=== PATIENT | female | born 1975 | race Caucasian/White ===

== ENCOUNTER 2023-07-25 13:24 | Emergency (ER) | payer OTHER, SELFPAY ==
[2023-07-25 13:29] VITALS: BP 141/94; PULSE 78; RESP 18; TEMP 36.4; O2SAT 100; BMI 33.5
[2023-07-25] MEDS: DIPHENHYDRAMINE HCL 50 MG/ML (1ML) VIAL IV (14:32)
[2023-07-25] MEDS: PROCHLORPERAZINE 10 MG/2 ML VIAL IV (14:32)
[2023-07-25] MEDS: 0.9 % SODIUM CHLORIDE 1,000 ML 999 ML IV (14:32)
[2023-07-25] MEDS: KETOROLAC TROMETHAMINE 30 MG/ML VIAL 15 MG IVP (14:32)
--- NOTE | 2023-07-25 15:23 | ED_ITS ---
HPI - General Adult General Chief complaint: Headache Stated complaint: MIGRAINE Time Seen by Provider: 07/25/23 14:03 Source: patient Mode of arrival: walk-in History of Present Illness HPI narrative: 48-year-old female presents to the emergency department with complaint of headache. Onset around noon. States history of chronic migraines. Describes pain as though her head Q weren't of ice. Took her headache medicines at home, but headache worsened and she came in for further evaluation. Patient states symptoms are the same as prior migraine headaches. Having associated light and Quality:? Severity:? Timing:? Context: Normal setting and activity? Modifying factors:? Associated symptoms: Related Data Allergies Allergy/AdvReac Type Severity Reaction Status Date / Time acetaminophen [From Vicodin] Allergy Severe Verified 07/25/23 13:34 ciprofloxacin [From Cipro] Allergy Severe Verified 07/25/23 13:34 gabapentin Allergy Severe Verified 07/25/23 13:34 hydrocodone [From Vicodin] Allergy Severe Verified 07/25/23 13:34 meloxicam [From Mobic] Allergy Severe Verified 07/25/23 13:34 phenazopyridine Allergy Severe Verified 07/25/23 13:34 [From Pyridium] Review of Systems ROS Narrative CONST: Denies fever, chills HENT: Denies congestion, sore throat EYES: + photophobia, otophobia. Denies eye redness, visual disturbance GI: + nausea. Denies abd pain, vomiting MS: Denies back pain, myalgias NEURO: + headache. Denies dizziness, facial asymmetry, light-headedness, numbness, seizures, syncope, tremors, weakness PSYCHIATRIC: Denies confusion, agitation Exam Narrative Exam Narrative: Vital signs reviewed Nurses notes noted CONST: Nontoxic, well appearing, well nourished, in no distress.? No diaphoresis.?? HENT: normocephalic, atraumatic, moist mucous membrane, no abnormalities of the nose noted, hearing normal, no facial droop. Ears clear EYES: + photophobic. PERRL, EOMI.? normal appearing conjunctiva, no apparent discharge bilat NECK: normal appearance CV: normal rate, regular rhythm, no murmur RESP: normal effort, speaking in complete sentences. Lung sounds clear and equal bilat.? No wheezes, rales, rhonchi NEURO: A&Ox 3, GCS = 15, no sensory, motor deficits.? CN normal as tested. 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 Gait intact. PSYCH: normal mood, affect.? Normal speech.? Memory intact Constitutional Vital Signs, click to edit/add: Last Vital Signs Temp 97.5 F L 07/25/23 13:29 Pulse 85 07/25/23 15:39 Resp 16 07/25/23 15:39 BP 136/85 07/25/23 15:39 Pulse Ox 98 07/25/23 15:39 O2 Del Method Room Air 07/25/23 15:39 Course Reevaluation(s) Reevaluation #1: Patient notes overall improvement of her symptoms, feeling well enough to go home. Time: 15:25 Vital Signs Vital signs: Vital Signs Temperature 97.5 F L 07/25/23 13:29 Pulse Rate 78 07/25/23 13:29 Respiratory Rate 18 07/25/23 13:29 Blood Pressure 141/94 H 07/25/23 13:29 Pulse Oximetry 100 07/25/23 13:29 Oxygen Delivery Method Room Air 07/25/23 13:29 Temperature 97.5 F L 07/25/23 13:29 Pulse Rate 85 07/25/23 15:39 Respiratory Rate 16 07/25/23 15:39 Blood Pressure 136/85 07/25/23 15:39 Pulse Oximetry 98 07/25/23 15:39 Oxygen Delivery Method Room Air 07/25/23 15:39 Medical Decision Making MDM Narrative Medical decision making narrative: This is a pleasant 48-year-old female who presents to the emergency department with complaint of headache. States history of migraine headaches and that these are the same symptoms that she has had in the past. Patient having associated photophobia, photophobia, nausea. Denies any focal weakness or any other new or otherwise concerning signs or symptoms. On arrival, afebrile, vital signs are stable. On exam, nontoxic, somewhat uncomfortable appearing patient in no apparent distress. She is wearing sunglasses. Patient does display photophobia. No focal deficits. No cranial nerve deficits. Patient is ambulatory. Steady gait, normal station. HEENT unremarkable. Patient was treated with IV Compazine, Benadryl, and Toradol with overall improvement of her symptoms to where she felt well enough to go home as noted in course above. Likely nonspecific headache, history of migraine headaches based on history and physical exam and response to treatment. Less likely ICH based on history and physical exam Less likely CVA based on history and physical exam. Disposition ? The patient was discharged. Plan: Patient will be discharged to home. Condition at time of disposition: stable & improved ? Advised to follow up with referral provider, phone number to call for appointment placed on discharge instructions. Advised to return for any worsening and/or development of new, concerning signs or symptoms Discharge Plan Discharge Chief Complaint: Headache Clinical Impression: Photophobia, Cephalgia Patient Disposition: Home, Self-Care Time of Disposition Decision: 15:28 Condition: Good Instructions: Acute Headache (ED) Stand Alone Forms: Portal Instructions Referrals: Ellen Dodson NP [Primary Care Provider] - 1 week Discharge Date/Time: 07/25/23 15:39
[2023-07-25 15:39] VITALS: BP 136/85; PULSE 85; RESP 16; O2SAT 98
== END 2023-07-25 15:39 | disposition home or self-care (01) ==
PROVIDERS: Emergency Provider Emergency Medicine; PCP Nurse Practitioner
DX: R51.9 Headache, unspecified (principal); H53.149 Visual discomfort, unspecified
CPT/HCPCS: 96374; 96375; 99284; J0780; J1200; J1885

== ENCOUNTER 2023-08-15 14:44 | Outpatient (OUT) | payer OTHER, SELFPAY | END 2023-08-15 14:45 | disposition home or self-care (01) | LOC: PST 14:44 | PROVIDERS: PCP Nurse Practitioner; Visit Provider Surgery | DX: Z12.11 Encounter for screening for malignant neoplasm of colon (principal) ==

== ENCOUNTER 2023-08-21 06:43 | Day surgery (SDC) | payer OTHER, SELFPAY ==
--- NOTE | 2023-08-21 | OP_ITS ---
OPERATION DATE: 08/21/2023 PREOPERATIVE DIAGNOSIS: Colorectal screening. POSTOPERATIVE DIAGNOSIS: Normal colonoscopy to cecum. PROCEDURE: Colonoscopy to cecum. SURGEON: Dinesh Camp M.D. ANESTHESIA: Monitored anesthesia care. ESTIMATED BLOOD LOSS: Zero. INDICATIONS AND CONSENT: Patient is a 48-year-old female presents for colorectal screening. Indications, risks, benefits, alternatives of proceeding with colonoscopy were explained extensively to the patient, including the risks of bleeding, colon perforation or anesthetic complications. All of her questions were answered. Informed consent was obtained. PROCEDURE: Patient brought to the operating room, placed in the left lateral decubitus position. Monitored anesthesia care was provided. Rectal exam was performed which showed no masses or blood. The scope was inserted into the anal canal. Under direct visualization was advanced. It was advanced to the cecum where cecal markings were clearly identified. Upon withdrawal of the scope, mucosal surfaces were carefully examined. There were no mass lesions or polyps. No inflammatory changes or ulcerations. No significant diverticulosis. The scope was retroflexed in the anal canal. There was no significant hemorrhoidal disease. Scope was then withdrawn. Patient tolerated procedure well, was sent to recovery room in good condition. Follow up colonoscopy should be in 10 years for screening. CC: Ellen Dodson, JOSE SHAH
--- OUTSIDE RECORDS SUMMARY | 2023-08-21 06:46 | XMS_ITS | CCD ---
Author Name Unknown Address [address] [place] [address] Organization [facility] Care Team Providers Care Practice Architect Name Role Phone PHYSICIAN, DEFAULT Unavailable Unavailable PHYSICIAN, DEFAULT Unavailable Unavailable Myles Ramirez Unavailable Ellen Dodson Primary Care Provider MD Myles Ramirez Attending Provider AICHHOLZ, BOOT LINER MAKER ELLEN Consulting Unavailable AICHHOLZ, BOOT LINER MAKER ELLEN Primary Care Unavailable AICHHOLZ, BOOT LINER MAKER ELLEN Admitting Unavailable AICHHOLZ, BOOT LINER MAKER ELLEN Attending Unavailable MOISES, DR JESUS Booker Consulting Unavailable AICHHOLZ, BOOT LINER MAKER ELLEN Primary Care Unavailable AICHHOLZ, BOOT LINER MAKER ELLEN Admitting Unavailable AICHHOLZ, BOOT LINER MAKER ELLEN Attending Unavailable AICHHOLZ, BOOT LINER MAKER ELLEN Consulting Unavailable AICHHOLZ, BOOT LINER MAKER ELLEN Consulting Unavailable AICHHOLZ, BOOT LINER MAKER ELLEN Primary Care Unavailable AICHHOLZ, BOOT LINER MAKER ELLEN Admitting Unavailable AICHHOLZ, BOOT LINER MAKER ELLEN Attending Unavailable AICHHOLZ, BOOT LINER MAKER ELLEN Consulting Unavailable AICHHOLZ, BOOT LINER MAKER ELLEN Primary Care Unavailable AICHHOLZ, BOOT LINER MAKER ELLEN Admitting Unavailable AICHHOLZ, BOOT LINER MAKER ELLEN Attending Unavailable AICHHOLZ, BOOT LINER MAKER ELLEN Primary Care Unavailable AICHHOLZ, BOOT LINER MAKER ELLEN Admitting Unavailable AICHHOLZ, BOOT LINER MAKER ELLEN Attending Unavailable PAY ., DR US Admitting Unavailable PAY ., DR US Attending Unavailable PAY ., DR US Consulting Unavailable AICHHOLZ, BOOT LINER MAKER ELLEN Primary Care Unavailable PHUC, HILLARY Admitting Unavailable PHUC, HILLARY Attending Unavailable PHUC, HILLARY Consulting Unavailable AICHHOLZ, BOOT LINER MAKER ELLEN Primary Care Unavailable LALO BARRETT Consulting Unavailable MORALES ., DR HUGHES Admitting Unavailabl e KARODELL ., DR HUGHES Attending Unavailabl marilin NIELSEN ., DR HUGHES Consulting Unavailabl e AICHHOLZ, BOOT LINER MAKER ELLEN Primary Care Unavailable MICHELLE ., DR KOWALSKI Consulting Unavailable FARAZ, DEIDRE Consulting Unavailable SHELLEY ., IVIS Consulting Unavailable DESTINEE HAIR Consulting Unavailable TRE, LINDSEY Consulting Unavailable MYLES APODACA Consulting Unavailable REYNALDO CASTILLO Consulting Unavailable KEYUR MCCAULEY P Referring Unavailable [facility], TY MUIR Primary Care Unavailable GARRICKKEYUR P Referring Unavailable PAVLOCK, HEYWORTH ISADORA Primary Care Unavailable GARRICKKEYUR BARNETT Attending Unavailable ELLEN DODSON Referring Unavailable PAVLOCK, HEYWORTH ISADORA Primary Care Unavailable ELLEN DODSON Attending Unavailable ELLEN DODSON Primary Care Physician [phone] HUNG DELACRUZ Attending Unavailable Meño ALONZO Referring Unavailable AICHHOLAlycia, ELLEN J Referring Unavailable NILDinesh Zuniga Attending Unavailable NILDinesh Zuniga Attending Unavailable BRISEIDAHELLEN WEATHERS Referring Unavailable Parth Galvez MD Primary Care Provider Allergies Allergy Classification Reported Allergen(s) Allergy Type Date of Onset Reaction(s) Facility (7 sources) Acetaminophen / HYDROcodone; Translations: [Vicodin] Drug Allergy 2012 Gastrointestinal irritation (disorder) [facility] Repository (6 sources) Lisinopril; Translations: [lisinopril] Drug Allergy 2020 Chest pain (finding) [facility] (6 sources) meloxicam; Translations: [meloxicam] Drug Allergy 2020 Fatigue (finding) [facility] (4 sources) Phenazopyridine Drug Allergy 2016 GI intolerance [facility] (2 sources) Steriods Propensity to adverse reactions elevated BP Seeqpod Other (1 source) Acetaminophen Drug Allergy 2020 Vomiting [facility] (1 source) hydroCHLOROthiazide Drug Allergy 2020 shortness of breath [facility] (1 source) HYDROcodone Drug Allergy 2020 Vomiting [facility] (1 source) Amino Acids Drug Allergy [facility] Repository (3 sources) Ciprofloxacin; Translations: [Cipro] Drug Allergy [facility] Repository (1 source) meloxicam Drug Allergy [facility] Repository (2 sources) Phenazopyridine Drug Allergy 2012 [facility] Repository (3 sources) Ciprofloxacin; Translations: [ciprofloxacin] Drug Allergy 2016 Weal (disorder), Hives, GI intolerance [facility] (4 sources) gabapentin; Translations: [gabapentin] Drug Allergy 2022 Fatigue (finding), Shortness of breath, Other [facility] [place] (3 sources) predniSONE; Translations: [prednisone] Drug Allergy Hypertensive disorder, systemic arterial (disorder) [facility] [place] (1 source) Acetaminophen / HYDROcodone Drug Allergy 2016 Unknown, GI intolerance [facility] (1 source) Lisinopril Allergy to substance 2020 Unknown [facility] (1 source) meloxicam Drug Allergy 2016 Unknown [facility] (1 source) Prednisone Propensity to adverse reactions 2022 Other [facility] Medications Current Medications Medication Drug Class(es) Dates Sig (Normalized) Sig (Original) [id number] 200 actuat albuterol 0.09 mg/actuat metered dose inhaler (4 sources) beta2-Adrenergic Agonist Start: 04-17-2023 take 2 puff(s) by inhalation every six hours Ventolin HFA 108 (90 Base) MCG/ACT inhaler Inhale 2 puffs every 6 (six) hours if needed for shortness of breath 0 04/17/2023 Active Start: 05-07-2019 take 1 puff(s) by in halation every six hours Albuterol Sulfate Active 2 PUFF INHALATION Q6H May 07, 2019 1:00am take 2 puff(s) by mo uth every six hours as needed Albuterol Sulfate HFA 108 (90 Base) MCG/ACT INHALE 2 PUFFS BY MOUTH EVERY 6 HOURS NEEDED Inhalation for 25 Active ascorbic acid 500 mg chewable tablet (2 sources) Vitamin C Start: 05-07-2019 take 1 tablet by mouth once daily Ascorbic Acid (Vitamin C) (Vitamin C) 500 mg Tablet,Chewable Active 500 MG PO Daily May 07, 2019 1:00am baclofen 20 mg oral tablet (4 sources) gamma-Aminobuty pamela Acid-ergic Agonist Start: 06-21-2023 take 1 tablet by mouth once daily as needed for muscle spasms baclofen 20 mg Tab 20 mg = 1 tab(s), Oral, Daily, PRN Spasm, Refills(s) 0 Start Date: 06/21/23 Status: Ordered Start: 01-17-2018 End: 05-20-2019 take 20 mg by mouth three times daily Baclofen Discontinued 20 MG PO Three times daily January 17, 2018 12:00am May 20, 2019 9:50am carvedilol 6.25 mg oral tablet (6 sources) alpha-Adrenergic Isabell, beta-Adrenergic Isabell Start: 06-21-2023 take 1 tablet by mouth twice daily Coreg 6.25 mg Tab 6.25 mg = 1 tab(s), Oral, BID, Refills(s) 0 Start Date: 06/21/23 Status: Ordered Start: 05-07-2019 take 6.25 mg by mout h twice daily Carvedilol Active 6.25 MG PO Twice daily May 07, 2019 1:00am carvedilol (Core g) 6.25 MG tablet every 12 (twelve) hours. 0 Active cetirizine hydrochloride 10 mg oral tablet (3 sources) Histamine-1 Receptor Antagonist Start: 09-14-2020 take 10 mg by mouth once daily Cetirizine Active 10 MG PO Daily September 14, 2020 12:00am Deep Sleep Vitamin (1 source) Start: 09-14-2020 take 1 capsule by mouth once daily at bedtime Deep Sleep Vitamin Active 1 CAP PO Daily at bedtime September 14, 2020 12:00am diazePAM 5 mg oral tablet (1 source) Benzodiazepine Start: 05-20-2019 take 5 mg by mouth four times daily Diazepam Active 5 MG PO Four times daily 40 10 May 20, 2019 1:00am 1 ml erenumab-aooe 70 mg/ml auto-injector (2 sources) Start: 06-21-2023 inject 70 mg by subcutaneous injection every month Aimovig SureClick 70 mg/mL subcutaneous solution 70 mg, SubCutaneous, qMonth, Refills(s) 0 Start Date: 06/21/23 Status: Ordered hydroCHLOROthiazide 12.5 mg oral tablet (6 sources) Thiazide Diuretic Start: 06-21-2023 take 1 tablet by mouth once daily hydrochlorothiazide 12.5 mg Tab 12.5 mg = 1 tab(s), Oral, Daily, Refills(s) 0 Start Date: 06/21/23 Status: Ordered Start: 05-07-2019 take 12.5 mg by mout h once daily Hydrochlorothiazide Active 12.5 MG PO Daily May 07, 2019 1:00am take 1 tablet by aidan th in the morning hydroCHLOROthiazide (HYDRODiuril) 25 MG tablet Indications: Edema , Hypertension Take 25 mg by mouth in the morning. 0 Active Multi Vitamins oral tablet (2 sources) Start: 06-21-2023 take 1 tablet by mouth once daily Multi Vitamins oral tablet 1 tab(s), Oral, Daily, Refill(s) 0 Start Date: 06/21/23 Status: Ordered Multiple Vitamin (Multi-Vitamin) tablet (1 source) Multiple Vitamin (Multi-Vitamin) tablet 1 (one) time each day at the same time. 0 Active Multivitamin preparation (1 source) Start: 05-07-2019 take 2 tablets by mouth once daily at bedtime Multivitamin Active 2 TAB PO Daily at bedtime May 07, 2019 1:00am 24 hr oxybutynin chloride 5 mg extended release oral tablet (3 sources) Cholinergic Muscarinic Antagonist Start: 06-21-2023 take 1 tablet by mouth once daily oxybutynin 5 mg ER Tab 5 mg = 1 tab(s), Oral, Daily, Refills(s) 0 Start Date: 06/21/23 Status: Ordered Start: 03-28-2023 take 1 tablet by aidan th every twenty-four hours in the morning oxybutynin XL (Ditropan-XL) 5 MG 24 hr tablet Take 5 mg by mouth in the morning. 0 03/28/2023 Active phentermine hydrochloride 37.5 mg oral tablet (3 sources) Sympathomimetic Amine Anorectic Start: 09-14-2020 take 37.5 mg by mouth once daily Phentermine Active 37.5 MG PO Daily September 14, 2020 12:00am take 1 capsule by mo uth every twenty-four hours Adipex-P 37.5 MG 1 capsule Orally Once a day Active rizatriptan 10 mg oral tablet (1 source) Serotonin-1b and Serotonin-1d Receptor Agonist Start: 07-11-2023 rizatriptan (Maxalt) 10 MG tablet Indications: Migraine without aura and without status migrainosus, not intractable (CMS/HCC) 1 tablet at the onset of migraine headache, may repeat again in 2 hours. No more than 2 pills in 24 hours, no more than twice a week. 9 tablet 0 07/11/2023 Active simvastatin 20 mg oral tablet (3 sources) HMG-CoA Reductase Inhibitor Start: 05-23-2023 take 1 tablet by mouth once daily in the evening simvastatin 20 mg Tab 20 mg = 1 tab(s), Oral, qPM, Refills(s) 0 Start Date: 06/21/23 Status: Ordered traZODone hydrochloride 50 mg oral tablet (1 source) Serotonin Reuptake Inhibitor Start: 06-21-2023 take 1 tablet by mouth once daily at bedtime traZODONE 50 mg Tab 50 mg = 1 tab(s), Oral, Once a day (at bedtime), Refills(s) 0 Start Date: 06/21/23 Status: Ordered 24 hr venlafaxine 150 mg extended release oral capsule (5 sources) Serotonin and Norepinephrine Reuptake Inhibitor Start: 06-21-2023 take 1 capsule by mouth once daily venlafaxine 150 mg Cap-ER 150 mg = 1 cap(s), Oral, Daily, Refills(s) 0 Start Date: 06/21/23 Status: Ordered Start: 09-14-2020 take 75 mg by mouth once daily Venlafaxine Active 75 MG PO Daily September 14, 2020 12:00am Start: 05-07-2019 take 150 mg by mouth once daily in the morning Venlafaxine Active 150 MG PO Every morning May 07, 2019 1:00am take [address] [facility] once daily Venlafaxine HCl ER 225 MG TAKE 1 CAPSULE BY MOUTH ONCE DAILY FOR A TOTAL DAILY DOSE OF 225MG Oral for 30 Active Ventolin HFA 90 mcg/inh Aerosol-Adpt (2 sources) Start: 06-21-2023 take 2 puff(s) by inhalation every six hours Ventolin HFA 90 mcg/inh Aerosol-Adpt 2 puff(s), Inhalation, q6hr Shortness of breath or wheezing, Refill(s) 0 Start Date: 06/21/23 Status: Ordered zolpidem tartrate 10 mg oral tablet (5 sources) gamma-Aminobut yric Acid-ergic Agonist Start: 08-05-2023 End: 09-04-2023 take 1 tablet by mouth at bedtime zolpidem (Ambien) 10 MG tablet Indications: Primary insomnia Take 1 tablet (10 mg) by mouth at bedtime 30 tablet 1 08/05/2023 09/04/2023 Active Start: 07-31-2023 take 1 tablet by aidan th once daily at bedtime as needed for sleep Ambien 10 mg Tab 10 mg = 1 tab(s), Oral, Once a day (at bedtime), PRN for sleep, Refills(s) 0 Start Date: 07/31/23 Status: Ordered Start: 09-14-2020 take 1 tablet by aidan th once daily at bedtime Zolpidem (Ambien) 5 mg Tablet Active 5 MG PO Daily at bedtime September 14, 2020 12:00am Completed/Discontinued Medications Medication Drug Class(es) Dates Sig (Normalized) Sig (Original) amitriptyline hydrochloride 75 mg oral tablet (1 source) Tricyclic Antidepressant Start: 01-17-2018 End: 05-07-2019 take 1 tablet by mouth once daily at bedtime Amitriptyline Discontinued 1 TAB PO Daily at bedtime January 17, 2018 12:00am May 07, 2019 2:28pm DULoxetine 20 mg delayed release oral capsule (2 sources) Serotonin and Norepinephrine Reuptake Inhibitor Start: 02-25-2018 End: 05-07-2019 take 1 capsule by mouth twice daily Duloxetine (Cymbalta) 20 mg Capsule,Delayed Release(Dr/Ec) Discontinued 20 MG PO Twice daily February 25, 2018 12:00am May 07, 2019 2:29pm Start: 01-17-2018 End: 05-07-2019 take 1 tablet by mouth once daily at bedtime Duloxetine Discontinued 1 TAB PO Daily at bedtime January 17, 2018 12:00am May 07, 2019 2:29pm oxyCODONE hydrochloride 5 mg oral tablet (1 source) Opioid Agonist Start: 05-20-2019 End: 09-14-2020 take 5 mg by mouth every four to six hours Oxycodone Discontinued 5 MG PO EVERY 4-6 HOURS 70 May 20, 2019 September 14, 2020 2:20pm QUEtiapine 50 mg oral tablet (1 source) Atypical Antipsychotic Start: 05-07-2019 End: 09-14-2020 take 50 mg by mouth once daily at bedtime Quetiapine Discontinued 50 MG PO Daily at bedtime May 07, 2019 1:00am September 14, 2020 2:20pm Triamcinolone (4 sources) Corticosteroid Start: 01-07-2020 Kenalog -40 mg Dec, 40 mg Start: 10-22-2017 Kenalog -40 mg October, 10 mg Triamcinolone Ac etonide 0.1 % APPLY CREAM EXTERNALLY TO AFFECTED AREA TWICE DAILY FOR 14 DAYS External for 14 Active Problems Active Problems Problem Classification Problem Date Documented Da te Episodic/Chronic Abdominal pain (8 sources) Pelvic and perineal pain; Translations: [Unspecified abdominal pain] Onset: 10-15-2022 Episodic Anxiety disorders (5 sources) Generalized anxiety disorder; Translations: [Anxiety disorder, unspecified] Onset: 12-08-2021 06-21-2023 Chronic Calculus of urinary tract (1 source) Personal history of urinary calculi; Translations: [PERSONAL HISTORY OF URINARY CALCULI] Onset: 10-17-2022 Episodic Disorders of lipid metabolism (5 sources) Hyperlipidemia, unspecified; Translations: [Dyslipidemia] Onset: 08-30-2022 Chronic Essential hypertension (4 sources) Essential (primary) hypertension; Translations: [Hypertensive disorder] Onset: 11-21-2022 06-21-2023 Chronic Genitourinary symptoms and ill-defined conditions (4 sources) Unspecified urinary incontinence; Translations: [Incontinence] Onset: 03-12-2023 Chronic Headache; including migraine (3 sources) Migraine; Translations: [Migraine without aura, not refractory ] Onset: 06-04-2023 06-21-2023 Chronic Headache; including migraine (4 sources) Headache; including migraine; Translations: [HEADACHE UNSPECIFIED] Onset: 08-17-2022 Miscellaneous mental health disorders (1 source) Primary insomnia; Translations: [Primary insomnia] 08-05-2023 Chronic Mood disorders (3 sources) Depressive disorder; Translations: [Depression] Onset: 08-05-2023 06-21-2023 Chronic Other aftercare (1 source) 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; Translations: [OTH MASTER PLANNER CURRENT DRUG THERAPY] Onset: 10-17-2022 Episodic Other connective tissue disease (1 source) Myalgia, unspecified site; Translations: [Myalgia] Onset: 03-20-2023 Episodic Other connective tissue disease (1 source) Fibromyalgia; Translations: [Fibromyalgia] Onset: 08-05-2023 08-05-2023 Episodic Other gastrointestinal disorders (1 source) Peritoneal adhesions (postprocedural) (postinfection); Translations: [PERITONEAL ADHES POSTPROC POSTINF] Onset: 11-21-2022 Episodic Other hematologic conditions (1 source) ESR raised; Translations: [Elevated erythrocyte sedimentation rate] Onset: 08-05-2023 08-05-2023 Episodic Other hematologic conditions (1 source) Increased serum protein level; Translations: [Abnormality of plasma protein, unspecified] Onset: 08-05-2023 08-05-2023 Episodic Other nervous system disorders (1 source) Other chronic pain; Translations: [OTHER CHRONIC PAIN] Onset: 08-21-2022 Chronic Other nutritional; endocrine; and metabolic disorders (1 source) Obesity, unspecified; Translations: [OBESITY UNSPECIFIED] Onset: 09-04-2022 Chronic Other nutritional; endocrine; and metabolic disorders (2 sources) Obesity 06-21-2023 Chronic Other nutritional; endocrine; and metabolic disorders (2 sources) Body mass index 30+ - obesity; Translations: [Obesity, unspecified] Onset: 06-04-2023 07-31-2023 Chronic Other screening for suspected conditions (not mental disorders or infectious disease) (5 sources) Encounter for screening mammogram for malignant neoplasm of breast; Translations: [Screening for malignant neoplasm of colon done] Onset: 09-04-2022 Episodic Other upper respiratory disease (1 source) Allergic rhinitis; Translations: [Allergic rhinitis, unspecified] Onset: 08-05-2023 08-05-2023 Chronic Ovarian cyst (1 source) Unspecified ovarian cyst, right side; Translations: [UNSPECIFIED OVARIAN CYST RIGHT SIDE] Onset: 11-21-2022 Episodic Residual codes; unclassified (1 source) Obstructive sleep apnea syndrome; Translations: [Obstructive sleep apnea (adult) (pediatric)] Onset: 08-05-2023 08-05-2023 Chronic Residual codes; unclassified (1 source) Acquired absence of both cervix and uterus; Translations: [ACQUIRED ABSENCE BOTH CERVIX AND UTERUS] Onset: 11-21-2022 Episodic Residual codes; unclassified (1 source) Acquired absence of ovaries, unilateral; Translations: [ACQUIRED ABSENCE OVARIES UNILATERAL] Onset: 11-21-2022 Episodic Residual codes; unclassified (1 source) Insomnia; Translations: [Insomnia, unspecified] Onset: 08-05-2023 08-05-2023 Episodic Residual codes; unclassified (1 source) Edema; Translations: [Edema, unspecified] Onset: 08-05-2023 08-05-2023 Episodic Spondylosis; intervertebral disc disorders; other back problems (1 source) Degeneration of cervical intervertebral disc; Translations: [Other cervical disc degeneration, unspecified cervical region] Onset: 08-05-2023 08-05-2023 Chronic Spondylosis; intervertebral disc disorders; other back problems (8 sources) Cervical disc prolapse with radiculopathy; Translations: [Cervical disc disorder with radiculopathy, unspecified cervical region] Onset: 03-29-2021 Resolved: 02-14-2022 Episodic Substance-related disorders (4 sources) Nicotine dependence, cigarettes, uncomplicated; Translations: [Tobacco dependence syndrome] Onset: 11-21-2022 06-21-2023 Chronic Unclassified (4 sources) Patient encounter status 06-21-2023 Past or Other Problems Problem Classification Problem Date Documented Da te Episodic/Chronic Nausea and vomiting (1 source) Nausea with vomiting, unspecified; Translations: [NAUSEA WITH VOMITING UNSPECIFIED] Onset: 08-21-2022 Episodic Other nervous system disorders (1 source) Paresthesia of skin; Translations: [PARESTHESIA OF SKIN] Onset: 12-08-2021 Episodic Residual codes; unclassified (1 source) Family history of ischemic heart disease and other diseases of the circulatory system; Translations: [FAM HX ISCHEMIC HRT DZ OTH DZ CIRC] Onset: 03-04-2022 Episodic Results Test Name Value Interpretation Reference Range Facility Consent for Procedure/Surger yon 08-01-2023 Consent for Procedure/Surgery [id number] Facesheeton 08-01-2023 Facesheet [id number]#[id number] [facility] Ambulatory Visit Summaryon 0 07-31-2023 Ambulatory Visit Summary PRASHANT KENNEY :1975 Visit Date:07/31/2023 Ambulatory Visit Instructions Your Diagnosis Screening for malignant neoplasm of colon Your Care Team Attending Physician - Dinesh RIOS MD Primary Care Physician - ELLEN DODSON CNP Referring Physician - ELLEN DODSON CNP This Is Your Medications List Contact prescribing physician if questions or concerns albuterol (Ventolin HFA 90 mcg/inh Aerosol-Adpt) baclofen (baclofen 20 mg Tab) carvedilol (Coreg 6.25 mg Tab) erenumab (Aimovig SureClick 70 mg/mL subcutaneous solution) hydrochlorothiazide (hydrochlorothiazide 12.5 mg Tab) multivitamin (Multi Vitamins oral tablet) oxybutynin (oxybutynin 5 mg ER Tab) simvastatin (simvastatin 20 mg Tab) zolpidem (Ambien 10 mg Tab) Procedures Performed Laparoscopic right oophorectomy (11/16/2022), Abdominal hysterectomy, Arthroscopy of shoulder, Laparoscopy, Lysis of adhesions, Tonsillectomy. Discharge Vitals Heart Rate (Peripheral) 72 Respiratory Rate 16 Blood Pressure 116/78 Height 158.7 cm Height 62 in Weight 85.2 kg Weight 187.44 lb BMI 33.83 Medications What How Much When Instructions Unchanged albuterol (Ventolin HFA 90 mcg/ inh Aerosol-Adpt) 2 Puffs Inhalation Every 6 hours as needed for Shortness of breath or wheezing Contact prescribing physician if questions or concerns Unchanged baclofen (baclofen 20 mg Tab) 1 Tablets By Mouth Every day as needed for Spasm Contact prescribing physician if questions or concerns Unchanged carvedilol (Coreg 6.25 mg Tab) 1 Tablets By Mouth 2 times a day Contact prescribing physician if questions or concerns Unchanged erenumab (Aimovig SureClick 70 mg/ mL subcutaneous solution) 70 Milligram Subcutaneous Once a month Contact prescribing physician if questions or concerns Unchanged hydrochlorothiazide (hydrochlorothiazide 12.5 mg Tab) 1 Tablets By Mouth Every day Contact prescribing physician if questions or concerns Unchanged multivitamin (Multi Vitamins oral tablet) 1 Tablets By Mouth Every day Contact prescribing physician if questions or concerns Unchanged oxybutynin (oxybutynin 5 mg ER Tab) 1 Tablets By Mouth Every day Contact prescribing physician if questions or concerns Unchanged simvastatin (simvastatin 20 mg Tab) 1 Tablets By Mouth Once a day (in the evening) Contact prescribing physician if questions or concerns Unchanged zolpidem (Ambien 10 mg Tab) 1 Tablets By Mouth Once a day (at bedtime) as needed for for sleep Contact prescribing physician if questions or concerns Medications and Immunizations Administered Not Given influenza virus vaccine, inactivated, Patient Refuses Allergies Cipro (Hives) Vicodin (Gastrointestinal upset) gabapentin (Fatigue) lisinopril (Chest pain) meloxicam (Fatigue) predniSONE (Hypertension) Problems Ongoing - Any problem that you are currently receiving treatment for. Anxiety BMI 33.0-33.9,adult Depression HTN (hypertension) Incontinence Migraine Obesity Screening for colorectal cancer Screening for malignant neoplasm of colon Tobacco dependence Patient Survey You may receive a survey via text or e-mail asking about your office visit. Please share your experience with us by completing your survey. We appreciate your feedback and thank you for choosing us for your care. Normal [facility] Physician Referralon 023 Physician Referral [id number] F Normal [facility] HANNA BY IFA WITH REFLEXon Nuclear Ab Ql (S) Negative Normal Negative [facility] talia Comment on above: [facility] Ordering Facility: [facility] Address: [address] [address] Result Comment: Anti -nuclear antibody test is used as an aid in diagnosis of systemic autoimmune diseases. Where positive and clinically warranted, follow-up using disease-specific testing is recommended. Low positive titers are not uncommon with advanced age, certain chronic infections, and malignancies among others. Test methodology: Indirect fluorescence immunoassay (IFA) using HEp-2 cells. Performed By: #### A NAIFR #### [facility] CLIA [id number] [facility] [id number] [place] [address] [place] CBC panel Auto (Bld)on 03-20 Erythrocyte distribution width (RBC) [Ratio] 13.1 % Normal 11.5-15.0 [facility] Comment on above: Order Comment: [facility] Type: BLOOD SPECIMEN Ordering Facility: [facility] Address: [address] [address] Performed By: #### 5 8410-2 #### [facility] [place] [id number] [address] [place] [address] [place] Hematocrit (Bld) [Volume fraction] 42.9 % Normal 36.0-46.0 [facility] Comment on above: Order Comment: Speci men Type: BLOOD SPECIMEN Ordering Facility: [facility] Address: [address] [place] [address] Performed By: #### 5 8410-2 #### [facility] IA [id number] [place] [address] [place] Hemoglobin (Bld) [Mass/Vol] 13.9 g/dL Normal 11.5-15.5 [facility] Comment on above: Order Comment: Speci men Type: BLOOD SPECIMEN Ordering Facility: [facility] Address: [address] [place] [address] Performed By: #### 5 8410-2 #### [facility] IA [id number] [address] [place] [address] [place] MCH (RBC) [Entitic mass] 28.6 pg Normal 26.0-34.0 [facility] Comment on above: Order Comment: Speci men Type: BLOOD SPECIMEN Ordering Facility: [facility] Address: [address] [place] [address] Performed By: #### 5 8410-2 #### [facility] IA [id number] [place] [address] [place] MCHC (RBC) [Mass/Vol] 32.4 g/dL Normal 30.5-36.0 [facility] Comment on above: Order Comment: Speci men Type: BLOOD SPECIMEN Ordering Facility: [facility] Address: [address] [place] [address] Performed By: #### 5 8410-2 #### [facility] IA [id number] [place] [address] [place] MCV (RBC) [Entitic vol] 88.3 fL Normal 80.0-100.0 [facility] Comment on above: Order Comment: Speci men Type: BLOOD SPECIMEN Ordering Facility: [facility] Address: [address] [address] Performed By: #### 5 8410-2 #### [facility] IA [id number] [address] [place] [address] [place] Nucleated RBC (Bld) [#/Vol] 10*3/uL Normal <0.01 [facility] Comment on above: Order Comment: Speci men Type: BLOOD SPECIMEN Ordering Facility: [facility] Address: [address] [address] Performed By: #### 5 8410-2 #### [facility] IA [id number] [address] [place] [address] [place] Platelet mean volume (Bld) [Entitic vol] 10.2 fL Normal 9.0-12.7 [facility] Comment on above: Order Comment: Speci men Type: BLOOD SPECIMEN Ordering Facility: [facility] Address: [address] [address] Performed By: #### 5 8410-2 #### [facility] IA [id number] [address] [place] [address] [place] Platelets (Bld) [#/Vol] 328 10*3/uL Normal 150-400 [facility] Comment on above: Order Comment: Speci men Type: BLOOD SPECIMEN Ordering Facility: [facility] Address: [address] Performed By: #### 5 8410-2 #### [facility] IA [id number] [address] [place] [address] [place] RBC (Bld) [#/Vol] 4.86 10*6/uL Normal 3.90-5.20 [facility] Comment on above: Order Comment: Speci men Type: BLOOD SPECIMEN Ordering Facility: [facility] Address: [address] [address] Performed By: #### 5 8410-2 #### [facility] IA [id number] [place] WBC (Bld) [#/Vol] 6.40 10*3/uL Normal 3.70-11.00 [facility] Comment on above: Order Comment: Speci men Type: BLOOD SPECIMEN Ordering Facility: [facility] Address: [place] [address] Performed By: #### 5 8410-2 #### [facility] CLIA [id number] [facility] [place] [address] [facility] CNOVon 03-20-2023 CNOV Office Visit (RHEUAV ) -------- PRASHANT KENNEY ([id number]) 1975 F Date Time Provider Department 03/20/23 1:00 PM KEYUR MCCAULEY During your visit today, we recorded the following information about you: Pulse Blood pressure Weight Height 80/minute 118/84 85.7 kg 1.575 m Keyur Mccauley MD 03/20/2023 2:07 PM Signed Prashant Zuniga Pablito is a 47 year old female who presents for arthralgias and myalgias HPI:47 yr female here for arhtrlagias and myaglias Got hurt at work in 2016, went on to have neck and shoulder surgery H/o wide spread soon after ''all downhill since then'' PCP thinks patient has fibromyalgia but wants to rule out disease Today has pain all across back of neck, both shoulders Feels like '' Im being punched '' of rt arm Also pain of low back pain Em stiffness- for half hour or more No red hot swollen joints per say +chronic back pain +dry mouth No rash, ulcers, fevers, swollen lymph nodes, DVT/PE, raynauds, sicca symptoms, trouble swallowing, red eyes, Chron's/UC or Psoriasis. MEDS/THERAPIES TRIED: Gabapentin- started recently TYPICAL DAY: REVIEW OF SYSTEMS GENERAL: No weight loss, malaise or fevers., SEE HPI HEENT: +for frequent or significant headaches, No changes in hearing or vision, no nose bleeds or other nasal problems RESPIRATORY: Negative for cough, wheezing or shortness of breath. CARDIOVASCULAR: Negative for chest pain, leg swelling or palpitations. GI: Negative for abdominal discomfort, blood in stools or black stools or change in bowel habits MUSCULOSKELETAL :see HPI SKIN: Negative for lesions, rash, and itching. PSYCH: + for sleep disturbance, +mood disorder and no recent psychosocial stressors. NEURO: No history of syncope, paralysis, seizures or tremors All other reviewed and negative other than HPI. PMH Depression HTN Chronic pain PSH Rt arthroscopic surgery of rt shoulder Surgery for bowel adhesions MEDS gabapentin (NEURONTIN) 300 mg capsule TAKE 1 CAPSULE BY MOUTH AT BEDTIME FOR 10 DAYS THEN INCREASE TO 1 CAPSULE IN THE MORNING AND 1 IN THE EVENING. Coreg HCTZ Cetrizine Simvastatin Ambien po qhs No family history on file. BP 118/84 Pulse 80 Ht 157.5 cm (5' 2 ) Wt 85.7 kg (189 lb) BMI 34.57 kg/m? PHYSICAL EXAMINATION Physical Exam Vitals and nursing note reviewed. Constitutional: Appearance: Normal appearance. Skin: Negative for lesions, rash, and itching Eyes: Extraocular Movements: Extraocular movements intact. Pupils: Pupils are equal, round, and reactive to light. Abdominal: General: Abdomen is flat. Bowel sounds are normal. Palpations: Abdomen is soft. Neurological: Mental Status:Alert and oriented to person, place, and time. Musculoskeletal :ambulates well, pleasant mood Stiffness on ROM of all joints noted No synovitis of any joints noted All tender points present Tender joints-all Swollen joints-none LABS AND XRAYS;Pending IMP/PLAN: 47 yr female here for arhtrlagias and myaglias Got hurt at work in 2016, went on to have neck and shoulder surgery H/o wide spread soon after ''all downhill since then'' PCP thinks patient has fibromyalgia but wants to rule out disease Today has pain all across back of neck, both shoulders Feels like '' Im being punched '' of rt arm Also pain of low back pain Em stiffness- for half hour or more No red hot swollen joints per say +chronic back pain +dry mouth No rash, ulcers, fevers, swollen lymph nodes, DVT/PE, raynauds, sicca symptoms, trouble swallowing, red eyes, Chron's/UC or Psoriasis. Discussed with patient as follows -Regarding diffuse arthralgias and myalgias- DD include FM vs early inflammatory arthritis vs early osteoarthritis -will check labs and xrays today -continue gabapentin, recently started on for pain relief from PCP -advised stretching and regular exercise FM Widespread Pain Index (WPI): 5 Symptom Severity (SS) score: 9 WPI>7 and SS Scale>5 OR WPI 3-6 and SS Scale >9 consistent with fibromyalgia Based on evaluation today, she fulfills the 2010 ACR preliminary diagnostic criteria for fibromyalgia. This simple clinical case definition of fibromyalgia correctly classifies 88.1% of cases classified by the ACR classification criteria, and does not require a physical or tender point examination. -discussed with patient diagnosis, prognosis and treatment of this condition. -the cornerstones of fibromyalgia therapy are optimal sleep, graded regular aerobic exercise (examples include stationary bike, pool therapy) and optimal treatment of depression. Optimal quality sleep (especially deep sleep - phase 3/4 NREM) is important to achieve. If sleep remains disturbed, a sleep study should be considered to identify a primary sleep disorder. All three aspects of the treatment (sleep, exercise, depression) should be addressed simul (more content not included)... Normal [facility] CRP SerPl-mCncon 03-20-2023 CRP [Mass/Vol] mg/L Normal <0.9 [facility] Comment on above: Order Comment: [place] marie Type: BLOOD SPECIMEN Ordering Facility: [facility] Address: [address] [place] [address] Performed By: #### 2 4323-8, 1987-10 #### [facility] CLIA [id number] [address] [facility] [address] [place] Comprehensive metabolic 2000 panelon 03-20-2023 Albumin [Mass/Vol] 4.5 g/dL Normal 3.9-4.9 [facility] Comment on above: Order Comment: [place] marie Type: BLOOD SPECIMEN Ordering Facility: [facility] Address: [address] [address] Performed By: #### 2 4323-01, 1987-10 #### [facility] CLIA [id number] [address] [place] [address] [place] ALP [Catalytic activity/Vol] 76 U/L Normal 34-123 [facility] Comment on above: Order Comment: Speci men Type: BLOOD SPECIMEN Ordering Facility: [facility] Address: [address] [address] Performed By: #### 2 4323-01, 1987-10 #### [facility] CLIA [id number] [address] [place] [address] [place] ALT [Catalytic activity/Vol] 37 U/L Normal 7-38 [facility] Comment on above: Order Comment: Speci men Type: BLOOD SPECIMEN Ordering Facility: [facility] Address: [address] [place] [address] Performed By: #### 2 4323-01, 1987-10 #### [facility] CLIA [id number] [address] [place] [address] [place] Anion gap [Moles/Vol] 14 mmol/L Normal 9-18 [facility] Comment on above: Order Comment: Speci men Type: BLOOD SPECIMEN Ordering Facility: [facility] Address: [address] [place] [address] Performed By: #### 2 4323-01, 1987-10 #### [facility] CLIA [id number] [address] [place] [address] [place] AST [Catalytic activity/Vol] 32 U/L Normal 13-35 [facility] Comment on above: Order Comment: Speci men Type: BLOOD SPECIMEN Ordering Facility: [facility] Address: [address] [place] [address] Performed By: #### 2 4323-01, 1987-10 #### [facility] CLIA [id number] [address] [place] [address] [place] Bilirubin [Mass/Vol] 0.4 mg/dL Normal 0.2-1.3 [facility] Comment on above: Order Comment: Speci men Type: BLOOD SPECIMEN Ordering Facility: [facility] Address: [address] [place] [address] Performed By: #### 2 4323-01, 1987-10 #### [facility] IA [id number] [address] [place] [address] [place] Calcium [Mass/Vol] 9.9 mg/dL Normal 8.5-10.2 [facility] Comment on above: Order Comment: Speci men Type: BLOOD SPECIMEN Ordering Facility: [facility] Address: [address] Performed By: #### 2 4323-01, 1987-10 #### [facility] CLIA [id number] [address] [place] [address] [place] Chloride [Moles/Vol] 101 mmol/L Normal 97-105 [facility] Comment on above: Order Comment: Speci men Type: BLOOD SPECIMEN Ordering Facility: [facility] Address: [address] Performed By: #### 2 4323-01, 1987-10 #### [facility] IA [id number] [address] [place] [address] [place] CO2 [Moles/Vol] 25 mmol/L Normal 22-30 [facility] Comment on above: Order Comment: Speci men Type: BLOOD SPECIMEN Ordering Facility: [facility] Address: [address] [place] [address] Performed By: #### 2 4323-01, 1987-10 #### [facility] CLIA [id number] [address] [place] [address] [place] Creatinine [Mass/Vol] 0.85 mg/dL Normal 0.58-0.96 [facility] Comment on above: Order Comment: Speci men Type: BLOOD SPECIMEN Ordering Facility: [facility] Address: [address] [place] [address] Performed By: #### 2 4323-01, 1987-10 #### [facility] CLIA [id number] [address] [place] [address] [place] Creatinine and Glomerular filtration rate.predicted panel (S/P/Bld) 86 mL/min/1.73m??? Normal >=60 [facility] Comment on above: Order Comment: [place] marie Type: BLOOD SPECIMEN Ordering Facility: [facility] Address: [address] [place] [address] Result Comment: Telma mated Glomerular Filtration Rate (eGFR) is calculated using the 2020 CKD-EPI creatinine equation. This equation utilizes serum creatinine, sex, and age as parameters. The creatinine assay has traceable calibration to isotope dilution-mass spectrometry. Refer to KDIGO guidelines for clinical interpretation. In patients with unstable renal function, e.g. those with acute kidney injury, the eGFR may not accurately reflect actual GFR. Performed By: #### 2 4323, 1987-10 #### [facility] CLIA [id number] [address] [facility] [address] [place] Glucose [Mass/Vol] 89 mg/dL Normal 74-99 [facility] Comment on above: Order Comment: [place] marie Type: BLOOD SPECIMEN Ordering Facility: [facility] Address: [address] [place] [address] Result Comment: The [place] Diabetes [employer] (ADA) provides guidance for cutoff values for fasting glucose and random glucose. The ADA defines fasting as no caloric intake for at least 8 hours. Fasting plasma glucose results between 100 to 125 mg/dL indicate increased risk for diabetes (prediabetes). Fasting plasma glucose results greater than or equal to 126 mg/dL meet the criteria for diagnosis of diabetes. In the absence of unequivocal hyperglycemia, results should be confirmed by repeat testing. In a patient with classic symptoms of hyperglycemia or hyperglycemic crisis, random plasma glucose results greater than or equal to 200 mg/dL meet the criteria for diagnosis of diabetes. Reference: Standards of Medical Care in Diabetes 2016, [place] [employer]. Diabetes Care. 2016.39(Suppl 1). Performed By: #### 2 4323, 1987-10 #### [facility] CLIA [id number] [address] [facility] [address] [place] Potassium [Moles/Vol] 4.0 mmol/L Normal 3.7-5.1 [facility] Comment on above: Order Comment: Speci men Type: BLOOD SPECIMEN Ordering Facility: [facility] Address: [address] Performed By: #### 2 4323-01, 1987-10 #### [facility] CLIA [id number] [address] [place] [address] [place] Protein [Mass/Vol] 7.4 g/dL Normal 6.3-8.0 [facility] Comment on above: Order Comment: Speci men Type: BLOOD SPECIMEN Ordering Facility: [facility] Address: [address] Performed By: #### 2 4323-01, 1987-10 #### [facility] CLIA [id number] [address] [place] [address] [place] Sodium [Moles/Vol] 140 mmol/L Normal 136-144 [facility] Comment on above: Order Comment: Speci men Type: BLOOD SPECIMEN Ordering Facility: [facility] Address: [address] Performed By: #### 2 4323-01, 1987-10 #### [facility] CLIA [id number] [address] [place] [address] [place] Urea nitrogen [Mass/Vol] 16 mg/dL Normal 7-21 [facility] Comment on above: Order Comment: Speci men Type: BLOOD SPECIMEN Ordering Facility: [facility] Address: [address] Performed By: #### 2 4328, 1987-10 #### [facility] CLIA [id number] [address] [place] [address] [place] Cyclic citrullinated peptide IgG Qnon 03-20-2023 CCP ANTIBODY IGG QUALITATIVE Negative Normal Negative [facility] Comment on above: Order Comment: Speci men Type: BLOOD SPECIMEN Ordering Facility: [facility] Address: [address] [address] Performed By: #### 3 3935-8 #### [facility] CLIA [id number] [address] [place] [address] [place] ESR Westergren method (Bld) [Velocity]on 03-20-2023 ESR (Bld) [Velocity] 25 mm/h High 0-20 [facility] Comment on above: Order Comment: Speci men Type: BLOOD SPECIMEN Ordering Facility: [facility] Address: [address] [place] [address] Performed By: #### 4 537-7 #### [facility] IA [id number] [address] [place] [address] [place] Nuclear Ab IA Ql (S)on 03-20 [facility] SCR QUAL Negative Normal Negative [facility] Comment on above: Order Comment: Speci men Type: BLOOD SPECIMEN Ordering Facility: [facility] Address: [address] [place] [address] Result Comment: The qualitative antinuclear antibody screen test performed using the following antigens: dsDNA, Chromatin, Ribosomal P, SS-A 60, SS-A 52, SS-B, Sm, SmRNP, TOPSTITCHER ZIGZAG A, TOPSTITCHER ZIGZAG 68, Scl-70, Emy-1, and Centromere B. Methodology: Multiplex flow immunoassay. Performed By: #### 4 7383-5 #### [facility] IA [id number] [address] [place] [address] [place] Rheumatoid fact SerPl-aCncon 03-20-2023 Rheumatoid factor Qn [IU]/mL Normal <16 [facility] Comment on above: Order Comment: Speci men Type: BLOOD SPECIMEN Ordering Facility: [facility] Address: [address] [place] [address] Performed By: #### 1 1572-5 #### [facility] IA [id number] [address] [place] [address] [place] XR SHLDR >/=3V AP/EUSEBIA AP/OTH R RTon 03-20-2023 XR SHLDR >/=3V AP/EUSEBIA AP/OTHR RT * * *Final Report* * * DATE OF EXAM: Mar 20 2023 2:23PM VHX [id number] - XR SHLDR >/=3V AP/EUSEBIA AP/OTHR RT / PROCEDURE REASON: Myalgia * * * * Physician Interpretation * * * * HISTORY: 47-YEAR-OLD FEMALE WITH Myalgia . RT SHOULDER PAIN INJURED AT WORK, MYALGIA TECHNIQUE: XR SHLDR >/=3V AP/EUSEBIA AP/OTHR RT Laterality: RIGHT Number of different views (projections): 3 COMPARISON: None RESULT: Right shoulder: Glenohumeral joint space maintained. Acromiohumeral is maintained. Mild degenerative changes of acromioclavicular joint. Enthesophyte at the acromion laterally. No fracture or dislocation. Small amount reactive bony changes and sclerosis of the greater tuberosity is present consistent with changes of tendinosis. IMPRESSION: MILD DEGENERATIVE CHANGES OF ACROMIOCLAVICULAR JOINT. NO ACUTE BONY ABNORMALITY. Spanish Translator: [facility] Transcribe Date/Time: Mar 23 2023 7:55P Dictated by : CRYS CORTES MD This examination was interpreted and the report reviewed and electronically signed by: CRYS CORTES MD on Mar 23 2023 7:56PM EST [id number] Normal [facility] cCP IgG SerPl-aCncon 023 Cyclic citrullinated peptide IgG Qn <15 Normal <20 [facility] Comment on above: Order Comment: Speci men Type: BLOOD SPECIMEN Ordering Facility: [facility] Address: [address] [place] [address] Performed By: #### 3 3935-8 #### [facility] CLIA [id number] [address] [facility] [place] [id number] [place] AMYLASEon 11-16-2022 Amylase [Catalytic activity/Vol] 36 U/L Normal 25-115 [facility] Comment on above: Performed By: #### V ITB12, FT4 #### [facility] [address] [address] [address] Nighat Ballard CBC AUTO DIFFon 11-16-2022 BASO # 0.1 103/ul Normal 0.0-0.1 [facility] Comment on above: Performed By: #### C MP, LIPID, TSH #### [facility] [address] [place] [address] Dr. Nighat Ballard Basophils/100 WBC (Bld) 0.5 % Normal 0.2-2.0 [facility] Comment on above: Performed By: #### C MP, LIPID, TSH #### [facility] [address] [place] [address] Dr. Nighat Ballard EO # 0.1 103/ul Normal 0.0-0.7 [facility] Comment on above: Performed By: #### C MP, LIPID, TSH #### [facility] [address] [place] [address] Dr. Nighat Ballard Eosinophils/100 WBC (Bld) 0.8 % Critically low 0.9-7.0 [facility] Comment on above: Performed By: #### C MP, LIPID, TSH #### [facility] [address] [place] [address] Dr. Nighat Ballard Erythrocyte distribution width (RBC) [Ratio] 13.6 % Normal 11.0-15.0 [facility] Comment on above: Performed By: #### C MP, LIPID, TSH #### [facility] [address] [place] [address] Dr. Nighat Ballard Hematocrit (Bld) [Volume fraction] 42.5 % Normal 36.0-48.0 [facility] Comment on above: Performed By: #### C MP, LIPID, TSH #### [facility] [address] [place] [address] Dr. Nighat Ballard Hemoglobin (Bld) [Mass/Vol] 14.0 g/dL Normal 12.0-16.0 [facility] Comment on above: Performed By: #### C MP, LIPID, TSH #### [facility] [address] [place] [address] Dr. Nighat Ballard IG # 0.04 10e3/ul Critically high 0.00-0.03 [facility] Comment on above: Performed By: #### C MP, LIPID, TSH #### [facility] [address] [place], [place] [id number] Dr. Nighat Ballard IG % 0.4 % Normal 0.0-0.5 [facility] Comment on above: Performed By: #### C MP, LIPID, TSH #### [facility] [address] [place] [address] Dr. Nighat Ballard LYMPH # 3.2 103/ul Normal 1.2-3.8 [facility] Comment on above: Performed By: #### C MP, LIPID, TSH #### [facility] [address] [place] [address] Dr. Nighat Ballard Lymphocytes/100 WBC (Bld) 32.7 % Normal 20.5-60.0 [facility] Comment on above: Performed By: #### C MP, LIPID, TSH #### [facility] [address] [place] [address] Dr. Nighat Ballard MANUAL DIFF REQ NO Normal [facility] Comment on above: Performed By: #### C MP, LIPID, TSH #### [facility] [address] [place] [address] Dr. Nighat Ballard MCH (RBC) [Entitic mass] 29.0 pg Normal 26.7-34.0 [facility] Comment on above: Performed By: #### C MP, LIPID, TSH #### [facility] [address] [place] [address] Dr. Nighat Ballard MCHC (RBC) [Mass/Vol] 32.9 g/dL Normal 29.9-35.2 [facility] Comment on above: Performed By: #### C MP, LIPID, TSH #### [facility] [address] [place] [address] Dr. Nighat Ballard MCV (RBC) [Entitic vol] 88.0 fL Normal 81.0-99.0 [facility] Comment on above: Performed By: #### C MP, LIPID, TSH #### [facility] [address] [place] [address] Dr. Nighat Ballard MONO # 0.6 103/ul Normal 0.3-0.8 [facility] Comment on above: Performed By: #### C MP, LIPID, TSH #### [facility] [address] [id number] Dr. Nighat Ballard Monocytes/100 WBC (Bld) 5.9 % Normal 1.7-12.0 [facility] Comment on above: Performed By: #### C MP, LIPID, TSH #### [facility] [address] [address] [address] Nighat Ballard NEUT # 5.8 103/ul Normal 1.4-6.5 [facility] Comment on above: Performed By: #### C MP, LIPID, TSH #### [facility] [address] [place] [address] Dr. Nighat Ballard Neutrophils/100 WBC (Bld) 59.7 % Normal 43.0-75.0 [facility] Comment on above: Performed By: #### C MP, LIPID, TSH #### [facility] [address] [place] [address] Dr. Nighat Ballard Platelet mean volume (Bld) [Entitic vol] 10.1 fL Normal 9.5-13.5 [facility] Comment on above: Performed By: #### C MP, LIPID, TSH #### [facility] [address] [place] [address] Dr. Nighat Ballard PLT 326 103/ul Normal 150-450 [facility] Comment on above: Performed By: #### C MP, LIPID, TSH #### [facility] [address] [place] [address] Dr. Nighat Ballard RBC 4.83 106/ul Normal 4.20-5.40 [facility] Comment on above: Performed By: #### C MP, LIPID, TSH #### [facility] [address] [place] [address] Dr. Nighat Ballard WBC 9.7 103/ul Normal 4.0-11.0 [facility] Comment on above: Performed By: #### C MP, LIPID, TSH #### [facility] [address] [place] [address] ABD/PELV W CONon 11-17-[address] ABD/PELV W CON EXAMINATION: CT ABD/ PELV W CON HISTORY: DIARRHEA, UNSPECIFIED COMPARISON: Multiple priors, most recent CT abdomen pelvis 10/16/2022 TECHNIQUE: Multiple axial views CT abdomen pelvis after administration of 100 mL Omnipaque 300 IV contrast. Coronal and sagittal reformats. Dose reduction techniques were achieved by using automated exposure control and/or adjustment of mA and/or kV according to patient size and/or use of iterative reconstruction technique. FINDINGS: Visualized lung bases and cardiac apex are unremarkable. Small hiatal hernia and mild lower esophageal wall thickening, similar to prior exams. Stomach is underdistended. No perigastric inflammatory stranding. Mild hepatic steatosis and hepatomegaly. Gallbladder, pancreas, spleen, adrenal glands, right kidney, and underdistended urinary bladder are unremarkable. Uterus is surgically absent. The appendix is unremarkable. Focal cortical thinning/scarring of the left inferior renal pole, unchanged. Moderate to large amount of stool within the large bowel. No evidence for small bowel obstruction, large ascites, or free air. Mild nodular thickening of the distal right rectum/anus (image [id number] series 3). A newly developing right adnexal/ovarian 4.6 x 3.7 cm cystic mass with internal density (image 110 series 3). No acute bony abnormality. Disc bulges/herniation at L4-L5 and L5-S1 with moderate bony spinal canal stenosis at L4-L5. IMPRESSION: A newly developing right adnexal/ovarian 4.6 x 3.7 cm cystic mass with internal density. Differential includes hemorrhagic ovarian cyst, cyst with internal debris, endometrioma, or other cystic neoplasm. Close clinical attention recommended. Consider pelvic sonogram was attention to the gonadal vessels. Moderate to large amount of stool within the large bowel. No pericolonic inflammatory stranding. Mild nodular wall thickening of the distal right rectum/anal wall. Correlate with direct clinical examination for proctitis versus nodular wall lesion. Consider endoscopic evaluation if there are abnormal GI bleeding symptoms. Electronically authenticated by: DESTINEE HAIR Date: 2022-11-16 00:35 Normal [facility] ER URINE PROFILEon 3 Bilirubin Ql (U) Negative Normal NEGATIVE [facility] Comment on above: Performed By: #### V ITB12, FT4 #### [facility] [address] [place] [address] Dr. Nighat Ballard Clarity (U) CLEAR Normal CLEAR [facility] Comment on above: Performed By: #### V ITB12, FT4 #### [facility] [address] [address] [address] Nighat Ballard Color (U) LT. YELLOW Normal YELLOW [facility] Comment on above: Performed By: #### V ITB12, FT4 #### [facility] [address] [place] [address] Dr. Nighat Ballard ERUAHD A micrscopic examina tion will be performed if indicated. Normal [facility] Comment on above: Performed By: #### V ITB12, FT4 #### [facility] [address] [place] [address] Dr. Nighat Ballard Glucose Ql (U) Negative Normal NEGATIVE [facility] Comment on above: Performed By: #### V ITB12, FT4 #### [facility] [address] [place] [address] Dr. Nighat Ballard Hemoglobin Ql (U) Negative Normal NEGATIVE [facility] Comment on above: Performed By: #### V ITB12, FT4 #### [facility] [address] [place] [address] Dr. Nighat Ballard Ketones Ql (U) Negative Normal NEGATIVE [facility] Comment on above: Performed By: #### V ITB12, FT4 #### [facility] [address] [place] [address] Dr. Nighat Ballard LEUKOCYTES Negative Normal NEGATIVE [facility] Comment on above: Performed By: #### V ITB12, FT4 #### [facility] [address] [place] [address] Dr. Nighat Ballard Nitrite Ql (U) Negative Normal NEGATIVE [facility] Comment on above: Performed By: #### V ITB12, FT4 #### [facility] [address] [place] [address] Dr. Nighat Ballard pH (U) 7.0 [pH] Normal 5-9 [facility] Comment on above: Performed By: #### V ITB12, FT4 #### [facility] [address] [place] [address] Dr. Nighat Ballard SPEC GRAVITY <=1.005 Abnormal 1.005-<=1.025 [facility] Comment on above: Performed By: #### V ITB12, FT4 #### [facility] [address] [place] [address] Dr. Nighat Ballard UA PROTEIN Negative Normal NEGATIVE/ TRACE [facility] Comment on above: Performed By: #### V ITB12, FT4 #### [facility] [address] [place] [address] Dr. Nighat Ballard UR MICRO IND NOT INDICATED Normal [facility] Comment on above: Performed By: #### V ITB12, FT4 #### [facility] [address] [place] [address] Dr. Nighat Ballard Urobilinogen Qn (U) 0.2 {Ada'U}/dL Normal 0.2 - 1.0 [facility] Comment on above: Performed By: #### V ITB12, FT4 #### [facility] [address] [place] [address] Dr. Nighat Ballard LIPASEon 11-16-2022 Lipase [Catalytic activity/Vol] 74.0 U/L Normal 73.0-393.0 [facility] Comment on above: Performed By: #### V ITB12, FT4 #### [facility] [address] [place] [address] Dr. Nighat Ballard URon 11-16-2022 , QUAL Negative Normal NEGATIVE [facility] Comment on above: Performed By: #### V ITB12, FT4 #### [facility] [address] [place] [address] Dr. Nighat Ballard PROF 14(COMP METB)on 023 Albumin [Mass/Vol] 3.5 g/dL Normal 3.4-5.0 [facility] Comment on above: Performed By: #### V ITB12, FT4 #### [facility] [address] [place] [address] Dr. Nighat Ballard Albumin/Globulin [Mass ratio] 1.0 {ratio} Normal [facility] Comment on above: Performed By: #### V ITB12, FT4 #### [facility] [address] [place] [address] Dr. Nighat Ballard ALP [Catalytic activity/Vol] 63 U/L Normal 46-116 [facility] Comment on above: Performed By: #### V ITB12, FT4 #### [facility] [address] [place] [address] Dr. Nighat Ballard ALT [Catalytic activity/Vol] 33 U/L Normal 14-59 [facility] Comment on above: Performed By: #### V ITB12, FT4 #### [facility] [address] [place] [address] Dr. Nighat Ballard Anion gap [Moles/Vol] 13.3 mmol/L Normal [facility] Comment on above: Performed By: #### V ITB12, FT4 #### [facility] [address] [place] [address] Dr. Nighat Ballard AST [Catalytic activity/Vol] 20 U/L Normal 15-37 [facility] Comment on above: Performed By: #### V ITB12, FT4 #### [facility] [address] [place] [address] Dr. Nighat Ballard Bilirubin [Mass/Vol] 0.3 mg/dL Normal 0.2-1.0 [facility] Comment on above: Performed By: #### V ITB12, FT4 #### [facility] [address] [place] [address] Dr. Nighat Ballard Calcium [Mass/Vol] 9.0 mg/dL Normal 8.5-10.1 [facility] Comment on above: Performed By: #### V ITB12, FT4 #### [facility] [address] [place] [address] Dr. Nighat Ballard Chloride [Moles/Vol] 105 mmol/L Normal 98-107 [facility] Comment on above: Performed By: #### V ITB12, FT4 #### [facility] [address] [place] [address] Dr. Nighat Ballard CO2 [Moles/Vol] 26.2 mmol/L Normal 21.0-32.0 [facility] Comment on above: Performed By: #### V ITB12, FT4 #### [facility] [address] [address] [address] Nighat Ballard Creatinine [Mass/Vol] 0.95 mg/dL Normal 0.55-1.02 [facility] Comment on above: Performed By: #### V ITB12, FT4 #### [facility] [address] [place] [address] Dr. Nighat Ballard EGFR-AF SOUTH [place]FR[place] >60 Normal >=60 [facility] Comment on above: Performed By: #### V ITB12, FT4 #### [facility] [address] [place] [address] Dr. Nighat Ballard EGFR-NON AF [place] >60 Normal >=60 [facility] Comment on above: Performed By: #### V ITB12, FT4 #### [facility] [address] [place] [address] Dr. Nighat Ballard Globulin (S) [Mass/Vol] 3.6 g/dL Normal [facility] Comment on above: Performed By: #### V ITB12, FT4 #### [facility] [address] [place] [address] Dr. Nighat Ballard Glucose [Mass/Vol] 88 mg/dL Normal 74-106 [facility] Comment on above: Performed By: #### V ITB12, FT4 #### [facility] [address] [place] [address] Dr. Nighat Ballard Potassium [Moles/Vol] 3.5 mmol/L Normal 3.5-5.1 [facility] Comment on above: Performed By: #### V ITB12, FT4 #### [facility] [address] [place] [address] Dr. Nighta Ballard Protein [Mass/Vol] 7.1 g/dL Normal 6.4-8.2 [facility] Comment on above: Performed By: #### V ITB12, FT4 #### [facility] [address] [place], [place] [address] Dr. Nighat Ballard Sodium [Moles/Vol] 141 mmol/L Normal 136-145 [facility] Comment on above: Performed By: #### V ITB12, FT4 #### [facility] [address] [place], [place] [address] Dr. Nighat Ballard Urea nitrogen [Mass/Vol] 12.0 mg/dL Normal 7.0-18.0 [facility] Comment on above: Performed By: #### V ITB12, FT4 #### [facility] [address] [place], [place] [address] Dr. Nighat Ballard Urea nitrogen/Creatinin e [Mass ratio] 12.6 mg/mg Normal [facility] Comment on above: Performed By: #### V ITB12, FT4 #### [facility] [address] [place], [place] [address] Dr. Nighat Ballard US PELVIS AND TRANSVAGon US PELVIS AND TRANSVAG EXAM: US VASC ORGAN SNGL LMT, US PELVIS AND TRANSVAG HISTORY: GENERALIZED ABDOMINAL PAIN COMPARISON: None. TECHNIQUE: Real time pelvic ultrasound examination was performed using Duplex Doppler by transabdominal approach. A transvaginal examination was performed for better evaluation of the ovaries. FINDINGS: The uterus and left ovary are not seen and reported to be surgically absent. The right ovary measures up to 4.3 x 3.1 x 2.5 cm. There are a couple simple-appearing right ovarian cysts which measure up to 3.4 x 3.1 x 2.1 cm. Arterial blood flow is seen within the right ovary. No definite venous blood flow is seen in the right ovary. There is a small amount complex free fluid in the pelvis. IMPRESSION: 1. Suboptimal examination due to the patient's body habitus and overlying bowel gas. 2. There are a couple simple-appearing right ovarian cysts measuring up to 2.4 cm. 3. No definite venous blood flow is seen within the right ovary on the provided images. This could be secondary to technical factors though torsion is not excluded. 4. Status post hysterectomy and left oophorectomy. The findings were discussed with Dr. Kearney by Dr. Farias at 2:33 AM EST on 11/16/2022. Electronically authenticated by: Damaris FARIAS Date: 2022-11-16 02:34 Normal [facility] CBC AUTO DIFFon 10-16-2022 BASO # 0.1 103/ul Normal 0.0-0.1 [facility] Comment on above: Performed By: #### V ITB12, FT4 #### [facility] [address] [place] [address] Dr. Nighat Ballard Basophils/100 WBC (Bld) 0.5 % Normal 0.2-2.0 [facility] Comment on above: Performed By: #### V ITB12, FT4 #### [facility] [address] [place] [address] Dr. Nighat Ballard EO # 0.1 103/ul Normal 0.0-0.7 [facility] Comment on above: Performed By: #### V ITB12, FT4 #### [facility] [address] [place] [address] Dr. Nighat Ballard Eosinophils/100 WBC (Bld) 1.0 % Normal 0.9-7.0 [facility] Comment on above: Performed By: #### V ITB12, FT4 #### [facility] [address] [place] [address] Dr. Nighat Ballard Erythrocyte distribution width (RBC) [Ratio] 13.2 % Normal 11.0-15.0 [facility] Comment on above: Performed By: #### V ITB12, FT4 #### [facility] [address] [place] [address] Dr. Nighat Ballard Hematocrit (Bld) [Volume fraction] 42.2 % Normal 36.0-48.0 [facility] Comment on above: Performed By: #### V ITB12, FT4 #### [facility] [address] [place] [address] Dr. Nihgat Ballard Hemoglobin (Bld) [Mass/Vol] 13.8 g/dL Normal 12.0-16.0 [facility] Comment on above: Performed By: #### V ITB12, FT4 #### [facility] [address] [place] [address] Dr. Nighat Ballard IG # 0.03 10e3/ul Normal 0.00-0.03 [facility] Comment on above: Performed By: #### V ITB12, FT4 #### [facility] [address] [place] [address] Dr. Nighat Ballard IG % 0.3 % Normal 0.0-0.5 [facility] Comment on above: Performed By: #### V ITB12, FT4 #### [facility] [address] [place] [address] Dr. Nighat Ballard LYMPH # 3.0 103/ul Normal 1.2-3.8 [facility] Comment on above: Performed By: #### V ITB1, FT4 #### [facility] [address] [place] [address] Dr. Nighat Ballard Lymphocytes/100 WBC (Bld) 30.5 % Normal 20.5-60.0 [facility] Comment on above: Performed By: #### V ITB1, FT4 #### [facility] [address] [place] [address] Dr. Nighat Ballard MANUAL DIFF REQ NO Normal [facility] Comment on above: Performed By: #### V ITB1, FT4 #### [facility] [address] [place] [address] Dr. Nighat Ballard MCH (RBC) [Entitic mass] 28.3 pg Normal 26.7-34.0 [facility] Comment on above: Performed By: #### V ITB12, FT4 #### [facility] [address] [place] [address] Dr. Nighat Ballard MCHC (RBC) [Mass/Vol] 32.7 g/dL Normal 29.9-35.2 [facility] Comment on above: Performed By: #### V ITB12, FT4 #### [facility] [address] [place] [address] Dr. Nighat Ballard MCV (RBC) [Entitic vol] 86.7 fL Normal 81.0-99.0 [facility] Comment on above: Performed By: #### V ITB12, FT4 #### [facility] [address] [place] [address] Dr. Nighat Ballard MONO # 0.6 103/ul Normal 0.3-0.8 [facility] Comment on above: Performed By: #### V ITB12, FT4 #### [facility] [address] [place] [address] Dr. Nighat Ballard Monocytes/100 WBC (Bld) 5.9 % Normal 1.7-12.0 [facility] Comment on above: Performed By: #### V ITB12, FT4 #### [facility] [address] [place] [address] Dr. Nighat Ballard NEUT # 6.1 103/ul Normal 1.4-6.5 [facility] Comment on above: Performed By: #### V ITB12, FT4 #### [facility] [address] [place] [address] Dr. Nighat Ballard Neutrophils/100 WBC (Bld) 61.8 % Normal 43.0-75.0 [facility] Comment on above: Performed By: #### V ITB12, FT4 #### [facility] [address] [place] [address] Dr. Nighat Ballard Platelet mean volume (Bld) [Entitic vol] 10.0 fL Normal 9.5-13.5 [facility] Comment on above: Performed By: #### V ITB12, FT4 #### [facility] [address] [place] [address] Dr. Nighat Ballard PLT 303 103/ul Normal 150-450 [facility] Comment on above: Performed By: #### V ITB12, FT4 #### [facility] [address] [place] [address] Dr. Nighat Ballard RBC 4.87 106/ul Normal 4.20-5.40 [facility] Comment on above: Performed By: #### V ITB12, FT4 #### [facility] [address] [place] [address] Dr. Nighat Ballard WBC 9.9 103/ul Normal 4.0-11.0 [facility] Comment on above: Performed By: #### V ITB12, FT4 #### [facility] [id number] Nighat Ballard [address] ABD/PELVIS WO CONon 10-16 CT ABD/PELVIS WO CON EXAMINATION: CT ABD/PELVIS WO CON, 10/15/2022 11:29 PM EDT HISTORY: CALCULUS OF KIDNEY. COMPARISON STUDY: CT of the abdomen and pelvis without contrast 09/20/2020. TECHNIQUE: CT scan of the abdomen and pelvis was performed without IV contrast. CT dose reduction technique was used, including Automated Exposure Control. CT ABDOMEN: Mild supine atelectatic changes noted. Heart size is normal. Heterogeneous hepatic steatosis is identified. Right hepatic lobe measures 20 cm superior to inferior. Gallbladder, pancreas, spleen, adrenals and kidneys demonstrate no acute abnormality. Aorta demonstrates normal caliber. There is similar cortical thinning and scarring seen posteriorly involving the inferior pole of the left kidney. Linear and subcentimeter foci of calcification subjacent to the cortical scarring may be from nonobstructive calculi, image #52. No new calculi have developed within the right kidney or either ureter. CT PELVIS: Urinary bladder demonstrates no acute abnormality and is partially distended. Uterus and ovaries are not identified. Subcentimeter left-sided pelvic phlebolith is again identified. Bowel pattern is nonobstructive. Negative for appendicitis or diverticulitis. Aorta is nonaneurysmal. No significantly enlarged adenopathy or ascites. Lumbar degenerative changes again noted at L5-S1 level. Lower lumbar facet arthritic changes are noted from L3 through L5 levels. No acute osseous abnormality. IMPRESSION: 1. Hepatomegaly with heterogeneous fatty infiltration of the hepatic parenchyma noted. 2. Focal cortical thinning and scarring at the inferior pole of the left kidney. Underlying nonobstructive subcentimeter renal calculi again suspected. 3. Bowel pattern is nonobstructive. Negative for appendicitis or diverticulitis. 4. Hysterectomy. Electronically authenticated by: LALO BARRETT Date: 2022-10-16 01:18 Normal [facility] ER URINE PROFILEon 3 Bilirubin Ql (U) Negative Normal NEGATIVE [facility] Comment on above: Performed By: #### E RUR #### [facility] [address] [place] [address] Dr. Nighat Ballard Clarity (U) CLEAR Normal CLEAR [facility] Comment on above: Performed By: #### E RUR #### [facility] [address] [place] [address] Dr. Nighat Ballard Color (U) YELLOW Normal YELLOW [facility] Comment on above: Performed By: #### E RUR #### [facility] [address] [place] [address] Dr. Nighat Ballard ERUAHD A micrscopic examina tion will be performed if indicated. Normal [facility] Comment on above: Performed By: #### E RUR #### [facility] [address] [place] [address] Dr. Nighat Ballard Glucose Ql (U) Negative Normal NEGATIVE [facility] Comment on above: Performed By: #### E RUR #### [facility] [address] [place] [address] Dr. Nighat Ballard Hemoglobin Ql (U) Negative Normal NEGATIVE [facility] Comment on above: Performed By: #### E RUR #### [facility] [address] [place] [address] Dr. Nighat Ballard Ketones Ql (U) Negative Normal NEGATIVE [facility] Comment on above: Performed By: #### E RUR #### [facility] [address] [place] [address] Dr. Nighat Ballard LEUKOCYTES Negative Normal NEGATIVE [facility] Comment on above: Performed By: #### E RUR #### [facility] [address] [place] [address] Dr. Nighat Ballard Nitrite Ql (U) Negative Normal NEGATIVE [facility] Comment on above: Performed By: #### E RUR #### [facility] [address] [place] [address] Dr. Nighat Ballard pH (U) 5.0 [pH] Normal 5-9 [facility] Comment on above: Performed By: #### E RUR #### [facility] [address] [place] [address] Dr. Nighat Ballard SPEC GRAVITY >=1.030 Abnormal 1.005-<=1.025 [facility] Comment on above: Performed By: #### E RUR #### [facility] [address] [place] [address] Dr. Nighat Ballard UA PROTEIN Negative Normal NEGATIVE/ TRACE [facility] Comment on above: Performed By: #### E RUR #### [facility] [address] [place] [address] Dr. Nighat Ballard UR MICRO IND NOT INDICATED Normal [facility] Comment on above: Performed By: #### E RUR #### [facility] [address] [place] [address] Dr. Nighat Ballard Urobilinogen Qn (U) 0.2 {Ada'U}/dL Normal 0.2 - 1.0 [facility] Comment on above: Performed By: #### E RUR #### [facility] [address] [place] [address] Dr. Nighat Ballard PROF CHEM 8 (BAS METB)on Anion gap [Moles/Vol] 13.4 mmol/L Normal [facility] Comment on above: Performed By: #### B MP #### [facility] [address] [place] [address] Dr. Nighat Ballard Calcium [Mass/Vol] 9.1 mg/dL Normal 8.5-10.1 [facility] Comment on above: Performed By: #### B MP #### [facility] [address] [place] [address] Dr. Nighat Ballard Chloride [Moles/Vol] 102 mmol/L Normal 98-107 [facility] Comment on above: Performed By: #### B MP #### [facility] [address] [place] [address] Dr. Nighat Ballard CO2 [Moles/Vol] 25.3 mmol/L Normal 21.0-32.0 [facility] Comment on above: Performed By: #### B MP #### [facility] [address] [place] [address] Dr. Nighat Ballard Creatinine [Mass/Vol] 0.98 mg/dL Normal 0.55-1.02 [facility] Comment on above: Performed By: #### B MP #### [facility] [address] [address] [address] Nighat Ballard EGFR-AF SOUTH AFRICAN >60 Normal >=60 [facility] Comment on above: Performed By: #### B MP #### [facility] [address] [address] [address] Nighat Ballard EGFR-NON AF S[place]FR[place] >60 Normal >=60 [facility] Comment on above: Performed By: #### B MP #### [facility] [address] [address] [address] Nighat Ballard Glucose [Mass/Vol] 101 mg/dL Normal 74-106 [facility] Comment on above: Performed By: #### B MP #### [facility] [address] [place] [address] Dr. Nighat Ballard Potassium [Moles/Vol] 3.7 mmol/L Normal 3.5-5.1 [facility] Comment on above: Performed By: #### B MP #### [facility] [address] [address] [address] Nighat Ballard Sodium [Moles/Vol] 137 mmol/L Normal 136-145 [facility] Comment on above: Performed By: #### B MP #### [facility] [address] [address] [address] Nighat Ballard Urea nitrogen [Mass/Vol] 14.0 mg/dL Normal 7.0-18.0 [facility] Comment on above: Performed By: #### B MP #### [facility] [address] [address] [address] Nighat Ballard Urea nitrogen/Creatinin e [Mass ratio] 14.3 mg/mg Normal [facility] Comment on above: Performed By: #### B MP #### [facility] [address] [address] [address] Nighat Ballard CULTURE URINEon 10-15-2022 CULTURE URINE Culture Observations : LIGHT GROWTH OF MIXED GENITAL SHA. NO POTENTIAL PATHOGENS SEEN. Normal [facility] Comment on above: Performed By: #### C MP, LIPID, TSH #### [facility] [address] [place] [address] Dr. Nighat Ballard UA RANDOM W/MICROSCOPICon BACTERIA NONE SEEN Normal NONE SEEN [facility] Comment on above: Performed By: #### V ITB12, FT4 #### [facility] [address] [place] [address] Dr. Nighat Ballard Bilirubin Ql (U) Negative Normal NEGATIVE [facility] Comment on above: Performed By: #### V ITB12, FT4 #### [facility] [address] [place] [address] Dr. Nighat Ballard CAST NONE SEEN Normal NONE SEEN [facility] Comment on above: Performed By: #### V ITB12, FT4 #### [facility] [address] [place] [address] Dr. Nighat Ballard Clarity (U) SL CLOUDY Abnormal CLEAR [facility] Comment on above: Performed By: #### V ITB12, FT4 #### [facility] [address] [place] [address] Dr. Nighat Ballard Color (U) LT. YELLOW Normal YELLOW [facility] Comment on above: Performed By: #### V ITB12, FT4 #### [facility] [address] [place] [address] Dr. Nighat Ballard Crystals LM Nom (Urine sed) NONE SEEN Normal NONE SEEN [facility] Comment on above: Performed By: #### V ITB12, FT4 #### [facility] [address] [place] [address] Dr. Nighat Ballard Epithelial cells LM Ql (Urine sed) MODERATE Abnormal NONE SEEN /RARE [facility] Comment on above: Performed By: #### V ITB12, FT4 #### [facility] [address] [place] [address] Dr. Nighat Ballard Glucose Ql (U) Negative Normal NEGATIVE [facility] Comment on above: Performed By: #### V ITB12, FT4 #### [facility] [address] [place] [address] Dr. Nighat Ballard Hemoglobin Ql (U) Negative Normal NEGATIVE [facility] Comment on above: Performed By: #### V ITB12, FT4 #### [facility] [address] [place] [address] Dr. Nighat Ballard Ketones Ql (U) Negative Normal NEGATIVE [facility] Comment on above: Performed By: #### V ITB12, FT4 #### [facility] [address] [place] [address] Dr. Nighat Ballard LEUKOCYTES Negative Normal NEGATIVE [facility] Comment on above: Performed By: #### V ITB12, FT4 #### [facility] [address] [place] [address] Dr. Nighat Ballard MUCOUS NONE SEEN Normal NONE SEEN [facility] Comment on above: Performed By: #### V ITB12, FT4 #### [facility] [address] [place] [address] Dr. Nihgat Ballard Nitrite Ql (U) Negative Normal NEGATIVE [facility] Comment on above: Performed By: #### V ITB12, FT4 #### [facility] [address] [place] [address] Dr. Nighat Ballard pH (U) 5.0 [pH] Normal 5-9 [facility] Comment on above: Performed By: #### V ITB12, FT4 #### [facility] [address] [place] [address] Dr. Nighat Ballard RBC NONE SEEN Abnormal 0-2 [facility] Comment on above: Performed By: #### V ITB12, FT4 #### [facility] [address] [place] [address] Dr. Nighat Ballard SPEC GRAVITY 1.030 Abnormal 1.005-<=1.025 [facility] Comment on above: Performed By: #### V ITB12, FT4 #### [facility] [address] [place] [address] Dr. Nighat Ballard UA PROTEIN Negative Normal NEGATIVE/ TRACE [facility] Comment on above: Performed By: #### V ITB12, FT4 #### [facility] [address] [place] [address] Dr. Nighat Ballard Urobilinogen Qn (U) 0.2 {Ada'U}/dL Normal 0.2 - 1.0 [facility] Comment on above: Performed By: #### V ITB12, FT4 #### [facility] [address] [place] [address] Dr. Nighat Ballard WBC NONE SEEN Normal NONE SEEN [facility] Comment on above: Performed By: #### V ITB12, FT4 #### [facility] [address] [place] [address] Dr. Nighat Ballard CBC AUTO DIFFon 08-30-2022 BASO # 0.1 103/ul Normal 0.0-0.1 [facility] Comment on above: Performed By: #### C MP, LIPID, TSH #### [facility] [address] [place] [address] Dr. Nighat Ballard Basophils/100 WBC (Bld) 0.7 % Normal 0.2-2.0 [facility] Comment on above: Performed By: #### C MP, LIPID, TSH #### [facility] [address] [place] [address] Dr. Nighat Ballard EO # 0.1 103/ul Normal 0.0-0.7 [facility] Comment on above: Performed By: #### C MP, LIPID, TSH #### [facility] [address] [place] [address] Dr. Nighat Ballard Eosinophils/100 WBC (Bld) 1.0 % Normal 0.9-7.0 [facility] Comment on above: Performed By: #### C MP, LIPID, TSH #### [facility] [address] [place] [address] Dr. Nighat Ballard Erythrocyte distribution width (RBC) [Ratio] 12.9 % Normal 11.0-15.0 [facility] Comment on above: Performed By: #### C MP, LIPID, TSH #### [facility] [address] [place] [address] Dr. Nighat Ballard Hematocrit (Bld) [Volume fraction] 45.0 % Normal 36.0-48.0 [facility] Comment on above: Performed By: #### C MP, LIPID, TSH #### [facility] [address] [place] [address] Dr. Nighat Ballard Hemoglobin (Bld) [Mass/Vol] 14.8 g/dL Normal 12.0-16.0 [facility] Comment on above: Performed By: #### C MP, LIPID, TSH #### [facility] [address] [place] [address] Dr. Nighat Ballard IG # 0.01 10e3/ul Normal 0.00-0.03 [facility] Comment on above: Performed By: #### C MP, LIPID, TSH #### [facility] [address] [place] [address] Dr. Nighat Ballard IG % 0.1 % Normal 0.0-0.5 [facility] Comment on above: Performed By: #### C MP, LIPID, TSH #### [facility] [address] [place] [address] Dr. Nighat Ballard LYMPH # 2.1 103/ul Normal 1.2-3.8 [facility] Comment on above: Performed By: #### C MP, LIPID, TSH #### [facility] [address] [place] [address] Dr. Nighat Ballard Lymphocytes/100 WBC (Bld) 25.6 % Normal 20.5-60.0 [facility] Comment on above: Performed By: #### C MP, LIPID, TSH #### [facility] [address] [place] [address] Dr. Nighat Ballard MANUAL DIFF REQ NO Normal [facility] Comment on above: Performed By: #### C MP, LIPID, TSH #### [facility] [address] [place] [address] Dr. Nighat Ballard MCH (RBC) [Entitic mass] 28.7 pg Normal 26.7-34.0 [facility] Comment on above: Performed By: #### C MP, LIPID, TSH #### [facility] [address] [place], [place] [id number] Dr. Nighat Ballard MCHC (RBC) [Mass/Vol] 32.9 g/dL Normal 29.9-35.2 [facility] Comment on above: Performed By: #### C MP, LIPID, TSH #### [facility] [address] [place] [address] Dr. Nighat Ballard MCV (RBC) [Entitic vol] 87.2 fL Normal 81.0-99.0 [facility] Comment on above: Performed By: #### C MP, LIPID, TSH #### [facility] [address] [place] [address] Dr. Nighat Ballard MONO # 0.4 103/ul Normal 0.3-0.8 [facility] Comment on above: Performed By: #### C MP, LIPID, TSH #### [facility] [address] [place] [address] Dr. Nighat Ballard Monocytes/100 WBC (Bld) 4.7 % Normal 1.7-12.0 [facility] Comment on above: Performed By: #### C MP, LIPID, TSH #### [facility] [address] [place] [address] Dr. Nighat Ballard NEUT # 5.5 103/ul Normal 1.4-6.5 [facility] Comment on above: Performed By: #### C MP, LIPID, TSH #### [facility] [address] [place] [address] Dr. Nighat Ballard Neutrophils/100 WBC (Bld) 67.9 % Normal 43.0-75.0 [facility] Comment on above: Performed By: #### C MP, LIPID, TSH #### [facility] [address] [place] [address] Dr. Nighat Ballard Platelet mean volume (Bld) [Entitic vol] 10.0 fL Normal 9.5-13.5 [facility] Comment on above: Performed By: #### C MP, LIPID, TSH #### [facility] [address] [place] [address] Dr. Nighat Ballard PLT 344 103/ul Normal 150-450 [facility] Comment on above: Performed By: #### C MP, LIPID, TSH #### [facility] [address] [address] [address] Nighat Ballard RBC 5.16 106/ul Normal 4.20-5.40 [facility] Comment on above: Performed By: #### C MP, LIPID, TSH #### [facility] [address] [address] [address] Nighat Ballard WBC 8.1 103/ul Normal 4.0-11.0 [facility] Comment on above: Performed By: #### C MP, LIPID, TSH #### [facility] [address] [address] [address] Nighat Ballard LIPID PROFILEon 08-30-2022 CHOL-HDL RATIO NORM SEE BELOW Normal [facility] Comment on above: Result Comment: 3.3 - 4.4 LOW RISK 4.4 - 7.1 AVERAGE RISK 7.1 - 11.0 MODERATE RISK >11.0 HIGH RISK Performed By: #### L IPID, CMP, TSH #### [facility] [address] [address] [address] Nighat aBllard Cholesterol [Mass/Vol] 163 mg/dL Normal <=200 [facility] Comment on above: Performed By: #### L IPID, CMP, TSH #### [facility] [address] [place] [address] Dr. Nighat Ballard Cholesterol in HDL [Mass/Vol] 40 mg/dL Normal 40-60 [facility] Comment on above: Performed By: #### L IPID, CMP, TSH #### [facility] [address] [address] [address] Nighat Ballard Cholesterol in LDL [Mass/Vol] 72.0 mg/dL Normal [facility] Comment on above: Performed By: #### L IPID, CMP, TSH #### [facility] [address] [address] [address] Nighat Ballard Cholesterol.total/ Cholesterol in HDL [Mass ratio] 4.1 {ratio} Normal [facility] Comment on above: Performed By: #### L IPID, CMP, TSH #### [facility] [address] [address] [address] Nighat Ballard HDL NORMAL > or = 60 mg/dl - LO W CARDIOVASCULAR RISK <40 mg/dl - HIGH CARDIOVASCULAR RISK Normal [facility] Comment on above: Performed By: #### L IPID, CMP, TSH #### [facility] [address] [address] [address] Nighat Ballard LDL CALC NORMAL SEE BELOW Normal [facility] Comment on above: Result Comment: <100 mg/dl OPTIMAL 100 - 129 mg/dl NEAR OR ABOVE OPTIMAL 130 - 159 mg/dl BORDERLINE HIGH 160 - 189 mg/dl HIGH >190 mg/dl VERY HIGH Performed By: #### L IPID, CMP, TSH #### [facility] [address] [address] [address] Nighat Ballard Triglyceride [Mass/Vol] 255 mg/dL Critically high <=150 [facility] Comment on above: Performed By: #### L IPID, CMP, TSH #### [facility] [address] [address] [address] Nighat Ballard VLDL CALC 51.0 mg/dL Normal [facility] Comment on above: Performed By: #### L IPID, CMP, TSH #### [facility] [address] [address] [address] Nighat Ballard MG MAMM SCREEN 3D KENNETH CADon 08-30-2022 MG MAMM SCREEN 3D KENNETH CAD Patient: PRASHANT KENNEY Exam Date: 08/30/2022 : 1975 Gender:F Ordering : JOSE DODSON [facility] Admission #: [id number] Family : Order #: [id number] CLICK HERE TO VIEW EXAM RADIOLOGY REPORT PROCEDURE: MAMMOGRAM SCREENING 3D BILATERAL CAD COMPARISON: MG MAMM SCREEN KENNETH W CAD, 12/01/2019. INDICATIONS: Screening mammography Calculator Name NCI Breast Cancer Risk Assessment Tool 5 Year Breast Cancer Risk Not Reported. Lifetime Breast Cancer Risk Not Reported. Personal Breast Cancer No Personal Ovarian Cancer No Treatments None Family Cancers None LOCATION: [facility] BREAST COMPOSITION: Heterogeneously dense,which may obscure small masses. FINDINGS: DIAGNOSTIC CATEGORY 2--BENIGN FINDING. NO CHANGE FROM COMPARISON. Scattered benign-appearing nodules are present. Scattered benign-appearing calcifications are present. Scattered benign-appearing lymph nodes are present. RIGHT BREAST: No significant suspicious finding. Focal asymmetry mild architectural distortion upper outer quadrant, mid breast, stable LEFT BREAST: No significant suspicious finding. RECOMMENDATIONS: ROUTINE MAMMOGRAM AND CLINICAL EVALUATION IN 12 MONTHS. PLEASE NOTE: A NORMAL MAMMOGRAM DOES NOT EXCLUDE THE POSSIBILITY OF BREAST CANCER. A CLINICALLY SUSPICIOUS PALPABLE LUMP SHOULD BE BIOPSIED. Dictated by: Jesus De Leon MD on 08/30/2022 at 10:22 Approved by: Jesus De Leon MD on 08/30/2022 at 10:25 Normal [facility] PROF 14(COMP METB)on 023 Albumin [Mass/Vol] 3.9 g/dL Normal 3.4-5.0 [facility] Comment on above: Performed By: #### L IPID, CMP, TSH #### [facility] [address] [place] [address] Dr. Nighat Ballard Albumin/Globulin [Mass ratio] 1.0 {ratio} Normal [facility] Comment on above: Performed By: #### L IPID, CMP, TSH #### [facility] [address] [place] [address] Dr. Nighat Ballard ALP [Catalytic activity/Vol] 66 U/L Normal 46-116 [facility] Comment on above: Performed By: #### L IPID, CMP, TSH #### [facility] [address] [place] [address] Dr. Nighat Ballard ALT [Catalytic activity/Vol] 46 U/L Normal 14-59 [facility] Comment on above: Performed By: #### L IPID, CMP, TSH #### [facility] [address] [address] [address] Nighat Ballard Anion gap [Moles/Vol] 15.4 mmol/L Normal [facility] Comment on above: Performed By: #### L IPID, CMP, TSH #### [facility] [address] [place] [address] Dr. Nighat Ballard AST [Catalytic activity/Vol] 31 U/L Normal 15-37 [facility] Comment on above: Performed By: #### L IPID, CMP, TSH #### [facility] [address] [address] [address] Nighat Ballard Bilirubin [Mass/Vol] 0.3 mg/dL Normal 0.2-1.0 [facility] Comment on above: Performed By: #### L IPID, CMP, TSH #### [facility] [address] [address] [address] Nighat Ballard Calcium [Mass/Vol] 9.7 mg/dL Normal 8.5-10.1 [facility] Comment on above: Performed By: #### L IPID, CMP, TSH #### [facility] [address] [address] [address] Nighat Ballard Chloride [Moles/Vol] 104 mmol/L Normal 98-107 [facility] Comment on above: Performed By: #### L IPID, CMP, TSH #### [facility] [address] [place] [address] Dr. Nighat Ballard CO2 [Moles/Vol] 28.8 mmol/L Normal 21.0-32.0 [facility] Comment on above: Performed By: #### L IPID, CMP, TSH #### [facility] [address] [address] [address] Nighat Ballard Creatinine [Mass/Vol] 0.93 mg/dL Normal 0.55-1.02 [facility] Comment on above: Performed By: #### L IPID, CMP, TSH #### [facility] [address] [place] [address] Dr. Nighat Ballard EGFR-AF SOUTH AFR[place] >60 Normal >=60 [facility] Comment on above: Performed By: #### L IPID, CMP, TSH #### [facility] [address] [address] [address] Nighat Ballard EGFR-NON AF [place]FR[place] >60 Normal >=60 [facility] Comment on above: Performed By: #### L IPID, CMP, TSH #### [facility] [address] [place] [address] Dr. Nighat Ballard Globulin (S) [Mass/Vol] 3.8 g/dL Normal [facility] Comment on above: Performed By: #### L IPID, CMP, TSH #### [facility] [address] [address] [address] Nighat Ballard Glucose [Mass/Vol] 90 mg/dL Normal 74-106 [facility] Comment on above: Performed By: #### L IPID, CMP, TSH #### [facility] [address] [place] [address] Dr. Nighat Ballard Potassium [Moles/Vol] 4.2 mmol/L Normal 3.5-5.1 [facility] Comment on above: Performed By: #### L IPID, CMP, TSH #### [facility] [address] [place] [address] Dr. Nighat Ballard Protein [Mass/Vol] 7.7 g/dL Normal 6.4-8.2 [facility] Comment on above: Performed By: #### L IPID, CMP, TSH #### [facility] [address] [place] [address] Dr. Nighat Ballard Sodium [Moles/Vol] 144 mmol/L Normal 136-145 [facility] Comment on above: Performed By: #### L IPID, CMP, TSH #### [facility] [address] [place] [address] Dr. Nighat Ballard Urea nitrogen [Mass/Vol] 10.0 mg/dL Normal 7.0-18.0 [facility] Comment on above: Performed By: #### L IPID, CMP, TSH #### [facility] [address] [place] [address] Dr. Nighat Ballard Urea nitrogen/Creatinin e [Mass ratio] 10.8 mg/mg Normal [facility] Comment on above: Performed By: #### L IPID, CMP, TSH #### [facility] [address] [place] [address] Dr. Nighat Ballard TSHon 08-30-2022 TSH 1.369 uIU/mL Normal 0.358-3.740 [facility] Comment on above: Performed By: #### L IPID, CMP, TSH #### [facility] [address] [address] [address] Nighat Ballard UA RANDOM W/MICROSCOPICon BACTERIA TRACE Abnormal NONE SEEN [facility] Comment on above: Performed By: #### C MP, LIPID, TSH #### [facility] [address] [place] [address] Dr. Nighat Ballard Bilirubin Ql (U) Negative Normal NEGATIVE [facility] Comment on above: Performed By: #### C MP, LIPID, TSH #### [facility] [facility] [address] [address] [address] Nighat Ballard CAST NONE SEEN Normal NONE SEEN [facility] Comment on above: Performed By: #### C MP, LIPID, TSH #### [facility] [address] [place] [address] Dr. Nighat Ballard Clarity (U) CLEAR Normal CLEAR [facility] Comment on above: Performed By: #### C MP, LIPID, TSH #### [facility] [address] [place] [address] Dr. Nighat Ballard Color (U) YELLOW Normal YELLOW [facility] Comment on above: Performed By: #### C MP, LIPID, TSH #### [facility] [address] [place] [address] Dr. Nighat Ballard Crystals LM Nom (Urine sed) NONE SEEN Normal NONE SEEN [facility] Comment on above: Performed By: #### C MP, LIPID, TSH #### [facility] [address] [place] [address] Dr. Nighat Ballard Epithelial cells LM Ql (Urine sed) MODERATE Abnormal NONE SEEN /RARE [facility] Comment on above: Performed By: #### C MP, LIPID, TSH #### [facility] [address] [place] [address] Dr. Nighat Ballard Glucose Ql (U) Negative Normal NEGATIVE [facility] Comment on above: Performed By: #### C MP, LIPID, TSH #### [facility] [address] [place] [address] Dr. Nighat Ballard Hemoglobin Ql (U) Negative Normal NEGATIVE [facility] Comment on above: Performed By: #### C MP, LIPID, TSH #### [facility] [address] [address] [address] Nighat Ballard Ketones Ql (U) Negative Normal NEGATIVE [facility] Comment on above: Performed By: #### C MP, LIPID, TSH #### [facility] [address] [address] [address] Nighat Ballard LEUKOCYTES Negative Normal NEGATIVE [facility] Comment on above: Performed By: #### C MP, LIPID, TSH #### [facility] [address] [address] [address] Nighat Ballard MUCOUS NONE SEEN Normal NONE SEEN [facility] Comment on above: Performed By: #### C MP, LIPID, TSH #### [facility] [address] [address] [address] Nighat Ballard Nitrite Ql (U) Negative Normal NEGATIVE [facility] Comment on above: Performed By: #### C MP, LIPID, TSH #### [facility] [address] [address] [address] Nighat Ballard pH (U) 6.0 [pH] Normal 5-9 [facility] Comment on above: Performed By: #### C MP, LIPID, TSH #### [facility] [address] [address] [address] Nighat Ballard RBC NONE SEEN Abnormal 0-2 [facility] Comment on above: Performed By: #### C MP, LIPID, TSH #### [facility] [address] [address] [address] Nighat Ballard SPEC GRAVITY >=1.030 Abnormal 1.005-<=1.025 [facility] Comment on above: Performed By: #### C MP, LIPID, TSH #### [facility] [address] [address] [address] Nighat Ballard UA PROTEIN Negative Normal NEGATIVE/ TRACE [facility] Comment on above: Performed By: #### C MP, LIPID, TSH #### [facility] [address] [place] [address] Dr. Nighat Ballard Urobilinogen Qn (U) 0.2 {Ada'U}/dL Normal 0.2 - 1.0 [facility] Comment on above: Performed By: #### C MP, LIPID, TSH #### [facility] [address] [address] [address] Nighat Ballard WBC NONE SEEN Normal NONE SEEN [facility] Comment on above: Performed By: #### C MP, LIPID, TSH #### [facility] [address] [address] [address] Nighat Ballard XR cerv spine AP/LAT/FLX/EXT on 02-14-2022 XR cerv spine AP/LAT/FLX/EXT [facility] [place] [address] [place] [address] XRay Report Signed Patient: Prashant Kenney MR#: [id number] 52 : 1975 Acct:[id number] Age/Sex: 46 / F ADM Date: 02/14/22 Loc: XD Room: Type: [facility] Attending Dr: Myles Ramirez MD Copies to: Myles Ramirez MD Ordering Provider: Myles Ramirez MD Date of Service: 02/14/22 XR/XR cerv spine AP/LAT/FLX/EXT: M50.10 CERVICAL SPINE 4 views: CLINICAL HISTORY: Follow disc replacement surgery 2019. COMPARISON: Cervical spine 02/25/2020 FINDINGS: Straightening of the normal cervical lordosis which may relate to muscle spasm. Disc hardware seen at C5-6 and C6-7 without radiographic complication. No pathological motion. Flexion-extension views. Vertebral body heights appear maintained. XR/XR cerv spine AP/LAT/FLX/EXT IMPRESSION: NO EVIDENCE OF HARDWARE COMPLICATION. Impression dictated by: Reagan Ziegler Jr., Lisa02/14/2022 4:14 PM Dictation Location: [place] [address] Transcribed By: [facility] 02/14/221613 Dictated By: Reagan Ziegler Jr, DO 02/14/221613 Signed By: 02/14/224 Normal [facility] CBC AUTO DIFFon 12-06-2021 BASO # 0.1 103/ul Normal 0.0-0.1 [facility] Comment on above: Performed By: #### C MP, LIPID, TSH #### [facility] [address] [place] [address] Dr. Nighat Ballard Basophils/100 WBC (Bld) 0.7 % Normal 0.2-2.0 [facility] Comment on above: Performed By: #### C MP, LIPID, TSH #### [facility] [address] [place] [address] Dr. Nighat Ballard EO # 0.0 103/ul Normal 0.0-0.7 [facility] Comment on above: Performed By: #### C MP, LIPID, TSH #### [facility] [address] [place] [address] Dr. Nighat Ballard Eosinophils/100 WBC (Bld) 0.5 % Critically low 0.9-7.0 [facility] Comment on above: Performed By: #### C MP, LIPID, TSH #### [facility] [address] [place] [address] Dr. Nighat Ballard Erythrocyte distribution width (RBC) [Ratio] 12.8 % Normal 11.0-15.0 [facility] Comment on above: Performed By: #### C MP, LIPID, TSH #### [facility] [address] [place] [address] Dr. Nighat Ballard Hematocrit (Bld) [Volume fraction] 43.3 % Normal 36.0-48.0 [facility] Comment on above: Performed By: #### C MP, LIPID, TSH #### [facility] [address] [place] [address] Dr. Nighat Ballard Hemoglobin (Bld) [Mass/Vol] 13.9 g/dL Normal 12.0-16.0 [facility] Comment on above: Performed By: #### C MP, LIPID, TSH #### [facility] [address] [place] [address] Dr. Nighat Ballard IG # 0.02 10e3/ul Normal 0.00-0.03 [facility] Comment on above: Performed By: #### C MP, LIPID, TSH #### [facility] [address] [place] [address] Dr. Nighat Ballard IG % 0.3 % Normal 0.0-0.5 [facility] Comment on above: Performed By: #### C MP, LIPID, TSH #### [facility] [address] [place] [address] Dr. Nighat Ballard LYMPH # 2.3 103/ul Normal 1.2-3.8 [facility] Comment on above: Performed By: #### C MP, LIPID, TSH #### [facility] [address] [place] [address] Dr. Nighat Ballard Lymphocytes/100 WBC (Bld) 30.3 % Normal 20.5-60.0 [facility] Comment on above: Performed By: #### C MP, LIPID, TSH #### [facility] [address] [place] [address] Dr. Nighat Ballard MANUAL DIFF REQ NO Normal [facility] Comment on above: Performed By: #### C MP, LIPID, TSH #### [facility] [address] [place] [address] Dr. Nighat Ballard MCH (RBC) [Entitic mass] 28.7 pg Normal 26.7-34.0 [facility] Comment on above: Performed By: #### C MP, LIPID, TSH #### [facility] [address] [place] [address] Dr. Nighat Ballard MCHC (RBC) [Mass/Vol] 32.1 g/dL Normal 29.9-35.2 [facility] Comment on above: Performed By: #### C MP, LIPID, TSH #### [facility] [address] [place] [address] Dr. Nighat Ballard MCV (RBC) [Entitic vol] 89.5 fL Normal 81.0-99.0 [facility] Comment on above: Performed By: #### C MP, LIPID, TSH #### [facility] [address] [place] [address] Dr. Nighat Ballard MONO # 0.3 103/ul Normal 0.3-0.8 [facility] Comment on above: Performed By: #### C MP, LIPID, TSH #### [facility] [address] [place] [address] Dr. Nighat Ballard Monocytes/100 WBC (Bld) 4.2 % Normal 1.7-12.0 [facility] Comment on above: Performed By: #### C MP, LIPID, TSH #### [facility] [address] [place] [address] Dr. Nighat Ballard NEUT # 4.9 103/ul Normal 1.4-6.5 [facility] Comment on above: Performed By: #### C MP, LIPID, TSH #### [facility] [address] [place] [address] Dr. Nighat Ballard Neutrophils/100 WBC (Bld) 64.0 % Normal 43.0-75.0 [facility] Comment on above: Performed By: #### C MP, LIPID, TSH #### [facility] [address] [place] [address] Dr. Nighat Ballard Platelet mean volume (Bld) [Entitic vol] 10.3 fL Normal 9.5-13.5 [facility] Comment on above: Performed By: #### C MP, LIPID, TSH #### [facility] [address] [place] [address] Dr. Nighat Ballard PLT 383 103/ul Normal 150-450 [facility] Comment on above: Performed By: #### C MP, LIPID, TSH #### [facility] [address] [place] [address] Dr. Nighat Ballard RBC 4.84 106/ul Normal 4.20-5.40 [facility] Comment on above: Performed By: #### C MP, LIPID, TSH #### [facility] [address] [place] [address] Dr. Nighat Ballard WBC 7.6 103/ul Normal 4.0-11.0 [facility] Comment on above: Performed By: #### C MP, LIPID, TSH #### [facility] [address] [place] [address] Dr. Nighat Ballard FREE T4on 12-06-2021 Free T4 [Mass/Vol] 0.83 ng/dL Normal 0.76-1.46 [facility] Comment on above: Performed By: #### V ITB12, FT4 #### [facility] [address] [address] [address] Nighat Ballard LIPID PROFILEon 12-06-2021 CHOL-HDL RATIO NORM SEE BELOW Normal [facility] Comment on above: Result Comment: 3.3 - 4.4 LOW RISK 4.4 - 7.1 AVERAGE RISK 7.1 - 11.0 MODERATE RISK >11.0 HIGH RISK Performed By: #### C MP, LIPID, TSH #### [facility] [address] [address] [address] Nighat Ballard Cholesterol [Mass/Vol] 268 mg/dL Critically high <=200 [facility] Comment on above: Performed By: #### C MP, LIPID, TSH #### [facility] [address] [address] [address] Nighat Ballard Cholesterol in HDL [Mass/Vol] 46 mg/dL Normal 40-60 [facility] Comment on above: Performed By: #### C MP, LIPID, TSH #### [facility] [address] [address] [address] Nighat Ballard Cholesterol in LDL [Mass/Vol] 158.6 mg/dL Normal [facility] Comment on above: Performed By: #### C MP, LIPID, TSH #### [facility] [address] [address] [address] Nighat Ballard Cholesterol.total/ Cholesterol in HDL [Mass ratio] 5.8 {ratio} Normal [facility] Comment on above: Performed By: #### C MP, LIPID, TSH #### [facility] [address] [address] [address] Nighat Ballard HDL NORMAL > or = 60 mg/dl - LO W CARDIOVASCULAR RISK <40 mg/dl - HIGH CARDIOVASCULAR RISK Normal [facility] Comment on above: Performed By: #### C MP, LIPID, TSH #### [facility] [address] [address] [address] Nighat Ballard LDL CALC NORMAL SEE BELOW Normal [facility] Comment on above: Result Comment: <100 mg/dl OPTIMAL 100 - 129 mg/dl NEAR OR ABOVE OPTIMAL 130 - 159 mg/dl BORDERLINE HIGH 160 - 189 mg/dl HIGH >190 mg/dl VERY HIGH Performed By: #### C MP, LIPID, TSH #### [facility] [address] [place] [address] Dr. Nighat Ballard Triglyceride [Mass/Vol] 317 mg/dL Critically high <=150 [facility] Comment on above: Performed By: #### C MP, LIPID, TSH #### [facility] [address] [address] [address] Nighat Ballard VLDL CALC 63.4 mg/dL Normal [facility] Comment on above: Performed By: #### C MP, LIPID, TSH #### [facility] [address] [place] [address] Dr. Nighat Ballard PROF 14(COMP METB)on 022 Albumin [Mass/Vol] 3.9 g/dL Normal 3.4-5.0 [facility] Comment on above: Performed By: #### C MP, LIPID, TSH #### [facility] [address] [place] [address] Dr. Nighat Ballard Albumin/Globulin [Mass ratio] 1.0 {ratio} Normal [facility] Comment on above: Performed By: #### C MP, LIPID, TSH #### [facility] [address] [place] [address] Dr. Nighat Ballard ALP [Catalytic activity/Vol] 74 U/L Normal 46-116 [facility] Comment on above: Performed By: #### C MP, LIPID, TSH #### [facility] [address] [place] [address] Dr. Nighat Ballard ALT [Catalytic activity/Vol] 41 U/L Normal 14-59 [facility] Comment on above: Performed By: #### C MP, LIPID, TSH #### [facility] [address] [place] [address] Dr. Nighat Ballard Anion gap [Moles/Vol] 10.8 mmol/L Normal [facility] Comment on above: Performed By: #### C MP, LIPID, TSH #### [facility] [address] [address] [address] Nighat Ballard AST [Catalytic activity/Vol] 29 U/L Normal 15-37 [facility] Comment on above: Performed By: #### C MP, LIPID, TSH #### [facility] [address] [address] [address] Nighat Ballard Bilirubin [Mass/Vol] 0.5 mg/dL Normal 0.2-1.0 [facility] Comment on above: Performed By: #### C MP, LIPID, TSH #### [facility] [address] [place] [address] Dr. Nighat Ballard Calcium [Mass/Vol] 9.0 mg/dL Normal 8.5-10.1 [facility] Comment on above: Performed By: #### C MP, LIPID, TSH #### [facility] [address] [place] [address] Dr. Nighat Ballard Chloride [Moles/Vol] 102 mmol/L Normal 98-107 [facility] Comment on above: Performed By: #### C MP, LIPID, TSH #### [facility] [address] [place] [address] Dr. Nighat Ballard CO2 [Moles/Vol] 29.3 mmol/L Normal 21.0-32.0 [facility] Comment on above: Performed By: #### C MP, LIPID, TSH #### [facility] [address] [place] [address] Dr. Nighat Ballard Creatinine [Mass/Vol] 1.03 mg/dL Critically high 0.55-1.02 [facility] Comment on above: Performed By: #### C MP, LIPID, TSH #### [facility] [address] [place] [address] Dr. Nighat Ballard EGFR-AF SOUTH AFRICAN >60 Normal >=60 [facility] Comment on above: Performed By: #### C MP, LIPID, TSH #### [facility] [address] [place] [address] Dr. Nighat Ballard EGFR-NON AF S[place] AFRICAN =58 Critically low >=60 [facility] Comment on above: Performed By: #### C MP, LIPID, TSH #### [facility] [address] [address] [address] Nighat Ballard Globulin (S) [Mass/Vol] 4.0 g/dL Normal [facility] Comment on above: Performed By: #### C MP, LIPID, TSH #### [facility] [address] [address] [address] Nighat Ballard Glucose [Mass/Vol] 84 mg/dL Normal 74-106 [facility] Comment on above: Performed By: #### C MP, LIPID, TSH #### [facility] [address] [address] [address] Nighat Ballard Potassium [Moles/Vol] 4.1 mmol/L Normal 3.5-5.1 [facility] Comment on above: Performed By: #### C MP, LIPID, TSH #### [facility] [address] [place] [address] Dr. Nighat Ballard Protein [Mass/Vol] 7.9 g/dL Normal 6.4-8.2 [facility] Comment on above: Performed By: #### C MP, LIPID, TSH #### [facility] [address] [place] [address] Dr. Nighat Ballard Sodium [Moles/Vol] 138 mmol/L Normal 136-145 [facility] Comment on above: Performed By: #### C MP, LIPID, TSH #### [facility] [address] [place] [address] Dr. Ngihat Ballard Urea nitrogen [Mass/Vol] 12.0 mg/dL Normal 7.0-18.0 [facility] Comment on above: Performed By: #### C MP, LIPID, TSH #### [facility] [address] [place] [address] Dr. Nighat Ballard Urea nitrogen/Creatinin e [Mass ratio] 11.7 mg/mg Normal [facility] Comment on above: Performed By: #### C MP, LIPID, TSH #### [facility] [address] [place] [address] Dr. Nigaht Ballard TSHon 12-06-2021 TSH 2.371 uIU/mL Normal 0.358-3.740 [facility] Comment on above: Performed By: #### C MP, LIPID, TSH #### [facility] [address] [place] [address] Dr. Nighat Ballard UA RANDOM W/MICROSCOPICon BACTERIA SMALL Abnormal NONE SEEN [facility] Comment on above: Performed By: #### V ITB12, FT4 #### [facility] [address] [place] [address] Dr. Nighat Ballard Bilirubin Ql (U) Negative Normal NEGATIVE [facility] Comment on above: Performed By: #### V ITB12, FT4 #### [facility] [address] [place] [address] Dr. Nighat Ballard CA OX CRYSTALS RARE Normal [facility] Comment on above: Performed By: #### V ITB12, FT4 #### [facility] [address] [place] [address] Dr. Nighat Ballard CAST NONE SEEN Normal NONE SEEN [facility] Comment on above: Performed By: #### V ITB12, FT4 #### [facility] [address] [place] [address] Dr. Nighat Ballard Clarity (U) CLEAR Normal CLEAR [facility] Comment on above: Performed By: #### V ITB12, FT4 #### [facility] [address] [place] [address] Dr. Nighat Ballard Color (U) LT. YELLOW Normal YELLOW [facility] Comment on above: Performed By: #### V ITB12, FT4 #### [facility] [address] [place] [address] Dr. Nighat Ballard Crystals LM Nom (Urine sed) SEEN Abnormal NONE SEEN [facility] Comment on above: Performed By: #### V ITB12, FT4 #### [facility] [address] [place] [address] Dr. Nighat Ballard Epithelial cells LM Ql (Urine sed) FEW Abnormal NONE SEEN /RARE [facility] Comment on above: Performed By: #### V ITB12, FT4 #### [facility] [address] [address] [address] Nighat Ballard Glucose Ql (U) Negative Normal NEGATIVE [facility] Comment on above: Performed By: #### V ITB12, FT4 #### [facility] [address] [place] [address] Dr. Nighat Ballard Hemoglobin Ql (U) Negative Normal NEGATIVE [facility] Comment on above: Performed By: #### V ITB12, FT4 #### [facility] [address] [address] [address] Nighat Ballard Ketones Ql (U) Negative Normal NEGATIVE [facility] Comment on above: Performed By: #### V ITB12, FT4 #### [facility] [address] [place] [address] Dr. Nighat Ballard LEUKOCYTES Negative Normal NEGATIVE [facility] Comment on above: Performed By: #### V ITB12, FT4 #### [facility] [address] [place] [address] Dr. Nighat Ballard MUCOUS NONE SEEN Normal NONE SEEN [facility] Comment on above: Performed By: #### V ITB12, FT4 #### [facility] [address] [place] [address] Dr. Nighat Ballard Nitrite Ql (U) Negative Normal NEGATIVE [facility] Comment on above: Performed By: #### V ITB12, FT4 #### [facility] [address] [place] [address] Dr. Nighat Ballard pH (U) 6.5 [pH] Normal 5-9 [facility] Comment on above: Performed By: #### V ITB12, FT4 #### [facility] [address] [place] [address] Dr. Nighat Ballard RBC 0-2 Normal 0-2 [facility] Comment on above: Performed By: #### V ITB12, FT4 #### [facility] [address] [place] [address] Dr. Nighat Ballard SPEC GRAVITY 1.015 Normal 1.005-<=1.025 [facility] Comment on above: Performed By: #### V ITB12, FT4 #### [facility] [address] [place] [address] Dr. Nighat Ballard UA PROTEIN Negative Normal NEGATIVE/ TRACE [facility] Comment on above: Performed By: #### V ITB12, FT4 #### [facility] [address] [place] [address] Dr. Nighat Ballard Urobilinogen Qn (U) 0.2 {Ada'U}/dL Normal 0.2 - 1.0 [facility] Comment on above: Performed By: #### V ITB12, FT4 #### [facility] [address] [place] [address] Dr. Nighat Ballard WBC 0-2 Abnormal NONE SEEN [facility] Comment on above: Performed By: #### V ITB12, FT4 #### [facility] [address] [place] [address] Dr. Nighat Ballard VITAMIN B12on 12-06-2021 Cobalamin (Vitamin B12) [Mass/Vol] 855.0 pg/mL Normal 193.0-986.0 [facility] Comment on above: Performed By: #### V ITB12, FT4 #### [facility] [address] [place] [address] Dr. Nighat Ballard Vital Signs Date Time Vital Sign Value Performing Clinician Facility 07-31-2023 13:13-0500 Blood Pressure Location Dinesh BLANCA [facility] [place] 07-31-2023 13:13-0500 Diastolic blood pressure 78 mm[Hg] Dinesh RIOS [facility] [place] 07-31-2023 13:13-0500 Heart rate 72 /min Dinesh RIOS [facility] [place] 07-31-2023 13:13-0500 Respiratory rate 16 /min Dinesh RIOS [facility] 07-31-2023 13:13-0500 Systolic blood pressure 116 mm[Hg] Dinesh RIOS [facility] [place] 02-14-2022 15:30-0400 Body height Myles Ramirez Other [facility] Other 03-29-2021 16:30-0400 Body height Myles Ramirez Other [facility] Other 03-29-2021 16:30-0400 Body mass index (BMI) [Ratio] 31.09 kg/m2 Myles Ramirez Other [facility] Other 03-29-2021 16:30-0400 Body weight 77.11 kg Myles Ramirez Other [facility] Other 03-29-2021 16:30-0400 Diastolic blood pressure 75 mm[Hg] Myles Ramirez Other [facility] Other 03-29-2021 16:30-0400 Systolic blood pressure 130 mm[Hg] Myles Ramirez Other [facility] Other Encounters Encounter Date Encounter Type Care Provider Facility Start: 08-02-2023 Refill Ellen Dodson MACHINE TURNER Work Phone: [facility] Comment on above: Primary insomnia (Pr imary Dx) Start: 07-31-2023 End: 08-01-2023 ambulatory ELLEN DODSON Facility:[facility] Start: 07-31-2023 End: 07-31-2023 Patient encounter procedure Dinesh RIOS [facility] Start: 07-03-2023 End: 07-04-2023 ambulatory Dinesh R ROSYL Facility: [place] Start: 07-03-2023 End: 07-03-2023 Patient encounter procedure Dinesh R NILL [facility] Start: 06-06-2023 ambulatory HUNG DELACRUZ Facility :[facility] Start: 06-04-2023 End: 06-04-2023 ambulatory ELELN IVORY Not Available Start: 03-20-2023 End: 03-21-2023 ambulatory KEYUR MCCAULEY Facility:[facility] Start: 03-12-2023 End: 03-13-2023 ambulatory HUNG Marilin BRANDONRY Facility:[facility] Start: 03-12-2023 End: 03-12-2023 Patient encounter procedure HUNG Marilin JAYME [facility] Start: 11-16-2022 End: 11-16-[address] SAUL NIELSEN . Facility:[facility] Start: 10-16-2022 End: 10-16-2022 ambulatory HILLARY FRIEND Facility:[facility] Start: 10-15-2022 End: 10-15-2022 ambulatory BOOT LINER MAKER ELLEN DODSON Facility:[facility] Start: 08-30-2022 End: 08-31-[address] JESUS DE LEON Facility:[facility] Start: 08-17-2022 End: 08-17-[address] ABEBA DOTSON . Facility:[facility] Start: 03-13-2022 ambulatory BOOT LINER MAKER ELLEN IVORY Facil ity:[facility] Start: 02-27-2022 End: 02-28-2022 ambulatory BOOT LINER MAKER ELLEN IVORY Facility:[facility] Start: 02-14-2022 End: 02-14-2022 Patient encounter procedure Ellen Ivory Work Phone: [facility] Start: 02-14-2022 End: 02-14-2022 ambulatory Myles Ramirez Other [facility] [employer] Other Start: 02-14-2022 Office outpatient visit 15 minutes Myles Ramirez [facility] Start: 12-06-2021 End: 12-07-2021 ambulatory BOOT LINER MAKER ELLEN AICHJARADZ Facility:[facility] Start: 03-29-2021 Office outpatient visit 15 minutes Myles Ramirez [facility] Start: 01-15-2017 End: 01-16-2017 Ambulatory DEFAULT PHYSICIAN Facility:[facility] Procedures Date Procedure Procedure Detail Performing Clinician Start: 11-16-2022 Laparoscopic right oophorectomy HUNG DELACRUZ Start: 08-30-2022 Mammography Ellen salas MACHINE TURNER Work Phone: Start: 02-14-2022 X-ray of cervical spine Ellen Dodson Work Phone: Abdominal hysterectomy Eriberto el NILL Arthroscopy of shoulder Ajit ael NILL Hysterectomy Dinesh NILL Laparoscopy Dinesh NILL Comment on above: x3 or 4 Lysis of adhesions Dinesh N ILL Tonsillectomy Dinesh NILL Plan of Treatment Date Care Activity Detail Author Start: 08-31-2023 Screening for malign ant neoplasm of breast Mammogram [facility] Start: 02-22-2023 Influenza vaccination Influenza Vacc ine (#1) [facility] Start: 2006 Screening for malign ant neoplasm of cervix HPV/Cotest [facility] Start: 1997 Screening for malign ant neoplasm of cervix Pap Smear [facility] Start: 1976 Screening for malign ant neoplasm of colon [facility] Immunizations Immunization Date Immunization Notes Care Provider Lacy gerardo 01-07-2020 Kenalog -40 mg Myles Fontanez s Other [facility] [employer] Other 10-22-2017 Kenalog -40 mg Myles Fontanez s Other [email or web address] [facility] [employer] Other NEGATED: Highlighted row has not occurred!07-31-2023 influenza virus vaccine, unspecified formulation Dinesh NILL [facility] [place] Payers Date Payer Category Payer Unknown 1975 Unknown [id number] 2.16.84 [id number] 1975 Unknown [id number] 2.16.84 [id number] 1976 Unknown [id number] 2.16.84 [id number] 1976 Unknown [id number] 2.16.84 [id number] 1976 Unknown [id number] 2.16.84 [id number] 1976 Unknown [id number] 2.16.84 [id number] 1976 Unknown [id number] 2.16.84 [id number] 1976 Unknown [id number] 2.16.84 [id number] 1976 Unknown [id number] 2.16.840 .[id number] 1976 Unknown [id number] 2.16.8 [id number] 1976 Unknown [id number] 2.16.8 [id number] 1958 Medicaid [id number] 2. [id number] 1959 Unknown [id number] Self-pay Self Pay [id number] Unknown [id number] 2.1 [id number] Unknown [id number] 2.16.8 [id number] Worker's Compensation [id number] Social History Date Type Detail Facility Unknown if ever smoked [facility] Other Start: 06-03-2023 End: 06-04-2023 Sex Assigned At [facility] Start: 09-28-2020 End: 06-24-2018 Tobacco smoking status NHIS Smoker (finding) [facility] Start: 1975 Sex Assigned At Female [facility] Tobacco smoking status No Smokin g Status Entered [facility] [place] Start: 07-31-2023 Tobacco smoking status Heavy t obacco smoker (finding) [facility] [place] Tobacco smoking status Former sm okeless tobacco user, quit more than 30 days ago [facility] [place] Start: 12-10-2022 Tobacco smoking stat us [facility] Ex-smoker [facility] End: 06-24-2018 History of tobacco use Cigarette Smoker [facility] Start: 06-04-2023 Alcohol intake Current drinke r of alcohol (finding) [facility] Start: 06-03-2023 End: 06-04-2023 History of Social function [facility] Within the last year , have you been afraid of your partner or ex-partner? No [facility] Are you now , , , , never or living with a partner? Living with partner [facility] How often to you hav e a drink containing alcohol? Never [facility] How hard is it for y ou to pay for the very basics like food, housing, medical care, and heating Hard [facility] Do you feel stress - tense, restless, nervous, or anxious, or unable to sleep at night because your mind is troubled all the time - these days [OSQ] Very much [facility] (I/We) worried wheanay er (my/our) food would run out before (I/we) got money to buy more. Sometimes true [facility] In the past 12 month s, was there a time when you were not able to pay the mortgage or rent on time? Yes [facility] Start: 12-10-2022 Alcohol Comment Alcohol: 1-2 drinks/monthly or less [facility] Start: 1975 Sex Assigned At Not on file [facility] Medical Equipment Procedure Code Equipment Code Equipment Origin al Text Equipment Identifier Dates Cervical total d isc replacement prosthesis, sterile [id number] FDA Start: 05-19-2019 Cervical total d isc replacement prosthesis, sterile [id number] FDA Start: 05-19-2019 Functional Status Date Assessment Result Facility 07-31-2023 Functional Status N/A [facility] Clinical Notes 02-22-2018 to 07-31-2023 Note Date & Type Note Facility 07-31-2023 Note Chief Complaint consultation for colonoscopy HPI Staff 48 year old female presents on consultation from Ellen Dodson for screening colonoscopy. Denies abdominal or rectal pain. No rectal bleeding or change in bowel habits. Patient with chronic constipation for which she takes Miralax. Denies nausea or vomiting. No unexplained weight loss. Never had colonoscopy in the past. No known family history of colon cancer. History of Present Illness 48 yo female with h/o htn, hyperlipidemia, migraines, depression/anxiety, referred for colorectal screening; denies change in bms, does have chronic constipation, no blood in stools; no abdominal complaints; denies asa or NSAID use, no SBE prophylaxis; abdominal operations significant for LS right oophorectomy, multiple laparoscopies, and GABBY; no previous colonoscopy; no fmhx of GI malignancy or IBD; no tobacco use. Review of Systems PHQ Score Initial Depression Screen Score: 0 SCORE ROS - Provider Constitutional: no fever, no sweats, no weight loss. Eyes: no glasses, no blurred vision, no visual loss. ENMT: no dentures, no hoarseness, no swallowing difficulties, no hearing loss, no ear infection(s), no nose bleeds. Cardiovascular: normal blood pressure, no chest pain, regular heartbeat, no heart murmur. Respiratory: no shortness of breath, no cough, no asthma, no wheezing. Gastrointestinal: no nausea, no vomiting, no diarrhea, no constipation, no blood in stool, no change in bowel habits, no abdominal pain, no hepatitis. Genitourinary: no kidney stones, no urine infection, no dysuria. Musculoskeletal: no pain, no weakness. Skin: no changing moles, no rash, no skin lumps. Neurologic: no seizures, no epilepsy, no headache. Psychiatric: no emotional or psychiatric problem. Heme/Lymph: no bleeding problems, no anemia, no blood clots, no transfusions. Allergy/Immunologic: no swollen lymph nodes/glands, no IV drug abuse. Other: Additional ROS info: Except as noted in the above Review of Systems and in the History of Present Illness, all other systems have been reviewed and are negative or noncontributory. Physical Exam Vitals & Measurements HR: 72(Peripheral) RR: 16 BP: 116/78 HT: 62 in HT: 158.7 cm WT: 85.2 kg WT: 187.44 lb BMI: 33.83 HEENT: normal conjunctiva, sclera clear, no scleral icterus, EOM intact, PERRLA, oral mucosa moist without lesions. Neck: trachea midline, no mass, symmetric, no thyromegaly or nodules, no adenopathy Respiratory: lungs CTA, respirations non labored. Cardiovascular: regular rate and rhythm, no murmur, no pedal edema or varicosities. Gastrointestinal: obese, soft, non distended, no tenderness, no masses, no palpable hernias, diastasis recti no, no hepatosplenomegaly; normal bs Lymphatic: no cervical adenopathy, no supraclavicular adenopathy. Musculoskeletal: normal gait, digits and nails without infection, nodes, cyanosis, clubbing. Skin: no rashes, no lesions, no ulcers, no subcutaneous nodules, induration. Psychiatric/Neuro: oriented to time, place, person, judgement normal, affect appropriate for age, insight intact, no focal deficits. Tests: , review of old records completed , Discussed surgical options, risks, and possible complications with patient. Assessment/Plan 1. Screening for malignant neoplasm of colon (Z12.11: Encounter for screening for malignant neoplasm of colon) plan colonoscopy under anesthesia, informed consent obtained. Follow-up No qualifying data available Problem List/Past Medical History Ongoing Anxiety BMI 33.0-33.9,adult Depression HTN (hypertension) Incontinence Migraine Obesity Screening for colorectal cancer Screening for malignant neoplasm of colon Tobacco dependence Historical No qualifying data Procedure/Surgical History Laparoscopic right oophorectomy (11/16/2022), Abdominal hysterectomy, Arthroscopy of shoulder, Laparoscopy, Lysis of adhesions, Tonsillectomy. Medications Aimovig SureClick 70 mg/mL subcutaneous solution, 70 mg, SubCutaneous, qMonth Ambien 10 mg Tab, 10 mg= 1 tab(s), Oral, Once a day (at bedtime), PRN baclofen 20 mg Tab, 20 mg= 1 tab(s), Oral, Daily, PRN Coreg 6.25 mg Tab, 6.25 mg= 1 tab(s), Oral, BID hydrochlorothiazide 12.5 mg Tab, 12.5 mg= 1 tab(s), Oral, Daily Multi Vitamins oral tablet, 1 tab(s), Oral, Daily oxybutynin 5 mg ER Tab, 5 mg= 1 tab(s), Oral, Daily simvastatin 20 mg Tab, 20 mg= 1 tab(s), Oral, qPM Ventolin HFA 90 mcg/inh Aerosol-Adpt, 2 puff(s), Inhalation, q6hr, PRN Allergies Cipro (Hives) Vicodin (Gastrointestinal upset) gabapentin (Fatigue) lisinopril (Chest pain) meloxicam (Fatigue) predniSONE (Hypertension) Social History Alcohol - Denies Alcohol Use, 07/31/2023 Substance Abuse Current, Marijuana, 1-2 times per month, 07/31/2023 Tobacco 10 or more cigarettes (1/2 pack or more)/day in last 30 days Tobacco Use:. Former smokeless tobacco user, quit more than 30 days ago Smokeless Tobacco Use:. Cigarettes, Vaping, 1 (more content not included)... [facility] Comment on above: Result Comment: Elec tronically Signed By: BLANCA CAMARGO, Dinesh [email or web address].[email or web address]\Date and Time Signed: 07/31/23 13:45 EST 03-20-2023 Note HNO ID: [id number] Author: Zhanna Richard RT(R) Service: Radiology Author Type: Loading Inspector Type: Progress Notes Filed: 03/20/2023 2:20 PM Note Text: Radiology Service Progress Note PATIENT NAME: Prashant Kenney DATE OF SERVICE: March 20, 2023 TIME: 2:19 PM PATIENT IDENTITY VERIFICATION COMPLETED USING TWO (2) IDENTIFIERS: Name and Date of confirmed by patient verbally and Name and Date of confirmed by identification band. FALL SCREENING: Has the patient had 2 falls in the last year or 1 fall with injury or currently using an Ambulatory Assistive Device (Walker, Cane, Wheelchair, Crutches, etc.)? No PATIENT GENDER DATA: Female. status: : No status: NO. PATIENT RELEVANT IMPLANT DATA REVIEWED: Not Applicable RADIOLOGY DEPARTMENT: General X-ray: Exam(s) Completed: Upper Extremity X-Ray(s): Shoulder, AP / TRUE AP / AXILLARY right PERIPHERAL IV DATA: Not applicable SIGNED BY: Zhanna Richard, RT(R) March 20, 2023 2:19 PM [facility] 03-20-2023 Note HNO ID: [id number] Author: Keyur Mccauley MD Service: ? Author Type: Physician Type: Progress Notes Filed: 03/20/2023 2:07 PM Note Text: Prashant Kenney is a 47 year old female who presents for arthralgias and myalgias HPI:47 yr female here for arhtrlagias and myaglias Got hurt at work in 2016, went on to have neck and shoulder surgery H/o wide spread soon after ''all downhill since then'' PCP thinks patient has fibromyalgia but wants to rule out disease Today has pain all across back of neck, both shoulders Feels like '' Im being punched '' of rt arm Also pain of low back pain Em stiffness- for half hour or more No red hot swollen joints per say +chronic back pain +dry mouth No rash, ulcers, fevers, swollen lymph nodes, DVT/PE, raynauds, sicca symptoms, trouble swallowing, red eyes, Chron's/UC or Psoriasis. MEDS/THERAPIES TRIED: Gabapentin- started recently TYPICAL DAY: REVIEW OF SYSTEMS GENERAL: No weight loss, malaise or fevers., SEE HPI HEENT: +for frequent or significant headaches, No changes in hearing or vision, no nose bleeds or other nasal problems RESPIRATORY: Negative for cough, wheezing or shortness of breath. CARDIOVASCULAR: Negative for chest pain, leg swelling or palpitations. GI: Negative for abdominal discomfort, blood in stools or black stools or change in bowel habits MUSCULOSKELETAL :see HPI SKIN: Negative for lesions, rash, and itching. PSYCH: + for sleep disturbance, +mood disorder and no recent psychosocial stressors. NEURO: No history of syncope, paralysis, seizures or tremors All other reviewed and negative other than HPI. PMH Depression HTN Chronic pain PSH Rt arthroscopic surgery of rt shoulder Surgery for bowel adhesions MEDS gabapentin (NEURONTIN) 300 mg capsule TAKE 1 CAPSULE BY MOUTH AT BEDTIME FOR 10 DAYS THEN INCREASE TO 1 CAPSULE IN THE MORNING AND 1 IN THE EVENING. Coreg HCTZ Cetrizine Simvastatin Ambien po qhs No family history on file. BP 118/84 Pulse 80 Ht 157.5 cm (5' 2 ) Wt 85.7 kg (189 lb) BMI 34.57 kg/m? PHYSICAL EXAMINATION Physical Exam Vitals and nursing note reviewed. Constitutional: Appearance: Normal appearance. Skin: Negative for lesions, rash, and itching Eyes: Extraocular Movements: Extraocular movements intact. Pupils: Pupils are equal, round, and reactive to light. Abdominal: General: Abdomen is flat. Bowel sounds are normal. Palpations: Abdomen is soft. Neurological: Mental Status:Alert and oriented to person, place, and time. Musculoskeletal :ambulates well, pleasant mood Stiffness on ROM of all joints noted No synovitis of any joints noted All tender points present Tender joints-all Swollen joints-none LABS AND XRAYS;Pending IMP/PLAN: 47 yr female here for arhtrlagias and myaglias Got hurt at work in 2016, went on to have neck and shoulder surgery H/o wide spread soon after ''all downhill since then'' PCP thinks patient has fibromyalgia but wants to rule out disease Today has pain all across back of neck, both shoulders Feels like '' Im being punched '' of rt arm Also pain of low back pain Em stiffness- for half hour or more No red hot swollen joints per say +chronic back pain +dry mouth No rash, ulcers, fevers, swollen lymph nodes, DVT/PE, raynauds, sicca symptoms, trouble swallowing, red eyes, Chron's/UC or Psoriasis. Discussed with patient as follows -Regarding diffuse arthralgias and myalgias- DD include FM vs early inflammatory arthritis vs early osteoarthritis -will check labs and xrays today -continue gabapentin, recently started on for pain relief from PCP -advised stretching and regular exercise FM Widespread Pain Index (WPI): 5 Symptom Severity (SS) score: 9 WPI>7 and SS Scale>5 OR WPI 3-6 and SS Scale >9 consistent with fibromyalgia Based on evaluation today, she fulfills the 2010 ACR preliminary diagnostic criteria for fibromyalgia. This simple clinical case definition of fibromyalgia correctly classifies 88.1% of cases classified by the ACR classification criteria, and does not require a physical or tender point examination. -discussed with patient diagnosis, prognosis and treatment of this condition. -the cornerstones of fibromyalgia therapy are optimal sleep, graded regular aerobic exercise (examples include stationary bike, pool therapy) and optimal treatment of depression. Optimal quality sleep (especially deep sleep - phase 3/4 NREM) is important to achieve. If sleep remains disturbed, a sleep study should be considered to identify a primary sleep disorder. All three aspects of the treatment (sleep, exercise, depression) should be addressed simultaneously for maximum benefit and effective treatment of this condition. Doing one or the other will result in less than an optimal response to treatment. -continue gabapentin -advised stretching and regular exercise -consider trial of c (more content not included)... [facility] 11-16-2022 Note OPERATIVE NOTE OPERATION DATE: 11/16/2022 PROCEDURE: Diagnostic laparoscopy with right oophorectomy with lysis of adhesions of the bowel to the pelvic side wall. PREOPERATIVE DIAGNOSIS: Pelvic pain, right ovarian cyst. POSTOPERATIVE DIAGNOSIS: Pelvic pain, 4 cm right ovarian cyst. ANESTHESIA: General. SURGEON: Meño Alonzo D.O. CONSTRUCTION EQUIPMENT OPERATOR: TONEY Green URINE OUTPUT: Yellow and clear. BLOOD LOSS: 5 mL. SPECIMEN: Right ovary. FINDINGS: Absent uterus, tubes and left ovary. PROCEDURE: The patient was taken back to the Operating Room where she was placed in dorsal lithotomy position after given general anesthesia. The patient was prepped and draped in normal sterile fashion. A sponge stick was placed into the patient's vagina. Attention was turned to the patient's abdomen, where a small umbilical incision was made. The fascia was tented using Wandy clamps and the fascia was entered sharply. Confirmation of intra-abdominal placement of the 10 mm port was confirmed under direct visualization using a laparoscope. The patient's abdomen was then insufflated using CO2 gas with approximately 4 liters. A second port was placed left laterally; this was done under direct visualization with a 5 mm port. Survey of the patient's abdomen demonstrated normal liver and gallbladder. Survey of the patient's pelvic anatomy demonstrated normal appearing ovaries and tubes as well as normal appearing uterus. No endometrial implants could be noted, no evidence of any pelvic disease was seen, normal appearing pelvic cavity. All instruments were removed from the patient's abdomen. The patient's abdomen was desufflated of CO2 gas. The patient tolerated the procedure well. Sponge stick was removed from the patient's vagina. The patient's infraumbilical fascia was closed using #0 Vicryl on a GI needle. The patient's skin was closed laterally and infraumbilically using 4-0 Vicryl. The patient tolerated the procedure well. Sponge, lap and needle counts were correct x 2. The patient was taken to Recovery Room in stable condition. [facility] 02-14-2022 Evaluation note Encounter Date Diagnosis Assessment Notes Jan, Herniation of cervical intervertebral disc with radiculopathy (ICD-10 - M50.10) . I would like her to get involved in a good core exercise program for her muscles. From a structural standpoint she should probably have flexion-exten cara plain films of her neck about once a year just to make sure she retains motion. These can be ordered by her primary care physician. Jan, Other The patient also has a component of occipital neuralgia.She also may be considered for evaluation by pain management for some occipital nerve injections if physical therapy is not effective. [facility] Other 10-06-2021 Evaluation note* Encounter Date Diagnosis Assessment Notes Treatment Notes Treatment Clinical Notes Mar, Herniation of cervical intervertebral disc with radiculopathy (ICD-10 - M50.10) Despite having gotten motion x-rays of her cervical spine at month 1 month 3 and a year the patient failed to get an x-ray for this vist. We will send her for x-ray; assuming that looks stable we will see her back in another year with another set of x-rays. Mar, Other Addendum-As of today, 04-04-2021, patient has not gone for xray as requested [facility] Other 09-01-2018 History general Narrative - Reported* Type Description Date Medical History hypertension Surgical History Hysterectomy 2007 Surgical History R Shoilder Arthroscopy 02/2018 Surgical History Hysterectomy 03/2008 Surgical History tonsilectomy 1980 Surgical History Laproscopic surgery Surgical History right shoulder scope with capsu lar plication Surgical History C-spine 04/2019 Surgical History right shoulder scope with capsu lar release 09/28/20 Hospitalization History See Surgical Hx above [facility] Other evaluation + Plan note No data available for this section [facility] evaluation noteNo assessment information available [facility] Work Phone: Evaluation note* Diagnosis Primary insomnia- Primary Persistent disorder of initiating or maintaining sleep [facility] No data available for this section [facility] progress note No data available for this section [facility] Summary Purpose Family History Relationship Condition Age at Onset Recorded Date/T aria Not Specified Heart murmur Unknown Atrial fibrillation Unknown Hypertension Unknown father Hypertension Unknown History of coronary artery stent placement Unknown Coronary artery disease Unknown Hyperoxaluria Unknown Advance Directives Advance Directive Response Recorded Date/ Time Advance Directives No September 12, 2 018 10:02am Reason for Referral Reason Evaluate and Treat I mprove Core Muscles and Treat Occipital Neuralgia Diagnosis 1 Herniation of cervic al intervertebral disc with radiculopathy (M50.10) Diagnosis 2 Occipital neuralgia, unspecified laterality (M54.81) Referral Organization [facility] urosurgery Referring Provider First Name Myles Referring Provider Last Name James Referring Provider Specialty Neurosurger y Referred Organization Unknown Facility Referred Provider Specialty Physical The rapist Referral Priority Routine Chief Complaint and Reason for Visit Chief Complaint m50.10 Additional Source Comments INFORMATION SOURCE (unrecogn ized section and content) DATE CREATED AUTHOR 12/18/2017 [facility] DATE CREATED AUTHOR AUTHOR'S ORGANIZ ATION 02/23/2022 [facility] DATE CREATED AUTHOR AUTHOR'S ORGANIZ ATION 11/30/2022 [facility] DATE CREATED AUTHOR AUTHOR'S ORGANIZ ATION 03/28/2023 [facility] DATE CREATED AUTHOR AUTHOR'S ORGANIZ ATION 03/28/2023 [facility] DATE CREATED AUTHOR AUTHOR'S ORGANIZ ATION 06/06/2023 [facility] EPIC DATE CREATED AUTHOR AUTHOR'S ORGANIZ ATION 08/02/2023 [facility] REASON FOR VISIT (unrecogniz ed section and content) Reason Comments Med Refill Care Teams (unrecognized sec tion and content) Team Status: Inactive Member Role Status Dates Ellen Dodson Primary Care Provider Active Myles Ramirez MD Attending Provider Active Team Status: Active Member Role Status Dates Ellen Dodson Primary Care Provider Active Practice Architect Relationship Specialty Start Date End Date Parth Galvez MD PCP - General Family Medicine 12/18/22 Goals (unrecognized section and content) Goals may be documented in a n alternate section FOR RECORDS PERTAINING TO PATIENTS WHO ARE OR HAVE BEEN ENROLLED IN A CHEMICAL DEPENDENCY/SUBSTANCEABUSE PROGRAM, SOME INFORMATION MAY BE OMITTED. This clinical summary was aggregated from multiple sources. Caution should be exercised in using it in the provision of clinical care. This summary normalizes information from multiple sources, and as a consequence, information in this document may materially change the coding, format and clinical context of patient data. In addition, data may be omitted in some cases. CLINICAL DECISIONS SHOULD BE BASED ON THE PRIMARY CLINICAL RECORDS. [facility] provides no warranty or guarantee of the accuracy or completeness of information in this document.
[2023-08-21 07:07] VITALS: BP 130/93; PULSE 103; RESP 16; TEMP 35.9; O2SAT 96; BMI 34.3
[2023-08-21] MEDS: LACTATED RINGER'S SOLUTION 1,000 ML 50 ML IV (07:20)
[2023-08-21 08:18] VITALS: BP 86/60; PULSE 90; RESP 16; O2SAT 96
[2023-08-21 08:48] VITALS: BP 130/80; PULSE 93; RESP 16; O2SAT 97
== END 2023-08-21 08:48 | disposition home or self-care (01) ==
PROVIDERS: PCP Nurse Practitioner; Visit Provider Surgery
PROC: (CPT 811; principal; 2023-08-21 07:55)
DX: Z12.11 Encounter for screening for malignant neoplasm of colon (principal); I10 Essential (primary) hypertension; F41.9 Anxiety disorder, unspecified; Z90.710 Acquired absence of both cervix and uterus; K59.09 Other constipation; F17.210 Nicotine dependence, cigarettes, uncomplicated
CPT/HCPCS: 45378; J2704

== ENCOUNTER 2024-02-03 10:52 | Emergency (ER) | payer OTHER, SELFPAY ==
[2024-02-03] VITALS (17 sets, daily range): BP systolic 135–162; BP diastolic 87–121; PULSE 71–80; TEMP 36.6; O2SAT 95–100; BMI 33.5
--- NOTE | 2024-02-03 11:08 | ECG_ITS ---
[facility] Test Date: 2024-02-03 Pat Name: PRASHANT MULLINS Department: Room: - Gender: Female Emergency Care Tech: : [id number] Requested By: ALESSIA SALAZAR Order Number: [id number] Reading MD: DYLLAN SUMMERS Measurements Intervals [place] Rate: 71 P: 26 SD: 188 QRS: 32 QRSD: 88 T: 5 QT: 384 QTc: 406 Interpretive Statements 1100 Sinus rhythm 9110 normal ECG Compared to ECG 02/27/2022 10:13:20 No significant changes Electronically Signed On 02-03-2024 23:04:53 EDT by DYLLAN SUMMERS
--- NOTE | 2024-02-03 11:10 | ED_ITS ---
HPI HPI - General Adult General Chief complaint: Headache Stated complaint: HEADACHE Time Seen by Provider: 02/03/24 11:05 Source: patient Mode of arrival: walk-in Limitations: no limitations History of Present Illness HPI narrative: 48-year-old female presented to the emergency department for a headache. She has had it for 3 days and she has a history of these migraine headaches. She w as supposed to get a preventative medication but it was not filled and she is overdue for that medicine. No trauma fever or stiff neck and it is continuous. Light makes her eyes hurt worse and she has no localized weakness. This is much like previous headaches that she gets frequently. Related Data Home Medications ?Medication ?Instructions ?Recorded ?Confirmed albuterol sulfate 90 mcg/actuation 2 puff inhalation Q6H PRN 08/12/23 02/03/24 aerosol inhaler shortness of breath or wheezing baclofen 10 mg tablet 20 mg PO DAILY PRN muscle spasm 08/12/23 02/03/24 carvedilol 6.25 mg tablet 6.25 mg PO Q12H 08/12/23 02/03/24 erenumab-aooe 70 mg/mL 70 mg subcut .monthly 08/12/23 02/03/24 subcutaneous auto-injector (Aimovig Autoinjector) hydrochlorothiazide 25 mg tablet 25 mg PO DAILY 08/12/23 02/03/24 oxybutynin chloride 5 mg 5 mg PO DAILY 08/12/23 02/03/24 tablet,extended release 24 hr simvastatin 10 mg tablet 20 mg PO DAILY 08/12/23 02/03/24 zolpidem 10 mg tablet 10 mg PO BEDTIME PRN insomnia 08/12/23 02/03/24 Allergies Allergy/AdvReac Type Severity Reaction Status Date / Time gabapentin Allergy Severe difficulty Verified 02/03/24 11:05 waking up meloxicam [From Mobic] Allergy Severe difficulty Verified 02/03/24 11:05 waking up acetaminophen [From Vicodin] AdvReac Severe vomiting Verified 02/03/24 11:05 ciprofloxacin [From Cipro] AdvReac Severe Vomiting Verified 02/03/24 11:05 hydrocodone [From Vicodin] AdvReac Severe vomiting Verified 08/21/23 07:37 phenazopyridine AdvReac Severe vomiting Verified 02/03/24 11:05 [From Pyridium] lisinopril AdvReac Unknown Chest Pain Verified 02/03/24 11:05 prednisone AdvReac Unknown Hypertensio Verified 02/03/24 11:05 n Opioid HPI Opioid Management Most Recent Opioid Data: Last Pain Scale 7 02/03/24 12:34 Last ED Pain Assessment 02/03/24 12:34 Last MAR Pain Assessment 02/03/24 12:07 Review of Systems ROS Narrative A ten point review of systems is negative except as noted above. PFSH PFSH Medical History (Updated 02/03/24 @ 12:53 by Spike Martin MD) IBS (irritable bowel syndrome) ?K58.9 - Irritable bowel syndrome without diarrhea (ICD-10) Constipation ?K59.00 - Constipation, unspecified (ICD-10) Fibromyalgia ?M79.7 - Fibromyalgia (ICD-10) High cholesterol ?E78.00 - Pure hypercholesterolemia, unspecified (ICD-10) Hypertension ?I10 - Essential (primary) hypertension (ICD-10) Tobacco dependence ?F17.200 - Nicotine dependence, unspecified, uncomplicated (ICD-10) Obesity ?E66.9 - Obesity, unspecified (ICD-10) Migraine ?G43.909 - Migraine, unspecified, not intractable, without status migrainosus (ICD-10) Incontinence ?R32 - Unspecified urinary incontinence (ICD-10) Depression ?F32.A - Depression, unspecified (ICD-10) Anxiety ?F41.9 - Anxiety disorder, unspecified (ICD-10) Surgical History (Updated 08/21/23 @ 07:22 by Ruth Saul) History of neck surgery ?Z98.890 - Other specified postprocedural states (ICD-10) Hx of tonsillectomy ?Z90.89 - Acquired absence of other organs (ICD-10) H/O laparoscopy ?Z98.890 - Other specified postprocedural states (ICD-10) H/O arthroscopy of shoulder ?Z98.890 - Other specified postprocedural states (ICD-10) H/O: hysterectomy ?Z90.710 - Acquired absence of both cervix and uterus (ICD-10) History of right oophorectomy ?Z90.721 - Acquired absence of ovaries, unilateral (ICD-10) Family History (Updated 08/12/23 @ 09:37 by Sherlyn Washburn RN) Other Family history of hypertension Heart disease Hyperlipidemia Psoriatic arthritis Social History (Updated 08/21/23 @ 07:00 by Ruth Saul) Within the past year, how often did you have a drink containing alcohol: never Score interpretation: A score less than 3 is consistent with normal alcohol consumption. Smoking status: Current every day smoker Non-prescribed substance use: cannabis (any form) Non-prescribed substance use details: 1-2 times per month Highest level of school completed/degree received: Associate degree: occupational, technical, vocational program Exam Narrative Exam Narrative: Nurses note and vital signs reviewed and patient is not hypoxic. General: The patient appears in no apparent distress. She is wearing sunglasses. Skin: Warm, dry, no pallor noted. There is no rash noted. Head: Normocephalic, atraumatic, neck supple, no nuchal rigidity Eye: Normal conjunctiva, no drainage Ears, Nose, Mouth, and Throat: oral mucosa is moist. Nares patent. Cardiovascular: Regular Rate and Rhythm Respiratory: Patient is in no distress, no accessory muscle use, lungs are clear to auscultation, no wheezing, rales or rhonchi Back: non-tender GI: Soft and nontender Musculoskeletal: The patient has no evidence of calf tenderness, no pitting edema, symmetrical pulses noted bilaterally Neurological: Awake and alert. Upper and lower extremity strength intact. Speech normal Psychiatric: Cooperative Constitutional Vital Signs, click to edit/add: Last Vital Signs Temp 97.8 F 02/03/24 11:01 Pulse 75 02/03/24 12:33 Resp 20 02/03/24 12:33 BP 135/87 02/03/24 12:33 Pulse Ox 95 02/03/24 12:33 O2 Del Method Room Air 02/03/24 12:33 Course Vital Signs Vital signs: Vital Signs Temperature 97.8 F 02/03/24 11:01 Pulse Rate 76 02/03/24 11:01 Respiratory Rate 18 02/03/24 11:01 Blood Pressure 162/120 H 02/03/24 11:01 Temperature 97.8 F 02/03/24 11:01 Pulse Rate 75 02/03/24 12:33 Respiratory Rate 20 02/03/24 12:33 Blood Pressure 135/87 02/03/24 12:33 Pulse Oximetry 95 02/03/24 12:33 Oxygen Delivery Method Room Air 02/03/24 12:33 Medical Decision Making MDM Narrative Medical decision making narrative: The patient is feeling improved after being given IV Toradol, Solu-Medrol, Benadryl, and Zofran and is requesting to be discharged home. Treatment diagnosis and follow-up were discussed with the patient. I have no clinical suspicion of acute intracranial process. Differential Diagnosis Differential Diagnosis: Migraine headache, intracranial hemorrhage, meningitis ECG Data Attestation: I personally reviewed and interpreted this ECG as follows: (EKG on my interpretation shows sinus rhythm with a rate of 71 and no acute change) Discharge Plan Discharge Stand Alone Forms: Portal Instructions Chief Complaint: Headache Clinical Impression: Migraine Patient Disposition: Home, Self-Care Time of Disposition Decision: 12:53 Condition: Good Mode of Transportation: Private Vehicle Prescriptions / Home Meds: No Action baclofen 10 mg tablet 20 mg PO DAILY PRN (Reason: muscle spasm) carvedilol 6.25 mg tablet 6.25 mg PO Q12H Aimovig Autoinjector 70 mg/mL auto-injector 70 mg SUBCUT .monthly hydrochlorothiazide 25 mg tablet 25 mg PO DAILY oxybutynin chloride 5 mg tablet extended release 24hr 5 mg PO DAILY simvastatin 10 mg tablet 20 mg PO DAILY zolpidem 10 mg tablet 10 mg PO BEDTIME PRN (Reason: insomnia) albuterol sulfate 90 mcg/actuation HFA aerosol inhaler 2 puff INHALATION Q6H PRN (Reason: shortness of breath or wheezing) Print Language: Nepalese Instructions: Migraine Headache (ED) Referrals: Ellen Dodson NP [Primary Care Provider] - 1 week
--- OUTSIDE RECORDS SUMMARY | 2024-02-03 11:44 | XMS_ITS | CCD ---
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 Name Role Phone PHYSICIAN, DEFAULT Unavailable Unavailable PHYSICIAN, DEFAULT Unavailable Unavailable Myles Ramirez Unavailable Ellen Dodson Primary Care Provider MD Myles Ramirez Attending Provider [phone] AICHHOLZ, CENTRAL SUPPLY TECHNICIAN SUPERVISOR ELLEN Consulting Unavailable AICHHOLZ, CENTRAL SUPPLY TECHNICIAN SUPERVISOR ELLEN Primary Care Unavailable AICHHOLZ, CENTRAL SUPPLY TECHNICIAN SUPERVISOR ELLEN Admitting Unavailable AICHHOLZ, CENTRAL SUPPLY TECHNICIAN SUPERVISOR ELLEN Attending Unavailable MOISES, DR JESUS Booker Consulting Unavailable AICHHOLZ, CENTRAL SUPPLY TECHNICIAN SUPERVISOR ELLEN Primary Care Unavailable AICHHOLZ, CENTRAL SUPPLY TECHNICIAN SUPERVISOR ELLEN Admitting Unavailable AICHHOLZ, CENTRAL SUPPLY TECHNICIAN SUPERVISOR ELLEN Attending Unavailable AICHHOLZ, CENTRAL SUPPLY TECHNICIAN SUPERVISOR ELLEN Consulting Unavailable AICHHOLZ, CENTRAL SUPPLY TECHNICIAN SUPERVISOR ELLEN Consulting Unavailable AICHHOLZ, CENTRAL SUPPLY TECHNICIAN SUPERVISOR ELLEN Primary Care Unavailable AICHHOLZ, CENTRAL SUPPLY TECHNICIAN SUPERVISOR ELLEN Admitting Unavailable AICHHOLZ, CENTRAL SUPPLY TECHNICIAN SUPERVISOR ELLEN Attending Unavailable AICHHOLZ, CENTRAL SUPPLY TECHNICIAN SUPERVISOR ELLEN Consulting Unavailable AICHHOLZ, CENTRAL SUPPLY TECHNICIAN SUPERVISOR ELLEN Primary Care Unavailable AICHHOLZ, CENTRAL SUPPLY TECHNICIAN SUPERVISOR ELLEN Admitting Unavailable AICHHOLZ, CENTRAL SUPPLY TECHNICIAN SUPERVISOR ELLEN Attending Unavailable AICHHOLZ, CENTRAL SUPPLY TECHNICIAN SUPERVISOR ELLEN Primary Care Unavailable AICHHOLZ, CENTRAL SUPPLY TECHNICIAN SUPERVISOR ELLEN Admitting Unavailable AICHHOLZ, CENTRAL SUPPLY TECHNICIAN SUPERVISOR ELLEN Attending Unavailable PAY ., DR US Admitting Unavailable PAY ., DR US Attending Unavailable PAY ., DR US Consulting Unavailable AICHHOLZ, CENTRAL SUPPLY TECHNICIAN SUPERVISOR ELLEN Primary Care Unavailable PHUC, HILLARY Admitting Unavailable HILLARY FRIEND Attending Unavailable PHUC, HILLARY Consulting Unavailable AICHHOLZ, CENTRAL SUPPLY TECHNICIAN SUPERVISOR ELLEN Primary Care Unavailable ARNOLD, LALO Consulting Unavailable KARODELL ., DR HUGHES Admitting Unavailabl e KARASIK ., DR HUGHES Attending Unavailabl e KARASIK ., DR HUGHES Consulting Unavailabl e AICHHOLZ, JOSE ELLEN Primary Care Unavailable MICHELLE ., DR KOWALSKI Consulting Unavailable DEIDRE FARIAS Consulting Unavailable SHELLEY ., IVIS Consulting Unavailable DESTINEE HAIR Consulting Unavailable TRE, LINDSEY Consulting Unavailable MYLES APODACA Consulting Unavailable REYNALDO CASTILLO Consulting Unavailable GARRICK, KEYUR P Referring Unavailable [facility], TY MUIR Primary Care Unavailable GARRICK, KEYUR P Referring Unavailable PAVLOCK, BOURBON ISADORA Primary Care Unavailable GARRICK, KEYUR P Attending Unavailable AICHHOLZ, ELLEN SOTO Referring Unavailable PAVLOCK, BOURBON ISADORA Primary Care Unavailable AICHHOLZ, ELLEN J Primary Care Physician Parth Galvez MD Primary Care Provider SHANNON DELACRUZ Attending Unavailab diego ALONZO, Meño Magallon Referring Unavailable NILL, Dinesh Magallon Attending Unavailable AICHHOLZ, ELLEN Bianchi Referring Unavailable AICHHOLZ, ELLEN Bianchi Referring Unavailable NILL, Dinesh Magallon Attending Unavailable NILL, Dinesh Magallon Attending Unavailable AICHHOLZ, ELLEN Attending Unavailable AICHHOLZ, ELLEN Attending Unavailable AICHHOLZ, ELLEN Attending Unavailable AICHHOLZ, ELLEN Attending Unavailable Allergies Allergy Classification Reported Allergen(s) Allergy Type Date of Onset Reaction(s) Facility (7 sources) Acetaminophen / HYDROcodone; Translations: [Vicodin] Drug Allergy 2012 Gastrointestinal irritation (disorder) [facility] Repository (6 sources) Lisinopril; Translations: [lisinopril] Drug Allergy 2020 Chest pain (finding) [facility] (6 sources) meloxicam; Translations: [meloxicam] Drug Allergy 2020 Fatigue (finding) [facility] (4 sources) Phenazopyridine Drug Allergy 2016 GI intolerance [facility] (2 sources) Steriods Propensity to adverse reactions elevated BP [employer] Other (1 source) Acetaminophen Drug Allergy 2020 Vomiting [facility] (1 source) hydroCHLOROthiazide Drug Allergy 2020 shortness of breath [facility] (1 source) HYDROcodone Drug Allergy 2020 Vomiting [facility] (1 source) Amino Acids Drug Allergy [facility] Repository (3 sources) Ciprofloxacin; Translations: [Cipro] Drug Allergy [facility] Repository (1 source) meloxicam Drug Allergy [facility] Repository (2 sources) Phenazopyridine Drug Allergy 2012 [facility] Repository (3 sources) Ciprofloxacin; Translations: [ciprofloxacin] Drug Allergy 2016 Weal (disorder), Hives, GI intolerance [facility] (4 sources) gabapentin; Translations: [gabapentin] Drug Allergy 2022 Fatigue (finding), Shortness of breath, Other [facility] (3 sources) predniSONE; Translations: [prednisone] Drug Allergy Hypertensive disorder, systemic arterial (disorder) [facility] (1 source) Acetaminophen / HYDROcodone Drug Allergy 2016 Unknown, GI intolerance [facility] (1 source) Lisinopril Allergy to substance 2020 Unknown [facility] (1 source) meloxicam Drug Allergy 2016 Unknown [facility] (1 source) Prednisone Propensity to adverse reactions 2022 Other [facility] Medications Current Medications Medication Drug Class(es) Dates Sig (Normalized) Sig (Original) [id number] 200 actuat albuterol 0.09 mg/actuat metered dose [...] 2020 12:00am take 1 capsule by mo [facility] every twenty-four hours Adipex-P 37.5 MG 1 [...] 07, 2019 1:00am take 1 capsule by mo [facility] once daily Venlafaxine HCl ER 225 MG [...] 5 MG PO EVERY 4-6 HOURS 70 14 November 27th, 2019 March 24th, 2021 2:20pm QUEtiapine 50 mg oral tablet (1 [...] 06-21-2023 Chronic Other aftercare (1 source) 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 [facility] Consent for Procedure/Surger yon 08-01-2023 Consent for Procedure/Surgery [id number]#1.00TIF F [facility] Facesheeton 08-01-2023 Facesheet [id number]#1.00TIF F [facility] Ambulatory Visit Summaryon 0 07-31-2023 Ambulatory Visit Summary PRASHANT KENNEY :1975 Visit Date:07/31/2023 Ambulatory Visit Instructions Your Diagnosis Screening for malignant neoplasm of colon Your Care Team Attending Physician - BLANCA CAMARGO, Dinesh Magallon Primary Care Physician - ELLEN DODSON CNP [...] for choosing us for your care. Normal [facility] Physician Referralon 023 Physician Referral [id number]#[id number] F [facility] HANNA BY IFA WITH REFLEXon Nuclear Ab Ql (S) Negative Normal Negative [facility] Comment on above: Order Comment: Speci men Type: BLOOD SPECIMEN Ordering Facility: [facility] Address: [address] [place] [phone] Result Comment: Anti -nuclear antibody test is used as an aid in diagnosis of systemic autoimmune diseases. Where positive and clinically warranted, follow-up using disease-specific testing is recommended. Low positive titers are not uncommon with advanced age, certain chronic infections, and malignancies among others. Test methodology: Indirect fluorescence immunoassay (IFA) using HEp-2 cells. Performed By: #### A NAIFR #### [facility] CLIA [id number] [address] [facility] DESK [id number] [place] CBC panel Auto (Bld)on 03-20 Erythrocyte distribution width (RBC) [Ratio] 13.1 % Normal 11.5-15.0 [facility] Comment on above: Order Comment: [place] marie Type: BLOOD SPECIMEN Ordering Facility: [facility] Address: [address] [address] Performed By: #### 5 8410-2 #### [facility] CLIA [id number] [place] Hematocrit (Bld) [Volume fraction] 42.9 % Normal 36.0-46.0 [facility] Comment on above: Order Comment: [place] marie Type: BLOOD SPECIMEN Ordering Facility: [facility] Address: [address] [address] Performed By: #### 5 8410-2 #### [facility] CLIA [id number] [address] [place] Hemoglobin (Bld) [Mass/Vol] 13.9 g/dL Normal 11.5-15.5 [facility] Comment on above: Order Comment: [place] marie Type: BLOOD SPECIMEN Ordering Facility: [facility] Address: [address] [address] Performed By: #### 5 8410-2 #### [facility] CLIA [id number] [place] MCH (RBC) [Entitic mass] 28.6 pg Normal 26.0-34.0 [facility] Comment on above: Order Comment: [place] marie Type: BLOOD SPECIMEN Ordering Facility: [facility] Address: [address] [place] [address] Performed By: #### 5 8410-2 #### [facility] [place] [id number] [address] [place] MCHC (RBC) [Mass/Vol] 32.4 g/dL Normal 30.5-36.0 [facility] Comment on above: Order Comment: Speci men Type: BLOOD SPECIMEN Ordering Facility: [facility] Address: [address] [address] Performed By: #### 5 8410-2 #### [facility] [place] [id number] [address] [place] MCV (RBC) [Entitic vol] 88.3 fL Normal 80.0-100.0 [facility] Comment on above: Order Comment: Speci men Type: BLOOD SPECIMEN Ordering Facility: [facility] Address: [address] [address] Performed By: #### 5 8410-2 #### [facility] [place] [id number] [address] [place] [address] [place] Nucleated RBC (Bld) [#/Vol] 10*3/uL Normal <0.01 [facility] Comment on above: Order Comment: Speci men Type: BLOOD SPECIMEN Ordering Facility: [facility] Address: [address] [address] Performed By: #### 5 8410-2 #### [facility] [place] [id number] [address] [place] [address] [place] Platelet mean volume (Bld) [Entitic vol] 10.2 fL Normal 9.0-12.7 [facility] Comment on above: Order Comment: Speci men Type: BLOOD SPECIMEN Ordering Facility: [facility] Address: [address] [address] Performed By: #### 5 8410-2 #### [facility] IA [id number] [address] [place] [address] [place] Platelets (Bld) [#/Vol] 328 10*3/uL Normal 150-400 [facility] Comment on above: Order Comment: Speci men Type: BLOOD SPECIMEN Ordering Facility: [facility] Address: [address] [address] Performed By: #### 5 8410-2 #### [facility] CLIA [id number] [address] [place] [address] [facility] [place] RBC (Bld) [#/Vol] 4.86 10*6/uL Normal 3.90-5.20 [facility] Comment on above: Order Comment: Speci men Type: BLOOD SPECIMEN Ordering Facility: [facility] Address: [address] [address] Performed By: #### 5 8410-2 #### [facility] CLIA [id number] [address] OF [facility] WBC (Bld) [#/Vol] 6.40 10*3/uL Normal 3.70-11.00 [facility] Comment on above: Order Comment: Speci men Type: BLOOD SPECIMEN Ordering Facility: [facility] Address: [address] [address] Performed By: #### 5 8410-2 #### [facility] IA [id number] [address] [place] CNOVon 03-20-2023 CNOV Office Visit (MANUELUAV ) -------- PRASHANT KENNEY ([id number]) 1975 F Date Time Provider Department 03/20/23 1:00 PM KEYUR MCCAULEY During your visit today, we recorded the following information about you: Pulse Blood pressure Weight Height 80/minute 118/84 85.7 kg 1.575 m Keyur Mccauley MD 03/20/2023 2:07 PM Signed Prashant Kenney is a 47 year old [...] addressed simul (more content not included)... Normal [facility] CRP SerPl-mCncon 03-20-2023 CRP [Mass/Vol] mg/L Normal <0.9 [facility] Comment on above: Order Comment: Speci men Type: BLOOD SPECIMEN Ordering Facility: [facility] Address: [address] [address] Performed By: #### 2 4323-01, 1987-10 #### [facility] CLIA [id number] [address] [place] [address] [place] Comprehensive metabolic 2000 panelon 03-20-2023 Albumin [Mass/Vol] 4.5 g/dL Normal 3.9-4.9 [facility] Comment on above: Order Comment: Speci men Type: BLOOD SPECIMEN Ordering Facility: [facility] Address: [address] [place] [address] Performed By: #### 2 4323-01, 1987-10 #### [facility] CLIA [id number] [address] [place] [address] [place] ALP [Catalytic activity/Vol] 76 U/L Normal 34-123 [facility] Comment on above: Order Comment: Speci men Type: BLOOD SPECIMEN Ordering Facility: [facility] Address: [address] [place] [address] Performed By: #### 2 4323-01, 1987-10 #### [facility] CLIA [id number] [address] [place] [address] [place] ALT [Catalytic activity/Vol] 37 U/L Normal 7-38 [facility] Comment on above: Order Comment: Speci men Type: BLOOD SPECIMEN Ordering Facility: [facility] Address: [address] [place] [address] Performed By: #### 2 4323-01, 1987-10 #### [facility] CLIA [id number] [address] [place] [address] [place] Anion gap [Moles/Vol] 14 mmol/L Normal 9-18 [facility] Comment on above: Order Comment: Speci men Type: BLOOD SPECIMEN Ordering Facility: [facility] Address: [address] [place], [place] [address] Performed By: #### 2 1987-10 #### [facility] CLIA [id number] [address] [place] [address] [place] AST [Catalytic activity/Vol] 32 U/L Normal 13-35 [facility] Comment on above: Order Comment: Speci men Type: BLOOD SPECIMEN Ordering Facility: [facility] Address: [address] Performed By: #### 2 1987-10 #### [facility] IA [id number] [address] [place] [address] [place] Bilirubin [Mass/Vol] 0.4 mg/dL Normal 0.2-1.3 [facility] Comment on above: Order Comment: Speci men Type: BLOOD SPECIMEN Ordering Facility: [facility] Address: [address] Performed By: #### 2 1987-10 #### [facility] IA [id number] [address] [place] [address] [place] Calcium [Mass/Vol] 9.9 mg/dL Normal 8.5-10.2 [facility] Comment on above: Order Comment: Speci men Type: BLOOD SPECIMEN Ordering Facility: [facility] Address: [address] [place], [place] [address] Performed By: #### 2 1987-10 #### [facility] IA [id number] [address] [place] [address] [place] Chloride [Moles/Vol] 101 mmol/L Normal 97-105 [facility] Comment on above: Order Comment: Speci men Type: BLOOD SPECIMEN Ordering Facility: [facility] Address: [address] [place] [address] Performed By: #### 2 1987-10 #### [facility] IA [id number] [address] [place] [address] [place] CO2 [Moles/Vol] 25 mmol/L Normal 22-30 [facility] Comment on above: Order Comment: Speci men Type: BLOOD SPECIMEN Ordering Facility: [facility] Address: [address] Performed By: #### 2 43208-29, 1987-10 #### [facility] CLIA [id number] [address] [facility] [place] [address] [place] Creatinine [Mass/Vol] 0.85 mg/dL Normal 0.58-0.96 [facility] Comment on above: Order Comment: Speci men Type: BLOOD SPECIMEN Ordering Facility: [facility] Address: [address] Performed By: #### 2 4323-01, 1987-10 #### [facility] CLIA [id number] [address] [facility] [place] [address] [place] Creatinine and Glomerular filtration rate.predicted panel (S/P/Bld) 86 mL/min/1.73m??? Normal >=60 [facility] Comment on above: Order Comment: [place] men Type: BLOOD SPECIMEN Ordering Facility: [facility] Address: [address] [address] Result Comment: Telma mated Glomerular Filtration Rate [...] reflect actual GFR. Performed By: #### 2 43208-29, 1987-10 #### [facility] CLIA [id number] [address] [facility] [place] [address] [place] Glucose [Mass/Vol] 89 mg/dL Normal 74-99 [facility] Comment on above: Order Comment: [facility] Type: BLOOD SPECIMEN Ordering Facility: [facility] Address: [address] Result Comment: The [employer] Diabetes Association (ADA) provides guidance for cutoff [...] Standards of Medical Care in Diabetes 2016, [employer]. Diabetes Care. 2016.39(Suppl 1). Performed By: #### 2 4323-01, 1987-10 #### [facility] CLIA [id number] [address] [place] [address] [place] Potassium [Moles/Vol] 4.0 mmol/L Normal 3.7-5.1 [facility] Comment on above: Order Comment: [place] marie Type: BLOOD SPECIMEN Ordering Facility: [facility] Address: [address] [place] [address] Performed By: #### 2 1987-10 #### [facility] IA [id number] [address] [place] [address] [place] Protein [Mass/Vol] 7.4 g/dL Normal 6.3-8.0 [facility] Comment on above: Order Comment: [place] marie Type: BLOOD SPECIMEN Ordering Facility: [facility] Address: [address] [place] [address] Performed By: #### 2 1987-10 #### [facility] CLIA [id number] [address] [place] [address] [place] Sodium [Moles/Vol] 140 mmol/L Normal 136-144 [facility] Comment on above: Order Comment: Brenti cynthia Type: BLOOD SPECIMEN Ordering Facility: [facility] Address: [address] [address] Performed By: #### 2 1987-10 #### [facility] CLIA [id number] [address] [place] [address] [place] Urea nitrogen [Mass/Vol] 16 mg/dL Normal 7-21 [facility] Comment on above: Order Comment: Speci men Type: BLOOD SPECIMEN Ordering Facility: [facility] Address: [address] [address] Performed By: #### 2 4323-8, 1987-10 #### [facility] CLIA [id number] [address] [place] [address] [place] Cyclic citrullinated peptide IgG Qnon 03-20-2023 CCP ANTIBODY IGG QUALITATIVE Negative Normal Negative [facility] Comment on above: Order Comment: Speci men Type: BLOOD SPECIMEN Ordering Facility: [facility] Address: [address] [place] [address] Performed By: #### 3 3935-8 #### [facility] CLIA [id number] [address] [place] [place] [address] [place] ESR Westergren method (Bld) [Velocity]on 03-20-2023 ESR (Bld) [Velocity] 25 mm/h High 0-20 [facility] Comment on above: Order Comment: Speci men Type: BLOOD SPECIMEN Ordering Facility: [facility] Address: [address] [place] [address] Performed By: #### 4 537-7 #### [facility] CLIA [id number] [address] [place] [place] [address] [place] Nuclear Ab IA Ql (S)on 03-20 HANNA SCR QUAL Negative Normal Negative [facility] Comment on above: Order Comment: Speci men Type: BLOOD SPECIMEN Ordering Facility: [facility] Address: [address] [place] [address] Result Comment: The qualitative antinuclear antibody screen test performed using the following antigens: dsDNA, Chromatin, Ribosomal P, SS-A 60, SS-A 52, SS-B, Sm, SmRNP, PHOTO TECHNOLOGIST A, PHOTO TECHNOLOGIST 68, Scl-70, Emy-1, and Centromere B. Methodology: Multiplex flow immunoassay. Performed By: #### 4 7383-5 #### [facility] CLIA [id number] [address] [id number] [place] Rheumatoid fact SerPl-aCncon 03-20-2023 Rheumatoid factor Qn [IU]/mL Normal <16 [facility] Comment on above: Order Comment: Speci men Type: BLOOD SPECIMEN Ordering Facility: [facility] Address: [address] [address] Performed By: #### 1 1572-5 #### [facility] CLIA [id number] [address] [id number] [place] XR SHLDR >/=3V AP/EUSEBIA [...] OF ACROMIOCLAVICULAR JOINT. NO ACUTE BONY ABNORMALITY. Client Executive: PSCB Transcribe Date/Time: Mar 23 2023 7:55P Dictated by : CRYS CORTES MD This examination was interpreted and the report reviewed and electronically signed by: CRYS CORTES MD on Mar 23 2023 7:56PM EST [id number] Normal [facility] cCP IgG SerPl-aCncon 023 Cyclic citrullinated peptide IgG Qn <15 Normal <20 [facility] Comment on above: Order Comment: Speci men Type: BLOOD SPECIMEN Ordering Facility: [facility] Address: [address] [id number] Performed By: #### 3 3935-8 #### [facility] CLIA [id number] 95[address] [facility] DESK [id number] STATES OF [facility] AMYLASEon 11-16-2022 Amylase [Catalytic activity/Vol] 36 U/L Normal 25-115 [facility] Comment on above: Performed By: #### V ITB12, FT4 #### [facility] [address] [place] [address] Dr. Nighat Ballard CBC AUTO DIFFon 11-16-2022 BASO # 0.1 103/ul Normal 0.0-0.1 [facility] Comment on above: Performed By: #### C MP, LIPID, TSH #### [facility] [address] [place] [address] Dr. Nighat Ballard Basophils/100 WBC (Bld) 0.5 % Normal 0.2-2.0 [facility] Comment on above: Performed By: #### C MP, LIPID, TSH #### [facility] [address] [place] [address] Dr. Nighat Ballard EO # 0.1 103/ul Normal 0.0-0.7 [facility] Comment on above: Performed By: #### C MP, LIPID, TSH #### [facility] [address] [place] [address] Dr. Nighat Ballard Eosinophils/100 WBC (Bld) 0.8 % Critically low 0.9-7.0 [facility] Comment on above: Performed By: #### C MP, LIPID, TSH #### [facility] [address] [place] [address] Dr. Nighat Ballard Erythrocyte distribution width (RBC) [Ratio] 13.6 % Normal 11.0-15.0 [facility] Comment on above: Performed By: #### C MP, LIPID, TSH #### [facility] [address] [place] [address] Dr. Nighat Ballard Hematocrit (Bld) [Volume fraction] 42.5 % Normal 36.0-48.0 [facility] Comment on above: Performed By: #### C MP, LIPID, TSH #### [facility] [address] [address] [address] Nighat Ballard Hemoglobin (Bld) [Mass/Vol] 14.0 g/dL Normal 12.0-16.0 [facility] Comment on above: Performed By: #### C MP, LIPID, TSH #### [facility] [address] [address] [address] Nighat Ballard IG # 0.04 10e3/ul Critically high 0.00-0.03 [facility] Comment on above: Performed By: #### C MP, LIPID, TSH #### [facility] [address] [address] [address] Nighat Ballard IG % 0.4 % Normal 0.0-0.5 [facility] Comment on above: Performed By: #### C MP, LIPID, TSH #### [facility] [address] [place] [address] Dr. Nighat Ballard LYMPH # 3.2 103/ul Normal 1.2-3.8 [facility] Comment on above: Performed By: #### C MP, LIPID, TSH #### [facility] [address] [address] [address] Nighat Ballard Lymphocytes/100 WBC (Bld) 32.7 % Normal 20.5-60.0 [facility] Comment on above: Performed By: #### C MP, LIPID, TSH #### [facility] [address] [place] [address] Dr. Nighat Ballard MANUAL DIFF REQ NO Normal [facility] Comment on above: Performed By: #### C MP, LIPID, TSH #### [facility] [address] [place] [address] Dr. Nighat Blalard MCH (RBC) [Entitic mass] 29.0 pg Normal 26.7-34.0 [facility] Comment on above: Performed By: #### C MP, LIPID, TSH #### [facility] [address] [address] [address] Nighat Ballard MCHC (RBC) [Mass/Vol] 32.9 g/dL Normal 29.9-35.2 [facility] Comment on above: Performed By: #### C MP, LIPID, TSH #### [facility] [address] [address] [address] Nighat Ballard MCV (RBC) [Entitic vol] 88.0 fL Normal 81.0-99.0 [facility] Comment on above: Performed By: #### C MP, LIPID, TSH #### [facility] [address] [place] [address] Dr. Nighat Ballard MONO # 0.6 103/ul Normal 0.3-0.8 [facility] Comment on above: Performed By: #### C MP, LIPID, TSH #### [facility] [address] [place] [address] Dr. Nighat Ballard Monocytes/100 WBC (Bld) 5.9 % Normal 1.7-12.0 [facility] Comment on above: Performed By: #### C MP, LIPID, TSH #### [facility] [address] [address] [address] Nighat Ballard NEUT # 5.8 103/ul Normal 1.4-6.5 [facility] Comment on above: Performed By: #### C MP, LIPID, TSH #### [facility] [address] [place] [address] Dr. Nighat Ballard Neutrophils/100 WBC (Bld) 59.7 % Normal 43.0-75.0 [facility] Comment on above: Performed By: #### C MP, LIPID, TSH #### [facility] [address] [address] [address] Nighat Ballard Platelet mean volume (Bld) [Entitic vol] 10.1 fL Normal 9.5-13.5 [facility] Comment on above: Performed By: #### C MP, LIPID, TSH #### [facility] [address] [place] [address] Dr. Nighat Ballard PLT 326 103/ul Normal 150-450 [facility] Comment on above: Performed By: #### C MP, LIPID, TSH #### [facility] [address], [place] [address] Dr. Nighat Ballard RBC 4.83 106/ul Normal 4.20-5.40 [facility] Comment on above: Performed By: #### C MP, LIPID, TSH #### [facility] [address], [place] [address] Dr. Nighat Ballard WBC 9.7 103/ul Normal 4.0-11.0 [facility] Comment on above: Performed By: #### C MP, LIPID, TSH #### [facility] [address], [place] [address] ABD/PELV W CONon 11-17-19 CT ABD/PELV W CON EXAMINATION: CT ABD/ [...] DESTINEE HAIR Date: 2022-11-16 00:35 Normal [facility] ER URINE PROFILEon 3 Bilirubin Ql (U) Negative Normal NEGATIVE [facility] Comment on above: Performed By: #### V ITB12, FT4 #### [facility] [address] [place] [address] Dr. Nighat Ballard Clarity (U) CLEAR Normal CLEAR [facility] Comment on above: Performed By: #### V ITB12, FT4 #### [facility] [address] [place] [address] Dr. Nighat Ballard Color (U) LT. YELLOW Normal YELLOW [facility] Comment on above: Performed By: #### V ITB12, FT4 #### [facility] [address] [place] [address] Dr. Nighat Ballard ERUAHD A micrscopic examina tion will be performed if indicated. Normal [facility] Comment on above: Performed By: #### V ITB12, FT4 #### [facility] [address] [place] [address] Dr. Nighat Ballard Glucose Ql (U) Negative Normal NEGATIVE [facility] Comment on above: Performed By: #### V ITB12, FT4 #### [facility] [address] [address] [address] Nighat Ballard Hemoglobin Ql (U) Negative Normal NEGATIVE [facility] Comment on above: Performed By: #### V ITB12, FT4 #### [facility] [address] [place] [address] Dr. Nighat Ballard Ketones Ql (U) Negative Normal NEGATIVE [facility] Comment on above: Performed By: #### V ITB1, FT4 #### [facility] [address] [place] [address] Dr. Nighat Ballard LEUKOCYTES Negative Normal NEGATIVE [facility] Comment on above: Performed By: #### V ITB1, FT4 #### [facility] [address] [place] [address] Dr. Nighat Ballard Nitrite Ql (U) Negative Normal NEGATIVE [facility] Comment on above: Performed By: #### V ITB1, FT4 #### [facility] [address] [place] [address] Dr. Nighat Ballard pH (U) 7.0 [pH] Normal 5-9 [facility] Comment on above: Performed By: #### V ITB1, FT4 #### [facility] [address] [place] [address] Dr. Nighat Ballard SPEC GRAVITY <=1.005 Abnormal 1.005-<=1.025 [facility] Comment on above: Performed By: #### V IT, FT4 #### [facility] [address] [place] [address] Dr. Nighat Ballard UA PROTEIN Negative Normal NEGATIVE/ TRACE [facility] Comment on above: Performed By: #### V IT, FT4 #### [facility] [address] [place] [address] Dr. Nighat Ballard UR MICRO IND NOT INDICATED Normal [facility] Comment on above: Performed By: #### V IT, FT4 #### [facility] [address] [place] [address] Dr. Nighat Ballard Urobilinogen Qn (U) 0.2 {Ada'U}/dL Normal 0.2 - 1.0 [facility] Comment on above: Performed By: #### V IT, FT4 #### [facility] [address] [place] [address] Dr. Nighat Ballard LIPASEon 11-16-2022 Lipase [Catalytic activity/Vol] 74.0 U/L Normal 73.0-393.0 [facility] Comment on above: Performed By: #### V ITB12, FT4 #### [facility] [address] [address] [address] Nighat Ballard URon 11-16-2022 , QUAL Negative Normal NEGATIVE [facility] Comment on above: Performed By: #### V ITB12, FT4 #### [facility] [address] [place] [address] Dr. Nighat Ballard PROF 14(COMP METB)on 023 Albumin [Mass/Vol] 3.5 g/dL Normal 3.4-5.0 [facility] Comment on above: Performed By: #### V ITB12, FT4 #### [facility] [address] [place] [address] Dr. Nighat Ballard Albumin/Globulin [Mass ratio] 1.0 {ratio} Normal [facility] Comment on above: Performed By: #### V ITB12, FT4 #### [facility] [address] [place] [address] Dr. Nighat Ballard ALP [Catalytic activity/Vol] 63 U/L Normal 46-116 [facility] Comment on above: Performed By: #### V ITB12, FT4 #### [facility] [address] [place] [address] Dr. Nighat Ballard ALT [Catalytic activity/Vol] 33 U/L Normal 14-59 [facility] Comment on above: Performed By: #### V ITB12, FT4 #### [facility] [address] [place] [address] Dr. Nighat Ballard Anion gap [Moles/Vol] 13.3 mmol/L Normal [facility] Comment on above: Performed By: #### V ITB12, FT4 #### [facility] [address] [place] [address] Dr. Nighat Ballard AST [Catalytic activity/Vol] 20 U/L Normal 15-37 [facility] Comment on above: Performed By: #### V ITB12, FT4 #### [facility] [address] [place] [address] Dr. Nighat Ballard Bilirubin [Mass/Vol] 0.3 mg/dL Normal 0.2-1.0 [facility] Comment on above: Performed By: #### V ITB12, FT4 #### [facility] [address] [place] [address] Dr. Nighat Ballard Calcium [Mass/Vol] 9.0 mg/dL Normal 8.5-10.1 [facility] Comment on above: Performed By: #### V ITB12, FT4 #### [facility] [address] [place] [address] Dr. Nighat Ballard Chloride [Moles/Vol] 105 mmol/L Normal 98-107 [facility] Comment on above: Performed By: #### V ITB12, FT4 #### [facility] [address] [place] [address] Dr. Nighat Ballard CO2 [Moles/Vol] 26.2 mmol/L Normal 21.0-32.0 [facility] Comment on above: Performed By: #### V ITB12, FT4 #### [facility] [address] [place] [address] Dr. Nighat Ballard Creatinine [Mass/Vol] 0.95 mg/dL Normal 0.55-1.02 [facility] Comment on above: Performed By: #### V ITB12, FT4 #### [facility] [address] [place] [address] Dr. Nighat Ballard EGFR-AF SWEDISH >60 Normal >=60 [facility] Comment on above: Performed By: #### V ITB12, FT4 #### [facility] [address] [place] [address] Dr. Nighat Ballard EGFR-NON AF SWEDISH >60 Normal >=60 [facility] Comment on above: Performed By: #### V ITB12, FT4 #### [facility] [address] [place] [address] Dr. Nighat Ballard Globulin (S) [Mass/Vol] 3.6 g/dL Normal [facility] Comment on above: Performed By: #### V ITB12, FT4 #### [facility] [address] [address] [address] Nighat Ballard Glucose [Mass/Vol] 88 mg/dL Normal 74-106 [facility] Comment on above: Performed By: #### V ITB12, FT4 #### [facility] [address] [place] [address] Dr. Nighat Ballard Potassium [Moles/Vol] 3.5 mmol/L Normal 3.5-5.1 [facility] Comment on above: Performed By: #### V ITB12, FT4 #### [facility] [address] [place] [address] Dr. Nighat Ballard Protein [Mass/Vol] 7.1 g/dL Normal 6.4-8.2 [facility] Comment on above: Performed By: #### V ITB12, FT4 #### [facility] [address] [place] [address] Dr. Nighat Ballard Sodium [Moles/Vol] 141 mmol/L Normal 136-145 [facility] Comment on above: Performed By: #### V ITB12, FT4 #### [facility] [address] [place] [address] Dr. Nighat Ballard Urea nitrogen [Mass/Vol] 12.0 mg/dL Normal 7.0-18.0 [facility] Comment on above: Performed By: #### V ITB12, FT4 #### [facility] [address] [place] [address] Dr. Nighat Ballard Urea nitrogen/Creatinin e [Mass ratio] 12.6 mg/mg Normal [facility] Comment on above: Performed By: #### V ITB12, FT4 #### [facility] [address] [place] [address] Dr. Nighat Ballard US PELVIS AND TRANSVAGon [...] Damaris FARIAS Date: 2022-11-16 02:34 Normal [facility] CBC AUTO DIFFon 10-16-2022 BASO # 0.1 103/ul Normal 0.0-0.1 [facility] Comment on above: Performed By: #### V ITB12, FT4 #### [facility] [address] [place] [address] Dr. Nighat Ballard Basophils/100 WBC (Bld) 0.5 % Normal 0.2-2.0 [facility] Comment on above: Performed By: #### V ITB12, FT4 #### [facility] [address] [place] [address] Dr. Nighat Ballard EO # 0.1 103/ul Normal 0.0-0.7 [facility] Comment on above: Performed By: #### V ITB12, FT4 #### [facility] [address] [place] [address] Dr. Nighat Ballard Eosinophils/100 WBC (Bld) 1.0 % Normal 0.9-7.0 [facility] Comment on above: Performed By: #### V ITB12, FT4 #### [facility] [address] [place] [address] Dr. Nighat Ballard Erythrocyte distribution width (RBC) [Ratio] 13.2 % Normal 11.0-15.0 [facility] Comment on above: Performed By: #### V ITB12, FT4 #### [facility] [address] [place] [address] Dr. Nighat Ballard Hematocrit (Bld) [Volume fraction] 42.2 % Normal 36.0-48.0 [facility] Comment on above: Performed By: #### V ITB12, FT4 #### [facility] [address] [place] [address] Dr. Nighat Ballard Hemoglobin (Bld) [Mass/Vol] 13.8 g/dL Normal 12.0-16.0 [facility] Comment on above: Performed By: #### V ITB12, FT4 #### [facility] [address] [place] [address] Dr. Nighat Ballard IG # 0.03 10e3/ul Normal 0.00-0.03 [facility] Comment on above: Performed By: #### V ITB1, FT4 #### [facility] [address] [place] [address] Dr. Nighat Ballard IG % 0.3 % Normal 0.0-0.5 [facility] Comment on above: Performed By: #### V ITB1, FT4 #### [facility] [address] [place] [address] Dr. Nighat Ballard LYMPH # 3.0 103/ul Normal 1.2-3.8 [facility] Comment on above: Performed By: #### V ITB12, FT4 #### [facility] [address] [place] [address] Dr. Nighat Ballard Lymphocytes/100 WBC (Bld) 30.5 % Normal 20.5-60.0 [facility] Comment on above: Performed By: #### V ITB12, FT4 #### [facility] [address] [place] [address] Dr. Nighat Ballard MANUAL DIFF REQ NO Normal [facility] Comment on above: Performed By: #### V ITB12, FT4 #### [facility] [address] [place] [address] Dr. Nighat Ballard MCH (RBC) [Entitic mass] 28.3 pg Normal 26.7-34.0 [facility] Comment on above: Performed By: #### V ITB12, FT4 #### [facility] [address] [place] [address] Dr. Nighat Ballard MCHC (RBC) [Mass/Vol] 32.7 g/dL Normal 29.9-35.2 [facility] Comment on above: Performed By: #### V ITB12, FT4 #### [facility] [address] [place] [address] Dr. Nighat Ballard MCV (RBC) [Entitic vol] 86.7 fL Normal 81.0-99.0 [facility] Comment on above: Performed By: #### V ITB12, FT4 #### [facility] [address] [place] [address] Dr. Nighat Ballard MONO # 0.6 103/ul Normal 0.3-0.8 [facility] Comment on above: Performed By: #### V ITB12, FT4 #### [facility] [address] [place] [address] Dr. Nighat Ballard Monocytes/100 WBC (Bld) 5.9 % Normal 1.7-12.0 [facility] Comment on above: Performed By: #### V ITB12, FT4 #### [facility] [address] [place] [address] Dr. Nighat Ballard NEUT # 6.1 103/ul Normal 1.4-6.5 [facility] Comment on above: Performed By: #### V ITB12, FT4 #### [facility] [address] [place] [address] Dr. Nighat Ballard Neutrophils/100 WBC (Bld) 61.8 % Normal 43.0-75.0 [facility] Comment on above: Performed By: #### V ITB12, FT4 #### [facility] [address] [place] [address] Dr. Nighat Ballard Platelet mean volume (Bld) [Entitic vol] 10.0 fL Normal 9.5-13.5 [facility] Comment on above: Performed By: #### V ITB12, FT4 #### [facility] [address], [place] [address] Dr. Nighat Ballard PLT 303 103/ul Normal 150-450 [facility] Comment on above: Performed By: #### V ITB12, FT4 #### [facility] [address], [place] [address] Dr. Nighat Ballard RBC 4.87 106/ul Normal 4.20-5.40 [facility] Comment on above: Performed By: #### V ITB12, FT4 #### [facility] [address], [place] [address] Dr. Nighat Ballard WBC 9.9 103/ul Normal 4.0-11.0 [facility] Comment on above: Performed By: #### V ITB12, FT4 #### [facility] [address], [place] [address] ABD/PELVIS WO CONon [...] LALO BARRETT Date: 2022-10-16 01:18 Normal [facility] ER URINE PROFILEon 3 Bilirubin Ql (U) Negative Normal NEGATIVE [facility] Comment on above: Performed By: #### E RUR #### [facility] [address] [place] [address] Dr. Nighat Ballard Clarity (U) CLEAR Normal CLEAR [facility] Comment on above: Performed By: #### E RUR #### [facility] [address] [place] [address] Dr. Nighat Ballard Color (U) YELLOW Normal YELLOW [facility] Comment on above: Performed By: #### E RUR #### [facility] [address] [place] [address] Dr. Nighat Ballard ERUAHD A micrscopic examina tion will be performed if indicated. Normal [facility] Comment on above: Performed By: #### E RUR #### [facility] [address] [place] [address] Dr. Nighat Ballard Glucose Ql (U) Negative Normal NEGATIVE [facility] Comment on above: Performed By: #### E RUR #### [facility] [address] [place] [address] Dr. Nighat Ballard Hemoglobin Ql (U) Negative Normal NEGATIVE [facility] Comment on above: Performed By: #### E RUR #### [facility] [address] [place] [address] Dr. Nighat Ballard Ketones Ql (U) Negative Normal NEGATIVE [facility] Comment on above: Performed By: #### E RUR #### [facility] [address] [place] [address] Dr. Nighat Ballard LEUKOCYTES Negative Normal NEGATIVE [facility] Comment on above: Performed By: #### E RUR #### [facility] [address] [place] [address] Dr. Nighat Ballard Nitrite Ql (U) Negative Normal NEGATIVE [facility] Comment on above: Performed By: #### E RUR #### [facility] [address] [place] [address] Dr. Nighat Ballard pH (U) 5.0 [pH] Normal 5-9 [facility] Comment on above: Performed By: #### E RUR #### [facility] [address] [place] [address] Dr. Nighat Ballard SPEC GRAVITY >=1.030 Abnormal 1.005-<=1.025 [facility] Comment on above: Performed By: #### E RUR #### [facility] [address] [place] [address] Dr. Nighat Ballard UA PROTEIN Negative Normal NEGATIVE/ TRACE [facility] Comment on above: Performed By: #### E RUR #### [facility] [address] [place] [address] Dr. Nighat Ballard UR MICRO IND NOT INDICATED Normal [facility] Comment on above: Performed By: #### E RUR #### [facility] [address] [place] [address] Dr. Nighat Ballard Urobilinogen Qn (U) 0.2 {Ada'U}/dL Normal 0.2 - 1.0 [facility] Comment on above: Performed By: #### E RUR #### [facility] [address] [place] [address] Dr. Nighat Ballard PROF CHEM 8 (BAS METB)on Anion gap [Moles/Vol] 13.4 mmol/L Normal [facility] Comment on above: Performed By: #### B MP #### [facility] [address] [place] [address] Dr. Nighat Ballard Calcium [Mass/Vol] 9.1 mg/dL Normal 8.5-10.1 [facility] Comment on above: Performed By: #### B MP #### [facility] [address] [address] [address] Nighat Ballard Chloride [Moles/Vol] 102 mmol/L Normal 98-107 [facility] Comment on above: Performed By: #### B MP #### [facility] [address] [address] [address] Nighat Ballard CO2 [Moles/Vol] 25.3 mmol/L Normal 21.0-32.0 [facility] Comment on above: Performed By: #### B MP #### [facility] [address] [place] [address] Dr. Nighat Ballard Creatinine [Mass/Vol] 0.98 mg/dL Normal 0.55-1.02 [facility] Comment on above: Performed By: #### B MP #### [facility] [address] [address] [address] Nighat Ballard EGFR-AF SWEDISH >60 Normal >=60 [facility] Comment on above: Performed By: #### B MP #### [facility] [address] [place] [address] Dr. Nighat Ballard EGFR-NON AF SWEDISH >60 Normal >=60 [facility] Comment on above: Performed By: #### B MP #### [facility] [address] [address] [address] Nighat Ballard Glucose [Mass/Vol] 101 mg/dL Normal 74-106 [facility] Comment on above: Performed By: #### B MP #### [facility] [address] [address] [address] Nighat Ballard Potassium [Moles/Vol] 3.7 mmol/L Normal 3.5-5.1 [facility] Comment on above: Performed By: #### B MP #### [facility] [address] [place] [address] Dr. Nighat Ballard Sodium [Moles/Vol] 137 mmol/L Normal 136-145 [facility] Comment on above: Performed By: #### B MP #### [facility] [address] [place] [address] Dr. Nighat Ballard Urea nitrogen [Mass/Vol] 14.0 mg/dL Normal 7.0-18.0 [facility] Comment on above: Performed By: #### B MP #### [facility] [address] [place] [address] Dr. Nighat Ballard Urea nitrogen/Creatinin e [Mass ratio] 14.3 mg/mg Normal [facility] Comment on above: Performed By: #### B MP #### [facility] [address] [place] [address] Dr. Nighat Ballard CULTURE URINEon 10-15-2022 CULTURE URINE Culture Observations : LIGHT GROWTH OF MIXED GENITAL SHA. NO POTENTIAL PATHOGENS SEEN. Normal [facility] Comment on above: Performed By: #### C MP, LIPID, TSH #### [facility] [address] [place] [address] Dr. Nighat Ballard UA RANDOM W/MICROSCOPICon BACTERIA NONE SEEN Normal NONE SEEN [facility] Comment on above: Performed By: #### V ITB12, FT4 #### [facility] [address] [place] [address] Dr. Nighat Ballard Bilirubin Ql (U) Negative Normal NEGATIVE [facility] Comment on above: Performed By: #### V ITB12, FT4 #### [facility] [address] [place] [address] Dr. Nighta Ballard CAST NONE SEEN Normal NONE SEEN [facility] Comment on above: Performed By: #### V ITB12, FT4 #### [facility] [address] [place] [address] Dr. Nighat Ballard Clarity (U) SL CLOUDY Abnormal CLEAR [facility] Comment on above: Performed By: #### V ITB12, FT4 #### [facility] [address] [place] [address] Dr. Nighat Ballard Color (U) LT. YELLOW Normal YELLOW [facility] Comment on above: Performed By: #### V ITB12, FT4 #### [facility] [address] [address] [address] Nighat Ballard Crystals LM Nom (Urine sed) NONE SEEN Normal NONE SEEN [facility] Comment on above: Performed By: #### V ITB12, FT4 #### [facility] [address] [address] [address] Nighat Ballard Epithelial cells LM Ql (Urine sed) MODERATE Abnormal NONE SEEN /RARE [facility] Comment on above: Performed By: #### V ITB12, FT4 #### [facility] [address] [place] [address] Dr. Nighat Ballard Glucose Ql (U) Negative Normal NEGATIVE [facility] Comment on above: Performed By: #### V ITB12, FT4 #### [facility] [address] [place] [address] Dr. Nighat Ballard Hemoglobin Ql (U) Negative Normal NEGATIVE [facility] Comment on above: Performed By: #### V ITB1, FT4 #### [facility] [address] [place] [address] Dr. Nighat Ballard Ketones Ql (U) Negative Normal NEGATIVE [facility] Comment on above: Performed By: #### V ITB1, FT4 #### [facility] [address] [place] [address] Dr. Nighat Ballard LEUKOCYTES Negative Normal NEGATIVE [facility] Comment on above: Performed By: #### V ITB12, FT4 #### [facility] [address] [place] [address] Dr. Nighat Ballard MUCOUS NONE SEEN Normal NONE SEEN [facility] Comment on above: Performed By: #### V ITB12, FT4 #### [facility] [address] [place] [address] Dr. Nighat Ballard Nitrite Ql (U) Negative Normal NEGATIVE [facility] Comment on above: Performed By: #### V ITB12, FT4 #### [facility] [address] [place] [address] Dr. Nighat Ballard pH (U) 5.0 [pH] Normal 5-9 [facility] Comment on above: Performed By: #### V ITB12, FT4 #### [facility] [address] [address] [address] Nighat Ballard RBC NONE SEEN Abnormal 0-2 [facility] Comment on above: Performed By: #### V ITB12, FT4 #### [facility] [address] [place] [address] Dr. Nighat Ballard SPEC GRAVITY 1.030 Abnormal 1.005-<=1.025 [facility] Comment on above: Performed By: #### V ITB12, FT4 #### [facility] [address] [place] [address] Dr. Nighat Ballard UA PROTEIN Negative Normal NEGATIVE/ TRACE [facility] Comment on above: Performed By: #### V ITB12, FT4 #### [facility] [address] [place] [address] Dr. Nighat Ballard Urobilinogen Qn (U) 0.2 {Ada'U}/dL Normal 0.2 - 1.0 [facility] Comment on above: Performed By: #### V ITB12, FT4 #### [facility] [address] [place] [address] Dr. Nighat Ballard WBC NONE SEEN Normal NONE SEEN [facility] Comment on above: Performed By: #### V ITB12, FT4 #### [facility] [address] [place] [address] Dr. Nighat Ballard CBC AUTO DIFFon 08-30-2022 BASO # 0.1 103/ul Normal 0.0-0.1 [facility] Comment on above: Performed By: #### C MP, LIPID, TSH #### [facility] [address] [place] [address] Dr. Nighat Ballard Basophils/100 WBC (Bld) 0.7 % Normal 0.2-2.0 [facility] Comment on above: Performed By: #### C MP, LIPID, TSH #### [facility] [address] [place] [address] Dr. Nighat Ballard EO # 0.1 103/ul Normal 0.0-0.7 [facility] Comment on above: Performed By: #### C MP, LIPID, TSH #### [facility] [address] [place] [address] Dr. Nighat Ballard Eosinophils/100 WBC (Bld) 1.0 % Normal 0.9-7.0 [facility] Comment on above: Performed By: #### C MP, LIPID, TSH #### [facility] [address] [place] [address] Dr. Nighat Ballard Erythrocyte distribution width (RBC) [Ratio] 12.9 % Normal 11.0-15.0 [facility] Comment on above: Performed By: #### C MP, LIPID, TSH #### [facility] [address] [place] [address] Dr. Nighat Ballard Hematocrit (Bld) [Volume fraction] 45.0 % Normal 36.0-48.0 [facility] Comment on above: Performed By: #### C MP, LIPID, TSH #### [facility] [address] [place] [address] Dr. Nighat Ballard Hemoglobin (Bld) [Mass/Vol] 14.8 g/dL Normal 12.0-16.0 [facility] Comment on above: Performed By: #### C MP, LIPID, TSH #### [facility] [address] [place] [address] Dr. Nighat Ballard IG # 0.01 10e3/ul Normal 0.00-0.03 [facility] Comment on above: Performed By: #### C MP, LIPID, TSH #### [facility] [address] [place] [address] Dr. Nighat Ballard IG % 0.1 % Normal 0.0-0.5 [facility] Comment on above: Performed By: #### C MP, LIPID, TSH #### [facility] [address] [place] [address] Dr. Nighat Ballard LYMPH # 2.1 103/ul Normal 1.2-3.8 [facility] Comment on above: Performed By: #### C MP, LIPID, TSH #### [facility] [address] [place] [address] Dr. Nighat Ballard Lymphocytes/100 WBC (Bld) 25.6 % Normal 20.5-60.0 [facility] Comment on above: Performed By: #### C MP, LIPID, TSH #### [facility] [address] [place] [address] Dr. Nighat Ballard MANUAL DIFF REQ NO Normal [facility] Comment on above: Performed By: #### C MP, LIPID, TSH #### [facility] [address] [place] [address] Dr. Nighat Ballard MCH (RBC) [Entitic mass] 28.7 pg Normal 26.7-34.0 [facility] Comment on above: Performed By: #### C MP, LIPID, TSH #### [facility] [address] [place] [address] Dr. Nighat Ballard MCHC (RBC) [Mass/Vol] 32.9 g/dL Normal 29.9-35.2 [facility] Comment on above: Performed By: #### C MP, LIPID, TSH #### [facility] [address] [place] [address] Dr. Nighat Ballard MCV (RBC) [Entitic vol] 87.2 fL Normal 81.0-99.0 [facility] Comment on above: Performed By: #### C MP, LIPID, TSH #### [facility] [address] [place] [address] Dr. Nighat Ballard MONO # 0.4 103/ul Normal 0.3-0.8 [facility] Comment on above: Performed By: #### C MP, LIPID, TSH #### [facility] [address] [place] [address] Dr. Nighat Ballard Monocytes/100 WBC (Bld) 4.7 % Normal 1.7-12.0 [facility] Comment on above: Performed By: #### C MP, LIPID, TSH #### [facility] [address] [place] [address] Dr. Nighat Ballard NEUT # 5.5 103/ul Normal 1.4-6.5 [facility] Comment on above: Performed By: #### C MP, LIPID, TSH #### [facility] [address] [address] [address] Nighat Ballard Neutrophils/100 WBC (Bld) 67.9 % Normal 43.0-75.0 [facility] Comment on above: Performed By: #### C MP, LIPID, TSH #### [facility] [address] [address] [address] Nighat Ballard Platelet mean volume (Bld) [Entitic vol] 10.0 fL Normal 9.5-13.5 [facility] Comment on above: Performed By: #### C MP, LIPID, TSH #### [facility] [address] [address] [address] Nighat Ballard PLT 344 103/ul Normal 150-450 [facility] Comment on above: Performed By: #### C MP, LIPID, TSH #### [facility] [address] [address] [address] Nighat Ballard RBC 5.16 106/ul Normal 4.20-5.40 [facility] Comment on above: Performed By: #### C MP, LIPID, TSH #### [facility] [address] [address] [address] Nighat Ballard WBC 8.1 103/ul Normal 4.0-11.0 [facility] Comment on above: Performed By: #### C MP, LIPID, TSH #### [facility] [address] [place] [address] Dr. Nighat Ballard LIPID PROFILEon 08-30-2022 CHOL-HDL RATIO NORM SEE BELOW Normal [facility] Comment on above: Result Comment: 3.3 - 4.4 LOW RISK 4.4 - 7.1 AVERAGE RISK 7.1 - 11.0 MODERATE RISK >11.0 HIGH RISK Performed By: #### L IPID, CMP, TSH #### [facility] [address] [address] [address] Nighat Ballard Cholesterol [Mass/Vol] 163 mg/dL Normal <=200 [facility] Comment on above: Performed By: #### L IPID, CMP, TSH #### [facility] [address] [address] [address] Nighat Ballard Cholesterol in HDL [Mass/Vol] 40 mg/dL Normal 40-60 [facility] Comment on above: Performed By: #### L IPID, CMP, TSH #### [facility] [address] [address] [address] Nighat Ballard Cholesterol in LDL [Mass/Vol] 72.0 mg/dL Normal [facility] Comment on above: Performed By: #### L IPID, CMP, TSH #### [facility] [address] [address] [address] Nighat Ballard Cholesterol.total/ Cholesterol in HDL [Mass ratio] 4.1 {ratio} Normal [facility] Comment on above: Performed By: #### L IPID, CMP, TSH #### [facility] [address] [address] [address] Nighat Ballard HDL NORMAL > or = 60 mg/dl - LO W CARDIOVASCULAR RISK <40 mg/dl - HIGH CARDIOVASCULAR RISK Normal [facility] Comment on above: Performed By: #### L IPID, CMP, TSH #### [facility] [address] [address] [address] Nighat Ballard LDL CALC NORMAL SEE BELOW Normal [facility] Comment on above: Result Comment: <100 mg/dl OPTIMAL 100 - 129 mg/dl NEAR OR ABOVE OPTIMAL 130 - 159 mg/dl BORDERLINE HIGH 160 - 189 mg/dl HIGH >190 mg/dl VERY HIGH Performed By: #### L IPID, CMP, TSH #### [facility] [address] [address] [address] Nighat Ballard Triglyceride [Mass/Vol] 255 mg/dL Critically high <=150 [facility] Comment on above: Performed By: #### L IPID, CMP, TSH #### [facility] [address] [address] [address] Nighat Ballard VLDL CALC 51.0 mg/dL Normal [facility] Comment on above: Performed By: #### L IPID, CMP, TSH #### [facility] [address] [address] [address] Nighat Ballard MG MAMM SCREEN 3D KENNETH CADon 08-30-2022 MG MAMM SCREEN 3D KENNETH CAD Patient: PRASHANT KENNEY Exam Date: 08/30/2022 : 1975 Gender:F Ordering : JOSE ELLEN DODSON [facility] Admission #: [id number] Family : Order #: [id number] CLICK HERE TO VIEW EXAM RADIOLOGY REPORT PROCEDURE: MAMMOGRAM SCREENING 3D BILATERAL CAD COMPARISON: MG MAMM SCREEN KENNETH W CAD, 12/01/2019. INDICATIONS: Screening mammography Calculator Name NCI Breast Cancer Risk Assessment Tool 5 Year Breast Cancer Risk Not Reported. Lifetime Breast Cancer Risk Not Reported. Personal Breast Cancer No Personal Ovarian Cancer No Treatments None Family Cancers None LOCATION: [facility] BREAST COMPOSITION: Heterogeneously dense,which may [...] Leon MD on 08/30/2022 at 10:25 Normal [facility] PROF 14(COMP METB)on 023 Albumin [Mass/Vol] 3.9 g/dL Normal 3.4-5.0 [facility] Comment on above: Performed By: #### L IPID, CMP, TSH #### [facility] [address], [place] [address] Dr. Nighat Ballard Albumin/Globulin [Mass ratio] 1.0 {ratio} Normal [facility] Comment on above: Performed By: #### L IPID, CMP, TSH #### [facility] [address], [place] [address] Dr. Nighat Ballard ALP [Catalytic activity/Vol] 66 U/L Normal 46-116 [facility] Comment on above: Performed By: #### L IPID, CMP, TSH #### [facility] [address] [address] [address] Nighat Ballard ALT [Catalytic activity/Vol] 46 U/L Normal 14-59 [facility] Comment on above: Performed By: #### L IPID, CMP, TSH #### [facility] [address] [address] [address] Nighat Ballard Anion gap [Moles/Vol] 15.4 mmol/L Normal [facility] Comment on above: Performed By: #### L IPID, CMP, TSH #### [facility] [address] [address] [address] Nighat Ballard AST [Catalytic activity/Vol] 31 U/L Normal 15-37 [facility] Comment on above: Performed By: #### L IPID, CMP, TSH #### [facility] [address] [place] [address] Dr. Nighat Ballard Bilirubin [Mass/Vol] 0.3 mg/dL Normal 0.2-1.0 [facility] Comment on above: Performed By: #### L IPID, CMP, TSH #### [facility] [address] [address] [address] Nighat Ballard Calcium [Mass/Vol] 9.7 mg/dL Normal 8.5-10.1 [facility] Comment on above: Performed By: #### L IPID, CMP, TSH #### [facility] [address] [address] [address] Nighat Ballard Chloride [Moles/Vol] 104 mmol/L Normal 98-107 [facility] Comment on above: Performed By: #### L IPID, CMP, TSH #### [facility] [address] [address] [address] Nighat Ballard CO2 [Moles/Vol] 28.8 mmol/L Normal 21.0-32.0 [facility] Comment on above: Performed By: #### L IPID, CMP, TSH #### [facility] [address] [address] [address] Nighat Ballard Creatinine [Mass/Vol] 0.93 mg/dL Normal 0.55-1.02 [facility] Comment on above: Performed By: #### L IPID, CMP, TSH #### [facility] [address] [address] [address] Nighat Ballard EGFR-AF SWEDISH >60 Normal >=60 [facility] Comment on above: Performed By: #### L IPID, CMP, TSH #### [facility] [address] [address] [address] Nighat Ballard EGFR-NON AF SWEDISH >60 Normal >=60 [facility] Comment on above: Performed By: #### L IPID, CMP, TSH #### [facility] [address] [address] [address] Nighat Ballard Globulin (S) [Mass/Vol] 3.8 g/dL Normal [facility] Comment on above: Performed By: #### L IPID, CMP, TSH #### [facility] [address] [place] [address] Dr. Nighat Ballard Glucose [Mass/Vol] 90 mg/dL Normal 74-106 [facility] Comment on above: Performed By: #### L IPID, CMP, TSH #### [facility] [address] [place] [address] Dr. Nighat Ballard Potassium [Moles/Vol] 4.2 mmol/L Normal 3.5-5.1 [facility] Comment on above: Performed By: #### L IPID, CMP, TSH #### [facility] [address] [address] [address] Nighat Ballard Protein [Mass/Vol] 7.7 g/dL Normal 6.4-8.2 [facility] Comment on above: Performed By: #### L IPID, CMP, TSH #### [facility] [address] [place] [address] Dr. Nighat Ballard Sodium [Moles/Vol] 144 mmol/L Normal 136-145 [facility] Comment on above: Performed By: #### L IPID, CMP, TSH #### [facility] [address] [place] [address] Dr. Nighat Ballard Urea nitrogen [Mass/Vol] 10.0 mg/dL Normal 7.0-18.0 [facility] Comment on above: Performed By: #### L IPID CMP, TSH #### [facility] [address] [place] [address] Dr. Nighat Ballard Urea nitrogen/Creatinin e [Mass ratio] 10.8 mg/mg Normal [facility] Comment on above: Performed By: #### L MAITE CMP, TSH #### [facility] [address] [place] [address] Dr. Nighat Ballard TSHon 08-30-2022 TSH 1.369 uIU/mL Normal 0.358-3.740 [facility] Comment on above: Performed By: #### L MAITE CMP, TSH #### [facility] [address] [place] [address] Dr. Nighat Ballard UA RANDOM W/MICROSCOPICon BACTERIA TRACE Abnormal NONE SEEN [facility] Comment on above: Performed By: #### C MP, LIPID, TSH #### [facility] [address] [place] [address] Dr. Nighat Ballard Bilirubin Ql (U) Negative Normal NEGATIVE [facility] Comment on above: Performed By: #### C MP, LIPID, TSH #### [facility] [address] [place] [address] Dr. Nighat Ballard CAST NONE SEEN Normal NONE SEEN [facility] Comment on above: Performed By: #### C MP, LIPID, TSH #### [facility] [address] [place] [address] Dr. Nighat Ballard Clarity (U) CLEAR Normal CLEAR [facility] Comment on above: Performed By: #### C MP, LIPID, TSH #### [facility] [address] [place] [address] Dr. Nighat Ballard Color (U) YELLOW Normal YELLOW [facility] Comment on above: Performed By: #### C MP, LIPID, TSH #### [facility] [address] [place] [address] Dr. Nighat Ballard Crystals LM Nom (Urine sed) NONE SEEN Normal NONE SEEN [facility] Comment on above: Performed By: #### C MP, LIPID, TSH #### [facility] [address] [address] [address] Nighat Ballard Epithelial cells LM Ql (Urine sed) MODERATE Abnormal NONE SEEN /RARE [facility] Comment on above: Performed By: #### C MP, LIPID, TSH #### [facility] [address] [address] [address] Nighat Ballard Glucose Ql (U) Negative Normal NEGATIVE [facility] Comment on above: Performed By: #### C MP, LIPID, TSH #### [facility] [address] [address] [address] Nighat Ballard Hemoglobin Ql (U) Negative Normal NEGATIVE [facility] Comment on above: Performed By: #### C MP, LIPID, TSH #### [facility] [address] [place] [address] Dr. Nighat Ballard Ketones Ql (U) Negative Normal NEGATIVE [facility] Comment on above: Performed By: #### C MP, LIPID, TSH #### [facility] [address] [place] [address] Dr. Nighat Blalard LEUKOCYTES Negative Normal NEGATIVE [facility] Comment on above: Performed By: #### C MP, LIPID, TSH #### [facility] [address] [address] [address] Nighat Ballard MUCOUS NONE SEEN Normal NONE SEEN [facility] Comment on above: Performed By: #### C MP, LIPID, TSH #### [facility] [address] [address] [address] Nighat Ballard Nitrite Ql (U) Negative Normal NEGATIVE [facility] Comment on above: Performed By: #### C MP, LIPID, TSH #### [facility] [address] [place] [address] Dr. Nighat Ballard pH (U) 6.0 [pH] Normal 5-9 [facility] Comment on above: Performed By: #### C MP, LIPID, TSH #### [facility] [address] [place] [address] Dr. Nighat Ballard RBC NONE SEEN Abnormal 0-2 [facility] Comment on above: Performed By: #### C MP, LIPID, TSH #### [facility] [address] [address] [address] Nighat Ballard SPEC GRAVITY >=1.030 Abnormal 1.005-<=1.025 [facility] Comment on above: Performed By: #### C MP, LIPID, TSH #### [facility] [address] [address] [address] Nighat Ballard UA PROTEIN Negative Normal NEGATIVE/ TRACE [facility] Comment on above: Performed By: #### C MP, LIPID, TSH #### [facility] [address] [address] [address] Nighat Ballard Urobilinogen Qn (U) 0.2 {Ada'U}/dL Normal 0.2 - 1.0 [facility] Comment on above: Performed By: #### C MP, LIPID, TSH #### [facility] [address] [address] [address] Nighat Ballard WBC NONE SEEN Normal NONE SEEN [facility] Comment on above: Performed By: #### C MP, LIPID, TSH #### [facility] [address] [place] [address] Dr. Nighat Ballard XR cerv spine AP/LAT/FLX/EXT on 02-14-2022 XR cerv spine AP/LAT/FLX/EXT [facility] [place] [address] XRay Report Signed Patient: Prashant Kenney MR#: [id number] 52 : 1975 Acct:[id number] Age/Sex: 46 / F ADM Date: 02/14/22 Loc: XD Room: Type: [facility] Attending Dr: Myles Ramirez MD Copies to: Myles Ramirez MD Ordering Provider: Myles Ramirez MD Date of Service: 02/14/22 XR/XR cerv spine AP/LAT/FLX/EXT: M50.10 CERVICAL SPINE 4 views: CLINICAL HISTORY: Follow disc replacement surgery 2018. COMPARISON: Cervical spine 02/25/2020 FINDINGS: Straightening of the normal cervical lordosis which may relate to muscle spasm. Disc hardware seen at C5-6 and C6-7 without radiographic complication. No pathological motion. Flexion-extension views. Vertebral body heights appear maintained. XR/XR cerv spine AP/LAT/FLX/EXT IMPRESSION: NO EVIDENCE OF HARDWARE COMPLICATION. Impression dictated by: Reagan Ziegler Jr., Lisa02/14/2022 4:14 PM Dictation Location: [place] [address] Transcribed By: [facility] 02/14/221613 Dictated By: Reagan Ziegler Jr DO 02/14/221613 Signed By: 02/14/221613 [facility] CBC AUTO DIFFon 12-06-2021 BASO # 0.1 103/ul Normal 0.0-0.1 [facility] Comment on above: Performed By: #### C MP, LIPID, TSH #### [facility] [address] [place] [address] Dr. Nighat Ballard Basophils/100 WBC (Bld) 0.7 % Normal 0.2-2.0 [facility] Comment on above: Performed By: #### C MP, LIPID, TSH #### [facility] [address] [place] [address] Dr. Nighat Ballard EO # 0.0 103/ul Normal 0.0-0.7 [facility] Comment on above: Performed By: #### C MP, LIPID, TSH #### [facility] [address] [place] [address] Dr. Nighat Ballard Eosinophils/100 WBC (Bld) 0.5 % Critically low 0.9-7.0 [facility] Comment on above: Performed By: #### C MP, LIPID, TSH #### [facility] [address] [place] [address] Dr. Nighat Ballard Erythrocyte distribution width (RBC) [Ratio] 12.8 % Normal 11.0-15.0 [facility] Comment on above: Performed By: #### C MP, LIPID, TSH #### [facility] [address] [place] [address] Dr. Nighat Ballard Hematocrit (Bld) [Volume fraction] 43.3 % Normal 36.0-48.0 [facility] Comment on above: Performed By: #### C MP, LIPID, TSH #### [facility] [address] [place] [address] Dr. Nighat Ballard Hemoglobin (Bld) [Mass/Vol] 13.9 g/dL Normal 12.0-16.0 [facility] Comment on above: Performed By: #### C MP, LIPID, TSH #### [facility] [address] [place] [address] Dr. Nighat Ballard IG # 0.02 10e3/ul Normal 0.00-0.03 [facility] Comment on above: Performed By: #### C MP, LIPID, TSH #### [facility] [address] [place] [address] Dr. Nighat Ballard IG % 0.3 % Normal 0.0-0.5 [facility] Comment on above: Performed By: #### C MP, LIPID, TSH #### [facility] [address] [place] [address] Dr. Nighat Ballard LYMPH # 2.3 103/ul Normal 1.2-3.8 [facility] Comment on above: Performed By: #### C MP, LIPID, TSH #### [facility] [address] [place] [address] Dr. Nighat Ballard Lymphocytes/100 WBC (Bld) 30.3 % Normal 20.5-60.0 [facility] Comment on above: Performed By: #### C MP, LIPID, TSH #### [facility] [address] [place] [address] Dr. Nighat Ballard MANUAL DIFF REQ NO Normal [facility] Comment on above: Performed By: #### C MP, LIPID, TSH #### [facility] [address] [place] [address] Dr. Nighat Ballard MCH (RBC) [Entitic mass] 28.7 pg Normal 26.7-34.0 [facility] Comment on above: Performed By: #### C MP, LIPID, TSH #### [facility] [address] [place] [address] Dr. Nighat Ballard MCHC (RBC) [Mass/Vol] 32.1 g/dL Normal 29.9-35.2 [facility] Comment on above: Performed By: #### C MP, LIPID, TSH #### [facility] [address] [place] [address] Dr. Nighat Ballard MCV (RBC) [Entitic vol] 89.5 fL Normal 81.0-99.0 [facility] Comment on above: Performed By: #### C MP, LIPID, TSH #### [facility] [address] [place] [address] Dr. Nighat Ballard MONO # 0.3 103/ul Normal 0.3-0.8 [facility] Comment on above: Performed By: #### C MP, LIPID, TSH #### [facility] [address] [place] [address] Dr. Nighat Ballard Monocytes/100 WBC (Bld) 4.2 % Normal 1.7-12.0 [facility] Comment on above: Performed By: #### C MP, LIPID, TSH #### [facility] [address] [place] [address] Dr. Nighat Ballard NEUT # 4.9 103/ul Normal 1.4-6.5 [facility] Comment on above: Performed By: #### C MP, LIPID, TSH #### [facility] [address] [place] [address] Dr. Nighat Ballard Neutrophils/100 WBC (Bld) 64.0 % Normal 43.0-75.0 [facility] Comment on above: Performed By: #### C MP, LIPID, TSH #### [facility] [address] [place] [address] Dr. Nighat Ballard Platelet mean volume (Bld) [Entitic vol] 10.3 fL Normal 9.5-13.5 [facility] Comment on above: Performed By: #### C MP, LIPID, TSH #### [facility] [address] [place] [address] Dr. Nighat Ballard PLT 383 103/ul Normal 150-450 [facility] Comment on above: Performed By: #### C MP, LIPID, TSH #### [facility] [address] [address] [address] Nighat Ballard RBC 4.84 106/ul Normal 4.20-5.40 [facility] Comment on above: Performed By: #### C MP, LIPID, TSH #### [facility] [address] [address] [address] Nighat Ballard WBC 7.6 103/ul Normal 4.0-11.0 [facility] Comment on above: Performed By: #### C MP, LIPID, TSH #### [facility] [address] [address] [address] Nighat Ballard FREE T4on 12-06-2021 Free T4 [Mass/Vol] 0.83 ng/dL Normal 0.76-1.46 [facility] Comment on above: Performed By: #### V ITB12, FT4 #### [facility] [address] [address] [address] Nighat Ballard LIPID PROFILEon 12-06-2021 CHOL-HDL RATIO NORM SEE BELOW Normal [facility] Comment on above: Result Comment: 3.3 - 4.4 LOW RISK 4.4 - 7.1 AVERAGE RISK 7.1 - 11.0 MODERATE RISK >11.0 HIGH RISK Performed By: #### C MP, LIPID, TSH #### [facility] [address] [place] [address] Dr. Nighat Ballard Cholesterol [Mass/Vol] 268 mg/dL Critically high <=200 [facility] Comment on above: Performed By: #### C MP, LIPID, TSH #### [facility] [address] [address] [address] Nighat Ballard Cholesterol in HDL [Mass/Vol] 46 mg/dL Normal 40-60 [facility] Comment on above: Performed By: #### C MP, LIPID, TSH #### [facility] [address] [address] [address] Nighat Ballard Cholesterol in LDL [Mass/Vol] 158.6 mg/dL Normal [facility] Comment on above: Performed By: #### C MP, LIPID, TSH #### [facility] [address] [address] [address] Nighat Ballard Cholesterol.total/ Cholesterol in HDL [Mass ratio] 5.8 {ratio} Normal [facility] Comment on above: Performed By: #### C MP, LIPID, TSH #### [facility] [address] [address] [address] Nighat Ballard HDL NORMAL > or = 60 mg/dl - LO W CARDIOVASCULAR RISK <40 mg/dl - HIGH CARDIOVASCULAR RISK Normal [facility] Comment on above: Performed By: #### C MP, LIPID, TSH #### [facility] [address] [address] [address] Nighat Ballard LDL CALC NORMAL SEE BELOW Normal [facility] Comment on above: Result Comment: <100 mg/dl OPTIMAL 100 - 129 mg/dl NEAR OR ABOVE OPTIMAL 130 - 159 mg/dl BORDERLINE HIGH 160 - 189 mg/dl HIGH >190 mg/dl VERY HIGH Performed By: #### C MP, LIPID, TSH #### [facility] [address] [address] [address] Nighat Ballard Triglyceride [Mass/Vol] 317 mg/dL Critically high <=150 [facility] Comment on above: Performed By: #### C MP, LIPID, TSH #### [facility] [address] [address] [address] Nighat Ballard VLDL CALC 63.4 mg/dL Normal [facility] Comment on above: Performed By: #### C MP, LIPID, TSH #### [facility] [address] [address] [address] Nighat Ballard PROF 14(COMP METB)on 022 Albumin [Mass/Vol] 3.9 g/dL Normal 3.4-5.0 [facility] Comment on above: Performed By: #### C MP, LIPID, TSH #### [facility] [address] [address] [address] Nighat Ballard Albumin/Globulin [Mass ratio] 1.0 {ratio} Normal [facility] Comment on above: Performed By: #### C MP, LIPID, TSH #### [facility] [address] [address] [address] Nighat Ballard ALP [Catalytic activity/Vol] 74 U/L Normal 46-116 [facility] Comment on above: Performed By: #### C MP, LIPID, TSH #### [facility] [address] [address] [address] Nighat Ballard ALT [Catalytic activity/Vol] 41 U/L Normal 14-59 [facility] Comment on above: Performed By: #### C MP, LIPID, TSH #### [facility] [address] [address] [address] Nighat Ballard Anion gap [Moles/Vol] 10.8 mmol/L Normal [facility] Comment on above: Performed By: #### C MP, LIPID, TSH #### [facility] [address] [address] [address] Nighat Ballard AST [Catalytic activity/Vol] 29 U/L Normal 15-37 [facility] Comment on above: Performed By: #### C MP, LIPID, TSH #### [facility] [address] [address] [address] Nighat Ballard Bilirubin [Mass/Vol] 0.5 mg/dL Normal 0.2-1.0 [facility] Comment on above: Performed By: #### C MP, LIPID, TSH #### [facility] [address] [address] [address] Nighat Ballard Calcium [Mass/Vol] 9.0 mg/dL Normal 8.5-10.1 [facility] Comment on above: Performed By: #### C MP, LIPID, TSH #### [facility] [address] [address] [address] Nighat Ballard Chloride [Moles/Vol] 102 mmol/L Normal 98-107 [facility] Comment on above: Performed By: #### C MP, LIPID, TSH #### [facility] [address] [address] [address] Nighat Ballard CO2 [Moles/Vol] 29.3 mmol/L Normal 21.0-32.0 [facility] Comment on above: Performed By: #### C MP, LIPID, TSH #### [facility] [address] [address] [address] Nighat Ballard Creatinine [Mass/Vol] 1.03 mg/dL Critically high 0.55-1.02 [facility] Comment on above: Performed By: #### C MP, LIPID, TSH #### [facility] [address] [address] [address] Nighat Ballard EGFR-AF SWEDISH >60 Normal >=60 [facility] Comment on above: Performed By: #### C MP, LIPID, TSH #### [facility] [address] [address] [address] Nighat Ballard EGFR-NON AF SWEDISH =58 Critically low >=60 [facility] Comment on above: Performed By: #### C MP, LIPID, TSH #### [facility] [address] [address] [address] Nighat Ballard Globulin (S) [Mass/Vol] 4.0 g/dL Normal [facility] Comment on above: Performed By: #### C MP, LIPID, TSH #### [facility] [address] [address] [address] Nighat Ballard Glucose [Mass/Vol] 84 mg/dL Normal 74-106 [facility] Comment on above: Performed By: #### C MP, LIPID, TSH #### [facility] [address] [address] [address] Nighat Ballard Potassium [Moles/Vol] 4.1 mmol/L Normal 3.5-5.1 [facility] Comment on above: Performed By: #### C MP, LIPID, TSH #### [facility] [address] [address] [address] Nighat Ballard Protein [Mass/Vol] 7.9 g/dL Normal 6.4-8.2 [facility] Comment on above: Performed By: #### C MP, LIPID, TSH #### [facility] [address] [address] [address] Nighat Ballard Sodium [Moles/Vol] 138 mmol/L Normal 136-145 [facility] Comment on above: Performed By: #### C MP, LIPID, TSH #### [facility] [address] [address] [address] Nighat Ballard Urea nitrogen [Mass/Vol] 12.0 mg/dL Normal 7.0-18.0 [facility] Comment on above: Performed By: #### C MP, LIPID, TSH #### [facility] [address] [place] [address] Dr. Nighat Ballard Urea nitrogen/Creatinin e [Mass ratio] 11.7 mg/mg Normal [facility] Comment on above: Performed By: #### C MP, LIPID, TSH #### [facility] [address] [place] [address] Dr. Nighat Ballard TSHon 12-06-2021 TSH 2.371 uIU/mL Normal 0.358-3.740 [facility] Comment on above: Performed By: #### C MP, LIPID, TSH #### [facility] [address] [place] [address] Dr. Nighat Ballard UA RANDOM W/MICROSCOPICon BACTERIA SMALL Abnormal NONE SEEN [facility] Comment on above: Performed By: #### V ITB12, FT4 #### [facility] [address] [place] [address] Dr. Nighat Ballard Bilirubin Ql (U) Negative Normal NEGATIVE [facility] Comment on above: Performed By: #### V ITB12, FT4 #### [facility] [address] [place] [address] Dr. Nighat Ballard CA OX CRYSTALS RARE Normal [facility] Comment on above: Performed By: #### V ITB12, FT4 #### [facility] [address] [place] [address] Dr. Nighat Ballard CAST NONE SEEN Normal NONE SEEN [facility] Comment on above: Performed By: #### V ITB12, FT4 #### [facility] [address] [place] [address] Dr. Nighat Ballard Clarity (U) CLEAR Normal CLEAR [facility] Comment on above: Performed By: #### V ITB12, FT4 #### [facility] [address] [place] [address] Dr. Nighat Ballard Color (U) LT. YELLOW Normal YELLOW [facility] Comment on above: Performed By: #### V ITB12, FT4 #### [facility] [address] [address] [address] Nighat Ballard Crystals LM Nom (Urine sed) SEEN Abnormal NONE SEEN [facility] Comment on above: Performed By: #### V ITB1, FT4 #### [facility] [address] [place] [address] Dr. Nighat Ballard Epithelial cells LM Ql (Urine sed) FEW Abnormal NONE SEEN /RARE [facility] Comment on above: Performed By: #### V ITB1, FT4 #### [facility] [address] [place] [address] Dr. Nighat Ballard Glucose Ql (U) Negative Normal NEGATIVE [facility] Comment on above: Performed By: #### V ITB1, FT4 #### [facility] [address] [place] [address] Dr. Nighat Ballard Hemoglobin Ql (U) Negative Normal NEGATIVE [facility] Comment on above: Performed By: #### V ITB1, FT4 #### [facility] [address] [place] [address] Dr. Nighat Ballard Ketones Ql (U) Negative Normal NEGATIVE [facility] Comment on above: Performed By: #### V ITB1, FT4 #### [facility] [address] [place] [address] Dr. Nighat Ballard LEUKOCYTES Negative Normal NEGATIVE [facility] Comment on above: Performed By: #### V ITB1, FT4 #### [facility] [address] [place] [address] Dr. Nighat Ballard MUCOUS NONE SEEN Normal NONE SEEN [facility] Comment on above: Performed By: #### V ITB1, FT4 #### [facility] [address] [place] [address] Dr. Nighat Ballard Nitrite Ql (U) Negative Normal NEGATIVE [facility] Comment on above: Performed By: #### V ITB12, FT4 #### [facility] [address] [place] [address] Dr. Nighat Ballard pH (U) 6.5 [pH] Normal 5-9 [facility] Comment on above: Performed By: #### V ITB12, FT4 #### [facility] [address] [place] [address] Dr. Nighat Ballard RBC 0-2 Normal 0-2 [facility] Comment on above: Performed By: #### V ITB12, FT4 #### [facility] [address] [place] [address] Dr. Nighat Ballard SPEC GRAVITY 1.015 Normal 1.005-<=1.025 [facility] Comment on above: Performed By: #### V ITB12, FT4 #### [facility] [address] [place] [address] Dr. Nighat Ballard UA PROTEIN Negative Normal NEGATIVE/ TRACE [facility] Comment on above: Performed By: #### V ITB12, FT4 #### [facility] [address] [place] [address] Dr. Nighat Ballard Urobilinogen Qn (U) 0.2 {Ada'U}/dL Normal 0.2 - 1.0 [facility] Comment on above: Performed By: #### V ITB12, FT4 #### [facility] [address] [place] [address] Dr. Nighat Ballard WBC 0-2 Abnormal NONE SEEN [facility] Comment on above: Performed By: #### V ITB12, FT4 #### [facility] [address] [place] [address] Dr. Nighat Ballard VITAMIN B12on 12-06-2021 Cobalamin (Vitamin B12) [Mass/Vol] 855.0 pg/mL Normal 193.0-986.0 [facility] Comment on above: Performed By: #### V ITB12, FT4 #### [facility] [address] [place] [address] Dr. Nighat Ballard Vital Signs Date Time Vital Sign Value Performing Clinician Facility 07-31-2023 13:13-0500 Blood Pressure Location Dinesh GALLEGOSL [facility] 07-31-2023 13:13-0500 Diastolic blood pressure 78 mm[Hg] Dinesh GALLEGOS[facility] 07-31-2023 13:13-0500 Heart rate 72 /min Dinesh GALLEGOS[facility] 07-31-2023 13:13-0500 Respiratory rate 16 /min Dinesh GALLEGOSL [facility] [place] 07-31-2023 13:13-0500 Systolic blood pressure 116 mm[Hg] Dinesh GALLEGOSL [facility] [place] 02-14-2022 15:30-0400 Body height Myles Ramirez Other [employer] Other 03-29-2021 16:30-0400 Body height Myles Ramirez Other [employer] Other 03-29-2021 16:30-0400 Body mass index (BMI) [Ratio] 31.09 kg/m2 Myles Ramirez Other [employer] Other 03-29-2021 16:30-0400 Body weight 77.11 kg Myles Ramirez Other [employer] Other 03-29-2021 16:30-0400 Diastolic blood pressure 75 mm[Hg] Myles Ramirez Other [employer] Other 03-29-2021 16:30-0400 Systolic blood pressure 130 mm[Hg] Myles Ramirez Other [employer] Other Encounters Encounter Date Encounter Type Care Provider Facility Start: 12-10-2023 End: 12-10-2023 ambulatory ELLEN AICHHOLZ Not Available Start: 11-07-2023 End: 11-07-2023 ambulatory ELLEN AICHHOLZ Not Available Start: 10-07-2023 End: 10-07-2023 ambulatory ELLEN AICHHOLZ Not Available Start: 08-21-2023 End: 08-22-2023 ambulatory Dinesh R ROSYL Facility: [facility] Start: 08-02-2023 Refill Ellen Aicmarkholz [employer]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 Phone: [facility] Comment on above: Primary insomnia (Pr imary Dx) Start: 07-31-2023 End: 08-01-2023 ambulatory ELLNE CARSONHOLZ Facility: [facility] Start: 07-31-2023 End: 07-31-2023 Patient encounter procedure Dinesh R ROSYL [facility] Start: 07-03-2023 End: 07-04-2023 ambulatory Dinesh R ROSYL Facility: [place] Start: 07-03-2023 End: 07-03-2023 Patient encounter procedure Dinesh R ROSYL General Surgery [facility] [place] Start: 06-06-2023 ambulatory PA-C HUNG DELACRUZ Fac ility: [facility] Start: 06-04-2023 End: 06-04-2023 ambulatory ELLEN AICHHOLZ Not Available Start: 03-20-2023 End: 03-21-2023 ambulatory KEYUR MCCAULEY Facility:[facility] Start: 03-12-2023 End: 03-13-2023 ambulatory PA-C HUNG DELACRUZ Facility:[facility] [place] Start: 03-12-2023 End: 03-12-2023 Patient encounter procedure HUNG DELACRUZ [facility] Start: 11-16-2022 End: 11-16-[address] SAUL NIELSEN . Facility:[facility] Start: 10-16-2022 End: 10-16-2022 ambulatory HILLARY FRIEND Facility:[facility] Start: 10-15-2022 End: 10-15-2022 ambulatory JOSE DODSON Facility:[facility] Start: 08-30-2022 End: 08-31-[address] JESUS DE LEON Facility:[facility] Start: 08-17-2022 End: 08-17-[address] ABEBA DOTSON . 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 ELLEN DODSON Facility:[facility] Start: 03-29-2021 Office outpatient visit 15 minutes Myles Ramirez [facility] Start: 01-15-2017 End: 01-16-2017 Ambulatory DEFAULT PHYSICIAN Facility:[facility] Procedures Date Procedure Procedure Detail Performing Clinician Start: 11-16-2022 Laparoscopic right oophorectomy HUNG DELACRUZ Start: 08-30-2022 Mammography Ellen Reyes josue 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 Phone: Start: 02-14-2022 X-ray of cervical spine Ellen Carsoncarlos [place] Work Phone: Abdominal hysterectomy Eriberto el NILL Arthroscopy of shoulder Ajit ael NILL Hysterectomy Dinesh NILL Laparoscopy Dinesh NILL Comment on above: x3 or 4 Lysis of adhesions Dinesh AVENDAÑO Tonsillectomy Dinesh RIOS Plan of Treatment Date Care Activity Detail Author Start: 08-31-2023 Screening for malign ant neoplasm of breast Mammogram [facility] Start: 02-22-2023 Influenza vaccination Influenza Vacc ine (#1) [facility] Start: 2006 Screening for malign ant neoplasm of cervix HPV/Cotest [facility] Start: 1997 Screening for malign ant neoplasm of cervix Pap Smear [facility] Start: 1976 Screening for malign ant neoplasm of colon [facility] Immunizations Immunization Date Immunization Notes Care Provider Fa [facility] 01-07-2020 Kenalog -40 mg Myles christie Other [employer] Other 10-22-2017 Kenalog -40 mg Myles christie Other [employer] Other NEGATED: Highlighted row has not occurred!07-31-2023 influenza virus vaccine, unspecified formulation Dinesh RIOS [facility] [place] Payers Date Payer Category Payer Unknown 1975 Unknown [id number] 2.16.84 [id number] 1975 Unknown [id number] 2.16.84 0.1.580892.3.579.2.593 1975 Unknown [id number] 2.16.84 0.1.015667.3.579.2.593 1975 Unknown [id number] 2.16.84 0.1.606425.3.579.2.593 1976 Unknown [id number] 2.16.84 0.1.278777.3.579.2.593 1975 Unknown [id number] 2.16.84 0.1.186729.3.579.2.593 1975 Unknown [id number] 2.16.84 0.1.095448.3.579.2.593 1976 Unknown [id number] 2.16.84 0.1.794599.3.579.2.593 1976 Unknown [id number] 2.16.8 40.1.321523.3.579.2.727 1975 Unknown [id number] 2.16.8 40.1.752065.3.579.2.727 1975 Unknown [id number] 2.16.8 40.1.014925.3.579.2.727 1975 Unknown [id number] 2.16.84 0.1.239669.3.579.2.1259 1976 Unknown [id number] 2.16.84 0.1.261941.3.579.2.1259 1976 Unknown [id number] 2.16.84 0.1.258306.3.579.2.1259 1976 Unknown [id number] 2.16.840 .1.183189.3.579.2.1259 1958 Medicaid [id number] 2. 16.840.1.991699.19 1959 Unknown [id number] Self-pay Self Pay [id number] Unknown [id number] 2.1 [id number] Unknown [id number] 2.16.8 40.1.703832.19 Worker's Compensation [id number] Social History Date Type Detail Facility Unknown if ever smoked [employer] Other Start: 06-03-2023 End: 06-04-2023 Sex Assigned At Black [facility] Start: 09-28-2020 End: 06-24-2018 Tobacco smoking status LAIS Smoker (finding) [facility] Start: 1975 Sex Assigned At Female F [facility] Tobacco smoking status No Smokin g Status Entered [facility] Start: 07-31-2023 Tobacco smoking status Heavy t obacco smoker (finding) [facility] Tobacco smoking status Former sm okeless tobacco user, quit more than 30 days ago [facility] Start: 12-10-2022 Tobacco smoking stat [facility] Ex-smoker [facility] End: 06-24-2018 History of [...] [OSQ] Very much [facility] (I/We) worried wheth er (my/our) food would run out before [...] Cervical total d isc replacement prosthesis, sterile ()[id number] FDA Start: 05-19-2019 Cervical total d isc replacement prosthesis, sterile ()[id number] FDA Start: 05-19-2019 Functional Status Date Assessment Result Facility 07-31-2023 Functional Status N/A [facility] Clinical Notes 02-22-2018 to 07-31-2023 Note Date [...] Cigarettes, Vaping, 1 (more content not included)... [facility] Comment on above: Result Comment: Elec tronically Signed By: BLANCA CAMARGO, Dinesh Nicolas\Date and Time Signed: 07/31/23 13:45 EST 03-20-2023 Note HNO ID: [id number] Author: Zhanna Richard RT(Naun) Service: Radiology Author Type: Sales Support Consultant Type: Progress Notes Filed: 03/20/2023 2:20 PM [...] PERIPHERAL IV DATA: Not applicable SIGNED BY: RT Omar(R) March 20, 2023 2:19 PM [facility] 03-20-2023 Note HNO ID: [id number] Author: Keyur Mccauley MD Service: ? Author [...] trial of c (more content not included)... [facility] 11-16-2022 Note OPERATIVE NOTE OPERATION DATE: 11/16/2022 PROCEDURE: Diagnostic laparoscopy with right oophorectomy with lysis of adhesions of the bowel to the pelvic side wall. PREOPERATIVE DIAGNOSIS: Pelvic pain, right ovarian cyst. POSTOPERATIVE DIAGNOSIS: Pelvic pain, 4 cm right ovarian cyst. ANESTHESIA: General. SURGEON: Meño Alonzo D.O. MOLECULAR BIOLOGY PROFESSOR: TONEY Green URINE OUTPUT: Yellow and clear. [...] to Recovery Room in stable condition. [facility] 02-14-2022 Evaluation note Encounter Date [...] injections if physical therapy is not effective. [employer] Other 10-06-2021 Evaluation note* Encounter Date Diagnosis [...] has not gone for xray as requested [employer] Other 09-01-2018 History general Narrative - Reported* [...] 09/28/20 Hospitalization History See Surgical Hx above [employer] Other evaluation + Plan note No data available for this section [facility] evaluation noteNo assessment information available [facility] Work Phone: Evaluation note* Diagnosis Primary insomnia- Primary Persistent disorder of initiating or maintaining sleep documented in this encounter [facility] No data available for this section [facility] progress note No data available for this section [facility] Summary Purpose Family History No Family History Records Found Relationship Condition Age at Onset Recorded Date/T aria Not Specified Heart murmur Unknown Atrial fibrillation Unknown Hypertension Unknown father Hypertension Unknown History of coronary artery stent placement Unknown Coronary artery disease Unknown Hyperoxaluria Unknown Advance Directives No Advanced Directives Records Found Advance Directive Response Recorded Date/ Time Advance Directives No September 12, 018 10:02am Reason for Referral Reason Evaluate and Treat I mprove Core Muscles and Treat Occipital Neuralgia Diagnosis 1 Herniation of cervic al intervertebral disc with radiculopathy (M50.10) Diagnosis 2 Occipital neuralgia, unspecified laterality (M54.81) Referral Organization [facility] urosurgery Referring Provider First Name Myles Referring Provider Last Name James Referring Provider Specialty Neurosurger y Referred Organization Unknown Facility Referred Provider Specialty Physical The rapist Referral Priority Routine Chief Complaint and Reason for Visit Chief Complaint m50.10 Additional Source Comments INFORMATION SOURCE (unrecogn ized section and content) DATE CREATED AUTHOR 12/18/2017 [facility] DATE CREATED AUTHOR AUTHOR'S ORGANIZ ATION 02/23/2022 [facility] DATE CREATED AUTHOR AUTHOR'S ORGANIZ ATION 11/30/2022 [facility] DATE CREATED AUTHOR AUTHOR'S ORGANIZ ATION 03/28/2023 [facility] DATE CREATED AUTHOR AUTHOR'S ORGANIZ ATION 03/28/2023 [facility] DATE CREATED AUTHOR AUTHOR'S ORGANIZ ATION 08/29/2023 [facility] DATE CREATED AUTHOR AUTHOR'S ORGANIZ ATION 12/12/2023 [facility] dical Specialists EPIC REASON FOR VISIT (unrecogniz ed section and content) Reason Comments Med Refill Care Teams (unrecognized sec tion and content) Team Status: Inactive Member Role Status Dates Ellen Dodson Primary Care Provider Active Myles Ramirez MD Attending Provider Active Team Status: Active Member Role Status Dates Ellen Dodson Primary Care Provider 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 [facility]. provides no warranty or guarantee of the accuracy or completeness of information in this document.
[2024-02-03] MEDS: KETOROLAC TROMETHAMINE 30 MG/ML VIAL IVP (12:07)
[2024-02-03] MEDS: DIPHENHYDRAMINE HCL 50 MG/ML VIAL 25 MG IV (12:07)
[2024-02-03] MEDS: ONDANSETRON PF 4 MG/2 ML VIAL IV (12:07)
[2024-02-03] MEDS: METHYLPREDNISOLONE SOD SUCC PF 125 MG/2 ML VIAL IVP (12:07)
== END 2024-02-03 13:00 | disposition home or self-care (01) ==
PROVIDERS: Emergency Provider Emergency Medicine; PCP Nurse Practitioner
DX: G43.909 Migraine, unspecified, not intractable, without status migrainosus (principal); F17.200 Nicotine dependence, unspecified, uncomplicated
CPT/HCPCS: 93005; 96374; 96375; 99284; J1200; J1885; J2405; J2919

== ENCOUNTER 2024-03-04 07:52 | Outpatient (RCR) | payer OTHER, SELFPAY | END 2024-03-05 11:23 | disposition home or self-care (01) | LOC: OT 07:52 | PROVIDERS: PCP Nurse Practitioner; Visit Provider Nurse Practitioner | DX: M79.7 Fibromyalgia (principal); M50.30 Other cervical disc degeneration, unspecified cervical region; M54.12 Radiculopathy, cervical region | CPT/HCPCS: 97750 ==

== ENCOUNTER 2025-05-12 15:01 | Emergency (ER) | payer OTHER, SELFPAY ==
[2025-05-12] VITALS (8 sets, daily range): BP systolic 140–165; BP diastolic 90–98; PULSE 67–78; TEMP 36.6–36.7; O2SAT 97–100; BMI 32.6
--- NOTE | 2025-05-12 | CT_ITS ---
The [address] [address] Patient Name: PRASHANT MULLINS MRN: [id number] date: 1975 Sex: F Assigned Patient Location: ER Current Patient Location: ER Accession/Order Number: [id number] Exam Date: 05/12/2025 18:05 Report Date: 05/12/2025 18:21 At the request of: YULIA OSBORN Procedure: CT abdomen pelvis w con CT Abdomen and Pelvis withcontrast TECHNIQUE: Axial imaging with 2-D reconstruction. The CT exam was performed using one or more the following dose reduction techniques: Automated exposure control, adjustment of the MA and/or Kv according to patient size, or use of the iterative reconstruction technique. COMPARISON: None History: Chest pain. Nausea and vomiting. Abdominal pain. LIMITATIONS: None LOWER THORAX Unremarkable LIVER: Hepatic steatosis GALLBLADDER: No gallbladder abnormality identified. BILE DUCTS: No dilatation SPLEEN: Unremarkable PANCREAS: Unremarkable ADRENAL GLANDS: Unremarkable KIDNEYS:Unremarkable AORTA: No abdominal aortic aneurysm identified. RETROPERITONEUM: No significant retroperitoneal abnormalities identified. MESENTERY:Unremarkable STOMACH:Unremarkable SMALL BOWEL: The small bowel loops are nondistended. APPENDIX: The appendix is normal. COLON: Unremarkable URINARY BLADDER: Urinary bladder is unremarkable. REPRODUCTIVE SYSTEM: Reproductive structures are unremarkable. PNEUMOPERITONEUM: None PERITONEAL FLUID:None BONY STRUCTURES: Unremarkable ABDOMINAL WALL: Unremarkable CT/CT abdomen pelvis w con IMPRESSION: No acute findings. Impression dictated by: Koby Tucker M.D. 05/12/2025 6:21 PM Dictation Location: [place] [address] Electronically authenticated by: [id number] Y Date: 05/12/2025 18:21
--- NOTE | 2025-05-12 15:26 | ECG_ITS ---
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
--- NOTE | 2025-05-12 15:28 | XR_ITS ---
The [place] [id number] Patient Name: PRASHANT MULLINS MRN: [id number] date: 1975 Sex: F Assigned Patient Location: ER Current Patient Location: ED.MAIN Accession/Order Number: [id number] Exam Date: 05/12/2025 15:40 Report Date: 05/12/2025 16:11 At the request of: YULIA OSBORN Procedure: XR chest 1V Plain film chest Single view HISTORY: Chest pain. Vomiting COMPARISON: None FINDINGS: SUPPORT DEVICES: None POSTSURGICAL CHANGES: Cervical artificial disc placement HEART: Within normal limits PULMONARY SHANTI: Within normal limits MEDIASTINUM: Unremarkable LUNGS AND PLEURA: No acute lung process, pleural effusion or pneumothorax identified. BONY STRUCTURES: Intact ADDITIONAL FINDINGS None XR/XR chest 1V IMPRESSION: No acute process. Impression dictated by: Koby Tucker M.D. 05/12/2025 4:11 PM Dictation Location: [employer] Electronically authenticated by: [id number] Y Date: 05/12/2025 16:11
--- NOTE | 2025-05-12 15:30 | ED_ITS ---
HPI HPI - General Adult General Chief complaint: Chest Pain Stated complaint: CHEST PAIN VOMITING Time Seen by Provider: 05/12/25 15:14 History of Present Illness HPI narrative: Patient is a 49-year-old female with a PMH of migraines that presents with complaints of intermittent squeezing substernal and epigastric chest pain that started about an hour prior to arrival. She is also getting radiating pain to her back and left side of her jaw. She states she has been vomiting for about 4 hours prior to the chest pain starting. She denies any fevers but has felt some cold chills. She notes that she was fatigued all last week and was having hot and cold flashes, migraines, and was diagnosed with a UTI Saturday at urgent care. She was started on Bactrim and Zofran. She has taken Bactrim before but wonders if she is having a reaction to it. She is a 1 pack/day 32-year smoker. She has a history of her dad having a heart attack in his early 40s and her mom has had heart issues that she is unable to describe. She has had multiple pelvic surgeries to include hysterectomy, oophorectomy, salpingectomy and she notes that she did have some bowel obstructions from adhesions noted during one of those surgeries. She denies any diarrhea today, last bowel movement was yesterday. Related Data Home Medications ?Medication ?Instructions ?Recorded ?Confirmed albuterol sulfate 90 mcg/actuation 2 puff inhalation Q 6H PRN 08/12/23 02/03/24 aerosol inhaler shortness of breath or wheez ing baclofen 10 mg tablet 20 mg PO DAILY PRN muscle sp asm 08/12/23 02/03/24 carvedilol 6.25 mg tablet 6.25 mg PO Q12H 08/12/2306/16 erenumab-aooe 70 mg/mL 70 mg subcut .monthly 02/03/24 subcutaneous auto-injector (Aimovig Autoinjector) hydrochlorothiazide 25 mg tablet 25 mg PO DAILY 02/03/24 oxybutynin chloride 5 mg 5 mg PO DAILY 08/12/2302/02 tablet,extended release 24 hr simvastatin 10 mg tablet 20 mg PO DAILY 08/12/2301/22 zolpidem 10 mg tablet 10 mg PO BEDTIME PRN insomni a 08/12/23 02/03/24 Previous Rx's ?Medication ?Instructions ?Recorded dicyclomine 20 mg tablet 20 mg PO QID PRN abdominal p ain 05/12/25 #14 tabs Allergies Allergy/AdvReac Type Severity Reaction Status Date / Time gabapentin Allergy Severe difficulty Verified 02/03/24 11:05 waking up meloxicam (From Mobic) Allergy Severe difficulty Verified 02/03/24 11:05 waking up acetaminophen (From Vicodin) AdvReac Severe vomiting Verified 02/03/24 11:05 ciprofloxacin (From Cipro) AdvReac Severe Vomiting Verified 02/03/24 11:05 hydrocodone (From Vicodin) AdvReac Severe vomiting Verified 08/21/23 07:37 phenazopyridine (From AdvReac Severe vomiting Verified 02/03/24 11:05 Pyridium) lisinopril AdvReac Unknown Chest Pain Verified 02/03/24 11:05 prednisone AdvReac Unknown Hypertensio Verified 02/03/24 11:05 n Opioid HPI Opioid Management Most Recent Opioid Data: Last Pain Scale 8 05/12/25, 17:24 Last MAR Pain Assessment 05/12/25, 17:24 Review of Systems ROS Status of ROS 10 or more systems reviewed and unremark able except as noted in history and below [facility] Medical History (Updated 05/12/25 @ 20:24 by ANURAG Herrera) IBS (irritable bowel syndrome) ?K58.9 - Irritable bowel syndrome without diarrhea (ICD-10) Constipation ?K59.00 - Constipation, unspecified (ICD-10) Fibromyalgia ?M79.7 - Fibromyalgia (ICD-10) High cholesterol ?E78.00 - Pure hypercholesterolemia, unspecified (ICD-10) Hypertension ?I10 - Essential (primary) hypertension (ICD-10) Tobacco dependence ?F17.200 - Nicotine dependence, unspecified, uncomplicated (ICD-10) Obesity ?E66.9 - Obesity, unspecified (ICD-10) Migraine ?G43.909 - Migraine, unspecified, not intractable, without status migrainosus (ICD-10) Incontinence ?R32 - Unspecified urinary incontinence (ICD-10) Depression ?F32.A - Depression, unspecified (ICD-10) Anxiety ?F41.9 - Anxiety disorder, unspecified (ICD-10) Surgical History (Updated 08/21/23 @ 07:22 by Ruth Saul) History of neck surgery ?Z98.890 - Other specified postprocedural states (ICD-10) Hx of tonsillectomy ?Z90.89 - Acquired absence of other organs (ICD-10) H/O laparoscopy ?Z98.890 - Other specified postprocedural states (ICD-10) H/O arthroscopy of shoulder ?Z98.890 - Other specified postprocedural states (ICD-10) H/O: hysterectomy ?Z90.710 - Acquired absence of both cervix and uterus (ICD-10) History of right oophorectomy ?Z90.721 - Acquired absence of ovaries, unilateral (ICD-10) Family History (Updated 08/12/23 @ 09:37 by Sherlyn Washburn RN) Other Family history of hypertension Heart disease Hyperlipidemia Psoriatic arthritis Social History (Updated 08/21/23 @ 07:00 by Ruth Saul) Within the past year, how often did you have a drink containing alcohol: never Score interpretation: A score less than 3 is consistent with normal alcohol consumption. Smoking status: Current every day smoker Non-prescribed substance use: cannabis (any form) Non-prescribed substance use details: 1-2 times per month Highest level of school completed/degree received: Associate degree: occupational, technical, vocational program Little interest or pleasure in doing things: not at all Feeling down, depressed, or hopeless: not at all Exam Narrative Exam Narrative: General: No distress, age-appropriate Skin: Warm, dry, no pallor. No rash. Head: Normocephalic, atraumatic. Neck: Supple, non-tender. Eye: Pupils are equal, round and EOMI. No scleral icterus. Ears, Nose, Mouth, and Throat: No nasal mucosal hypertrophy. Oral mucosa is moist, no posterior oropharynx erythema, uvula is mid-line Cardiovascular: Regular Rate and Rhythm without murmur, gallop or rub. Respiratory: No accessory muscle use or respiratory distress. Lungs are clear to auscultation, no wheezing, rales or rhonchi Chest Wall: Right chest wall tender with palpation Back: No midline thoracic or lumbar vertebral tenderness. Musculoskeletal: Full ROM of all extremities, no calf or popliteal tenderness GI: Abdomen is soft, non-distended, RUQ and epigastric areas tender with palpation. No masses appreciated. No rebound, guarding, or rigidity noted. Neurological: A&O x4. No cranial nerve dysfunction observed. No truncal ataxia. Moves all extremities. Sensation intact. Psychiatric: Cooperative and interactive. Normal mood and affect. Constitutional Vital Signs, click to edit/add: Last Vital Signs Temp 98.1 F 05/12/25 20:10 Pulse 75 05/12/25 20:10 Resp 18 05/12/25 20:10 BP 148/98 H 05/12/25 20:10 Pulse Ox 97 05/12/25 20:10 O2 Del Method Room Air 05/12/25 20:10 Course Vital Signs Vital signs: Vital Signs Temperature 97.8 F 05/12/25 15:08 Pulse Rate 78 05/12/25 15:08 Respiratory Rate 20 05/12/25 15:08 Blood Pressure 165/95 H 05/12/25 15:08 Pulse Oximetry 100 05/12/25 15:08 Oxygen Delivery Method Room Air 05/12/25 15:08 Temperature 98.1 F 05/12/25 20:10 Pulse Rate 75 05/12/25 20:10 Respiratory Rate 18 05/12/25 20:10 Blood Pressure 148/98 H 05/12/25 20:10 Pulse Oximetry 97 05/12/25 20:10 Oxygen Delivery Method Room Air 05/12/25 20:10 Medical Decision Making [facility] Narrative Medical decision making narrative: The patient is a 49-year-old female with a history of migraines, recent UTI on Bactrim, and a 21-rfug-hweo smoking history who presented with intermittent substernal and epigastric chest pain radiating to her back and left jaw, preceded by several hours of vomiting. Initial concern was for acute coronary syndrome given her chest pain characteristics, strong family history of early cardiac disease, and cardiovascular risk factors. Diagnostic workup included CBC, CMP, lipase,amylase, D-Dimer all within normal limits; troponin ?2 and ECGs showed no ischemic changes. Imaging included a Chest XRay, RUQ ultrasound and CT abdomen/pelvis with IV contrast, all of which were normal. After Dilaudid and Zofran were given patient's chest pain resolved and she complained more of left sided abdominal/flank pain, which is why CT Ab/Pel was ordered to evaluation for kidney stone or hydronephrosis given recent UTI and tea colored urine. Urinalysis was unremarkable. Using the HEART score, she scored 3 (history 1, ECG 0, age 1, risk factors 1, troponin 0), consistent with low risk for major adverse cardiac events. Her chest pain resolved after administration of Dilaudid and Zofran, and her subsequent left flank pain prompted imaging, which was normal. Overall, emergent causes including ACS, renal/ureteral stones, pancreatitis, biliary disease, and bowel obstruction have been effectively ruled out. The patient was discharged with Bentyl for abdominal cramping and Zofran for nausea, educated on warning signs, and advised to follow up closely with her primary care provider. She is stable for discharge and agreeable with the plan. Differential Diagnosis Differential Diagnosis: ACS, pancreatitis, cholecystitis, kidney stone Lab Data Lab results reviewed: Yes I reviewed the patient's lab results Labs: Lab Results 05/12/25 05/12/25 05/12/25 Range/Units 15:20 16:15 17:27 WBC 6.9 (4.0-11.0) 10^3/uL RBC 5.06 (4.20-5.40) 10^6/uL Hgb 15.1 (12.0-16.0) g/dL Hct 44.4 (36.0-48.0) % MCV 87.7 (81.0-99.0) fL MCH 29.8 (26.7-34.0) pg MCHC 34.0 (29.9-35.2) g/dL RDW 12.7 (11.0-15.0) % Plt Count 327 (150-450) 10^3/uL MPV 10.2 (9.5-13.5) fL Neut % (Auto) 60.7 (43.0-75.0) % Lymph % (Auto) 31.6 (20.5-60.0) % [place] % (Auto) 5.4 (1.7-12.0) % Eos % (Auto) 1.2 (0.9-7.0) % Baso % (Auto) 1.0 (0.2-2.0) % Neut # (Auto) 4.2 (1.4-6.5) 10^3/uL Lymph # (Auto) 2.2 (1.2-3.8) 10^3/uL [place] # (Auto) 0.4 (0.3-0.8) 10^3/uL Eos # (Auto) 0.1 (0.0-0.7) 10^3/uL Baso # (Auto) 0.1 (0.0-0.1) 10^3/uL Abs Immat Gran (auto) 0.01 (0.00-0.03) 10^3/uL Imm/Tot Granulo (auto) 0.1 (0.0-0.5) % D-Dimer 0.19 (<=0.59) mg/L FEU Sodium 142 (136-145) mmol/L Potassium 4.1 (3.5-5.1) mmol/L Chloride 104 (98-107) mmol/L Carbon Dioxide 26.9 (21.0-32.0) mmol/L Anion Gap 15.2 BUN 14.0 (7.0-18.0) mg/dL Creatinine 1.07 H (0.55-1.02) mg/dL Est GFR ( Amer) >60 (>=60 mL/min/1.73m^2) Est GFR (Non-Af Amer) 55 L (>=60 mL/min/1.73m^2) BUN/Creatinine Ratio 13.1 Glucose 99 (74-106) mg/dL Calcium 9.9 (8.5-10.1) mg/dL Total Bilirubin 0.3 (0.2-1.0) mg/dL AST 19 (15-37) U/L ALT 28 (14-59) U/L Alkaline Phosphatase 79 (46-116) U/L Troponin I High Sens <4.0 L <4.0 L (4.0-51.3) pg/mL Total Protein 7.9 (6.4-8.2) g/dL Albumin 4.2 (3.4-5.0) g/dL Globulin 3.7 g/dL Albumin/Globulin Ratio 1.1 Amylase 54 (25-115) U/L Lipase 47.0 (16.0-77.0) U/L Urine Color Lt. yellow (YELLOW) Urine Clarity Sl cloudy (CLEAR) Urine pH 8.0 (5.0-9.0) Ur Specific [place] 1.020 (1.005-1.025) Urine Protein Negative (NEG/TRACE) mg/dL Urine Glucose (UA) Negative (NEGATIVE) mg/dL Urine Ketones Negative (NEGATIVE) mg/dL Urine Occult Blood Negative (NEGATIVE) Urine Nitrite Negative (NEGATIVE) Urine Bilirubin Negative (NEGATIVE) Urine Urobilinogen 1.0 (0.2-1.0) EU/dL Ur Leukocyte Esterase Negative (NEGATIVE) Imaging Data CT scan - abdomen: Attestation: I have reviewed the pertinent imaging results. Radiologist's impression: ITS Impressions Abdomen/Pelvis CT 05/12/25 00:00 IMPRESSION: No acute findings. Impression dictated by: Koby Tucker M.D. 05/12/2025 6:21 PM Dictation Location: [facility] Electronically authenticated by: [id number] Y Date: 05/12/2025 18:21 Chest X-Ray 05/12/25 15:28 IMPRESSION: No acute process. Impression dictated by: Koby Tucker M.D. 05/12/2025 4:11 PM Dictation Location: [facility] Electronically authenticated by: [id number] Y Date: 05/12/2025 16:11 Upper Quadrant Ultrasound 05/12/25 16:27 IMPRESSION: Hepatic steatosis. No biliary duct dilatation. Unremarkable gallbladder. Impression dictated by: Koby Tucker M.D. 05/12/2025 5:29 PM Dictation Location: [facility] Electronically authenticated by: [id number] Y Date: 05/12/2025 17:29 ECG Data Attestation: ?I have reviewed the pertinent ECG results. Discharge Plan Discharge Chief Complaint: Chest Pain Clinical Impression: Chest pain, Abdominal pain Patient Disposition: Home, Self-Care Time of Disposition Decision: 20:17 Condition: Good Mode of Transportation: Private Vehicle Prescriptions / Home Meds: New dicyclomine 20 mg tablet 20 mg PO QID PRN (Reason: abdominal pain) Qty: 14 0RF No Action baclofen 10 mg tablet 20 mg PO DAILY PRN (Reason: muscle spasm) carvedilol 6.25 mg tablet 6.25 mg PO Q12H Aimovig Autoinjector 70 mg/mL auto-injector 70 mg SUBCUT .monthly hydrochlorothiazide 25 mg tablet 25 mg PO DAILY oxybutynin chloride 5 mg tablet extended release 24hr 5 mg PO DAILY simvastatin 10 mg tablet 20 mg PO DAILY zolpidem 10 mg tablet 10 mg PO BEDTIME PRN (Reason: insomnia) albuterol sulfate 90 mcg/actuation HFA aerosol inhaler 2 puff INHALATION Q6H PRN (Reason: shortness of breath or wheezing) Print Language: Armenian Instructions: Abdominal Pain (ED) Additional Instructions: Home Care * Drink plenty of fluids to stay hydrated * Eat small, bland meals (toast, rice, broth) until nausea improves * Avoid alcohol, spicy, fatty, or acidic foods * Apply a heating pad to sore areas for chest/flank discomfort When to Return to the Emergency Department Seek immediate care if you develop: * Worsening or pressure-like chest pain radiating to jaw, arm, or back * Shortness of breath or fainting * Persistent or vomiting blood * Black or bloody stools * Fever >100.4?F (38?C) * Severe abdominal, back, or flank pain Referrals: Ellen Dodson NP [Primary Care Provider, [facility]] - 1 week Discharge Date/Time: 05/12/25 20:40
[2025-05-12] MEDS: HYDROMORPHONE HCL 0.5 MG/0.5 ML SYRINGE IV (15:35)
[2025-05-12 15:39] LABS: Hematocrit 44.4 % (36.0-48.0); Hemoglobin 15.1 g/dL (12.0-16.0); Immature Granulocytes Abs Auto 0.01 10^3/uL (0.00-0.03); Immature Granulocytes Pct Auto 0.1 % (0.0-0.5); Lymphocytes Absolute Auto 2.2 10^3/uL (1.2-3.8); Mean Corpuscular HGB Conc 34.0 g/dL (29.9-35.2); Mean Corpuscular Hemoglobin 29.8 pg (26.7-34.0); Mean Corpuscular Volume 87.7 fL (81.0-99.0); Platelet Count 327 10^3/uL (150-450); Red Blood Count 5.06 10^6/uL (4.20-5.40); White Blood Count 6.9 10^3/uL (4.0-11.0)
[2025-05-12 15:53] LABS: Alanine Aminotransferase 28 U/L (14-59); Albumin Globulin Ratio 1.1; Albumin Level 4.2 g/dL (3.4-5.0); Alkaline Phosphatase 79 U/L (46-116); Amylase 54 U/L (25-115); Anion Gap 15.2; Aspartate Amino Transferase 19 U/L (15-37); Blood Urea Nitrogen 14.0 mg/dL (7.0-18.0); Calcium 9.9 mg/dL (8.5-10.1); Carbon Dioxide 26.9 mmol/L (21.0-32.0); Chloride 104 mmol/L (98-107); Estimated GFR (African America >60 (>=60 mL/min/1.73m^2); Estimated GFR (Non-African Ame 55 (>=60 mL/min/1.73m^2); Globulin 3.7 g/dL; Glucose 99 mg/dL (74-106); Lipase 47.0 U/L (16.0-77.0); Potassium 4.1 mmol/L (3.5-5.1); Sodium 142 mmol/L (136-145); Total Protein 7.9 g/dL (6.4-8.2)
--- OUTSIDE RECORDS SUMMARY | 2025-05-12 15:58 | XMS_ITS | Clinical Summary ---
Author Organization [facility] Address [address] [place] [id number] Care Team Providers Care Skills Auditor Name Role Phone Herminio Arango DO Primary Care Provider Allergies No known active allergies Medications MedicationSigDispense QuantityRefillsLast FilledStart DateEnd DateStatus gabapentin (NEURONTIN) 300 mg capsule TAKE 1 CAPSULE BY MOUTH AT BEDTIME FOR 10 DAYS THEN INCREASE TO 1 CAPSULE IN THE MORNING AND 1 IN THE EVENING.03/02/2023ctive Social History Tobacco UseTypesPacks/DayYears UsedDateSmoking Tobacco: Never AssessedArea Deprivation IndexAnswerDate RecordedNational Score (1-100), lower number is lower newg843503/20/2023State Score (1-10), lower number is lower gmbb28603/20/2023 Data from: https://www.neighborhoodatlas.[place] [facility].edu/. Last address used for [address] [facility]03/20/2023CommentsUnknownSex and Gender InformationValueDate RecordedSex Assigned at BirthNot on fileLegal SexFemale 02/24/2016 2:16 PM EDTGender IdentityNot on fileSexual OrientationNot on file Last Filed Vital Signs Vital SignReadingTime TakenCommentsBlood Dthtuxhj076/8409 1:05 PM EDT Axckk0749/27/2023 1:05 PM EDTTemperature--Respiratory Rate--Oxygen Saturation-- Inhaled Oxygen Concentration--Yzjrti87.7 kg (189 lb)03/20/2023 1:05 PM EDTHeight 157.5 cm (5' 2 )03/20/2023 1:05 PM EDTBody Mass Index34.5709 1:05 PM EDT Plan of Treatment Health MaintenanceDue DateLast DoneCommentsAnxiety Mucpykhmg01/31/1994Depression Mnwkyilud79/31/1994HIV Vaoknuodv91/31/1994Hepatitis C Cazawqisa68/31/1994 DTaP,Tdap,Td Vaccine (1 - Tdap)1995Hepatitis B Vaccine (1 of 3 - 19+ 3- dose series)1995Cervical Cancer Zpirvmbbs97/31/1997Mammogram Screening 2016CT Yzcbyydrwkch44/31/2021ologuard (FIT-DNA)2021olonoscopy 2021olorectal Cancer Vluvscwpx62/31/2021Fecal Occult Blood2021ipid Tmxnalppx94/31/9269Azvaweiuysrys04/31/2021ovid-19 Vaccine (2024- season) 2025Influenza Vaccine (#1)2025Diabetes Hjspgociy67/27/2026 03/20/2023, 03/14/2022, 03/17/2021 Procedures Procedure NamePriorityDate/TimeAssociated DiagnosisCommentsCOMPREHENSIVE METABOLIC CRIMEGcluntp81/27/2023 2:38 PM EDT Myalgia from Last 3 Months or Most Recently Relevant to Health Maintenance Results * COMP METABOLIC PANEL (03/20/2023 2:38 PM EDT)ComponentValueRef RangeTest MethodAnalysis TimePerformed AtPathologist SignatureProtein, Total7.46.3 - 8.0 g/dL03/20/2023 3:53 PM [facility]ATORYAlbumin4.53.9 - 4.9 g/dL 03/20/2023 3:53 PM [facility] LABORATORYCalcium, Total9.98.5 - 10.2 mg/dL03/20/2023 3:53 PM [facility] LABORATORYBilirubin, Total0.40.2 - 1.3 mg/dL03/20/2023 3:53 PM [facility] LABORATORYAlkaline Mjgqyxptteh81 34 - 123 U/L03/20/2023 3:53 PM [facility] NRYHXTGHFRBRN7710 - 35 U/L 03/20/2023 3:53 PM [facility] AMLLFPGJZPTED922 - 38 U/L03/20/2023 3:53 PM [facility] LWDPVZQWGMBfkymcu9393 - 99 mg/dL03/20/2023 3:53 PM [facility] LABORATORYComment: The [place] Diabetes Association (ADA) provides guidance for cutoff values for fasting glucose andrandom glucose. The ADA defines fasting as no [...] Standards of Medical Care in Diabetes 2016, [place] [employer]. Diabetes Care. 2016.39(Suppl 1). ZHN129 - 21 mg/dL03/20/2023 3:53 PM [facility] LABORATORYCreatinine0.85 0.58 - 0.96 mg/dL03/20/2023 3:53 PM [facility] AZRLMMIZVDYeinno838355 - 144 mmol/L03/20/2023 3:53 PM [facility] LABORATORYPotassium4.03.7 - 5.1 mmol/L03/20/2023 3:53 PM [facility] MRFQLFYBFOXsdajtdw11372 - 105 mmol/L 03/20/2023 3:53 PM [facility] XXVTVNFRMDML38248 - 30 mmol/L03/20/2023 3:53 PM [facility] LABORATORYAnion Psu943 - 18 mmol/L03/20/2023 3:53 PM [facility] LABORATORYEstimated Glomerular Filtration Rate86>=60 mL/min/1.73m 03/20/2023 3:53 PM [facility] LABORATORYComment:Estimated Glomerular Filtration Rate (eGFR) is calculated using the 2020 CKD-EPI creatinine equation. This equation utilizes serum creatinine, sex, and age as parameters. The creatinine assay has traceable calibration to isotope dilution-mass spectrometry. Refer to KDIGO guidelines for clinical interpretation. In patients with unstable renal function, e.g. those with acute kidney injury, the eGFRmay not accurately reflect actual GFR.Specimen (Source)Anatomical Location / LateralityCollection Method / VolumeCollection TimeReceived TimeBloodBLOOD SPECIMEN / UnknownVenipuncture / Qspzpye4603/20/2023 2:38 PM EDT03/20/2023 2:39 PM EDT Narrative Authorizing ProviderResult TypeResult StatusSumoise Giordano MDLABORATORYFinal ResultPerforming OrganizationAddressCity/State/ZIP CodePhone Number [facility] [address] [place] [address], from Last 3 Months or Most Recently Relevant to Health Maintenance Insurance Care Teams Team MemberRelationshipSpecialtyStart DateEnd Date Herminio Arango DO PCP - GeneralFamily Medicine02/24/16
--- OUTSIDE RECORDS SUMMARY | 2025-05-12 15:58 | XMS_ITS | Clinical Summary ---
Author Organization [employer] [facility] Address [id number] [address] [place] [address] Care Team Providers Care Head Cager Name Role Phone Ellen Dodson APRN-[employer] Primary Care Provider Allergies Active AllergyReactionsCriticalityNoted DateCommentsCiprofloxacinHives,Vomiting 04/27/20177787Umdaftcuhw76/26/7040Uaajjogqvx94/24/6716Wupcpmtnn52/04/2017 QrpuusiqzpdattqIsxgilru98/04/2017Hydrocodone-ItdeboaxhqstfOpvduxri71/04/2017 Medications MedicationSigDispense QuantityRefillsLast FilledStart DateEnd DateStatus mpjtmsc-pqbccvkgprlgs-oyiabczn (EXCEDRIN MIGRAINE) 250-250-65 mg per tablet Take 1 tablet by mouth every 6 (six) hours as needed for headaches.Active hydroCHLOROthiazide (HYDRODIURIL) 12.5 mg tablet Take 2 tablets (25 mg total) by mouth daily.Active venlafaxine XR (EFFEXOR-XR) 150 mg 24 hr capsule Take 225 mg by mouth daily.Active buPROPion (WELLBUTRIN) 75 mg tablet Take 75 mg by mouth daily.Active ondansetron ODT (ZOFRAN ODT) 4 mg disintegrating tablet Dissolve 1 tablet (4 mg total) on tongue every 8 (eight) hours as needed for nausea for up to 10 doses. 10 tablet 2Active Additional Information Patient not taking.Reported on 06/18/2024 carvediloL (COREG) 6.25 mg tablet Take 1 tablet (6.25 mg total) by mouth in the morning and 1 tablet (6.25 mg total) in the evening. Take with meals.Active zolpidem CR (AMBIEN CR) 6.25 mg CR tablet Take 1 tablet (6.25 mg total) by mouth nightly as needed for sleep.Active benzonatate (TESSALON PERLES) 100 mg capsule Take 1 capsule (100 mg total) by mouth every 8 (eight) hours. 21 capsule 4Active Active Problems No known active problems Encounters DateTypeDepartmentCare UmfoKdnoocdhtsi64/16/2025 9:10 AM EDT - 03/09/2025 11:59 PM [facility] [address] [place] [address] Pain in joints of right hand Discharge Disposition: Home03/09/2025 9:05 AM EDT - 03/09/2025 9:09 AM EDT Hospital [facility] [address] [place] [address] Pain in right wrist Discharge Disposition: Home03/09/2025Travelfrom Last 3 Months Social History Tobacco UseTypesPacks/DayYears UsedDateSmoking Tobacco: FormerCigarettes Smokeless Tobacco: Never Tobacco Cessation:Counseling Given: Not Answered Alcohol UseStandard Drinks/WeekCommentsYes0 (1 standard drink = 0.6 oz pure alcohol)monthlyChildcareAnswerDate XvcromqsJhixobpjtImjlzwv45/12/2019Employment AnswerDate BnzfijylMahklhuetkYbloebk42/12/2019Hunger ScreeningAnswerDate RecordedWithin the past 12 months we worried whether our food would run out before we got money to buy more.Never True06/18/2024Within the past 12 months the food we bought just didn't last and we didn't have money to get more.Never True4Purpose - LifeAnswerDate RecordedPurpose and direction in life Wzcqfta62/11/2021CommentsNoSex and Gender InformationValueDate Recorded Sex Assigned at BirthNot on fileLegal AaaXubsdj54/06/2015 11:33 AM EDTGender IdentityNot on fileSexual OrientationNot on file Last Filed Vital Signs Vital SignReadingTime TakenCommentsBlood Jxmdvqsb067/6806/18/2024 4:11 PM EST Ohhcj849506/18/2024 4:57 PM CMDZqyrmgvosui48.5 ??C (99.5 ??F)06/18/2024 3:42 PM ESTRespiratory Vbot4954 4:11 PM ESTOxygen Xvdrdxkytt39%06/18/2024 4:57 PM ESTInhaled Oxygen Concentration--Pqxazm75.7 kg (178 lb)06/18/2024 3:42 PM EST Zcvzuh188.5 cm (5' 2 )06/18/2024 3:42 PM ESTBody Mass Index32.56108/19/2023 3:42 PM EST Plan of Treatment Health MaintenanceDue DateLast DoneCommentsDepression Reccoghun38/31/1988Adult BMI Follow Up Plan1994DTaP,Tdap and Td Vaccines (1 - Tdap)1995 Influenza Ixthabk54/dult BMI Fwgkiwkfw54 Tobacco Jjzwdcpvd05 Medical Devices Not on file Procedures Procedure NamePriorityDate/TimeAssociated DiagnosisCommentsXR HAND RT MIN 3 VWS STAT03/09/2025 9:33 AM EDT Pain in joints of right hand XR WRIST RT MIN 3 ADGSDHW0803/09/2025 9:33 AM EDT Pain in right wrist from Last 3 Months Results * X-ray hand right minimum 3 views (03/09/2025 9:33 AM EDT)Anatomical Region LateralityModalityUpper Extremities, MSK, HandComputed RadiographySpecimen (Source)Anatomical Location / LateralityCollection Method / VolumeCollection TimeReceived Time03/09/2025 9:34 AM EDT Narrative 03/09/2025 9:36 AM EDT XR HAND RT MIN 3 VWS HISTORY: Right hand joint pain COMPARISON: None FINDINGS: No acute fracture or dislocation. ??Joint spaces appear well-preserved. ??No obvious soft tissue abnormality. No periarticular erosions or soft tissue mineralization. IMPRESSION: * ??No acute osseous abnormality. * ??No evidence of inflammatory spondyloarthropathy. Approved by Resident: Rico Medina MD ??on 03/09/2025 9:34 AM Dinesh Horan MD have personally reviewed the image(s) and agree with and/or edited the report Finalized by Dinesh Jamison MD on 03/09/2025 9:36 AM Procedure Note Dinesh Jamison MD - 03/09/2025 XR HAND RT MIN 3 VWS HISTORY: Right hand joint pain COMPARISON: None FINDINGS: No acute fracture or dislocation. Joint spaces appear well-preserved. Noobvious soft tissue abnormality. No periarticular erosions or soft tissuemineralization. IMPRESSION: * No acute osseous abnormality. * No evidence of inflammatory spondyloarthropathy. Approved by Resident: Rico Medina MD on 03/09/2025 9:34AM Dinesh Horan MD have personally reviewed the image(s) and agree withand/or edited the report Finalized by Dinesh Jamison MD on 03/09/2025 9:36 AM Authorizing ProviderResult TypeResult StatusTrisha Aishwarya [facility] ParkN-CNPIMG DIAGNOSTIC IMAGING ORDERABLESFinal Result * X-ray wrist right minimum 3 views (03/09/2025 9:33 AM EDT)Anatomical Region LateralityModalityMSK, Upper Extremities, WristRightComputed Radiography Specimen (Source)Anatomical Location / LateralityCollection Method / Volume Collection TimeReceived Time03/09/2025 9:35 AM EDT Narrative 03/09/2025 9:35 AM EDT XR WRIST RT MIN 3 VWS Clinical history:Pain in right wrist Comparison: None. Impression: Radiocarpal, intercarpal first carpometacarpal joint degenerative change. No acute process, fracture or dislocation. If there is snuffbox tenderness or concern for scaphoid injury, follow up evaluation in 7 to10 daysmay be of additional diagnostic benefit. Finalized by Dinesh Jamison MD on 03/09/2025 9:35 AM Procedure Note Dinesh Jamison MD - 03/09/2025 XR WRIST RT MIN 3 VWS Clinical history:Pain in right wrist Comparison: None. Impression: Radiocarpal, intercarpal first carpometacarpal joint degenerative change.No acute process, fracture or dislocation. If there is snuffbox tenderness or concern for scaphoid injury, follow up evaluation in 7 to10 days may be of additional diagnostic benefit. Finalized by Dinesh Jamison MD on 03/09/2025 9:35 AM Authorizing ProviderResult TypeResult StatusTrisha Aishwarya Amelia [employer] SUPERVISOR-CNPIMG DIAGNOSTIC IMAGING ORDERABLESFinal Result from Last 3 Months Insurance Care Teams Team MemberRelationshipSpecialtyStart DateEnd Date Ellen Dodson, [employer]PER[employer]OR-[employer] [address] [place] [address] PCP - GeneralNurse Practitioner03/09/25
--- OUTSIDE RECORDS SUMMARY | 2025-05-12 15:58 | XMS_ITS | Patient Health Record ---
Author Organization [facility] Address [address] [place], [place] [id number] Care Team Providers Care Pharmacology Teacher Name Role Phone Myrna Babin Unavailable [phone] Allergies Allergen (clinical drug ingredient) Drug/Non Drug Allergy documented on EMR Reaction Allergy Type Onset Date Status atorvastatin Lipitor Unknown Drug Allergy ActiveVicodinUnknownDrug AllergyActiveciprofloxacinCiprofloxacinUnknownDrug AllergyActivegabapentinGabapentinUnknownDrug AllergyActivemeloxicamMeloxicam UnknownDrug AllergyActiveprednisonePrednisoneUnknownDrug AllergyActive Reason For Referral No Information Medications Medication SIG (Take, Route, Frequency, Duration) Notes Start Date End Date Status Albuterol Sulfate HFA 108 (9 0 Base) MCG/ACT Aerosol Solution Inhalation; Duration: 50 Days ActiveZolpidem Tartrate 10 MG TabletOral; Duration: 30 DaysActiveVenlafaxine HCl ER 37.5 MG Capsule Extended Release 24 HourOral; Duration: 30 Days75 mgActive Simvastatin 40 MG TabletOral; Duration: 90 DaysActiveAimovig 140 MG/ML Solution Auto-injectorSubcutaneous; Duration: 30 DaysActiveAimovig 140 MG/ML Solution Auto-injectorINJCET 1ML (140 MG) SUBCUTANEOUSLY EVERY 28 DAYS Subcutaneous; Duration: 30 DaysActivehydroCHLOROthiazide 25 MG TabletOral; Duration: 90 Days ActiveCarvedilol 6.25 MG TabletOral; Duration: 90 DaysActive Social History Sex Assigned At : Social History Observation Description Sex Assigned At Female Social History Tobacco Use:Social InfoQuestionAnswerNotesTobacco Control (Standard)Additional Findings: Tobacco userHeavy cigarette smoker (20-39 cigs/day) Problems Problem Type SNOMED Code ICD Code Onset Dates Problem Status W/U Status Risk Notes Problem Tobacco user (902870989) Cigaret te nicotine dependence without complication (F17.210) ActiveconfirmedProblemBody mass index 30.00 to 34.99 (287437386245296)BMI 34.0- 34.9,adult (Z68.34)Activeconfirmed Plan Of Treatment No Information Insurance Providers Payer Name Payer Address Payer Phone Subscriber Number Group Number Insured Name Patient Relationship to Insured Coverage Start Date Coverage End Date [employer] [facility] [place] [address] [place] [address] [id number] Skinny Kenney - patient is the [id number] 2023Medicaid [facility] after CaresourceDentaquest[address] [place], [place] [id number], KristySelf - patient is the [id number] 2023
--- OUTSIDE RECORDS SUMMARY | 2025-05-12 15:58 | XMS_ITS | CCD ---
Author Organization [facility] Care Team Providers Care Photographic Laboratory Technician Name Role Phone PHYSICIAN, DEFAULT Unavailable Unavailable PHYSICIAN, DEFAULT Unavailable Unavailable Myles Ramirez Unavailable Ellen Dodson Primary Care Provider [phone] MD Myles Ramirez Attending Provider [phone] AICHHOLZ, SALES ADMINISTRATION MANAGER ELLEN Consulting Unavailable AICHHOLZ, SALES ADMINISTRATION MANAGER ELLEN Primary Care Unavailable AICHHOLZ, SALES ADMINISTRATION MANAGER ELLEN Admitting Unavailable AICHHOLZ, SALES ADMINISTRATION MANAGER ELLEN Attending Unavailable MOISES, DR JESUS Booker Consulting Unavailable AICHHOLZ, SALES ADMINISTRATION MANAGER ELLEN Primary Care Unavailable AICHHOLZ, SALES ADMINISTRATION MANAGER ELLEN Admitting Unavailable AICHHOLZ, SALES ADMINISTRATION MANAGER ELLEN Attending Unavailable AICHHOLZ, SALES ADMINISTRATION MANAGER ELLEN Consulting Unavailable AICHHOLZ, SALES ADMINISTRATION MANAGER ELLEN Consulting Unavailable AICHHOLZ, SALES ADMINISTRATION MANAGER ELLEN Primary Care Unavailable AICHHOLZ, SALES ADMINISTRATION MANAGER ELLEN Admitting Unavailable AICHHOLZ, SALES ADMINISTRATION MANAGER ELLEN Attending Unavailable AICHHOLZ, SALES ADMINISTRATION MANAGER ELLEN Consulting Unavailable AICHHOLZ, SALES ADMINISTRATION MANAGER ELLEN Primary Care Unavailable AICHHOLZ, SALES ADMINISTRATION MANAGER ELLEN Admitting Unavailable AICHHOLZ, SALES ADMINISTRATION MANAGER ELLEN Attending Unavailable AICHHOLZ, SALES ADMINISTRATION MANAGER ELLEN Primary Care Unavailable AICHHOLZ, SALES ADMINISTRATION MANAGER ELLEN Admitting Unavailable AICHHOLZ, SALES ADMINISTRATION MANAGER ELLEN Attending Unavailable PAY ., DR US Admitting Unavailable PAY ., DR US Attending Unavailable PAY ., DR US Consulting Unavailable AICHHOLZ, SALES ADMINISTRATION MANAGER ELLEN Primary Care Unavailable PHUC, HILLARY Admitting Unavailable PHUC, HILLARY Attending Unavailable PHUC, HILLARY Consulting Unavailable AICHHOLZ, SALES ADMINISTRATION MANAGER ELLEN Primary Care Unavailable LALO BARRETT Consulting Unavailable MORALES ., DR HUGHES Admitting Unavailabl e KARASIK ., DR HUGHES Attending Unavailabl e KARASIK ., DR HUGEHS Consulting Unavailabl e AICHHOLZ, SALES ADMINISTRATION MANAGER ELLEN Primary Care Unavailable MICHELLE ., DR KOWALSKI Consulting Unavailable DEIDRE FARIAS Consulting Unavailable SHELLEY ., IVIS Consulting Unavailable DESTINEE HAIR Consulting Unavailable LINDSEY TOLEDO Consulting Unavailable MYLES APODACA Consulting Unavailable REYNALDO CASTILLO Consulting Unavailable KEYUR MCCAULEY P Referring Unavailable PAVLOCK, [facility] Primary Care Unavailable GARRICKKEYUR BARNETT P Referring Unavailable PAVLOCK, [facility] Primary Care Unavailable GARRICK KEYUR P Attending Unavailable AICHHOLZ, ELLEN EMY Referring Unavailable PAVLOCK, [facility] Primary Care Unavailable AICHHOLZ, ELLEN J Primary Care Physician [phone] Leonor CAMARGO, Parth Primary Care Provider [phone] SHANNON DELACRUZ Attending Unavailab [place] Referring Unavailable Dinesh RIOS Attending Unavailable AICELLEN HERNANDEZ J Referring Unavailable AICMARY, ELLEN J Referring Unavailable Dinesh RIOS Attending Unavailable Dinesh RIOS Attending Unavailable Leonor CAMARGO, Parth Primary Care Provider Aicmary STEAM BOX TENDER, Ellen Unavailable Leonor CAMARGO, Parth Unavailable Aicmary STEAM BOX TENDER, Ellen Unavailable Aicmary, Ellen J Primary Care Provider [phone] Jesus Acevedo MD Attending Provider Ellen Dodson Primary Care Unavailable Jesus Acevedo Attending Unavailable Jesus Acevedo Admitting Unavailable AICHHOLZ, ELLEN Attending Unavailable AICHHOLZ, ELLEN Referring Unavailable AICHHOLZ, ELLEN Attending Unavailable AICHHOLZ, ELLEN Attending Unavailable AICHHOLZ, ELLEN Attending Unavailable AICHHOLZ, ELLEN Attending Unavailable AICHHOLZ, ELLEN Attending Unavailable Aichholz STEAM BOX TENDER, Ellen Unavailable Aichholz STEAM BOX TENDER, Ellen Unavailable AICMARY, ELLEN J Primary Care Unavailable GRACE CURRAN Referring Unavailable AICHHOLZ, ELLEN J Primary Care Unavailable AICHHOLZ, ELLEN J Referring Unavailable AICHHOLZ, ELLEN J Primary Care Unavailable Allergies Allergy ClassificationReported Allergen(s)Allergy TypeDate of OnsetReaction(s) Facility (7 sources)Acetaminophen / HYDROcodone; Translations: [Vicodin]Drug Allergy 76-53-9713Itjombpdmzgvivlq irritation (disorder)[facility] (9 sources)Lisinopril; Translations: [lisinopril]Drug Tmonuqc26-79-5992Mzkod pain (finding)[facility] (9 sources)meloxicam; Translations: [meloxicam]Drug Zuoyzbu28-73-4271Mdwhhdt (finding)[facility] CenterComment on above:difficulty waking up (20 sources)Phenazopyridine; Translations: [PHENAZOPYRIDINE]Drug Allergy 46-67-8560MF intoleranceKettering Health [facility] (2 sources)SteriodsPropensity to adverse reactionselevated [facility] Other (4 sources)Acetaminophen; Translations: [acetaminophen]Drug Hhhbtef01-59-1900 [facility] (20 sources)hydroCHLOROthiazide; Translations: [hydrochlorothiazide]Drug Allergy 70-15-4804Kvdedvdfk of breathKettering Health – Soin Medical CenterComment on above: HCTZ when mixed with lisinopril (4 sources)HYDROcodone; Translations: [hydrocodone]Drug Uqbnhri16-32-5198 [facility] (1 source)Amino AcidsDrug [facility]ergyA[facility] (3 sources)Ciprofloxacin; Translations: [Cipro]Drug AllergyA[facility] (1 source)meloxicamDrug AllergyAcmc [facility] (2 sources)PhenazopyridineDrug Rspwwmh91-04-5634MjfAcmc Healthcare [facility] (20 sources)Ciprofloxacin; Translations: [ciprofloxacin]Drug Hpgvxhq42-70-6493 Weal (disorder), Hives, [facility] intoleranceGeneral [facility] [place] (20 sources)gabapentin; Translations: [gabapentin]Drug Rwrybqe07-74-0797Xglvunw (finding), Shortness of breath, OtherGeneral [facility] [place] (3 sources)predniSONE; Translations: [prednisone]Drug AllergyHypertensive disorder, systemic arterial (disorder)[facility] (20 sources)Acetaminophen / HYDROcodone; Translations: [HYDROCODONE-ACETAMINOPHEN]Drug Yomppfe45-39-6286Viyltsm, GI intolerance, Other [facility] (20 sources)LisinoprilAllergy to hkgdhetcu45-55-4934MsyxzugDDZY Healthcare (20 sources)meloxicamDrug Ahijqyr48-45-0058ScmtgssRADH Healthcare (20 sources)PrednisonePropensity to adverse vhzgbltby29-42-4088NbgveQDTU Healthcare (20 sources)atorvastatinDrug Gzlxwmp32-88-0878VxvovalBABT Healthcare Work Phone: (3 sources)Corticosteroids; Translations: [Corticosteroids (Glucocorticoids)] Allergy to tkpypiknt79-46-1884lzqxbfeb [facility] (1 source)LisinoprilDrug Aovtbzb98-97-2464VhukextwpK[facility]tering [facility] Rep[facility] (1 source)meloxicamDrug Vaoskxt35-33-4751YhfaacbszKettering Health [facility] Rep[facility] (1 source)PhenazopyridineDrug Rvnbsul64-52-7055JrquunxxvKettering Health – [facility] Repository Medications Current Medications MedicationDrug Class(es)DatesSig (Normalized)Sig (Original)[id number] 200 actuat albuterol 0.09 mg/actuat metered dose inhaler (20 sources)beta2-Adrenergic AgonistStart: 81-90-3315tmmc 2 puff(s) by mouth every six hours as needed for wheezingalbuterol HFA 90 mcg/act inhaler Indications: Wheezing INHALE 2 PUFFS BY MOUTH EVERY 6 HOURS NEEDED FOR WHEEZING 18 g 02/21/2025 ActiveStart: 06-26-2024 End: 03-75-9719vdksjradx (2.5 MG/3ML) 0.083% nebulizer solution Indications: COVID Take 3 mL (2.5 mg) by nebulization every 6 (six) hours if needed for wheezing 360 mL 06/26/2024 ActiveStart: 06-25-2024 End: 28-28-6304ocwv 2 puff(s) by inhalation every six hours for wheezing albuterol HFA 90 mcg/act inhaler Indications: Wheezing Inhale 2 puffs every 6 (six) hours if neededfor wheezing 18 g 01/21/2025 02/21/2025 DiscontinuedStart: 06-15-2024 End: 97-66-0449siru 2 puff(s) by inhalation every six hours for wheezingVentolin HFA 108 (90 Base) MCG/ACT inhaler Indications: Wheezing Inhale 2 puffs every 6 (six) hoursif needed for wheezing 18 g 06/15/2024 06/25/2024 Discontinued (Reorder)Start: 01-15-2024 End: 02-74-8185vmmt 2 puff(s) by inhalation every six hours for wheezing albuterol HFA 90 mcg/act inhaler Indications: Wheezing Inhale 2 puffs every 6 (six) hours if neededfor wheezing 9 g 03/22/2024 ActiveStart: 34-78-9117iuku 2 puff(s) by inhalation every six hoursVentolin HFA 108 (90 Base) MCG/ACT inhaler Inhale 2 puffs every 6 (six) hours if needed for shortness of breath 0 04/17/2023 ActiveStart: 45-86-9373eynh 1 puff(s) by inhalation every six hours as neededAlbuterol Sulfate 90 mcg/actuation HFA aerosol inhaler Active 2 PUFF INHALATION Q6H as needed for Shortness Of Breath May 07, 2019 1:00amtake 2 puff(s) by mouth every six hours as neededAlbuterol Sulfate HFA 108 (90 Base) MCG/ACT INHALE 2 PUFFS BY MOUTH EVERY 6 HOURS NEEDED Inhalation for 25 Active ascorbic acid 500 mg chewable tablet (20 sources)Vitamin CStart: 60-64-8310fpqa 1 tablet by mouth once dailyAscorbic Acid (Vitamin C) (Vitamin C) 500 mg Tablet,Chewable Active 500 MG PO Daily May 07, 2019 1:00ambaclofen 20 mg oral tablet (20 sources)gamma-Aminobutyric Acid-ergic AgonistStart: 79-26-8717jbtg 1 tablet by mouth once daily as needed for muscle spasmsbaclofen 20 mg Tab 20 mg = 1 tab(s), Oral, Daily, PRN Spasm, Refills(s) 0 Start Date: 06/21/23 Status: OrderedStart: 01-17-2018 End: 74-47-5721pxtv 1 tablet by mouth three times daily as needed for muscle spasmsBaclofen 20 mg Tablet Discontinued 20 MG PO Three times daily as needed for shoulder spasms January 17, 2018 12:00am May 20, 2019 9:50amcarvedilol 6.25 mg oral tablet (20 sources)alpha-Adrenergic Isabell, beta-Adrenergic BlockerStart: 05-07-2019 End: 37-12-6785zzaw 1 tablet by mouth in the morningcarvedilol (Coreg) 6.25 MG tablet Indications: Primary hypertension Take 1 tablet (6.25 mg) by mouth in the morning and 1 tablet (6.25 mg) before bedtime. 180 tablet 1 02/01/2025 05/02/2025 Activecarvedilol (Coreg) 6.25 MG tablet every 12 (twelve) hours. 0 Activecetirizine hydrochloride 10 mg oral tablet (5 sources)Histamine-1 Receptor AntagonistStart: 39-26-9370cqto 1 tablet by mouth once dailyCetirizine 10 mg Tablet Active 10 MG PO Daily September 14, 2020 12:00am1 ml erenumab-aooe 140 mg/ml auto-injector (20 sources)Start: 01-21-2025 End: 90-97-2210hmpjba 1 mL by subcutaneous injection onceerenumab (Aimovig) 140 MG/ML injection Indications: Migraine without aura, not intractable, without status migrainosus Inject 1 mL (140 mg) under the skin every 28 (twenty-eight) days for 28 days 1 mL 2 01/21/2025 02/18/2025 ActiveStart: 09-02-2024 End: 71-82-3809iiwxkb 1 mL by subcutaneous injection onceerenumab (Aimovig) 140 MG/ML injection Indications: Migraine without aura and without status migrain osus, not intractable (CMS/HCC) Inject 1 mL (140 mg) under the skin every 28 (twenty-eight) days for 28 days 1 mL 5 10/29/2024 11/26/2024 ActiveStart: 07-01-2024 End: 71-01-3749kgbslw 1 mL by subcutaneous injection onceerenumab (Aimovig) 140 MG/ML injection Indications: Migraine without aura, not intractable, without status migrainosus (CMS/HCC) Inject 1 mL (140 mg) under the skin every 28 (twenty-eight) days for 28 days 1 mL 5 07/27/2024 08/24/2024 ActiveStart: 03-31-2024 End: 48-00-4543couwlc 1 mL by subcutaneous injection onceerenumab (Aimovig) 140 MG/ML injection Indications: Migraine without aura and without status migrain osus, not intractable (CMS/HCC) Inject 1 mL (140 mg) under the skin every 28 (twenty-eight) days for 28 days 1 mL 1 05/26/2024 06/29/2024 ActiveStart: 01-15-2024 End: 61-71-2741wniklr 1 mL by subcutaneous injection onceerenumab (Aimovig) 140 MG/ML injection Indications: Migraine without aura and without status migrain osus, not intractable (CMS/HCC) Inject 1 mL (140 mg) under the skin every 28 (twenty-eight) days for 28 days 1.12 mL 3 01/15/2024 02/12/2024 ActiveStart: 14-36-6286iijtrz 70 mg by subcutaneous injection every monthAimovig SureClick 70 mg/mL subcutaneous solution 70 mg, SubCutaneous, qMonth, Refills(s) 0 Start Yousuf e: 06/21/23 Status: OrderedhydroCHLOROthiazide 25 mg oral tablet (20 sources)Thiazide DiureticStart: 57-94-3432rbwa 2 tablets by mouth once daily Hydrochlorothiazide 12.5 mg tablet Active 0 PO Daily August 24, 2024 10:05am 25 mg orally daily;Start: 01-15-2024 End: 29-45-5963ekai 1 tablet by mouth once dailyhydroCHLOROthiazide (HYDRODiuril) 25 MG tablet Indications: Primary hypertension Take 1 tablet (25 m g) by mouth Daily 90 tablet 1 02/01/2025 05/02/2025 ActiveStart: 05-07-2019 End: 11-69-4182uqhw 1 tablet by mouth once dailyHydrochlorothiazide 12.5 mg tablet Discontinued 12.5 MG PO Daily May 07, 2019 1:00am August 24, 2024 10:07amtake 1 tablet by mouth in the morninghydroCHLOROthiazide (HYDRODiuril) 25 MG tablet Indications: Edema , Hypertension Take 25 mg by mouth in the morning. 0 Activemometasone furoate 0.001 mg/mg topical ointment (8 sources)CorticosteroidStart: 38-29-2658fbufvobdsj (Elocon) 0.1 % ointment Indications: Eczema, unspecified type Once a day to affected area for 14 days, then thin area twice a week if needed, avoid use on face 60 g 10/13/2024 Active Multi Vitamins oral tablet (2 sources)Start: 92-49-1441ricc 1 tablet by mouth once dailyMulti Vitamins oral tablet 1 tab(s), Oral, Daily, Refill(s) 0 Start Date: 06/21/23 Status: Ordered Multiple Vitamin (Multi-Vitamin) tablet (20 sources)Multiple Vitamin (Multi-Vitamin) tablet 1 (one) time each day at the same time. ActiveMultiple Vitamin (Multi-Vitamin) tablet 1 (one) time each day at the same time. 0 ActiveMultivitamin preparation (1 source)Start: 26-99-8256hjfv 2 tablets by mouth once daily at bedtime Multivitamin Active 2 TAB PO Daily at bedtime May 07, 2019 1:00am Multivitamin Tablet,Chewable (2 sources)Start: 58-54-3323svcd 2 tablets by mouth once daily at bedtime Multivitamin Tablet,Chewable Active 2 TAB PO Daily at bedtime May 07, 2019 1:00amStart: 91-85-9200zbyx 2 tablets by mouth once daily at bedtime Multivitamin Tablet,Chewable Active 2 TAB PO Daily at bedtime May 07, 2019 12:00am24 hr oxybutynin chloride 5 mg extended release oral tablet (20 sources)Cholinergic Muscarinic AntagonistStart: 38-67-5784oxxo 1 tablet by mouth once dailyoxybutynin 5 mg ER Tab 5 mg = 1 tab(s), Oral, Daily, Refills(s) 0 Start Date: 06/21/23 Status: OrderedStart: 03-28-2023 End: 52-84-3967msng 1 tablet by mouth every twenty-four hours in the morning oxybutynin XL (Ditropan-XL) 5 MG 24 hr tablet Take 5 mg by mouth in the morning. 03/28/2023 02/01/2025 Discontinued (Therapy completed)rizatriptan 10 mg oral tablet (1 source)Serotonin-1b and Serotonin-1d Receptor AgonistStart: 07-11-2023 rizatriptan (Maxalt) 10 MG tablet Indications: Migraine without aura and without status migrainosus, not intractable (CMS/HCC) 1 tablet at the onset of migraine headache, may repeat again in 2 hours.No more than 2 pills in 24 hours, no more than twice a week. 9 tablet 0 07/11/2023 Activesimvastatin 40 mg oral tablet (20 sources)HMG-CoA Reductase InhibitorStart: 10-07-2023 End: 33-40-4810hzmx 1 tablet by mouth at bedtimesimvastatin (Zocor) 40 MG tablet Indications: Dyslipidemia Take 1 tablet (40 mg) by mouth at bedtime 90 tablet 1 02/01/2025 05/02/2025 ActiveStart: 79-86-7854hwlr 1 tablet by mouth once daily in the eveningsimvastatin 20 mg Tab 20 mg = 1 tab(s), Oral, qPM, Refills(s) 0 Start Date: 06/21/23 Status: OrderedTirzepatide-Weight Management (Zepbound) 2.5 MG/0.5ML solution auto-injector (5 sources)Start: 02-01-2025 End: 31-19-4315Wiajrxhmmnz-Weight Management (Zepbound) 2.5 MG/0.5ML solution auto-injector Indications: Obstructive sleep apnea Inject 2.5 mg under the skin every 7 (seven) days for 28 days 2 mL 02/01/2025 03/01/2025 Active End: 29-31-8820Tzibgsaqxeu-Weight Management (Zepbound) 2.5 MG/0.5ML solution auto-injector Inject 2.5 mg under the skin every 7 (seven) days 02/01/2025 Discontinued (Reorder)Tirzepatide-Weight Management (Zepbound) 5 MG/0.5ML solution auto-injector (5 sources)Start: 02-01-2025 End: 72-31-9805Pbzdujpjerr-Weight Management (Zepbound) 5 MG/0.5ML solution auto-injector Indications: Obstructivesleep apnea Inject 5 mg under the skin every 7 (seven) days for 28 days 2 mL 1 02/01/2025 03/01/2025 Active End: 81-80-4345Auguyqkglcd-Weight Management (Zepbound) 5 MG/0.5ML solution auto-injector Inject 5 mg under the skin every 7 (seven) days 02/01/2025 Discontinued (Reorder)traZODone hydrochloride 50 mg oral tablet (1 source)Serotonin Reuptake InhibitorStart: 12-91-2091iwnr 1 tablet by mouth once daily at bedtimetraZODONE 50 mg Tab 50 mg = 1 tab(s), Oral, Once a day (at bedtime), Refills(s) 0 Start Date: 06/21/23 Status: Oowtglr55 hr venlafaxine 150 mg extended release oral capsule (20 sources)Serotonin and Norepinephrine Reuptake InhibitorStart: 01-15-2024 End: 17-07-5615equc 3 capsules by mouth once dailyvenlafaxine XR (Effexor XR) 37.5 MG 24 hr capsule Indications: Mild episode of recurrent major depressive disorder (HCC) (CMS/HCC) , Generalized anxiety disorder (CMS/HCC) Take 3 capsules (112.5 mg) by mouth Daily 90 capsule 1 04/20/2024 07/14/2024 Discontinued (Therapy completed)Start: 09-14-2020 End: 80-48-3158jfdf 1 capsule by mouth once dailyVenlafaxine 75 mg capsule,extended release 24hr Discontinued 75 MG PO Daily September 14, 2020 12:00am August 24, 2024 10:07amStart: 05-07-2019 End: 17-18-6717pgqk 1 capsule by mouth once daily at mealtimevenlafaxine XR (Effexor XR) 150 MG 24 hr capsule Indications: Generalized anxiety disorder Take 1 capsule (150 mg) by mouth Daily Take with food. 90 capsule 1 02/01/2025 05/02/2025 Activetake 1 capsule by mouth once dailyVenlafaxine HCl ER 225 MG TAKE 1 CAPSULE BY MOUTH ONCE DAILY FOR A TOTAL DAILY DOSE OF 225MG Oral for 30 ActiveVentolin HFA 90 mcg/inh Aerosol-Adpt (2 sources)Start: 89-12-7157mvvz 2 puff(s) by inhalation every six hoursVentolin HFA 90 mcg/inh Aerosol-Adpt 2 puff(s), Inhalation, q6hr Shortness of breath or wheezing, Refill(s) 0 Start Date: 06/21/23 Status: Orderedzolpidem tartrate 10 mg oral tablet (20 sources)gamma-Aminobutyric Acid-ergic AgonistStart: 26-01-4903wzwn 2 tablets by mouth once daily at bedtimeZolpidem (Ambien) 5 mg tablet Active 0 PO Daily at bedtime August 24, 2024 10:07am 10 mg orally daily at bedtime;Start: 01-15-2024 End: 20-40-7940odhc 1 tablet by mouth at bedtimezolpidem (Ambien) 10 MG tablet Indications: Primary insomnia Take 1 tablet (10 mg) by mouth at bedtime 30 tablet 5 02/01/2025 03/03/2025 ActiveStart: 08-05-2023 End: 35-91-6383qyly 1 tablet by mouth at bedtimezolpidem (Ambien) 10 MG tablet Indications: Primary insomnia Take 1 tablet (10 mg) by mouth at bedtime 30 tablet 1 08/05/2023 09/04/2023 ActiveStart: 74-45-5403iibc 1 tablet by mouth once daily at bedtime as needed for sleepAmbien 10 mg Tab 10 mg = 1 tab(s), Oral, Once a day (at bedtime), PRN for sleep, Refills(s) 0 StartDate: 07/31/23 Status: OrderedStart: 09-14-2020 End: 14-57-2952syuw 1 tablet by mouth once daily at bedtimeZolpidem (Ambien) 5 mg Tablet Discontinued 5 MG PO Daily at bedtime September 14, 2020 12:00am August 242024 10:07am Completed/Discontinued Medications MedicationDrug Class(es)DatesSig (Normalized)Sig (Original)amitriptyline hydrochloride 75 mg oral tablet (3 sources)Tricyclic AntidepressantStart: 01-17-2018 End: 85-60-0084ixjn 1 tablet by mouth once daily at bedtimeAmitriptyline 75 mg tablet Discontinued 1 TAB PO Daily at bedtime January 17, 2018 12:00am April 242018 2:28pmamoxicillin 875 mg / clavulanate 125 mg oral tablet (4 sources)Penicillin-class AntibacterialStart: 06-29-2024 End: 07-07-2638ntsf 1 tablet by mouth in the morningamoxicillin-clavulanate (Augmentin) 875-125 MG tablet Indications: Subacute pansinusitis Take 1 tablet (875 mg) by mouth in the morning and 1 tablet (875 mg) before bedtime. Do all this for 10 days. Take with food. 20 tablet 06/29/2024 07/14/2024 Discontinued (Therapy completed)Deep Sleep Vitamin (3 sources)Start: 09-14-2020 End: 66-17-8162yaup 1 capsule by mouth once daily at bedtimeDeep Sleep Vitamin Discontinued 1 CAP PO Daily at bedtime September 14, 2020 12:00am August 24, 2024 10:04amStart: 09-14-2020 End: 16-45-9794ocfu 1 capsule by mouth once daily at bedtimeDeep Sleep Vitamin Discontinued 1 CAP PO Daily at bedtime September 13, 2020 11:00pm August 24, 2024 9:04amStart: 91-80-6757mhie 1 capsule by mouth once daily at bedtimeDeep Sleep Vitamin Active 1 CAP PO Daily at bedtime September 14, 2020 12:00amdiazePAM 5 mg oral tablet (3 sources)BenzodiazepineStart: 05-20-2019 End: 23-19-9939izbj 1 tablet by mouth four times daily as needed for muscle spasmsDiazepam 5 mg Tablet Discontinued 5 MG PO Four times daily as needed for Muscle Spasm 40 10 May 20, 2019 1:00am August 24, 2024 10:05amDULoxetine 20 mg delayed release oral capsule (6 sources)Serotonin and Norepinephrine Reuptake InhibitorStart: 02-25-2018 End: 04-44-2205jhmf 1 capsule by mouth twice dailyDuloxetine (Cymbalta) 20 mg Capsule,Delayed Release(Dr/Ec) Discontinued 20 MG PO Twice daily February 25, 2018 12:00am May 07, 2019 2:29pmStart: 01-17-2018 End: 17-59-3730zhda 1 tablet by mouth once daily at bedtimeDuloxetine 60 mg capsule,delayed release(DR/EC) Discontinued 1 TAB PO Daily at bedtime January 17, 2018 12:00am May 07, 2019 2:29pmoxyCODONE hydrochloride 5 mg oral tablet (3 sources)Opioid AgonistStart: 05-20-2019 End: 67-82-6548bude 1 tablet by mouth every four to six hours as needed for pain Oxycodone 5 mg Tablet Discontinued 5 MG PO EVERY 4-6 HOURS as needed for Pain Scale 1 - 5 70 14 May 20, 2019 September 14, 2020 2:20pmphentermine hydrochloride 37.5 mg oral tablet (16 sources)Sympathomimetic Amine AnorecticStart: 09-14-2024 End: 62-75-6524wtbe 1 tablet by mouth before mealtimephentermine (Adipex-P) 37.5 MG tablet Indications: Abnormal weight gain , Obesity (BMI 30-39.9) Take 1 tablet (37.5 mg) by mouth in the morning. Take before meals. 30 tablet 10/13/2024 02/01/2025 Discontinued (Therapy completed)Start: 09-14-2020 End: 71-59-9116vtyv 1 tablet by mouth once dailyPhentermine 37.5 mg tablet Discontinued 37.5 MG PO Daily September 14, 2020 12:00am August 24, 2024 10:06am take 1 capsule by mouth every twenty-four hoursAdipex-P 37.5 MG 1 capsule Orally Once a day ActiveQUEtiapine 50 mg oral tablet (3 sources)Atypical AntipsychoticStart: 05-07-2019 End: 61-07-6352urwk 1 tablet by mouth once daily at bedtimeQuetiapine 50 mg tablet Discontinued 50 MG PO Daily at bedtime May 07, 2019 1:00am September 14, 2020 2:20pmTriamcinolone (4 sources)CorticosteroidStart: 44-21-4135Webuhcq -40 mg Dec, 40 mg Start: 60-99-0857Hhtmghx -40 mg October, 10 mgTriamcinolone Acetonide 0.1 % APPLY CREAM EXTERNALLY TO AFFECTED AREA TWICE DAILY FOR 14 DAYS External for 14 Active Problems Active Problems Problem ClassificationProblemDateDocumented DateEpisodic/ChronicAbdominal pain (8 sources)Pelvic and perineal pain; Translations: [Unspecified abdominal pain] Onset: 22-78-4365FzxtrgxiVrjloww disorders (20 sources)Generalized anxiety disorder; Translations: [Anxiety disorder, unspecified]Onset: 12-08-2021 Resolved: 261759-92-5083EucwvylAyzriulh of urinary tract (1 source)Personal history of urinary calculi; Translations: [PERSONAL HISTORY OF URINARY CALCULI]Onset: 60-95-6287GuysppndLdlmxqkkr of lipid metabolism (20 sources)Hyperlipidemia, unspecified; Translations: [Dyslipidemia]Onset: 08-30-2022 Resolved: 34-82-9431AscezufNayawwqfw hypertension (20 sources)Essential (primary) hypertension; Translations: [Hypertensive disorder]Onset: 079031-89-2652EylkezrLbyatqinodhbt symptoms and ill- defined conditions (4 sources)Unspecified urinary incontinence; Translations: [Incontinence]Onset: 38-87-7757TawqfpcJqjngplo; including migraine (20 sources)Migraine; Translations: [Migraine without aura, not refractory ] Onset: 494997-24-1772DknrlifXymmdfec; including migraine (4 sources)Headache; including migraine; Translations: [HEADACHE UNSPECIFIED] Onset: 74-61-2378Txetyyeey (1 source)InfluenzaOnset: 27-78-0131Ksgbogalrmenx mental health disorders (11 sources)Primary insomnia; Translations: [Primary insomnia]18-16-9987Wpsnstp Mood disorders (20 sources)Depressive disorder; Translations: [Depression]Onset: 08-05-2023 Resolved: 972417-20-0429SxdkmixBpvzm aftercare (1 source)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; Translations: [OTH SHOWROOM CONSULTANT CURRENT DRUG THERAPY]Onset: 45-86-6005GcorndbgZndgl connective tissue disease (1 source)Myalgia, unspecified site; Translations: [Myalgia]Onset: 03-20-2023 EpisodicOther gastrointestinal disorders (1 source)Peritoneal adhesions (postprocedural) (postinfection); Translations: [PERITONEAL ADHES POSTPROC POSTINF]Onset: 75-68-2799YintodbuVctzb lower respiratory disease (20 sources)Wheezing; Translations: [Wheezing]Onset: 417999-60-2683 EpisodicOther nervous system disorders (1 source)Other chronic pain; Translations: [OTHER CHRONIC PAIN]Onset: 36-35-5266BdhvekxOrbyo non-traumatic joint disorders (1 source)Pain in right wrist; Translations: [Pain in right wrist]Onset: 62-75-1458TmocpsayIbkls non-traumatic joint disorders (1 source)Pain in joints of right hand; Translations: [Pain in joints of right hand]Onset: 03-89-9179SngdgebcPhqat nutritional; endocrine; and metabolic disorders (1 source)Obesity, unspecified; Translations: [OBESITY UNSPECIFIED]Onset: 45-42-9621EulwexwDrujo nutritional; endocrine; and metabolic disorders (2 sources)Crjhewk97-95-9688VczbuhsIpiqt nutritional; endocrine; and metabolic disorders (20 sources)Body mass index 30+ - obesity; Translations: [Obesity, unspecified] Onset: 978842-43-2482TeschvqJktve upper respiratory disease (20 sources)Allergic rhinitis; Translations: [Allergic rhinitis, unspecified] Onset: 08-05-2023 Resolved: 859271-26-2387BvpznygQmbezxi cyst (1 source)Unspecified ovarian cyst, right side; Translations: [UNSPECIFIED OVARIAN CYST RIGHT SIDE]Onset: 61-54-7282PhzgcagaEzdggzdp codes; unclassified (20 sources)Obstructive sleep apnea syndrome; Translations: [Obstructive sleep apnea (adult) (pediatric)]Onset: 124468-42-2462ZjjyfyaQqxosvws codes; unclassified (2 sources)Obstructive sleep apnea (adult) (pediatric); Translations: [Obstructive sleep apnea (adult)(pediatric)]Onset: hronic Residual codes; unclassified (1 source)Acquired absence of both cervix and uterus; Translations: [ACQUIRED ABSENCE BOTH CERVIX AND UTERUS]Onset: 70-46-5142HmlezqceDqzfsomw codes; unclassified (1 source)Acquired absence of ovaries, unilateral; Translations: [ACQUIRED ABSENCE OVARIES UNILATERAL]Onset: 68-39-3386WslujrffUbzelutc codes; unclassified (2 sources)Other specified health status; Translations: [Intolerance of continuous positive airway pressure (CPAP) ventilation]33-79-1037Qnzbpocs Spondylosis; intervertebral disc disorders; other back problems (20 sources)Degeneration of cervical intervertebral disc; Translations: [Other cervical disc degeneration, unspecified cervical region]Onset: 08-05-2023 64-13-7258QlqxauxOwmhatzlm-related disorders (20 sources)Nicotine dependence, cigarettes, uncomplicated; Translations: [Tobacco dependence syndrome]Onset: 11-21-2022 Resolved: 880944-19-7595YjbvfoyVcpqysylzpej (4 sources)Patient encounter okhopk27-42-4443Whukh infection (1 source)COVID-19; Translations: [COVID-19]Onset: 06-18-2024 Past or Other Problems Problem ClassificationProblemDateDocumented DateEpisodic/ChronicAllergic reactions (10 sources)Eczema; Translations: [Dermatitis, unspecified]Onset: 10-13-2024 93-73-6062MaytcofoAxiijygmnminx symptoms and ill-defined conditions (20 sources)Abnormal urine; Translations: [Unspecified abnormal findings in urine]Onset: 667407-09-0576WswudhtaVlynsftlidlng and screening for infectious disease (20 sources)Needs influenza immunization; Translations: [Encounter for immunization]Onset: 502899-55-7225FzcpfkgfVrzeeo and vomiting (1 source)Nausea with vomiting, unspecified; Translations: [NAUSEA WITH VOMITING UNSPECIFIED]Onset: 66-71-2522XqnecjayMfghy connective tissue disease (20 sources)Fibromyalgia; Translations: [Fibromyalgia]Onset: 08-05-2023 35-87-4036CsmoxrtgQaewk hematologic conditions (20 sources)ESR raised; Translations: [Elevated erythrocyte sedimentation rate] Onset: 360533-50-6045FoepyreyZrzmu hematologic conditions (20 sources)Increased serum protein level; Translations: [Abnormality of plasma protein, unspecified]Onset: 742330-09-9470NodpdkbzXcqai lower respiratory disease (1 source)Shortness of breathOnset: 16-78-0002JegbvxkoSpweu nervous system disorders (1 source)Paresthesia of skin; Translations: [PARESTHESIA OF SKIN]Onset: 76-21-0599EhbylnjsOwycb nutritional; endocrine; and metabolic disorders (16 sources)Abnormal weight gain; Translations: [Abnormal weight gain]Onset: 701503-66-2811NsttszmtYmubu screening for suspected conditions (not mental disorders or infectious disease) (20 sources)Encounter for screening mammogram for malignant neoplasm of breast; Translations: [Screening for malignant neoplasm of colon done]Onset: 09-04-2022 EpisodicOther skin disorders (20 sources)Skin tag; Translations: [Other hypertrophic disorders of the skin] Onset: 581127-01-6010OlsdmsehJszbv upper respiratory infections (20 sources)Acute pansinusitis; Translations: [Acute pansinusitis, unspecified] Onset: 06-29-2024 Resolved: 854142-90-8391GedphcdrNufordos codes; unclassified (1 source)Family history of ischemic heart disease and other diseases of the circulatory system; Translations: [FAM HX ISCHEMIC HRT DZ OTH DZ CIRC]Onset: 28-26-6224FvrapkenMbhqmhza codes; unclassified (20 sources)Insomnia; Translations: [Insomnia, unspecified]Onset: 08-05-2023 77-38-0814EfegawboEzipfryo codes; unclassified (20 sources)Edema; Translations: [Edema, unspecified]Onset: EpisodicSpondylosis; intervertebral disc disorders; other back problems (20 sources)Cervical disc prolapse with radiculopathy; Translations: [Cervical disc disorder with radiculopathy, unspecified cervical region]Onset: 03-29-2021 Resolved: 47-27-1577VmirrvuiMfnskqt tract infections (20 sources)Urinary tract infectious disease; Translations: [Urinary tract infection, site not specified]Onset: 10-07-2023 Resolved: 527184-41-9338TyqcaclqWlvhw infection (20 sources)Disease caused by 2019-nCoV; Translations: [COVID-19]Onset: 522482-10-7610Tbzqtaag Results Test NameValueInterpretationReference RangeFacilityXR HAND RT MIN 3 VWSon 69-60-2742EE HAND RT MIN 3 VWSXR HAND RT MIN 3 VWS XR HAND RT MIN 3 VWS HISTORY: Right hand joint pain COMPARISON: None FINDINGS: No acute fracture or dislocation. Joint spaces appear well-preserved. No obvious soft tissue abnormality. No periarticular erosions or soft tissue mineralization. IMPRESSION: * No acute osseous abnormality. * No evidence of inflammatory spondyloarthropathy. Approved by Resident: Rico Medina MD on 03/09/2025 9:34 AM IDinesh MD have personally reviewed the image(s) and agree with and/or edited the report Finalized by Dinesh Jamison MD on 03/09/2025 9:36 [facility] CenterXR WRIST RT MIN 3 VWSon 54-78-1762ZV WRIST RT MIN 3 VWSXR WRIST RT MIN 3 VWS XR WRIST RT MIN 3 VWS Clinical history:Pain in right wrist Comparison: None. Impression: Radiocarpal, intercarpal first carpometacarpal joint degenerative change. No acute process, fracture or dislocation. If there is snuffbox tenderness or concern for scaphoid injury, follow up evaluation in 7 to10 daysmay be of additional diagnostic benefit. Finalized by Dinesh Jamison MD on 03/09/2025 9:35 [facility] CenterNo Panel Informationon 00-36-8587Wejyiugomu Organization Information Site ID: QPT Name: [facility] Address: [address] [place] [address], [address] [place] [id number] Director: Celso Lancaster MDNOMS HealthcareRELEXIVE URINE CULTUREon 08-13-2024 Bacteria identified Cx Nom (U)NOMS HealthcareComment on above:NO CULTURE INDICATEDNOMS HealthcareURINALYSIS, COMPLETE W/REFLEX TO CULTUREon 08-13-2024 Appearance (U)CLEARCLEARNOMS HealthcareBacteria LM.HPF (Urine sed) [#/Area]FEW AbnormalNONE SEEN /HPFNOMS HealthcareBilirubin Ql (U)NegativeNEGATIVENOMS HealthcareCalcium oxalate crystals LM.HPF (Urine sed) [#/Area]FEWNONE OR FEW /HPFNOMS HealthcareColor (U)YELLOWYELLOWNOMS HealthcareEpithelial cells.squamous LM.HPF (Urine sed) [#/Area]0-5< OR = 5 /HPFNOMS HealthcareGlucose Ql (U) NegativeNEGATIVENOMS HealthcareHemoglobin Ql (U)NegativeNEGATIVENOMS Healthcare Hyaline casts (Urine sed) [#/Area]0-5AbnormalNONE SEEN /LPFNOMS Healthcare Interpretation and review of laboratory resultsAbnormalNOMS HealthcareKetones Ql (U)NegativeNEGATIVENOMS HealthcareLeukocyte esterase Test strip Ql (U)Negative NEGATIVENOMS HealthcareNitrite Ql (U)NegativeNEGATIVENOAL HealthcarepH (U)[pH] 5.0 - 8.0NOMS HealthcareProtein Ql (U)NegativeNEGATIVENOUniversity HospitalRBC LM.HPF (Urine sed) [#/Area]NONE SEEN< OR = 2 /HPFNOAL HealthcareService comment (Unsp spec) [Interp]NOMS HealthcareComment on above:This urine was analyzed for the presence of WBC, RBC, bacteria, casts, and other formed elements. Only those elements seen were reported. Specific gravity (U) [Rel density]1.0221.001 - 1.035NOAL HealthcareWBC LM.HPF (Urine sed) [#/Area]NONE SEEN< OR = 5 /HPFFormerly Heritage [facility], [facility] HospitalBI MAMMOGRAM SCREENING TOMOSYNTHESIS BILATERALon 98-87-4068WB MAMMOGRAM SCREENING TOMOSYNTHESIS BILATERALThis is a summary report. The complete report is available in the patient's medical record. If you cannot access the medical record, please contact the sending organization for a detailed fax or copy. Examination: BI MAMMOGRAM SCREENING TOMOSYNTHESIS BILATERAL Clinical History: breast cancer screening Technique: Screening digital mammography study of both breasts was performed with 2-D and 3-D tomosynthesis imaging. Study was compared to the prior exam dated 08/30/2022. Findings: There is no evidence of interval dominant spiculated mass, grouped microcalcifications, or skin thickening which would be suggestive of malignancy. A few benign-appearing nodular densities bilaterally similar to the prior study. A single benign-appearing calcification on the left. Bilateral grossly unremarkable appearing lymph nodes. IMPRESSION: Impression: No specific evidence of malignancy seen in either breast. BIRADS 2 - Benign Findings DENSITY: There are scattered areas of fibroglandular density. FOLLOW-UP: Routine Screening Mammogram ELECTRONICALLY SIGNED BY: Aron Mays M.D.NormalNot AvailableSARS/FLU A+B/RSV by NAAT/Molecularon 49-20-5277WHTZ/FLU A+B/RSV by NAAT/MolecularFLU A PCR Negative (qualifier value) FLU B PCR Negative (qualifier value) RSV by PCR Negative (qualifier value) SARS CoV 2 Detected (qualifier value) NOTE The Xpert Xpress SARS-CoV-2/Flu/RSV Plus test is a rapid, multiplexed real-time RT-PCR test intended for the simultaneous qualitative detection and differentiation of SARS-CoV-2, influenza A, influenza B and respiratory syncytial virus (RSV) viral RNA from individuals suspected of respiratory viral infection consistent with COVID-19 by their healthcare provider. This test has not been validated in asymptomatic patients. The Xpert Xpress SARS-CoV-2 test is intended for use by qualified and trained operators who are performing tests using either Search to Phone or [employer] Class[employer] systems and is limited to laboratories that meet the CLIA requirements to perform high and moderate complexity tests. The Xpert Xpress SARS-CoV-2/Flu/RSV Plus is only for use under the Food and Drug Administration's Emergency Use Authorization. Results are for the simultaneous detection and differentiation of SARS-CoV-2, influenza A, influenza B and RSV nucleic acids in clinical specimens. SARS-CoV-2, influenza A, influenza B and RSV RNA identified by this test are generally detectable in upper respiratory samples during the acute phase of infection. Positive results are indicative of the presence of the identified virus, but do not rule out bacterial infection or co-infection with other pathogens not detected by this test. Clinical correlation with patient history and other diagnostic information is necessary to determine patient infection status. The agent detected may not be the definite cause of disease. Negative results do not preclude SARS-CoV-2, influenza A, influenza B and RSV infection and should not be used as the sole basis for treatment or other patient management decisions. Negative results must be combined with clinical observations, patient history and epidemiological information. An Invalid result may occur with specimen-associated inhibition unable to be resolved with specimen repeat. Fact Sheet for Healthcare Providers: https://www.fda.gov/media/325184/download Fact Sheet for Patients: https://www.fda.gov/media/395122/downloadNormalProMedica University Of California, Irvine Medical CenterComment on above:Performed By: #### COVFLR #### [facility] ([id number]) [address] [place] [address], [place], [place] [address]AO CHEST 2 VWSon 19-70-6536NB CHEST 2 VWSXR CHEST 2 VWS XR CHEST 2 VWS History: . cough fever. Comparison: None Impression: No acute pulmonary process. No pneumothorax or pleural effusion. Nonenlarged heart. Finalized by Dre Montiel MD on 06/18/2024 4:05 PMNormalProMedica University Of California, Irvine Medical CenterOutside Colonoscopyon 93-45-4471Hwsftke Colonoscopy [id number]#1.00[facility] CenterReminderson 43-48-1811Ctopkugau From: Lashon William LPN To: N - Clinical; Sent: 08/22/2023 08:59:39 EST Show up: 07/21/2033 07:00:00 EST Subject: colonoscopy recall Due Date/Time: 08/21/2033 07:00:00 EST Reminder/Recall Patient due for screening colonoscopy 08/21/2033.[facility] HospitalConsent for Procedure/Surgeryon 86-59-3600Fzecbux for Procedure/Surgery [id number]#1.00[facility] Health CenterFacesheeton 95-81-4976Ydwwmjxua [id number]#1.00[facility] CenterAmbulatory Visit Summaryon 96-46-5803Bcbyxpiovi Visit Summary PRASHANT MULLINS :1975 Visit Date:07/31/2023 Ambulatory Visit Instructions Your [...] you for choosing us for your care. [facility] HospitalPhysician Referralon 06-07-2023 Physician [id number]#1.00TIFFNormalBethesda North HospitalANA BY IFA WITH REFLEXon 07-76-5883Cdjpvri Ab Ql (S)Negative NormalNegativeAv HospitalComment on above:Order Comment: Specimen Type: BLOOD SPECIMEN Ordering Facility: [facility] Address: [address] [place], [place] [address]Result Comment: Anti-nuclear antibody test is used as an aid in diagnosis of systemic autoimmune diseases. Where positive and clinically warranted, follow-up using disease-specific testing is recommended. Low positive titers are not uncommon with advanced age, certain chronic infections, and malignancies among others. Test methodology: Indirect fluorescence immunoassay (IFA) using HEp-2 cells. Performed By: #### ANAIFR #### [facility] CLIA [id number] [address] [place] [address] STATES OF AMERICACBC panel Auto (Bld)on 33-86-0747Ahnejmqtfsi distribution width (RBC) [Ratio]13.1 %Iuyxcl64.5-15.0Av HospitalComment on above:Order Comment: Specimen Type: BLOOD SPECIMEN Ordering Facility: [facility] Address: [address] [place], [place] [address]Performed By: #### 12162-8 #### [facility] CLIA [id number] [address] [facility] [place] [address] [place] OF AMERICAHematocrit (Bld) [Volume fraction]42.9 % Jcqreq16.0-46.0Av HospitalComment on above:Order Comment: Specimen Type: BLOOD SPECIMEN Ordering Facility: [facility] Address: [address] [place], [place] [address]Performed By: #### 10632-0 #### [facility] CLIA [id number] [facility] [place] [address] [place] AMERICAHemoglobin (Bld) [Mass/Vol]13.9 g/dL Xflajv39.5-15.5Avon HospitalComment on above:Order Comment: Specimen Type: BLOOD SPECIMEN Ordering Facility: [facility] Address: [address] [place], [place] [address]Performed By: #### 40599-0 #### [facility] CLIA [id number] [address] [address] (RBC) [Entitic mass]28.6 pgNormal 26.0-34.0Av HospitalComment on above:Order Comment: Specimen Type: BLOOD SPECIMEN Ordering Facility: [facility] Address: [address] [place], [place] [address]Performed By: #### 48747-4 #### [facility] [place] [id number] [address] [address] (RBC) [Mass/Vol]32.4 g/dLNormal 30.5-36.0Av HospitalComment on above:Order Comment: Specimen Type: BLOOD SPECIMEN Ordering Facility: [facility] Address: [address] [place] [address]Performed By: #### 93975-8 #### [facility] [place] [id number] [address] (RBC) [Entitic vol]88.3 fLNormal 80.0-100.0Av HospitalComment on above:Order Comment: Specimen Type: BLOOD SPECIMEN Ordering Facility: [facility] Address: [address] [place] [address]Performed By: #### 22933-2 #### [facility] [place] [id number] [address] RBC (Bld) [#/Vol]10*3/uLNormal <0.01Av HospitalComment on above:Order Comment: Specimen Type: BLOOD SPECIMEN Ordering Facility: [facility] Address: [address] [place], [place] [address]Performed By: #### 28073-6 #### [facility] [place] [id number] [address] [facility] [place] [address] [place] AMERICAPlatelet mean volume (Bld) [Entitic vol] 10.2 fLNormal9.0-12.7Avon HospitalComment on above:Order Comment: Specimen Type: BLOOD SPECIMEN Ordering Facility: [facility] Address: [address] [place], [place] [address]Performed By: #### 61902-5 #### [facility] [place] [id number] [address] [place] [address] [place] AMERICAPlatelets (Bld) [#/Vol]328 10*3/uLNormal 150-400Av HospitalComment on above:Order Comment: Specimen Type: BLOOD SPECIMEN Ordering Facility: [facility] Address: [address] [place], [place] [address]Performed By: #### 34628-2 #### [facility] [place] [id number] [address] [place] [address] [place] AMERICARBC (Bld) [#/Vol]4.86 10*6/uLNormal 3.90-5.20Av HospitalComment on above:Order Comment: Specimen Type: BLOOD SPECIMEN Ordering Facility: [facility] Address: [address] [place], [place] [address]Performed By: #### 07399-7 #### [facility] [place] [id number] [address] [place] [address] [place] AMERICAWBC (Bld) [#/Vol]6.40 10*3/uLNormal 3.70-11.00Av HospitalComment on above:Order Comment: Specimen Type: BLOOD SPECIMEN Ordering Facility: [facility] Address: [address] [place], [place] [address]Performed By: #### 05594-3 #### [facility] [place] [id number] [address] [place] [address] [facility] ALABAMACNOVon 42-03-6422FZSCNaefbo Visit (MANUELROBERT) SUSANNAPRASHANT Zuniga ([id number]) 1975 F Date Time Provider Department 03/20/23 1:00 PM KEYUR MCCAULEY During your visit today, we recorded the following information about you: Pulse Blood pressure Weight Height 80/minute 118/84 85.7 kg 1.575 m Keyur Mccauley MD 03/20/2023 2:07 PM Signed Prashant Zuniga Susanna is a 47 year old female who [...] should be addressed simul (more content not included)...NormalAkron Children's Hospital SerPl-mCncon 44-37-2776AWI [Mass/Vol]mg/LNormal<0.9Avon HospitalComment on above:Order Comment: Specimen Type: BLOOD SPECIMEN Ordering Facility: [facility] Address: [address] [id number] By: #### 93343-8, 1987-10 #### [facility] CLIA [id number] [address] [place] [address] [place] AMERICAComprehensive metabolic 2000 panelon 27-09-6247Sqnuips [Mass/Vol]4.5 g/dLNormal3.9-4.9Avon HospitalComment on above: Order Comment: Specimen Type: BLOOD SPECIMEN Ordering Facility: [facility] Address: [address] [id number] By: #### 20815-3, 1987-10 #### [facility] CLIA [id number] [address] [place] [address] [place] AMERICAALP [Catalytic activity/Vol]76 U/LNormal 34-123Avon HospitalComment on above:Order Comment: Specimen Type: BLOOD SPECIMEN Ordering Facility: [facility] Address: [address] [id number] By: #### 23819-9, 1987-10 #### [facility] [place] [id number] [address] [facility] [place] [address] [place] AMERICAALT [Catalytic activity/Vol]37 U/LNormal 7-38Av HospitalComment on above:Order Comment: Specimen Type: BLOOD SPECIMEN Ordering Facility: [facility] Address: [address] [place], [place] [address]Performed By: #### 99709-9, 1987-10 #### [facility] [place] [id number] [address] [place] [address] [place] AMERICAAnion gap [Moles/Vol]14 mmol/LNormal9-18 [facility]idian HospitalComment on above:Order Comment: Specimen Type: BLOOD SPECIMEN Ordering Facility: [facility] Address: [address] [place], [place] [address]Performed By: #### 77029-6, 1987-10 #### [facility] [place] [id number] [address] [place] [address] [place] AMERICAAST [Catalytic activity/Vol]32 U/LNormal 13-35Av HospitalComment on above:Order Comment: Specimen Type: BLOOD SPECIMEN Ordering Facility: [facility] Address: [address] [place], [place] [address]Performed By: #### 09781-9, 1987-10 #### [facility] [place] [id number] [address] [place] [address] [place] AMERICABilirubin [Mass/Vol]0.4 mg/dLNormal 0.2-1.3Avo HospitalComment on above:Order Comment: Specimen Type: BLOOD SPECIMEN Ordering Facility: [facility] Address: [address] [place], [place] [address]Performed By: #### 11504-4, 1987-10 #### [facility] [place] [id number] [address] [place] [address] [place] AMERICACalcium [Mass/Vol]9.9 mg/dLNormal8.5-10.2 [facility] HospitalComment on above:Order Comment: Specimen Type: BLOOD SPECIMEN Ordering Facility: [facility] Address: [address] [place], [place] [address]Performed By: #### 20986-4, 1987-10 #### [facility] [place] [id number] [address] [place] [address] [place] AMERICAChloride [Moles/Vol]101 mmol/LNormal 97-105Av HospitalComment on above:Order Comment: Specimen Type: BLOOD SPECIMEN Ordering Facility: [facility] Address: [address] [place], [place] [address]Performed By: #### 53925-3, 1987-10 #### [facility] [place] [id number] [address] [place] [address] [place] AMERICACO2 [Moles/Vol]25 mmol/FCmiihz07-32Mtbl HospitalComment on above:Order Comment: Specimen Type: BLOOD SPECIMEN Ordering Facility: [facility] Address: [address] [place], [place] [address]Performed By: #### 63102-3, 1987-10 #### [facility] [place] [id number] [address] [place] [address] [place] AMERICACreatinine [Mass/Vol]0.85 mg/dLNormal 0.58-0.96Av HospitalComment on above:Order Comment: Specimen Type: BLOOD SPECIMEN Ordering Facility: [facility] Address: [address] [place], [place] [address]Performed By: #### 31175-9, 1987-10 #### [facility] [place] [id number] [address] [place] [address] [place] AMERICACreatinine and Glomerular filtration rate.predicted panel (S/P/Bld)86 mL/min/1.73m???Normal>=60Av HospitalComment on above:Order Comment: Specimen Type: BLOOD SPECIMEN Ordering Facility: [facility] Address: [address] [place], [place] [address]Result Comment: Estimated Glomerular Filtration Rate (eGFR) is calculated using the 2020 CKD-EPI cre atinine equation. This equation utilizes serum creatinine, sex, and age as parameters. The creatinine assay has traceable calibration to isotope dilution- mass spectrometry. Refer to KDIGO guidelines for clinical interpretation. In patients with unstable renal function, e.g. those with acute kidney injury, the eGFR may not accurately reflect actual GFR.Performed By: #### 24490-8, 1987-10 #### [facility] CLIA [id number] [address] [place] [address] [place] AMERICAGlucose [Mass/Vol]89 mg/qZTzjkbp51-26Qnua HospitalComment on above:Order Comment: Specimen Type: BLOOD SPECIMEN Ordering Facility: [facility] Address: [place] [address]Szjnpm Comment: The [place] [employer] (ADA) provides guidance for cutoff [...] Standards of Medical Care in Diabetes 2016, [place] [employer]. Diabetes Care. 2016.39(Suppl 1).Performed By: #### 80160-6, 1987-10 #### [facility] CLIA [id number] [address] [place] [address] [place] AMERICAPotassium [Moles/Vol]4.0 mmol/LNormal 3.7-5.1Avon HospitalComment on above:Order Comment: Specimen Type: BLOOD SPECIMEN Ordering Facility: [facility] Address: [place] [address]Pzpctbyoa By: #### 07478-5, 1987-10 #### [facility] CLIA [id number] [address] [place] [address] [place] AMERICAProtein [Mass/Vol]7.4 g/dLNormal6.3-8.0 [facility]idian HospitalComment on above:Order Comment: Specimen Type: BLOOD SPECIMEN Ordering Facility: [facility] Address: [address] [place], [place] [address]Performed By: #### 29193-5, 1987-10 #### [facility] IA [id number] [address] [place] [address] [place] AMERICASodium [Moles/Vol]140 mmol/QMougui133-386 [facility]idian HospitalComment on above:Order Comment: Specimen Type: BLOOD SPECIMEN Ordering Facility: [facility] Address: [address] [place], [place] [address]Performed By: #### 34223-3, 1987-10 #### [facility] IA [id number] [address] [place] [address] [place] AMERICAUrea nitrogen [Mass/Vol]16 mg/dLNormal 7-Meridian HospitalComment on above:Order Comment: Specimen Type: BLOOD SPECIMEN Ordering Facility: [facility] Address: [address] [place], [place] [address]Performed By: #### 78025-8, 1987-10 #### [facility] IA [id number] [address] [place] [address] [place] AMERICACyclic citrullinated peptide IgG Qnon 46-93-1795YTH ANTIBODY IGG QUALITATIVENegativeNormalNegativeMeridian HospitalComment on above:Order Comment: Specimen Type: BLOOD SPECIMEN Ordering Facility: [facility] Address: [address] [place], [place] [address]Performed By: #### 24084-8 #### [facility] CLIA [id number] [address] [facility] [place] [address] [place] AMERICAESR Westergren method (Bld) [Velocity]on 60-36-8127KQP (Bld) [Velocity]25 mm/hHigh0-20Meridian HospitalComment on above:Order Comment: Specimen Type: BLOOD SPECIMEN Ordering Facility: [facility] Address: [address] [place], [place] [address]Performed By: #### 4537-7 #### [facility] IA [id number] [address] [place] [address] [place] OF AMERICANuclear Ab IA Ql (S)on 85-47-5487JJR SCR QUALNegativeNormalNegativeAvon HospitalComment on above:Order Comment: Specimen Type: BLOOD SPECIMEN Ordering Facility: [facility] Address: [address] [place], [place] [address]Result Comment: The qualitative antinuclear antibody screen test performed using the following antig ens: dsDNA, Chromatin, Ribosomal P, SS-A 60, SS-A 52, SS-B, Sm, SmRNP, WIRE MESH KNITTER A, WIRE MESH KNITTER 68, Scl-70, Emy-1,and Centromere B. Methodology: Multiplex flow immunoassay. Performed By: #### 14682-3 #### [facility] IA [id number] [address] [place] [address] [place] AMERICARheumatoid fact SerPl-aCncon 69-19-8081Gqayazsclr factor Qn[IU]/mLNormal<16Avon HospitalComment on above: Order Comment: Specimen Type: BLOOD SPECIMEN Ordering Facility: [facility] Address: [address] [place], [place] [address]Performed By: #### 73324-9 #### [facility] IA [id number] [address] [place] [address] [place] AMERICAXR SHLDR >/=3V AP/EUSEBIA AP/OTHR RTon 63-72-5829US SHLDR >/=3V AP/EUSEBIA AP/OTHR RT* * *Final Report* * * DATE OF [...] OF ACROMIOCLAVICULAR JOINT. NO ACUTE BONY ABNORMALITY. [employer] Shear Operator: PSCB Transcribe Date/Time: Mar 23 2023 7:55P Dictated by : CRYS CORTES MD This examination was interpreted and the report reviewed and electronically signed by: CRYS CORTES MD on Mar 23 2023 7:56PM EST [id number] HospitalscCP IgG SerPl-aCncon 65-33-3004Xyiahc citrullinated peptide IgG Qn<15Normal<20AvMethodist HospitalsComment on above:Order Comment: Specimen Type: BLOOD SPECIMEN Ordering Facility: [facility] Address: [address] [place] [address]Performed By: #### 81638-9 #### [facility] CLIA [id number] [address] [place] [address] [place] AMERICAAMYLASEon 46-88-3283Fypeelu [Catalytic activity/Vol]36 U/ZXdhaar97-536NfzAcmc Healthcare System GlenbeighComment on above: Performed By: #### VITB12, FT4 #### [facility] [address] [place] [address] Dr. Nighat Bowman AUTO DIFFon 13-58-9280XYBV #0.1 103/ulNormal0.0-0.1The [facility] HospitalComment on above:Performed By: #### CMP, LIPID, TSH #### [facility] [address] [place] [address] Dr. Nighat BallardBasophils/100 WBC (Bld)0.5 %Normal0.2-2.0[facility] Comment on above:Performed By: #### CMP, LIPID, TSH #### [facility] [address] [address] [address] Nighat Garcia #0.1 103/ulNormal0.0-0.7The [facility] HospitalComment on above: Performed By: #### CMP, LIPID, TSH #### [facility] [address] [place] [address] Dr. Nighat Hallosinophils/100 WBC (Bld)0.8 %Critically low0.9-7.0The [facility] HospitalComment on above:Performed By: #### CMP, LIPID, TSH #### [facility] [address] [address] [address] Nighat Hallrythrocyte distribution width (RBC) [Ratio]13.6 %Qovezz61.0-15.0 The [facility] HospitalComment on above:Performed By: #### CMP, LIPID, TSH #### [facility] [address] [place] [address] Dr. Nighat BallardHematocrit (Bld) [Volume fraction]42.5 %Iafjbq02.0-48.0The [facility] HospitalComment on above:Performed By: #### CMP, LIPID, TSH #### [facility] [address] [place] [address] Dr. Nighat BallardHemoglobin (Bld) [Mass/Vol]14.0 g/qPUgsjex88.0-16.0The [facility] Hospitalment on above:Performed By: #### CMP, LIPID, TSH #### [facility] [address] [place] [address] Dr. Nighat Carney #0.04 10e3/ulCritically high0.00-0.03The [facility] Comment on above:Performed By: #### CMP, LIPID, TSH #### [facility] [address] [place] [address] Dr. Nighat Carney %0.4 %Normal0.0-0.5The [facility] Hospitalment on above: Performed By: #### CMP, LIPID, TSH #### [facility] [address] [place] [address] Dr. Nighat Holman #3.2 103/ulNormal1.2-3.8The [facility] HospitalComment on above:Performed By: #### CMP, LIPID, TSH #### [facility] [address] [place] [address] Dr. Nighat Hernandezmphocytes/100 WBC (Bld)32.7 %Dapzto28.5-60.0The [facility] HospitalComment on above:Performed By: #### CMP, LIPID, TSH #### [facility] [address] [place] [address] Dr. Nighat HaydenUAL DIFF REQNONormalThe [facility] HospitalComment on above: Performed By: #### CMP, LIPID, TSH #### [facility] [address] [place] [address] Dr. Nighat Garcia (RBC) [Entitic mass]29.0 uuXotykc78.7-34.0The [facility] HospitalComment on above:Performed By: #### CMP, LIPID, TSH #### [facility] [address] [place] [address] Dr. Nighat Garcia (RBC) [Mass/Vol]32.9 g/tCMxgcqz66.9-35.2The [facility] HospitalComment on above:Performed By: #### CMP, LIPID, TSH #### [facility] [address] [place] [address] Dr. Nighat Garcia (RBC) [Entitic vol]88.0 hYPzdxoy59.0-99.0The [facility] HospitalComment on above:Performed By: #### CMP, LIPID, TSH #### [facility] [address] [place] [address] Dr. Nighat Barnett #0.6 103/ulNormal0.3-0.8The [facility] HospitalComment on above:Performed By: #### CMP, LIPID, TSH #### [facility] [address] [place] [address] Dr. Nighat Duncanocytes/100 WBC (Bld)5.9 %Normal1.7-12.0The [facility] Comment on above:Performed By: #### CMP, LIPID, TSH #### [facility] [address] [place] [address] Dr. Nighat Álvarez #5.8 103/ulNormal1.4-6.5The [facility] Hospitalment on above:Performed By: #### CMP, LIPID, TSH #### [facility] [address] [place] [address] Dr. Nighat Reddyutrophils/100 WBC (Bld)59.7 %Dhewkd41.0-75.0The [facility] HospitalComment on above:Performed By: #### CMP, LIPID, TSH #### [facility] [address] [place] [address] Dr. Nighat Uribelet mean volume (Bld) [Entitic vol]10.1 fLNormal9.5-13.5The [facility] HospitalComment on above:Performed By: #### CMP, LIPID, TSH #### [facility] [address] [place] [address] Dr. Nighat BallardPLT326 103/gnRzfchu209-059Axa [facility] Hospitalment on above: Performed By: #### CMP, LIPID, TSH #### [facility] [address] [place] [address] Dr. Nighat BallardRBC4.83 106/ulNormal4.20-5.40The [facility] on above:Performed By: #### CMP, LIPID, TSH #### [facility] [address] [place] [address] Dr. Nighat BallardWBC9.7 103/ulNormal4.0-11.0The [facility] on above: Performed By: #### CMP, LIPID, TSH #### [facility] [address] [place] [address] Dr. Nighat BallardCT ABD/PELV W CONon 26-23-2631NL ABD/PELV W CONEXAMINATION: CT ABD/PELV W CON HISTORY: DIARRHEA, UNSPECIFIED COMPARISON: Multiple [...] Electronically authenticated by: DESTINEE HAIR Date: 2022-11-16 00:35NoWilson [facility] URINE PROFILEon 25-52-2357Xxekjypzv Ql (U)NegativeNormal NEGATIVEThe [facility] HospitalComment on above:Performed By: #### VITB12, FT4 #### [facility] [address] [address] [address] Nighat Verma (U)CLEARNormalCLEARThe [facility] HospitalComment on above: Performed By: #### VITB12, FT4 #### [facility] [address] [address] [address] Nighat Siu (U)LT. YELLOWNormalYELLOWAcmc Healthcare System GlenbeighComment on above:Performed By: #### VITB12, FT4 #### [facility] [address] [place] [address] Dr. Nighat Carrillo micrscopic examination will be performed if indicated. NormalThe Newark HospitalComment on above:Performed By: #### VITB12, FT4 #### [facility] [address] [place] [address] Dr. Nighat BallardGlucose Ql (U)NegativeNormalNEGATIVEAcmc Healthcare System GlenbeighComment on above:Performed By: #### VITB12, FT4 #### [facility] [address] [place] [address] Dr. Nighat BallardHemoglobin Ql (U)NegativeNormalNEGATIVETrinity Health System on above:Performed By: #### VITB12, FT4 #### [facility] [address] [place] [address] Dr. Nighat BallardKetones Ql (U)NegativeNormalNEGATIVEAcmc Healthcare System GlenbeighComment on above:Performed By: #### VITB12, FT4 #### [facility] [address] [place] [address] Dr. Nighat BallardLEUKOCYTESNegativeNormalNEGATIVEAcmc Healthcare System GlenbeighComment on above:Performed By: #### VITB12, FT4 #### [facility] [address] [place] [address] Dr. Nighat Palomotrite Ql (U)NegativeNormalNEGATIVEAcmc Healthcare System GlenbeighComment on above:Performed By: #### VITB12, FT4 #### [facility] [address] [place] [address] Dr. Nighat BallardpH (U)7.0 [pH]Normal5-9A[facility] System GlenbeighComment on above: Performed By: #### VITB12, FT4 #### [facility] [address] [place] [address] Dr. Nighat BallardSPEC GRAVITY<=1.814Pkjxjybz4.005-<=1.025The [facility] Comment on above:Performed By: #### VITB12, FT4 #### [facility] [address] [place] [address] Dr. Nighat Dean PROTEINNegativeNormalNEGATIVE/ TRACEThe [facility] Comment on above:Performed By: #### VITB12, FT4 #### [facility] [address] [place] [address] Dr. Nighat Salazar MICRO INDNOT INDICATEDNormalThe [facility] HospitalComment on above:Performed By: #### VITB12, FT4 #### [facility] [address] [place] [address] Dr. Nighat BallardUrobilinogen Qn (U)0.2 {Ada'U}/dLNormal0.2 - 1.0The [facility] HospitalComment on above:Performed By: #### PRAKASHB12, FT4 #### [facility] [address] [place] [address] Dr. Nighat BallardLIPASEon 44-23-6410Qgvqxf [Catalytic activity/Vol]74.0 U/LNormal 73.0-393.0The [facility] HospitalComment on above:Performed By: #### PRAKASHB12, FT4 #### [facility] [address] [place] [address] Dr. Nighat BallardPREGNANCY URon 07-45-1484UDMMMZGFD, QUALNegativeNormalNEGATIVEThe [facility] HospitalComment on above:Performed By: #### VITB12, FT4 #### [facility] [address] [place] [address] Dr. Nighat BallardPROF 14(COMP METB)on 42-04-2559Jezckzg [Mass/Vol]3.5 g/dLNormal 3.4-5.0The [facility] HospitalComment on above:Performed By: #### PRAKASHB12, FT4 #### [facility] [address] [place] [address] Dr. Nighat BallardAlbumin/Globulin [Mass ratio]1.0 {ratio}NormalThe Yuly HospitalComment on above:Performed By: #### VITB12, FT4 #### [facility] [address] [place] [address] Dr. Nighat Marrero [Catalytic activity/Vol]63 U/TByents70-218Umx [facility] HospitalComment on above:Performed By: #### VITB12, FT4 #### [facility] [address] [place] [address] Dr. Nighat Mendoza [Catalytic activity/Vol]33 U/GJrzktd97-68Xek [facility] HospitalComment on above:Performed By: #### VITB12, FT4 #### [facility] [address] [place] [address] Dr. Nighat Damon gap [Moles/Vol]13.3 mmol/LNormalThe [facility] Comment on above:Performed By: #### VITB12, FT4 #### [facility] [address] [place] [address] Dr. Nighat Diallo [Catalytic activity/Vol]20 U/EZnyjly55-53Uyf [facility] HospitalComment on above:Performed By: #### VITB12, FT4 #### [facility] [address] [place] [address] Dr. iNghat BallardBilirubin [Mass/Vol]0.3 mg/dLNormal0.2-1.0[facility] Comment on above:Performed By: #### VITB12, FT4 #### [facility] [address] [place] [address] Dr. iNghat BallardCalcium [Mass/Vol]9.0 mg/dLNormal8.5-10.1[facility] Comment on above:Performed By: #### VITB12, FT4 #### [facility] [address] [place] [address] Dr. Nighat Duncanide [Moles/Vol]105 mmol/AKooeoo67-811JqfAcmc Healthcare System [facility] Comment on above:Performed By: #### VITB12, FT4 #### [facility] [address] [place] [address] Dr. Yilan ChangCO2 [Moles/Vol]26.2 mmol/WJtghor28.0-32.0The [facility] Comment on above:Performed By: #### VITB12, FT4 #### [facility] [address] [place] [address] Dr. Nighat BallardCreatinine [Mass/Vol]0.95 mg/dLNormal0.55-1.02The [facility] HospitalComment on above:Performed By: #### VITB12, FT4 #### [facility] [address] [place] [address] Dr. Nighat HallGFR-AF ETHIOPIAN>60Normal>=60The [facility] HospitalComment on above:Performed By: #### VITB12, FT4 #### [facility] [address] [place] [address] Dr. Nighat HallGFR-NON AF ETHIOPIAN>60Normal>=60The [facility] HospitalComment on above:Performed By: #### VITB12, FT4 #### [facility] [address] [place] [address] Dr. Nighat BallardGlobulin (S) [Mass/Vol]3.6 g/dLNormalThe [facility] HospitalComment on above:Performed By: #### VITB12, FT4 #### [facility] [address] [place] [address] Dr. Nighat BallardGlucose [Mass/Vol]88 mg/zYOpdtzd97-840Cod [facility] Comment on above:Performed By: #### VITB12, FT4 #### [facility] [address] [place] [address] Dr. Nighat BallardPotassium [Moles/Vol]3.5 mmol/LNormal3.5-5.1The [facility] Comment on above:Performed By: #### VITB12, FT4 #### [facility] [address] [place] [address] Dr. Nighat BallardProtein [Mass/Vol]7.1 g/dLNormal6.4-8.2The [facility] Comment on above:Performed By: #### VITB12, FT4 #### [facility] [address] [place], [place] [address] Dr. Nighat BallardSodium [Moles/Vol]141 mmol/CMrxcgz883-908Sas [facility] Comment on above:Performed By: #### VITB12, FT4 #### [facility] [address] [place], [place] [address] Dr. Nighat BallardUrea nitrogen [Mass/Vol]12.0 mg/dLNormal7.0-18.0The [facility] HospitalComment on above:Performed By: #### VITB12, FT4 #### [facility] [address] [place], [place] [address] Dr. Nighat BallardUrea nitrogen/Creatinine [Mass ratio]12.6 mg/mgNormalThe [facility] HospitalComment on above:Performed By: #### VITB12, FT4 #### [facility] [address] [address] [address] Nighat BallardUS PELVIS AND TRANSVAGon 78-33-3820FQ PELVIS AND TRANSVAGEXAM: US VASC ORGAN SNGL LMT, US PELVIS [...] Electronically authenticated by: Damaris FARIAS Date: 2022-11-16 02:34[facility] AUTO DIFFon 16-31-8903BFJJ #0.1 103/ulNormal0.0-0.1[facility] GlenbeighComment on above:Performed By: #### VITB12, FT4 #### [facility] [address] [place] [address] Dr. Nighat BallardBasophils/100 WBC (Bld)0.5 %Normal0.2-2.0[facility] Comment on above:Performed By: #### VITB12, FT4 #### [facility] [address] [place] [address] Dr. Nighat Garcia #0.1 103/ulNormal0.0-0.7The [facility] HospitalComment on above: Performed By: #### VITB12, FT4 #### [facility] [address] [place] [address] Dr. Nighat Hallosinophils/100 WBC (Bld)1.0 %Normal0.9-7.0The [facility] Comment on above:Performed By: #### VITB12, FT4 #### [facility] [address] [place] [address] Dr. Nighat Hallrythrocyte distribution width (RBC) [Ratio]13.2 %Srimxt47.0-15.0 The [facility] HospitalComment on above:Performed By: #### VITB12, FT4 #### [facility] [address] [place] [address] Dr. Nighat BallardHematocrit (Bld) [Volume fraction]42.2 %Ijkeay55.0-48.0The [facility] HospitalComment on above:Performed By: #### VITB12, FT4 #### [facility] [address] [place] [address] Dr. Nighat BallardHemoglobin (Bld) [Mass/Vol]13.8 g/hEZrotvu39.0-16.0The [facility]uly HospitalComment on above:Performed By: #### VITB12, FT4 #### [facility] [address] [place] [address] Dr. Nighat Carney #0.03 10e3/ulNormal0.00-0.03The [facility] HospitalComment on above:Performed By: #### VITB12, FT4 #### [facility] [address] [place] [address] Dr. Nighat Carney %0.3 %Normal0.0-0.5The [facility] HospitalComment on above: Performed By: #### VITB12, FT4 #### [facility] [address] [place] [address] Dr. Nighat Holman #3.0 103/ulNormal1.2-3.8The [facility] HospitalComment on above:Performed By: #### PRAKASHB12, FT4 #### [facility] [address] [place] [address] Dr. Nighat Rochehocytes/100 WBC (Bld)30.5 %Jgqxhy87.5-60.0[facility] GlenbeighComment on above:Performed By: #### PRAKASHB12, FT4 #### [facility] [address] [place] [address] Dr. Nighat HaydenUAL DIFF REQNONormalThe [facility] HospitalComment on above: Performed By: #### PRAKASHB12, FT4 #### [facility] [address] [place] [address] Dr. Nighat Storey (RBC) [Entitic mass]28.3 lfLcnfvm65.7-34.0The [facility] HospitalComment on above:Performed By: #### VITB12, FT4 #### [facility] [address] [place] [address] Dr. Nighat Christopher (RBC) [Mass/Vol]32.7 g/yRNqkqcy97.9-35.2The [facility] HospitalComment on above:Performed By: #### PRAKASHB12, FT4 #### [facility] [address] [place] [address] Dr. Nighat GarciaV (RBC) [Entitic vol]86.7 fNCotqsa25.0-99.0The [facility] Hospitalment on above:Performed By: #### VITB12, FT4 #### [facility] [address] [place] [address] Dr. Nighat Barnett #0.6 103/ulNormal0.3-0.8The [facility] HospitalComment on above:Performed By: #### VITB12, FT4 #### [facility] [address] [place] [address] Dr. Nighat Duncanocytes/100 WBC (Bld)5.9 %Normal1.7-12.0The [facility] Comment on above:Performed By: #### VITB12, FT4 #### [facility] [address] [place] [address] Dr. Nighat Álvarez #6.1 103/ulNormal1.4-6.5The [facility] HospitalComment on above:Performed By: #### VITB12, FT4 #### [facility] [address] [place] [address] Dr. Nighat Reddyutrophils/100 WBC (Bld)61.8 %Gdgylu63.0-75.0The [facility] Hospitalment on above:Performed By: #### VITB12, FT4 #### [facility] [address] [place] [address] Dr. Nighat Uribelet mean volume (Bld) [Entitic vol]10.0 fLNormal9.5-13.5The [facility] Hospitalment on above:Performed By: #### VITB12, FT4 #### [facility] [address] [place] [address] Dr. Nighat BallardPLT303 103/vzQsuwtm358-146Hoq [facility] Hospitalment on above: Performed By: #### VITB12, FT4 #### [facility] [address] [place] [address] Dr. Nighat BallardRBC4.87 106/ulNormal4.20-5.40The [facility] HospitalComment on above:Performed By: #### VITB12, FT4 #### [facility] [address] [place], [place] [address] Dr. Nighat BallardWBC9.9 103/ulNormal4.0-11.0The [facility] HospitalComment on above: Performed By: #### VITB12, FT4 #### [facility] [address] [place], [place] [address] Dr. Nighat BallardCT ABD/PELVIS WO CONon 72-15-3046TX ABD/PELVIS WO CONEXAMINATION: CT ABD/PELVIS WO CON, 10/15/2022 11:29 PM [...] diverticulitis. 4. Hysterectomy. Electronically authenticated by: LALO ARNOLD Date: 2022-10-16 01:18NoWilson [facility] URINE PROFILEon 63-16-2414Wwvtflruf Ql (U)NegativeNormal NEGATIVEAcmc Healthcare System GlenbeighComment on above:Performed By: #### ERUR #### [facility] [address] [place] [address] Dr. Nighat BallardClarity (U)CLEARNormalCLEARAcmc Healthcare System GlenbeighComment on above: Performed By: #### ERUR #### [facility] [address] [address] [address] Nighat BallardColor (U)YELLOWNormalYELLOWAcmc Healthcare System GlenbeighComment on above: Performed By: #### ERUR #### [facility] [address] [place] [address] Dr. Nighat Carrillo micrscopic examination will be performed if indicated. NormalAcmc Healthcare System GlenbeighComment on above:Performed By: #### ERUR #### [facility] [address] [address] [address] Nighat BallardGlucose Ql (U)NegativeNormalNEGATIVEAcmc Healthcare System GlenbeighComment on above:Performed By: #### ERUR #### [facility] [address] [place] [address] Dr. Nighat BallardHemoglobin Ql (U)NegativeNormalNEGATIVETrinity Health System on above:Performed By: #### ERUR #### [facility] [address] [address] [address] Nighat BallardKetones Ql (U)NegativeNormalNEGATIVEAcmc Healthcare System GlenbeighComment on above:Performed By: #### ERUR #### [facility] [address] [place] [address] Dr. Nighat BallardLEUKOCYTESNegativeNormalNEGATIVEAcmc Healthcare System GlenbeighComment on above:Performed By: #### ERUR #### [facility] [address] [place] [address] Dr. Nighat BallardNitrite Ql (U)NegativeNormalNEGATIVEAcmc Healthcare System GlenbeighComment on above:Performed By: #### ERUR #### [facility] [address] [address] [address] Nighat BallardpH (U)5.0 [pH]Normal5-9The [facility] HospitalComment on above: Performed By: #### ERUR #### [facility] [address] [place] [address] Dr. Nighat BallardSPEC GRAVITY>=1.971Bwrwdpge4.005-<=1.025The [facility] Comment on above:Performed By: #### ERUR #### [facility] [address] [place] [address] Dr. Nighat Dean PROTEINNegativeNormalNEGATIVE/ TRACEThe [facility] Comment on above:Performed By: #### ERUR #### [facility] [address] [place] [address] Dr. Nighat Salazar MICRO INDNOT INDICATEDNormalThe [facility] HospitalComment on above:Performed By: #### ERUR #### [facility] [address] [place] [address] Dr. Nighat Subramanianbilinogen Qn (U)0.2 {Ada'U}/dLNormal0.2 - 1.0The [facility] HospitalComment on above:Performed By: #### ERUR #### [facility] [address] [place] [address] Dr. Nighat BallardPROF CHEM 8 (BAS METB)on [id number] gap [Moles/Vol]13.4 mmol/LNormalThe [facility] HospitalComment on above:Performed By: #### BMP #### [facility] [address] [place] [address] Dr. Nighat BallardCalcium [Mass/Vol]9.1 mg/dLNormal8.5-10.1[facility] Comment on above:Performed By: #### BMP #### [facility] [address] [place] [address] Dr. Nighat BallardChloride [Moles/Vol]102 mmol/YZdmkum78-578Egk [facility] Comment on above:Performed By: #### BMP #### [facility] [address] [address] [address] Nighat BallardCO2 [Moles/Vol]25.3 mmol/AXfbkxx00.0-32.0The [facility] Comment on above:Performed By: #### BMP #### [facility] [address] [address] [address] Nighat BallardCreatinine [Mass/Vol]0.98 mg/dLNormal0.55-1.02The [facility] HospitalComment on above:Performed By: #### BMP #### [facility] [address] [address] [address] Nighat HallGFR-AF ETHIOPIAN>60Normal>=60The [facility] HospitalComment on above:Performed By: #### BMP #### [facility] [address] [place] [address] Dr. Nighat HallGFR-NON AF ETHIOPIAN>60Normal>=60The [facility] HospitalComment on above:Performed By: #### BMP #### [facility] [address] [address] [address] Nighat BallardGlucose [Mass/Vol]101 mg/dEPcdifz40-511SpjAcmc Healthcare System Glenbeigh Comment on above:Performed By: #### BMP #### [facility] [address] [address] [address] Nighat BallardPotassium [Moles/Vol]3.7 mmol/LNormal3.5-5.1[facility] Comment on above:Performed By: #### BMP #### [facility] [address] [address] [address] Nighat BallardSodium [Moles/Vol]137 mmol/FKuicnp050-933Byu [facility] Comment on above:Performed By: #### BMP #### [facility] [address] [address] [address] Nighat BallardUrea nitrogen [Mass/Vol]14.0 mg/dLNormal7.0-18.0The [facility] HospitalComment on above:Performed By: #### BMP #### [facility] [address] [address] [address] Nighat Lott nitrogen/Creatinine [Mass ratio]14.3 mg/mgNoalThCleveland Clinic FoundationComment on above:Performed By: #### BMP #### [facility] [address] [address] [address] Nighat SharifLTLUCIANO URINEon [id number] URINECulture Observations: LIGHT GROWTH OF MIXED GENITAL SHA. NO POTENTIAL PATHOGENS SEEN.NormalAcmc Healthcare System GlenbeighComment on above:Performed By: #### CMP, LIPID, TSH #### [facility] [address] [address] [address] Nighat Dean RANDOM W/MICROSCOPICon [id number] SEENNormalNONE SEENAcmc Healthcare System GlenbeighComment on above:Performed By: #### VITB12, FT4 #### [facility] [address] [address] [address] Nighat Vargas Ql (U)NegativeNormalNEGATIVEAcmc Healthcare System Glenbeigh Comment on above:Performed By: #### VITB12, FT4 #### [facility] [address] [address] [address] Nighat Calvert SEENNormalNONE SEENKettering Health Troy on above:Performed By: #### VITB12, FT4 #### [facility] [address] [address] [address] Nighat Verma (U)SL CLOUDYAbnormalCLEARThe [facility] HospitalComment on above:Performed By: #### VITB12, FT4 #### [facility] [address] [address] [address] Nighat Siu (U)LT. YELLOWNormalYELLOWAcmc Healthcare System GlenbeighComment on above:Performed By: #### VITB12, FT4 #### [facility] [address] [place] [address] Dr. Nighat Linares LM Nom (Urine sed)NONE SEENNormalNONE SEENAcmc Healthcare System GlenbeighComment on above:Performed By: #### VITB12, FT4 #### [facility] [address] [address] [address] Disla ChangEpithelial cells LM Ql (Urine sed)MODERATEAbnormalNONE SEEN /RARE The [facility] HospitalComment on above:Performed By: #### VITB12, FT4 #### [facility] [address] [address] [address] Nighat BallardGlucose Ql (U)NegativeNormalNEGATIVEAcmc Healthcare System GlenbeighComment on above:Performed By: #### VITB12, FT4 #### [facility] [address] [place] [address] Dr. Nighat BallardHemoglobin Ql (U)NegativeNormalNEGATIVETrinity Health System on above:Performed By: #### VITB12, FT4 #### [facility] [address] [place] [address] Dr. Nighat BallardKetones Ql (U)NegativeNormalNEGATIVEAcmc Healthcare System GlenbeighComment on above:Performed By: #### VITB12, FT4 #### [facility] [address] [place] [address] Dr. Nighat BallardLEUKOCYTESNegativeNormalNEGDetwiler Memorial HospitalComformerly [facility] on above:Performed By: #### VITB12, FT4 #### [facility] [address] [place] [address] Dr. Nighat aBllardMUCOUSNONE SEENNormalNONE SEENAcmc Healthcare System GlenbeighComment on above:Performed By: #### VITB12, FT4 #### [facility] [address] [place] [address] Dr. Nighat BallardNitrite Ql (U)NegativeNormalNEGATIVEAcmc Healthcare System GlenbeighComment on above:Performed By: #### VITB12, FT4 #### [facility] [address] [place] [address] Dr. Nighat BallardpH (U)5.0 [pH]Normal5-9The [facility] HospitalComment on above: Performed By: #### VITB12, FT4 #### [facility] [address] [place] [address] Dr. Nighat BallardRBCNONE SEENAbnormal0-2The [facility] HospitalComment on above: Performed By: #### VITB12, FT4 #### [facility] [address] [place] [address] Dr. Nighat BallardSPEC GRAVITY1.633Fpkhkqxk9.005-<=1.025The [facility] Comment on above:Performed By: #### VITB12, FT4 #### [facility] [address] [place] [address] Dr. Nighat Dean PROTEINNegativeNormalNEGATIVE/ TRACEThe [facility] Comment on above:Performed By: #### VITB12, FT4 #### [facility] [address] [place] [address] Dr. Nighat Xiao Qn (U)0.2 {Ada'U}/dLNormal0.2 - 1.0The [facility] HospitalComment on above:Performed By: #### VITB12, FT4 #### [facility] [address] [place] [address] Dr. Nighat BeauchampBCNONMarilin SEENNormalNONE SEENThe [facility] HospitalComment on above: Performed By: #### VITB12, FT4 #### [facility] [address] [place] [address] Dr. Nighat Bowman AUTO DIFFon [id number] #0.1 103/ulNormal0.0-0.1The [facility] HospitalComment on above:Performed By: #### CMP, LIPID, TSH #### [facility] [address] [place] [address] Dr. Nighat Saabsophils/100 WBC (Bld)0.7 %Normal0.2-2.0[facility] Comment on above:Performed By: #### CMP, LIPID, TSH #### [facility] [address] [place] [address] Dr. Nighat Garcia #0.1 103/ulNormal0.0-0.7The [facility] HospitalComment on above: Performed By: #### CMP, LIPID, TSH #### [facility] [address] [place] [address] Dr. Nighat Hallosinophils/100 WBC (Bld)1.0 %Normal0.9-7.0The [facility] Comment on above:Performed By: #### CMP, LIPID, TSH #### [facility] [address] [place] [address] Dr. Nighat Hallrythrocyte distribution width (RBC) [Ratio]12.9 %Tpgjwp25.0-15.0 The [facility]ment on above:Performed By: #### CMP, LIPID, TSH #### [facility] [address] [place] [address] Dr. Nighat BallardHematocrit (Bld) [Volume fraction]45.0 %Ksmojq37.0-48.0The [facility] HospitalComment on above:Performed By: #### CMP, LIPID, TSH #### [facility] [address] [place] [address] Dr. Nighat BallardHemoglobin (Bld) [Mass/Vol]14.8 g/cCSgenrp73.0-16.0The [place] Hospitalment on above:Performed By: #### CMP, LIPID, TSH #### [facility] [address] [place] [address] Dr. Nighat Carney #0.01 10e3/ulNormal0.00-0.03The [place] Hospitalment on above:Performed By: #### CMP, LIPID, TSH #### [facility] [address] [place] [address] Dr. Nighat Carney %0.1 %Normal0.0-0.5The [facility] HospitalComment on above: Performed By: #### CMP, LIPID, TSH #### [facility] [address] [place] [address] Dr. Nighat RocheH #2.1 103/ulNormal1.2-3.8The [facility] HospitalComment on above:Performed By: #### CMP, LIPID, TSH #### [facility] [address] [place] [address] Dr. Nighat Hernandezmphocytes/100 WBC (Bld)25.6 %Rvhrrw72.5-60.0The [facility] HospitalComment on above:Performed By: #### CMP, LIPID, TSH #### [facility] [address] [place] [address] Dr. Nighat HaydenUAL DIFF REQNONormalThe [facility] HospitalComment on above: Performed By: #### CMP, LIPID, TSH #### [facility] [address] [place] [address] Dr. Nighat Garcia (RBC) [Entitic mass]28.7 kkKkuprq20.7-34.0The [facility] HospitalComment on above:Performed By: #### CMP, LIPID, TSH #### [facility] [address] [place] [address] Dr. Nighat Garcia (RBC) [Mass/Vol]32.9 g/pEIgbjvz91.9-35.2The [facility] HospitalComment on above:Performed By: #### CMP, LIPID, TSH #### [facility] [address] [place] [address] Dr. Nighat Be (RBC) [Entitic vol]87.2 iDOdnufj04.0-99.0The [facility] HospitalComment on above:Performed By: #### CMP, LIPID, TSH #### [facility] [address] [place] [address] Dr. Nighat Barnett #0.4 103/ulNormal0.3-0.8The [facility] HospitalComment on above:Performed By: #### CMP, LIPID, TSH #### [facility] [address] [place] [address] Dr. Nighat Duncanocytes/100 WBC (Bld)4.7 %Normal1.7-12.0The [facility] Comment on above:Performed By: #### CMP, LIPID, TSH #### [facility] [address] [place] [address] Dr. Nighat Álvarez #5.5 103/ulNormal1.4-6.5The [facility] on above:Performed By: #### CMP, LIPID, TSH #### [facility] [address] [place] [address] Dr. Nighat Reddyutrophils/100 WBC (Bld)67.9 %Sedfdx52.0-75.0The [facility] on above:Performed By: #### CMP, LIPID, TSH #### [facility] [address] [place] [address] Dr. Nighat BallardPlatelet mean volume (Bld) [Entitic vol]10.0 fLNormal9.5-13.5The [facility] on above:Performed By: #### CMP, LIPID, TSH #### [facility] [address] [place] [address] Dr. Nighat BallardPLT344 103/zkPaxtnf237-963Izn [facility] on above: Performed By: #### CMP, LIPID, TSH #### [facility] [address] [place] [address] Dr. Nighat BallardRBC5.16 106/ulNormal4.20-5.40The [facility] on above:Performed By: #### CMP, LIPID, TSH #### [facility] [address] [place] [address] Dr. Nighat BallardWBC8.1 103/ulNormal4.0-11.0[facility] on above: Performed By: #### CMP, LIPID, TSH #### [facility] [address] [place] [address] Dr. Nighat BallardLIPID PROFILEon [id number] RATIO NORMSPaulding County Hospital on above:Result Comment: 3.3 - 4.4 LOW RISK 4.4 - 7.1 AVERAGE RISK 7.1 - 11.0 MODERATE RISK >11.0 HIGH RISKPerformed By: #### LIPID, CMP, TSH #### [facility] [address] [place] [address] Dr. Nighat Talbotesterol [Mass/Vol]163 mg/dLNormal<=200The [facility] Comment on above:Performed By: #### LIPID, CMP, TSH #### [facility] [address] [address] [address] Nighat Talbotesterol in HDL [Mass/Vol]40 mg/uOIjwqgi67-87Vvp [facility] HospitalComment on above:Performed By: #### LIPID, CMP, TSH #### [facility] [address] [address] [address] Nighat Talbotesterol in LDL [Mass/Vol]72.0 mg/dLNoCleveland Clinic Children's Hospital for RehabilitationComment on above:Performed By: #### LIPID, CMP, TSH #### [facility] [address] [place] [address] Dr. Nighat Napier.total/Cholesterol in HDL [Mass ratio]4.1 {ratio} NormalThe [facility] HospitalComment on above:Performed By: #### LIPID, CMP, TSH #### [facility] [address] [place] [address] Dr. Nighat Allison NORMAL> or = 60 mg/dl - LOW CARDIOVASCULAR RISK <40 mg/dl - HIGH CARDIOVASCULAR RISKBluffton HospitalComment on above:Performed By: #### LIPID, CMP, TSH #### [facility] [address] [place] [address] Dr. Nighat Santiago CALC NORMALSEE BELOWBluffton HospitalComment on above:Result Comment: <100 mg/dl OPTIMAL 100 - 129 mg/dl NEAR OR ABOVE OPTIMAL 130 - 159 mg/dl BORDERLINE HIGH 160 - 189 mg/dl HIGH >190 mg/dl VERY HIGH Performed By: #### LIPID, CMP, TSH #### [facility] [address] [place] [address] Dr. Nighat BallardTriglyceride [Mass/Vol]255 mg/dLCritically high<=150The [facility] HospitalComment on above:Performed By: #### LIPID, CMP, TSH #### [facility] [address] [place] [address] Dr. Yilan ChangVLDL CALC51.0 mg/dLNoCleveland Clinic Children's Hospital for RehabilitationComment on above: Performed By: #### LIPID, CMP, TSH #### [facility] [address] [place], [place] [address] Dr. Nighat BallardMG MAMM SCREEN 3D KENNETH CADon [id number] MAMM SCREEN 3D KENNETH CAD Patient: PRASHANT MULLINS Exam Date: 08/30/2022 : 1975 Gender:F Ordering : [facility] Admission #: [id number] Family : Order #: [id number] CLICK HERE TO VIEW EXAM RADIOLOGY REPORT PROCEDURE: MAMMOGRAM SCREENING 3D BILATERAL CAD COMPARISON: MG MAMM SCREEN KENNETH W CAD, 12/01/2019. INDICATIONS: Screening mammography Calculator Name NCI Breast Cancer Risk Assessment Tool 5 Year Breast Cancer Risk Not Reported. Lifetime Breast Cancer Risk Not Reported. Personal Breast Cancer No Personal Ovarian Cancer No Treatments None Family Cancers None LOCATION: [facility] BREAST COMPOSITION: Heterogeneously dense,which may obscure small [...] LUMP SHOULD BE BIOPSIED. Dictated by: Jesus Linares MD on 08/30/2022 at 10:22 Approved by: Jesus Linares MD on 08/30/2022 at 10:25NoCleveland Clinic Children's Hospital for RehabilitationPROF 14(COMP METB)on [id number] [Mass/Vol]3.9 g/dLNormal3.4-5.0The [facility] HospitalComment on above:Performed By: #### LIPID, CMP, TSH #### [facility] [address] [place], [place] [address] Dr. Nighat BallardAlbumin/Globulin [Mass ratio]1.0 {ratio}NormalThe [facility] HospitalComment on above:Performed By: #### LIPID, CMP, TSH #### [facility] [address] [address] [address] Nighat Marrero [Catalytic activity/Vol]66 U/DNvjzmv24-254Ptg [facility] HospitalComment on above:Performed By: #### LIPID, CMP, TSH #### [facility] [address] [address] [address] Nighat Mendoza [Catalytic activity/Vol]46 U/OCkxbcn43-19Pyy [facility] HospitalComment on above:Performed By: #### LIPID, CMP, TSH #### [facility] [address] [address] [address] Nighat Guillenon gap [Moles/Vol]15.4 mmol/LNormalAcmc Healthcare System [facility] Comment on above:Performed By: #### LIPID, CMP, TSH #### [facility] [address] [address] [address] Nighat BallardAST [Catalytic activity/Vol]31 U/PTpwecf01-58Kqg [facility] HospitalComment on above:Performed By: #### LIPID, CMP, TSH #### [facility] [address] [address] [address] Nighat BallardBilirubin [Mass/Vol]0.3 mg/dLNormal0.2-1.0The [facility] Comment on above:Performed By: #### LIPID, CMP, TSH #### [facility] [address] [address] [address] Nighat BallardCalcium [Mass/Vol]9.7 mg/dLNormal8.5-10.1The [facility] Comment on above:Performed By: #### LIPID, CMP, TSH #### [facility] [address] [address] [address] Nighat BallardChloride [Moles/Vol]104 mmol/AJygjbj01-824Bdc [facility] Comment on above:Performed By: #### LIPID, CMP, TSH #### [facility] [address] [address] [address] Nighat BallardCO2 [Moles/Vol]28.8 mmol/KHvsarb42.0-32.0The [facility] Comment on above:Performed By: #### LIPID, CMP, TSH #### [facility] [address] [address] [address] Nighat BallardCreatinine [Mass/Vol]0.93 mg/dLNormal0.55-1.02A[facility] System GlenbeighComment on above:Performed By: #### LIPID, CMP, TSH #### [facility] [address] [place] [address] Dr. Nighat HallGFR-AF ETHIOPIAN>60Normal>=60The [facility] HospitalComment on above:Performed By: #### LIPID, CMP, TSH #### [facility] [address] [place] [address] Dr. Nighat Nguyen-NON AF ETHIOPIAN>60Normal>=60The [facility] HospitalComment on above:Performed By: #### LIPID, CMP, TSH #### [facility] [address] [place] [address] Dr. Nighat BallardGlobulin (S) [Mass/Vol]3.8 g/dLNormalThe [facility] HospitalComment on above:Performed By: #### LIPID, CMP, TSH #### [facility] [address] [place] [address] Dr. Nighat BallardGlucose [Mass/Vol]90 mg/gEAfqacr16-184BcdAcmc Healthcare System Glenbeigh Comment on above:Performed By: #### LIPID, CMP, TSH #### [facility] [address] [place] [address] Dr. Nighat BallardPotassium [Moles/Vol]4.2 mmol/LNormal3.5-5.1The [facility] Comment on above:Performed By: #### LIPID, CMP, TSH #### [facility] [address] [place] [address] Dr. Nighat BallardProtein [Mass/Vol]7.7 g/dLNormal6.4-8.2[facility] Comment on above:Performed By: #### LIPID, CMP, TSH #### [facility] [address] [place] [address] Dr. Nighat Shawum [Moles/Vol]144 mmol/JIjznfv853-051WqlAcmc Healthcare System Glenbeigh Comment on above:Performed By: #### LIPID, CMP, TSH #### [facility] [address] [address] [address] Nighat Lott nitrogen [Mass/Vol]10.0 mg/dLNormal7.0-18.0The [facility] HospitalComment on above:Performed By: #### LIPID, CMP, TSH #### [facility] [address] [address] [address] Nighat Lott nitrogen/Creatinine [Mass ratio]10.8 mg/mgNoalThe [facility] HospitalComment on above:Performed By: #### LIPID, CMP, TSH #### [facility] [address] [place] [address] Dr. Nighat Rogers 47-61-4585ZCV5.369 uIU/mLNormal0.358-3.740The [facility] HospitalComment on above:Performed By: #### LIPID, CMP, TSH #### [facility] [address] [place] [address] Dr. Nighat Dean RANDOM W/MICROSCOPICon [id number]E SEENAcmc Healthcare System GlenbeighComment on above:Performed By: #### CMP, LIPID, TSH #### [facility] [address] [place] [address] Dr. Nighat Greenirubin Ql (U)NegativeNormalNEGATIVEAcmc Healthcare System Glenbeigh Comment on above:Performed By: #### CMP, LIPID, TSH #### [facility] [address] [place] [address] Dr. Nighat BallardCASTMELANY SEENNormalNONE SEENAcmc Healthcare System GlenbeighComment on above:Performed By: #### CMP, LIPID, TSH #### [facility] [address] [place] [address] Dr. Nighat BallardClarity (U)CLEARNormalCLEARAcmc Healthcare System GlenbeighComment on above: Performed By: #### CMP, LIPID, TSH #### [facility] [address] [place] [address] Dr. Nighat Wynnelor (U)YELLOWNormalYELLOWAcmc Healthcare System GlenbeighComment on above: Performed By: #### CMP, LIPID, TSH #### [facility] [address] [address] [address] Nighat BallardCrystals LM Nom (Urine sed)NONE SEENNormalNONE SEENAcmc Healthcare System GlenbeighComment on above:Performed By: #### CMP, LIPID, TSH #### [facility] [address] [address] [address] Disla ChangEpithelial cells LM Ql (Urine sed)MODERATEAbnormalNONE SEEN /RARE The [facility] HospitalComformerly [facility] on above:Performed By: #### CMP, LIPID, TSH #### [facility] [address] [place] [address] Dr. Nighat BallardGlucose Ql (U)NegativeNormalNEGATIVEAcmc Healthcare System GlenbeighComment on above:Performed By: #### CMP, LIPID, TSH #### [facility] [address] [address] [address] Nighat BallardHemoglobin Ql (U)NegativeNormalNEGATIVETrinity Health System on above:Performed By: #### CMP, LIPID, TSH #### [facility] [address] [address] [address] Nighat BallardKetones Ql (U)NegativeNormalNEGATIVEAcmc Healthcare System GlenbeighComment on above:Performed By: #### CMP, LIPID, TSH #### [facility] [address] [address] [address] Nighat BallardLEUKOCYTESNegativeNormalNEGATIVEAcmc Healthcare System GlenbeighComformerly [facility] on above:Performed By: #### CMP, LIPID, TSH #### [facility] [address] [address] [address] Nighat BallardMUCOUSNONE SEENNormalNONE SEENAcmc Healthcare System GlenbeighComment on above:Performed By: #### CMP, LIPID, TSH #### [facility] [address] [address] [address] Nighat BallardNitrite Ql (U)NegativeNormalNEGATIVEThe [facility] HospitalComment on above:Performed By: #### CMP, LIPID, TSH #### [facility] [address] [address] [address] Nighat Morrow (U)6.0 [pH]Normal5-9The [facility] HospitalComment on above: Performed By: #### CMP, LIPID, TSH #### [facility] [address] [place] [address] Dr. Nighat Kraus SEENAbnormal0-2The [facility] HospitalComment on above: Performed By: #### CMP, LIPID, TSH #### [facility] [address] [place] [address] Dr. Nighat BallardSPEC GRAVITY>=1.336Bglfmmyq7.005-<=1.025[facility] Comment on above:Performed By: #### CMP, LIPID, TSH #### [facility] [address] [place] [address] Dr. Nighat Dean PROTEINNegativeNormalNEGATIVE/ TRACEThe [facility] Comment on above:Performed By: #### CMP, LIPID, TSH #### [facility] [address] [place] [address] Dr. Nighat Xiao Qn (U)0.2 {Ada'U}/dLNormal0.2 - 1.0The [facility] HospitalComment on above:Performed By: #### CMP, LIPID, TSH #### [facility] [address] [place] [address] Dr. Nighat BeauchampBCNONE SEENNormalNONE SEENAcmc Healthcare System GlenbeighComment on above: Performed By: #### CMP, LIPID, TSH #### [facility] [address] [place] [address] Dr. Nighat Bowman AUTO DIFFon [id number] #0.1 103/ulNormal0.0-0.1The [facility] HospitalComment on above:Performed By: #### CMP, LIPID, TSH #### [facility] [address] [place] [address] Dr. Yilan ChangBasophils/100 WBC (Bld)0.7 %Normal0.2-2.0The [facility] Comment on above:Performed By: #### CMP, LIPID, TSH #### [facility] [address] [address] [address] Nighat Garcia #0.0 103/ulNormal0.0-0.7The [facility] HospitalComment on above: Performed By: #### CMP, LIPID, TSH #### [facility] [address] [address] [address] Nighat Hallosinophils/100 WBC (Bld)0.5 %Critically low0.9-7.0The [facility] HospitalComment on above:Performed By: #### CMP, LIPID, TSH #### [facility] [address] [place] [address] Dr. Nighat Hallrythrocyte distribution width (RBC) [Ratio]12.8 %Ffhkhn04.0-15.0 The [facility] HospitalComment on above:Performed By: #### CMP, LIPID, TSH #### [facility] [address] [place] [address] Dr. Nighat BallardHematocrit (Bld) [Volume fraction]43.3 %Ukqspf18.0-48.0The [facility] HospitalComment on above:Performed By: #### CMP, LIPID, TSH #### [facility] [address] [place] [address] Dr. Nighat BallardHemoglobin (Bld) [Mass/Vol]13.9 g/oKZwgfsb02.0-16.0The [facility]ment on above:Performed By: #### CMP, LIPID, TSH #### [facility] [address] [place] [address] Dr. Nighat Carney #0.02 10e3/ulNormal0.00-0.03The [facility] HospitalComment on above:Performed By: #### CMP, LIPID, TSH #### [facility] [address] [place] [address] Dr. Nighat Carney %0.3 %Normal0.0-0.5The [facility] HospitalComment on above: Performed By: #### CMP, LIPID, TSH #### [facility] [address] [place] [address] Dr. Nighat Holman #2.3 103/ulNormal1.2-3.8The [facility] HospitalComment on above:Performed By: #### CMP, LIPID, TSH #### [facility] [address] [place] [address] Dr. Nighat Rochehocytes/100 WBC (Bld)30.3 %Uiolkd68.5-60.0The [facility] HospitalComment on above:Performed By: #### CMP, LIPID, TSH #### [facility] [address] [place] [address] Dr. Nighat Cooper DIFF REQNONormalThe [facility] HospitalComment on above: Performed By: #### CMP, LIPID, TSH #### [facility] [address] [place] [address] Dr. Nighat Storey (RBC) [Entitic mass]28.7 hmBhjgvj27.7-34.0The [facility] HospitalComment on above:Performed By: #### CMP, LIPID, TSH #### [facility] [address] [place] [address] Dr. Nighat Garcia (RBC) [Mass/Vol]32.1 g/xNYzitco72.9-35.2The [facility]ment on above:Performed By: #### CMP, LIPID, TSH #### [facility] [address] [place] [address] Dr. Nighat Garcia (RBC) [Entitic vol]89.5 sOIwpagv79.0-99.0The [facility] HospitalComment on above:Performed By: #### CMP, LIPID, TSH #### [facility] [address] [place] [address] Dr. Nighat Barnett #0.3 103/ulNormal0.3-0.8The [facility] HospitalComment on above:Performed By: #### CMP, LIPID, TSH #### [facility] [address] [place] [address] Dr. Nighat Duncanocytes/100 WBC (Bld)4.2 %Normal1.7-12.0The [facility] Comment on above:Performed By: #### CMP, LIPID, TSH #### [facility] [address] [place] [address] Dr. Nighat Álvarez #4.9 103/ulNormal1.4-6.5The [facility] HospitalComment on above:Performed By: #### CMP, LIPID, TSH #### [facility] [address] [place] [address] Dr. Nighat Reddyutrophils/100 WBC (Bld)64.0 %Ndclbn62.0-75.0The [facility] HospitalComment on above:Performed By: #### CMP, LIPID, TSH #### [facility] [address] [place] [address] Dr. Nighat Uribelet mean volume (Bld) [Entitic vol]10.3 fLNormal9.5-13.5The [facility] HospitalComment on above:Performed By: #### CMP, LIPID, TSH #### [facility] [address] [place] [address] Dr. Nighat BallardPLT383 103/reAhdyqb305-372Ahr [facility] HospitalComment on above: Performed By: #### CMP, LIPID, TSH #### [facility] [address] [place] [address] Dr. Nighat BallardRBC4.84 106/ulNormal4.20-5.40The [facility]ment on above:Performed By: #### CMP, LIPID, TSH #### [facility] [address] [place] [address] Dr. Nighat BallardWBC7.6 103/ulNormal4.0-11.0The [facility] HospitalComment on above: Performed By: #### CMP, LIPID, TSH #### [facility] [address] [place] [address] Dr. Nighat Merritt T4on 78-91-0999Bjqu T4 [Mass/Vol]0.83 ng/dLNormal0.76-1.46 The [facility] HospitalComment on above:Performed By: #### VITB12, FT4 #### [facility] [address] [place] [address] Dr. Nighat Reyes PROFILEon 28-33-3073SCPM-HDL RATIO NORMSEE BELOWBluffton HospitalComment on above:Result Comment: 3.3 - 4.4 LOW RISK 4.4 - 7.1 AVERAGE RISK 7.1 - 11.0 MODERATE RISK >11.0 HIGH RISKPerformed By: #### CMP, LIPID, TSH #### [facility] [address] [place] [address] Dr. Nighat Talbotesterol [Mass/Vol]268 mg/dLCritically high<=200The [facility] on above:Performed By: #### CMP, LIPID, TSH #### [facility] [address] [place] [address] Dr. Nighat Monahanol in HDL [Mass/Vol]46 mg/vMScvtqg93-17UjvAcmc Healthcare System GlenbeighComment on above:Performed By: #### CMP, LIPID, TSH #### [facility] [address] [place] [address] Dr. Nighat Napier in LDL [Mass/Vol]158.6 mg/dLBluffton HospitalComment on above:Performed By: #### CMP, LIPID, TSH #### [facility] [address] [place] [address] Dr. Nighat Napier.total/Cholesterol in HDL [Mass ratio]5.8 {ratio} NormalAcmc Healthcare System GlenbeighComment on above:Performed By: #### CMP, LIPID, TSH #### [facility] [address] [place] [address] Dr. Nighat Allison NORMAL> or = 60 mg/dl - LOW CARDIOVASCULAR RISK <40 mg/dl - HIGH CARDIOVASCULAR RISKBluffton HospitalComment on above:Performed By: #### CMP, LIPID, TSH #### [facility] [address] [place] [address] Dr. Nighat Santiago CALC NORMALSEE BELOWBluffton HospitalComment on above:Result Comment: <100 mg/dl OPTIMAL 100 - 129 mg/dl NEAR OR ABOVE OPTIMAL 130 - 159 mg/dl BORDERLINE HIGH 160 - 189 mg/dl HIGH >190 mg/dl VERY HIGH Performed By: #### CMP, LIPID, TSH #### [facility] [address] [address] [address] Nighat BallardTriglyceride [Mass/Vol]317 mg/dLCritically high<=150The [facility] HospitalComment on above:Performed By: #### CMP, LIPID, TSH #### [facility] [address] [address] [address] Nighat LuevanoLDL CALC63.4 mg/dLBluffton HospitalComment on above: Performed By: #### CMP, LIPID, TSH #### [facility] [address] [place] [address] Dr. Nighat Yoder 14(COMP METB)on [id number] [Mass/Vol]3.9 g/dLNormal 3.4-5.0[facility] Hospitalment on above:Performed By: #### CMP, LIPID, TSH #### [facility] [address] [place] [address] Dr. Nighat BallardAlbumin/Globulin [Mass ratio]1.0 {ratio}NormalThe [facility] on above:Performed By: #### CMP, LIPID, TSH #### [facility] [address] [place] [address] Dr. Nighat Marrero [Catalytic activity/Vol]74 U/RMuqjqw01-250Jbn [facility] HospitalComment on above:Performed By: #### CMP, LIPID, TSH #### [facility] [address] [place] [address] Dr. Nighat Mendoza [Catalytic activity/Vol]41 U/YZvuqgi61-58Mek [facility] Hospitalment on above:Performed By: #### CMP, LIPID, TSH #### [facility] [address] [place] [address] Dr. Yilan ChangAnion gap [Moles/Vol]10.8 mmol/LNormalAcmc Healthcare System Glen[facility]igh Comment on above:Performed By: #### CMP, LIPID, TSH #### [facility] [address] [address] [address] Nighat BallardAST [Catalytic activity/Vol]29 U/ZHenbue52-06Dvi [facility] HospitalComment on above:Performed By: #### CMP, LIPID, TSH #### [facility] [address] [address] [address] Nighat BallardBilirubin [Mass/Vol]0.5 mg/dLNormal0.2-1.0[facility] Comment on above:Performed By: #### CMP, LIPID, TSH #### [facility] [address] [place] [address] Dr. Nighat BallardCalcium [Mass/Vol]9.0 mg/dLNormal8.5-10.1[facility] Comment on above:Performed By: #### CMP, LIPID, TSH #### [facility] [address] [place] [address] Dr. Nighat BallardChloride [Moles/Vol]102 mmol/ZPmcdwf54-715ErcAcmc Healthcare System Glenbeigh Comment on above:Performed By: #### CMP, LIPID, TSH #### [facility] [address] [place] [address] Dr. Nighat BallardCO2 [Moles/Vol]29.3 mmol/LPpnhvy46.0-32.0[facility] Comment on above:Performed By: #### CMP, LIPID, TSH #### [facility] [address] [place] [address] Dr. Nighat BallardCreatinine [Mass/Vol]1.03 mg/dLCritically high0.55-1.02The [facility] HospitalComment on above:Performed By: #### CMP, LIPID, TSH #### [facility] [address] [place] [address] Dr. Nighat HallGFR-AF ETHIOPIAN>60Normal>=60The [facility] HospitalComment on above:Performed By: #### CMP, LIPID, TSH #### [facility] [address] [address] [address] Nighat HallGFR-NON AF ETHIOPIAN=58Critically low>=60The [facility] Comment on above:Performed By: #### CMP, LIPID, TSH #### [facility] [address] [address] [address] Nighat BallardGlobulin (S) [Mass/Vol]4.0 g/dLNormCincinnati Children's Hospital Medical CenterComment on above:Performed By: #### CMP, LIPID, TSH #### [facility] [address] [address] [address] Nighat BallardGlucose [Mass/Vol]84 mg/iEAbfasf22-914Lll [facility] Comment on above:Performed By: #### CMP, LIPID, TSH #### [facility] [address] [address] [address] Nighat BallardPotassium [Moles/Vol]4.1 mmol/LNormal3.5-5.1The [facility] Comment on above:Performed By: #### CMP, LIPID, TSH #### [facility] [address] [address] [address] Nighat BallardProtein [Mass/Vol]7.9 g/dLNormal6.4-8.2The [facility] Comment on above:Performed By: #### CMP, LIPID, TSH #### [facility] [address] [address] [address] Nighat BallardSodium [Moles/Vol]138 mmol/OVyftda954-871Rle [facility] Comment on above:Performed By: #### CMP, LIPID, TSH #### [facility] [address] [address] [address] Nighat BallardUrea nitrogen [Mass/Vol]12.0 mg/dLNormal7.0-18.0The [facility] HospitalComment on above:Performed By: #### CMP, LIPID, TSH #### [facility] [address] [place] [address] Dr. Nighat Lott nitrogen/Creatinine [Mass ratio]11.7 mg/mgNoCleveland Clinic Children's Hospital for RehabilitationComment on above:Performed By: #### CMP, LIPID, TSH #### [facility] [address] [address] [address] Nighat Rogers 91-35-5997TQG3.371 uIU/mLNormal0.358-3.740[facility] on above:Performed By: #### CMP, LIPID, TSH #### [facility] [address] [address] [address] Nighat Dean RANDOM W/MICROSCOPICon [id number]S SEENAcmc Healthcare System GlenbeighComformerly [facility] on above:Performed By: #### VITB12, FT4 #### [facility] [address] [address] [address] Nighat Vargas Ql (U)NegativeNormalNEGATIVEAcmc Healthcare System Glenbeigh Comment on above:Performed By: #### VITB12, FT4 #### [facility] [address] [address] [address] Nighat Staples OX CRYSTALSRARENormalKettering Health [facility] on above: Performed By: #### VITB12, FT4 #### [facility] [address] [address] [address] Nighat Calvert SEENNormalNONE [facility] on above:Performed By: #### VITB12, FT4 #### [facility] [address] [address] [address] Nighat Vemra (U)CLEARNormalCLEARAcmc Healthcare System GlenbeighComment on above: Performed By: #### VITB12, FT4 #### [facility] [address] [address] [address] Nighat Siu (U)LT. YELLOWNormalYELLOWAcmc Healthcare System GlenbeighComformerly [facility] on above:Performed By: #### VITB12, FT4 #### [facility] [address] [place] [address] Dr. Nighat Linares LM Nom (Urine sed)SEENAbnormalNONE SEENAcmc Healthcare System GlenbeighComment on above:Performed By: #### VITB12, FT4 #### [facility] [address] [address] [address] Disla ChangEpithelial cells LM Ql (Urine sed)FEWAbnormalNONE SEEN /RAREThe [facility] HospitalComment on above:Performed By: #### VITB12, FT4 #### [facility] [address] [address] [address] Nighat BallardGlucose Ql (U)NegativeNormalNEGATIVEAcmc Healthcare System GlenbeighComment on above:Performed By: #### VITB12, FT4 #### [facility] [address] [address] [address] Nighat BallardHemoglobin Ql (U)NegativeNormalNEGATIVETrinity Health System on above:Performed By: #### VITB12, FT4 #### [facility] [address] [place] [address] Dr. Nighat BallardKetones Ql (U)NegativeNormalNEGATIVEAcmc Healthcare System GlenbeighComment on above:Performed By: #### VITB12, FT4 #### [facility] [address] [address] [address] Nighat BallardLEUKOCYTESNegativeNormalNEGATIVEAcmc Healthcare System GlenbeighComment on above:Performed By: #### VITB12, FT4 #### [facility] [address] [place] [address] Dr. Nighat BallardMUCOUSNONE SEENNormalNONE SEENAcmc Healthcare System GlenbeighComment on above:Performed By: #### VITB12, FT4 #### [facility] [address] [address] [address] Nighat BallardNitrite Ql (U)NegativeNormalNEGATIVEAcmc Healthcare System GlenbeighComment on above:Performed By: #### VITB12, FT4 #### [facility] [address] [address] [address] Nighat BallardpH (U)6.5 [pH]Normal5-9The [facility] HospitalComment on above: Performed By: #### VITB12, FT4 #### [facility] [address] [address] [address] Nighat BallardWbihbUEZ0-1Epvarh3-4Men [facility] HospitalComment on above:Performed By: #### VITB12, FT4 #### [facility] [address] [place] [address] Dr. Nighat BallardSPEC GRAVITY1.677Irjysn0.005-<=1.025The [facility] HospitalComment on above:Performed By: #### VITB12, FT4 #### [facility] [address] [place] [address] Dr. Nighat BallardUA PROTEINNegativeNormalNEGATIVE/ TRACEThe [facility] Comment on above:Performed By: #### VITB12, FT4 #### [facility] [address] [place] [address] Dr. Nighat BallardUrobilino Qn (U)0.2 {Ada'U}/dLNormal0.2 - 1.0The [facility] HospitalComment on above:Performed By: #### VITB12, FT4 #### [facility] [address] [place] [address] Dr. Nighat BallardWBC0-2AbnormalNONE SEENThe [facility] HospitalComformerly [facility] on above: Performed By: #### VITB12, FT4 #### [facility] [address] [place] [address] Dr. Nighat BallardVITAMIN B12on 27-78-8199Tjexomgle (Vitamin B12) [Mass/Vol]855.0 pg/nOVwkkrt788.0-986.0The [facility] HospitalComment on above:Performed By: #### VITB12, FT4 #### [facility] [address] [place] [address] Dr. Nighat Ballard Vital Signs Date TimeVital SignValuePerforming IqsdizcnbJrzyqetz15-36-4016 14:50-0400Body mass index (BMI) [Ratio]30.56 kg/m2Ellen Dodson [employer] Work Phone: [facility] SystemSnsybgtddc85-03-1122 14:50-0400Body temperature 98.1 [degF]Ellen Dougiez [employer] Work Phone: [facility] SystemZhcftasfvu88-78-3241 14:50-0400Body abojol55.02 kgLisa Yamilethholz STE[employer]ER Work Phone: [facility] SystemJzedrwtamb71-75-5059 14:50-0400Diastolic blood zcrycyyz42 mm[Hg]Ellen Yamilethholz [employer] Work Phone: [place] [address]Lzdlemajfh55-72-9142 14:50-0400Heart rate86 /min Ellen Yamilethholz [employer] Work Phone: [place] [phone] 14:50-0400Respiratory rate18 /minLisa Yamilethholz [employer] Work Phone: [place] [address]Xuccemlpmi41-51-7018 14:50-2351MyH4% (BldA) [Mass fraction]99 %Ellen Yamilethholz [employer] Work Phone: [facility] SystemBeusiwnlur86-05-2649 14:50-0400Systolic blood mm[Hg]Ellen Yamilethholz [employer] Work Phone: [facility] SystemGbjlxqrhks44-78-6590 15:12-0400Body mass index (BMI) [Ratio]31.39 kg/m2Lisa Yamilethholz [employer] Work Phone: [facility] SystemJptbldvdye32-91-0856 15:12-0400Body temperature 98.49 [degF]Ellen Yamilethholz [employer] Work Phone: [facility] SystemLecqwxwlfd31-90-6240 15:12-0400Body eovvxm94.11 kgLisa Ancelmohholz [employer] Work Phone: [place] [phone] 15:12-0400Diastolic blood rvsiqmnl09 mm[Hg]Ellen Ancelmohholz [employer] Work Phone: [place] [address]Gcbjsxinns83-69-2871 15:12-0400Heart rate86 /min Ellen Yamilethholz [employer] Work Phone: [phone] [place], [place] [address]Nrepzbomvq87-24-1158 15:12-0400Respiratory rate18 /minLisa Ancelmohholz STE[employer]ER Work Phone: [facility] SystemLhsoywlqco88-61-7470 15:12-8182XzA8% (BldA) [Mass fraction]99 %Ellenagnes Carsonholz [employer] T[employer]ER Work Phone: [facility] SystemHejjeuerxq20-58-9034 15:12-0400Systolic blood fbbolmri530 mm[Hg]Ellen Yamilethholz [employer]ER Work Phone: [facility] SystemFzdkdeughs38-80-9695 15:04-0400Body mass index (BMI) [Ratio]32.04 kg/m2Lisa Yamilethholz [employer] Work Phone: [facility] SystemUwexwnwfvs32-74-0666 15:04-0400Body temperature 98.1 [degF]Lelen Yamilethholz [employer]ER Work Phone: [facility] SystemXgygcaszlg36-63-2080 15:04-0400Body .74 kgLisa Yamilethholz [employer]ER Work Phone: [facility] SystemFjdvgpiaca93-35-8753 15:04-0400Diastolic blood yzchiwyp25 mm[Hg]Ellen Yamilethholz [employer] Work Phone: [facility] SystemAfwxdlgruj78-97-0140 15:04-0400Heart rate87 /min Ellen Yamilethholz [employer] Work Phone: [facility] SystemJqeggycynq88-32-3497 15:04-0400Respiratory rate18 /minLisa Ancelmohholz STE[employer]ER Work Phone: [place] [phone] 15:04-9733NjW3% (BldA) [Mass fraction]98 %Ellen Yamilethholz [employer] Work Phone: [facility] SystemQwszptvdel44-60-5812 15:04-0400Systolic blood hxpvaddn353 mm[Hg]Ellen Ancelmohholz [employer]ER Work Phone: [facility] SystemUppqoyyhjv59-95-6386 09:08-0500Body wykgli052.48 cmK[facility]03-03-2025 09:08-0500Body mass index (BMI) [Ratio]32.7 kg/w7BrubquexkKettering Health – [facility]03-03-2025 09:08-0500Body .19 kgK[facility]tering Health [facility]03-03-2025 09:08-0500Diastolic blood gyhvgpgg84 mm[Hg][facility]03-03-2025 09:08-0500 Heart rate88 /minKettering Health – [facility]03-03-2025 09:08-0545AxN6% (BldA) [Mass fraction]97 %[facility]03-03-2025 09:08-0500 Systolic blood hwluczcs308 mm[Hg][facility]01-21-2025 14:18-0500Body mass index (BMI) [Ratio]32 kg/m2Lisa Dougiez [employer] Work Phone: [facility] SystemZwbfakmtju56-12-4984 14:18-0500Body temperature 98.1 [degF]Ellen Ivory [employer] Work Phone: [facility] SystemNuqcvgltfa44-42-4292 14:18-0500Body wgceoc62.65 kgLisa Ancelmohholz STE[employer]ER Work Phone: [facility] SystemGhsfraimll90-74-2350 14:18-0500Diastolic blood jjbuqoci25 mm[Hg]Ellen Dougiez [employer] Work Phone: [facility] SystemRyxirwzfjp81-48-0030 14:18-0500Heart rate85 /min Ellen Yamilethholz [employer] Work Phone: [facility] [facility] SystemQjkqoqikob77-69-7851 14:18-0500Respiratory rate19 /minLisa Ancelmohholz STEAM BOX TENDER Work Phone: [facility] SystemEbemsrzxyv80-62-4142 14:18-3800DaD9% (BldA) [Mass fraction]97 %Ellen Dougiez STEAM BOX TENDER Work Phone: [facility] SystemNgtprtyswq48-83-5828 14:18-0500Systolic blood nllurecg201 mm[Hg]Ellen Ancelmohholz STEAM BOX TENDER Work Phone: [facility] SystemQhbiinmttz56-91-3608 14:50-0500Body fpyrnu545.8 cmLisa Yamilethholz STEAM BOX TENDER Work Phone: [facility] SystemJdmegyjcjy67-49-4494 14:50-0500Body mass index (BMI) [Ratio]32.25 kg/m2Lisa Aichholz STEAM BOX TENDER Work Phone: [facility] SystemNgvaxgwfxw64-46-8136 14:50-0500Body temperature 98.8 [degF]Ellen Dougiez STEAM BOX TENDER Work Phone: [facility] SystemKkhgghotmu63-61-1875 14:50-0500Body xuhduo85.28 kgLisa Yamilethholz STEAM BOX TENDER Work Phone: [facility] HealthcareComment on above:with snow boots 06-29-2024 14:50-0500Diastolic blood mm[Hg]Ellen Yamilethholz STEAM BOX TENDER Work Phone: [facility] SystemRuxjauehoa25-64-7331 14:50-0500Heart brre627 /min Ellen Ancelmohholz STEAM BOX TENDER Work Phone: [facility] SystemOrnymqhbne69-81-0603 14:50-0500Respiratory rate18 /minLisa Yamilethholz STEAM BOX TENDER Work Phone: [facility] SystemBaoxwikpqj51-37-8011 14:50-4675OcD6% (BldA) [Mass fraction]98 %Ellen Yamilethholz STEAM BOX TENDER Work Phone: [facility] SystemJbijdrvkpf93-92-8169 14:50-0500Systolic blood midotrtr487 mm[Hg]Ellen Ancelmohholz STEAM BOX TENDER Work Phone: [facility] SystemArfnxgvqoe57-74-0768 13:57-0400Body lmtjxi455.8 cmLisa Aicmarkholz STEAM BOX TENDER Work Phone: [facility] SystemIyaamptqlb18-10-9306 13:57-0400Body mass index (BMI) [Ratio]32.65 kg/m2Lisa Aichholz STEAM BOX TENDER Work Phone: [facility] SystemGrtulriabv23-42-9984 13:57-0400Body temperature 97.81 [degF]Ellen Dodson STEAM BOX TENDER Work Phone: [place] [address]Omztsyqyhd17-34-3240 13:57-0400Body .28 kgEllen Dodson STEAM BOX TENDER Work Phone: [place] [address]Rdmemygykh63-69-7637 13:57-0400Diastolic blood ikttgaig51 mm[Hg]Ellen Dodson STEAM BOX TENDER Work Phone: [facility] SystemOxybixgjgl63-12-8689 13:57-0400Heart rate93 /min Ellen Dodson STEAM BOX TENDER Work Phone: [place] [address]Wtkuaezitu54-15-5735 13:57-0400Respiratory rate18 /minEllen Dodson STEAM BOX TENDER Work Phone: [place] [address]Cgjucccush82-22-0411 13:57-1537HxX4% (BldA) [Mass fraction]100 %Ellen Dodson STEAM BOX TENDER Work Phone: [place] [address]Sfebewqozx98-94-5157 13:57-0400Systolic blood dqowctzu785 mm[Hg]Ellen Dodson STEAM BOX TENDER Work Phone: [facility] SystemKacqraidxs14-20-3707 13:13-0500Blood Pressure LocationMichael NILL [facility] Kpkewypo96-82-7218 13:13-0500Diastolic blood uqouqhim99 mm[Hg]Dinesh NILL [facility] Gqvyzxpr05-20-6108 13:13-0500Heart rate 72 /minMichael NILL [facility] Filrruot77-69-3863 13:13-0500 Respiratory rate16 /minMichael NILL [facility]02-07-2024 13:13-0500Systolic blood hmbdrszy419 mm[Hg]Dinesh NILL [facility]08-24-2022 15:30-0400Body heightMyles Ramirez Other [employer] Other 10-06-2021 16:30-0400Body heightMyles Ramirez Other [employer] [employer] Other 10-06-2021 16:30-0400Body mass index (BMI) [Ratio] 31.09 kg/p4LczmvqMyles Ramirez Other [facility] Other 10-06-2021 16:30-0400Body cluuif15.11 kgDabilly Ramirez Other [employer] [facility] Other 10-06-2021 16:30-0400Diastolic blood gqgjhpoi08 mm[Hg] Myles Ramirez Other [employer] Other 10-06-2021 16:30-0400Systolic blood tqlnneso327 mm[Hg] Myles Ramirez Other [employer] Other Encounters Encounter DateEncounter TypeCare ProviderFacilityStart: 03-09-2025 End: 05-06-7656yxaauxmpfzHATN J AICHHOLZProMedica Kaiser Foundation Hospitaltart: 02-20-2025 End: 93-93-1707OzdlffXlin Aichholz STEAM BOX TENDER Work Phone: noms CWM FMComment on above:WheezingStart: 02-01-2025 End: 01-67-1777Fctnzv outpatient visit 25 minutesLisa Dodson STEAM BOX TENDER Work Phone: [facility] CWM FMComment on above:Obstructive sleep apnea (Primary Dx); Sedative, hypnotic or anxiolytic dependence, uncomplicated (HCC); Insomnia, unspecified type; Primary hypertension ; Obesity (BMI 30-39.9); Dyslipidemia ; Generalized anxiety disorder ; Primary insomniaStart: 02-01-2025 End: 23-80-9014vvlomeeybyYGBZ AICHHOLZNot AvailableStart: 02-01-2025 End: 85-10-8273Pbybte flowsheetLisa Aichholz STEAM BOX TENDER Work Phone: [facility] FMStart: 02-01-2025 End: 23-14-4789Gnhlbx flowsheetLisa Aichholz STEAM BOX TENDER Work Phone: [facility] FMStart: 01-21-2025 End: 44-73-4860PbsopuBias Aichholz STEAM BOX TENDER Work Phone: [facility] C[facility] FMComment on above:WheezingStart: 11-03-2024 End: 25-05-8202Qrikrsg encounter procedureLisa Ancelmohholz Work Phone: [facility] Work Phone: Start: 11-03-2024 End: 24-08-7431oskicyekwkEitz Tash Aghholz Work Phone: [facility] Work Phone: Start: 10-29-2024 End: 52-30-1624SgydnuQrjl Aichholz STEAM BOX TENDER Work Phone: n[facility] CWM FMComment on above:Migraine without aura and without status migrainosus, not intractable (CMS/HCC) (Primary Dx)Start: 10-13-2024 End: 97-87-7856Rztujc outpatient visit 25 minutesLisa Yamilethholz STEAM BOX TENDER Work Phone: [facility] CWM FMComment on above:Eczema, unspecified type (Primary Dx); Abnormal weight gain; Cigarette nicotine dependence without complication; Primary insomnia; Dyslipidemia (CMS/HCC); Primary hypertension (CMS/HCC); Mild episode of recurrent major depressive disorder (HCC) (CMS/HCC); Generalized anxiety disorder (CMS/HCC)Start: 10-13-2024 End: 39-25-5836yypygywjfqTCRG AICHHOLZNot AvailableStart: 10-13-2024 End: 61-84-0224Etcxbt flowsheetLisa Aichholz STEAM BOX TENDER Work Phone: [facility] FMStart: 10-13-2024 End: 09-06-6675Wluqif flowsheetLisa Aichholz STEAM BOX TENDER Work Phone: [facility] FMStart: 10-09-2024 End: 79-47-5029SmyggsUwpx Aichholz STEAM BOX TENDER Work Phone: [facility] CWM FMComment on above:Generalized anxiety disorder (CMS/HCC)Start: 09-14-2024 End: 83-47-5511Voimxl outpatient visit 15 minutesLisa Yamilethholz STEAM BOX TENDER Work Phone: noms CWM FMComment on above:Primary hypertension (CMS/HCC) (Primary Dx); Obesity (BMI 30-39.9); Cigarette nicotine dependence without complication; Abnormal weight gainStart: 09-14-2024 End: 66-58-2694zobonufanpZGQA AICHHOLZNot AvailableStart: 09-14-2024 End: 09-20-8216Auisci flowsheetLisa Aichholz STEAM BOX TENDER Work Phone: [facility] FMStart: 09-14-2024 End: 08-68-6468Pgcaye flowsheetLisa Aichholz STEAM BOX TENDER Work Phone: [facility] FMStart: 08-24-2024 End: 44-23-1775gucurjezovQsqfguusaA[facility]man [facility] Work Phone: Start: 08-24-2024 End: 95-41-0121Dgchynd encounter procedureFormerly [facility] Work Phone: Start: 08-12-2024 End: 60-46-5114Zrqzvyko Result EncounterLisa Aichholz STEAM BOX TENDER Work Phone: noms External Department UnsolicitedStart: 08-12-2024 End: 41-49-6168Rpvgllts Result EncounterLisa Aichholz STEAM BOX TENDER Work Phone: noms External Department UnsolicitedStart: 08-10-2024 End: 35-41-5168KwmaukYlrm Aichholz STEAM BOX TENDER Work Phone: [facility] C[facility] FMComment on above:Primary insomnia (Primary Dx)Start: 08-10-2024 End: 50-83-0715ChqvciOkby Aichholz STEAM BOX TENDER Work Phone: [facility] FMComment on above:Primary insomniaStart: 08-06-2024 End: 93-70-0861AdxfmlEvao Aichholz STEAM BOX TENDER Work Phone: [facility] FMComment on above:WheezingStart: 08-03-2024 End: 33-80-4720QuhcnwImld Aichholz STEAM BOX TENDER Work Phone: [facility] FMComment on above:Migraine without aura, not intractable, without status migrainosus (CMS/HCC)Start: 07-30-2024 End: 39-62-4741Nlmwsz OnlyLisa Aichholz STEAM BOX TENDER Work Phone: [facility] FMComment on above:Abnormal urine finding (Primary Dx)Start: 07-28-2024 End: 38-74-6782bwwqjklrzmLDYZ AICHHOLZNot AvailableStart: 07-25-2024 End: 01-46-9318JhdzntRhdv Aichholz STEAM BOX TENDER Work Phone: [facility] C[facility] FMComment on above:Migraine without aura, not intractable, without status migrainosus (CMS/HCC)Start: 07-20-2024 End: 78-40-9446UlueqqZcze Aichholz STEAM BOX TENDER Work Phone: [facility] C[facility] FMComment on above:Primary hypertension (CMS/HCC)Start: 07-14-2024 End: 47-97-5643Qdwpti flowsheetLisa Aichholz STEAM BOX TENDER Work Phone: [facility] FMStart: 07-14-2024 End: 98-95-1991Rhkuee flowsheetLisa Aichholz STEAM BOX TENDER Work Phone: [facility] FMStart: 07-14-2024 End: 57-75-0201Pbyvgl outpatient visit 25 minutesLisa Aichholz STEAM BOX TENDER Work Phone: [facility] C[facility] FMComment on above:Generalized anxiety disorder (CMS/HCC) (Primary Dx); Primary hypertension (CMS/HCC); Obesity (BMI 30-39.9); COVID; Subacute pansinusitis; Tobacco dependence; Primary insomnia; Mixed hyperlipidemia (CMS/HCC); Needs flu shotStart: 07-14-2024 End: 84-76-2357rvojtlcnirNCVE AICHHOLZNot AvailableStart: 06-29-2024 End: 14-19-6113htmcnwuubfCPEB AICHHOLZNot AvailableStart: 06-29-2024 End: 90-17-7249Gfjebl outpatient visit 25 minutesLisa Aichholz STEAM BOX TENDER Work Phone: [facility] C[facility] FMComment on above:COVID (Primary Dx); Obstructive sleep apnea; Primary hypertension (CMS/HCC); Obesity (BMI 30-39.9); Generalized anxiety disorder (CMS/HCC); Mild episode of recurrent major depressive disorder (HCC) (CMS/HCC); Migraine without aura and without status migrainosus, not intractable (CMS/HCC); Tobacco dependence; Primary insomnia; Encounter for screening mammogram for malignant neoplasm of breast; Subacute pansinusitisStart: 06-29-2024 End: 49-09-1780Bwdkka flowsheetLisa Aichholz STEAM BOX TENDER Work Phone: [facility] FMStart: 06-29-2024 End: 86-19-9648Jraoyq flowsheetLisa Aichholz STEAM BOX TENDER Work Phone: [facility] FMStart: 06-26-2024 End: 57-78-5212McxyhqOyln Aichholz STEAM BOX TENDER Work Phone: [facility] C[facility] FMComment on above:COVID (Primary Dx)Start: 06-25-2024 End: 97-71-2356VsasgwMczc Aichholz STEAM BOX TENDER Work Phone: [facility] C[facility] FMComment on above:WheezingStart: 06-18-2024 End: 48-15-3133Oabzrwbob department patient visitELLEN Tash DODSONMercy Health [facility] HospitalStart: 06-14-2024 End: 80-00-9440MmexykLuyq Aichholz STEAM BOX TENDER Work Phone: [facility] C[facility] FMComment on above:WheezingStart: 05-26-2024 End: 15-04-9832LbipjjDykd Aichholz STEAM BOX TENDER Work Phone: [facility] C[facility] FMComment on above:Migraine without aura and without status migrainosus, not intractable (CMS/HCC) (Primary Dx)Start: 05-26-2024 End: 83-41-1938Uecifwjua encounterLi Aichholz STEAM BOX TENDER Work Phone: [facility] FMStart: 04-18-2024 End: 28-05-5937TtjrynMqtm Aichholz STEAM BOX TENDER Work Phone: [facility] C[facility] FMComment on above:Mild episode of recurrent major depressive disorder (HCC) (CMS/HCC); Generalized anxiety disorder (CMS/HCC)Start: 03-22-2024 End: 60-10-8593FnbrcgDbrh Aichholz STEAM BOX TENDER Work Phone: [facility] FMComment on above:WheezingStart: 02-11-2024 End: 91-87-6015Ijvsck flowsheetLisa Aichholz STEAM BOX TENDER Work Phone: [facility] FMStart: 02-11-2024 End: 33-41-1033Hjplkb flowsheetLisa Aichholz STEAM BOX TENDER Work Phone: [facility] FMStart: 02-11-2024 End: 94-01-7338Hrkpnp outpatient visit 25 minutesLisa Aghholz STEAM BOX TENDER Work Phone: [facility] C[facility] FMComment on above:Generalized anxiety disorder (CMS/HCC) (Primary Dx); Mild episode of recurrent major depressive disorder (HCC) (CMS/HCC); Degenerative disc disease, cervical; Fibromyalgia; Obesity (BMI 30-39.9); Cervical radicular painStart: 02-11-2024 End: 37-79-0334btwojxgjzoCFUN SATISHot AvailableStart: 08-21-2023 End: 81-89-2411vrubhrhljwSjyqhhb R NILLFacility: KtwalkStart: 08-02-2023 RefillLisa Ivory CEVALLOS Work Phone: n[facility] CWM FMComment on above:Primary insomnia (Primary Dx)Start: 07-31-2023 End: 05-01-5147ywmnzfuiktCLLA J AICHHOLZFacility: tart: 07-31-2023 End: 28-29-4035Hthufgv encounter procedureMichael R NILL General Surgery Nill/[facility]aid [place] Start: 07-03-2023 End: 73-27-5638jwsokkotplVwcqqeo R NILLFacility:[facility] CenterueStart: 07-03-2023 End: 00-78-6454Zphpffs encounter procedureMichael R NILL General Surgery Nill/[facility]aid [place] Start: 84-57-5443kexuafqymnPY-C JENNIFER PERRY Facility: ueStart: 03-20-2023 End: 58-04-7458mklaqtsnlyBGRYB P MATHAIFacility:[facility] HospitalStart: 03-12-2023 End: 57-29-0344dcrqygxogqOE-C JENNIFER E PERRYFacility:[facility]ueStart: 03-12-2023 End: 71-54-8917Jezmvbs encounter procedureHUNG DELACRUZ [facility] [place] start: 11-16-2022 End: 34-78-7733vbjanuaowzCZBonnie NIELSEN .Facility:S1Nocix: 10-16-2022 End: 17-05-4394ncrrxkmrbbRRLAI PARKERFacility:Y4Fhrpa: 10-15-2022 End: 99-30-4823aejfqikmfoNTI ELLEN AICHHOLZFacility:K6Lmgno: 08-30-2022 End: 38-52-1253okevsclflqCH JESUS Ade WESTFacility:N4Cbzwz: 08-17-2022 End: 18-05-0604prcedkeyxdVT ABEBA DOTSON .Facility:Z2Tqqyw: 96-68-8247zriumcsyem SALES ADMINISTRATION MANAGER ELLEN AICHHOLZFacility:P2Spdjz: 02-27-2022 End: 48-29-9598iswrgepewtKPQ ELLEN AICHJASIELFacility:H3Worju: 02-14-2022 End: 33-04-1107Zuqdtua encounter procedureLisa Aichholz Work Phone: [facility]aStart: 02-14-2022 End: 78-47-6332eubeepdglrFlwzaj Elskens Other [place] Other start: 20-94-6704Rlgdko outpatient visit 15 minutes [facility]les [facility]surgeryStart: 12-06-2021 End: 87-04-7038spbpgtnrkeSWK ELLEN IVORYFacility:M0Hlvkc: 70-63-9675Pxhxjk outpatient visit 15 minutesMyles RamirezEugenia [facility] NeurosurgeryStart: 01-15-2017 End: 52-71-5911KjhccsiripRBCPWGL PHYSICIANFacility:[facility] Procedures DateProcedureProcedure DetailPerforming ClinicianStart: 56-13-0501JPHASHRT URINE CULTURELisa Aichholz STEAM BOX TENDER Work Phone: Start: 86-47-2221VCXUMZHOSP, COMPLETE W/REFLEX TO CULTURELisa Aichholz STEAM BOX TENDER Work Phone: Start: 09-82-3746HhloxrtkpnyAebs Aichholz STEAM BOX TENDER Work Phone: Start: 47-21-7834DtrmyvnxgdkZxjc Ancelmojasiel STEAM BOX TENDER Work Phone: Start: 15-81-8127Nothutsvjavv right oophorectomy HUNG DELACRUZ Start: 80-49-4441QgfjdluketqMcne Ancelmojasiel STEAM BOX TENDER Work Phone: Start: 48-09-9121S-ray of cervical spineLisa Aicjasiel Work Phone: Abdominal hysterectomyMichael NILL Arthroscopy of shoulderMichael NILL HysterectomyMichael NILL LaparoscopyMichael NILL Comment on above:x3 or 4Lysis of adhesionsMichael NILL TonsillectomyMichael NILL Plan of Treatment DateCare ActivityDetailAuthorStart: 14-47-4249Yunpepbue for malignant neoplasm of colonNOMS HealthcareStart: 96-45-5295Petgllfgq for malignant neoplasm of breastMammogramNOMS HealthcareStart: 05-04-2025 End: 08-45-6343Asvuatz encounter refxvpjhf55/11/2025 1:00 PM EST Office Visit [facility] [address] [place] [phone] Ellen Dodson NP [address] [place] [address] MARCO WARD FMStart: 74-47-0950Lpmqicela vaccinationInfluenza Vaccine (#1)[facility] HealthcareStart: 02-01-2025 End: 39-90-6419Dkopnka encounter bvxxdvcob76/11/2025 2:40 PM EDT Office Visit [facility] [address] [place] [phone] Ellen Dodson, STEAM BOX TENDER [address] [place] [phone] Insomnia, unspecified type (Primary Dx); Sedative, hypnotic or anxiolytic dependence, uncomplicated (HCC); Primary hypertension ; Obesity (BMI 30-39.9)N[facility] CWM FMComment on above:Insomnia, unspecified type (Primary Dx); Sedative, hypnotic or anxiolytic dependence, uncomplicated (HCC); Primary hypertension ; Obesity (BMI 30-39.9)Start: 11-26-2024 End: 78-94-8645Zryfone encounter tzakhfpcm39/05/2025 2:20 PM EDT Office Visit [facility] FM [address] [place] [phone] Ellen Dodson, STEAM BOX TENDER [address] [place] [phone] [facility] C[facility] FMStart: 27-20-8766[facility]auungkzkK[facility] Start: 10-13-2024 End: 08-75-6962Ofpsupq encounter procedureNOMS CW FMComment on above:Abnormal weight gain (Primary Dx); Cigarette nicotine dependence without complicationStart: 09-14-2024 End: 14-76-6486Faxmkat encounter procedureNOMS CWM FMComment on above:Primary hypertension (CMS/HCC) (Primary Dx); Obesity (BMI 30-39.9); Generalized anxiety disorder (CMS/HCC); Mild episode of recurrent major depressive disorder (HCC) (CMS/HCC); Cigarette nicotine dependence without complicationStart: 75-12-9589Fsnwnzkdo vaccinationInfluenza Vaccine (#1)[facility] HealthcareComment on above:Postponed from 02/23/2024 (Patient Refused)Start: 08-13-2024 End: 60-62-1926Ppylhnrlvr with microscopic (reflex culture if indicated) Urinalysis with microscopic (reflex culture if indicated) Lab Routine Abnormal urine finding Expected: 08/13/2024 (Approximate), Expires: 07/30/2025[facility] Work Phone: Comment on above:Expected: 08/13/2024 (Approximate), Expires: 07/30/2025Start: 07-28-2024 End: 02-87-7040Dwzrxdvavyws / ancillary services xttyxvkhhr67/04/2025 11:30 AM EST Ancillary Procedure [facility] [address] [place] [phone] [facility] IMAGINGStart: 07-14-2024 End: 25-51-7447ZLI W Auto Differential panel - BloodCBC and differential Lab Routine Tobacco dependence Expected: 07/14/2024 (Approximate), Expires: [facility] HealthcareComment on above:Expected: 07/14/2024 (Approximate), Expires: 07/14/2025Start: 07-14-2024 End: 58-30-7038Qwodmqqwjsygh metabolic 2000 panel - Serum or PlasmaComprehensive metabolic panel Lab Routine Primary hypertension (CMS/HCC) Mixed hyperlipidemia (CMS/HCC) Expected: 07/14/2024 (Approximate), Expires: 07/14/2025NOMS HealthcareComment on above:Expected: 07/14/2024 (Approximate), Expires: 07/14/2025Start: 07-14-2024 End: 20-87-9959Ipxgt 1996 panel - Serum or PlasmaLipid panel Lab Routine Mixed hyperlipidemia (CMS/HCC) Expected: 07/14/2024 (Approximate), Expires:07/14/2025 [facility] Work Phone: Comment on above:Expected: 07/14/2024 (Approximate), Expires: 07/14/2025Start: 07-14-2024 End: 19-89-2737Iwqgotrtbfyl/Creatinine panel in random UrineMicroalbumin / creatinine, urine ratio Lab Routine Primary hypertension (CMS/HCC) Expected: 07/14/2024 (Approximate), Expires: 07/14/2025NOMS HealthcareComment on above: Expected: 07/14/2024 (Approximate), Expires: 07/14/2025Start: 07-14-2024 End: 62-52-9425Aikcxcn encounter procedureNOMS CWM FMComment on above:Primary hypertension (CMS/HCC) (Primary Dx); Obesity (BMI 30-39.9); COVID; Subacute pansinusitis; Tobacco dependence; Primary insomnia; Mixed hyperlipidemia (CMS/HCC)Start: 07-14-2024 End: 51-99-0720Dsmqscuvsr complete panel - UrineUrinalysis with reflex microscopic (clean catch) Lab Routine Primary hypertension (CMS/HCC) Tobacco dependence Expected: 07/14/2024 (Approximate), Expires: 07/14/2025NOAL HealthcareComment on above:Expected: 07/14/2024 (Approximate), Expires: 07/14/2025Start: 06-29-2024 End: 00-17-7603Qcafcea encounter phovwubec57/06/2025 2:40 PM EST Office Visit [facility] [address] [place] [phone] Ellen Dodson, BAN [address] [place] [phone] [facility] FMStart: 06-29-2024 End: 77-27-8729ZK Breast - bilateral ScreeningBilateral screening mammogram Imaging Routine Encounter for screening mammogram for malignant neoplasm of breast Expected: 06/29/2024 (Approximate), Expires: 08/27/2025[facility] Work Phone: Comment on above:Expected: 06/29/2024 (Approximate), Expires: 08/27/2025Start: 06-25-2024 End: 65-35-2386Ssrroce encounter zgazvqmmu74/02/2025 1:20 PM EST Office Visit [facility] [address] [place] [address] Ellen Dodson, BAN [address] [place] [phone] [facility] FMStart: 12-01-8991Owaisvfqr vaccinationInfluenza Vaccine (#1)[facility]S HealthcareComment on above:Postponed from 02/23/2024 (Patient Does Not Have Time)Start: 04-13-2024 End: 72-51-4052Ajyapwi encounter wxxartvxf90/21/2024 1:00 PM EDT Office Visit [facility] [address] [place] [address] Ellen Dodson, STEAM BOX TENDER [address] [place] [address] [facility] FMStart: 88-99-1835Wauunltyy vaccinationInfluenza Vaccine (#1)[facility] HealthcareStart: 02-11-2024 End: 05-30-4872Dmnfbzl encounter hazxloiqv63/20/2024 1:40 PM EDT Office Visit [facility] [address] [place] [phone] Ellen Dodson, STEAM BOX TENDER [address] [place] [address] ArrivedNOAL CW FMComment on above:ArrivedStart: 08-31-2023 Screening for malignant neoplasm of breastMammogramNOMS HealthcareStart: 96-40-5762Qqelbbgwf vaccinationInfluenza Vaccine (#1)[facility] HealthcareStart: 78-27-3222Jakjajfqf for malignant neoplasm of cervixHPV/CotestNOMS Healthcare Start: 78-59-3751Omgchvjki for malignant neoplasm of cervixPap SmearNOMS HealthcareStart: 80-42-9397Gvpwuyqkh for malignant neoplasm of colonNOMS Healthcare Immunizations Immunization DateImmunizationNotesCare AuvcczicPzmeyszt85-50-4423Qlvqovdda, injectable, Madin Gravette Canine Kidney, preservative free, quadrivalentLisa Aichholz STEAM BOX TENDER Work Phone: [facility] SystemWpbaachubu27-06-9043ohkakzcur virus vaccine, unspecified formulationLisa Aichholz STEAM BOX TENDER Work Phone: [facility] SystemPajllsdepf83-44-0470Znupgal -40 Mary Ramirez Other [employer] Other [id number] -40 Mary Raimrez Other [employer] Other NEGATED: Highlighted row has not occurred!07-31-2023 influenza virus vaccine, unspecified formulationMichael NILL General Surgery Yuly Payers DatePayer CategoryPayerPolicy [id number] 2023Unknown2022Medicaid [employer] [place] [id number] 2022-Present [address] [place], [id number] Private Health [id number] [id number] 2.16.840.1.454249.3.57[id number] 2..840.1.650261.3.57[id number] 2..840.1.748197.3.57[id number] 2.16.840.1.430424.3.579.2.44047-00-5990Ykybtfv2487919 2.16.840.1.061938.3.579.2.35224-71-1938Knkcfeq3503959 2..840.1.013625.3.579.2.58519-57-6322Jzutewf8542330 2.16.840.1.818402.3.579.2.49197-65-9443Raifhsl4133114 2.840.1.026004.3.579.2.34656-72-3847Ykeqmnz74668587 2.840.1.299790.3.579.2.60259-41-6487Qqrgphl36870695 2.840.1.433110.3.579.2.80598-82-2614Rnnrtct17819529 2.840.1.942477.3.579.2.35624-56-5107Nzaomjn19975436 2.840.1.318826.3.579.2.547403-92-8859Qlmbshv6018601 2.840.1.307160.3.579.2.829476-34-6353Afuwhuu0278965 2.840.1.878082.3.579.2.030310-60-7052Eeauivc3583181 2.0.1.488165.3.579.2.555973-81-2335Lqwmkhq7217578 2.840.1.982983.3.579.2.808455-33-3066Yyvdhsk9604369 2.0.1.519949.3.579.2.613681-67-7341Nojaxbi0576518 2.840.1.319917.3.579.2.028202-29-8880Liucvmm961731873 2.840.1.897744.3.579.2.745243-04-6134Ikpamgr559994998 2.840.1.471511.3.579.2.827082-00-7707Tnifrpw14816662 2.840.1.573115.3.579.2.1286 [id number] 2.0.3.751612.09413584-95-5357Qserdc[id number] 2.16.840.1.629629.49Lhomlrf74467343 2.0.1.298007.30Xkssejv62631308 2.0.1.228533.3.579.2.531Worker's [id number] Social History DateTypeDetailFacilityUnknown if ever smokedNort Rouxbe Other start: 06-03-2023 End: 65-06-8331Zcd [facility] 09-[facility]-2020 End: 77-57-5623Zqljnge smoking status NHISSmoker (finding)[facility] 98-19-2373I[facility] statusNo Smoking Status EnteredGeneral [facility] [place] Start: 64-95-5455Osiuusi smoking statusHeavy tobacco smoker (finding)[facility] smoking statusFormer smokeless tobacco user, quit more than 30 days agoGeneral Surgery BellThe [facility] Centertart: 33-25-1179Frrmeba smoking status NHISEx-smokerNOMS Healthcare End: [id number] of tobacco useCigarette SmokerNOMS HealthcareStart: 06-04-2023 End: [id number] intakeCurrent drinker of alcohol (finding)[facility] Start: 06-03-2023 End: [id number] of Social functionNOMS HealthcareWithin the last year, have you been afraid of your partner or ex-partner?NoNOMS HealthcareAre you now , , , , never or living with a partner? Living with partnerNOMS HealthcareHow often to you have a drink containing alcohol?NeverNOMS HealthcareHow hard is it for you to pay for the very basics like food, housing, medical care, and heatingHardNOMS HealthcareDo you feel stress - tense, restless, nervous, or anxious, or unable to sleep at night because yourmind is troubled all the time - these days [OSQ]Very muchNOMS Healthcare(I/We) worried whether (my/our) food would run out before (I/we) got money to buy more.Sometimes trueNOMS HealthcareIn the past 12 months, was there a time when you were not able to pay the mortgage or rent on time?YesNOMS HealthcareStart: [id number] CommentAlcohol: 1-2 drinks/monthly or less NOMS HealthcareStart: [id number] Assigned At BirthNot on [facility] Start: 08-24-2024 End: [id number] (finding)[facility] Medical Equipment Procedure CodeEquipment CodeEquipment Original TextEquipment IdentifierDates Cervical total disc replacement prosthesis, sterile ()[id number] FDAStart: 54-16-5200Olhmtgen total disc replacement prosthesis, sterile()[id number] FDAStart: 05-19-2019 Functional Status Oopj[id number] StatusN/AGen[facility] [place] Clinical Notes 02-22-2018 to 02-01-2025 Note Date & [id number] History of Present illness Narrative* Ellen Dodson, [employer] - 02/01/2025 3:25 PM EDTAssociated Problem(s): Obstructive sleep apnea You have a diagnosis of obstructive sleep apnea. It is recommended that you wear your PAP device any time while in bed sleeping. Not using the PAP device can increase your risk of elevated/uncontrolled high blood pressure, atrial fibrillation, heart attack, stroke, or sudden . Compliant with PAP: not, cannot wear mask, causes severe skin break outs Looking into inspire Had repeat sleep study, mild, sleep med doc recommend trial zepbound * ERIN LUCERO - 02/01/2025 2:40 PM EDT Pt had her sleep appt done however the weight is connected to her sleep apnea and the dr recommended the switch to zepbound Off adipex since 12/11 * Ellen Dodson NP - 02/01/2025 2:40 PM EDT Images from the original note were not included. Prashant Mullins is a 49 y.o. female presents with chief complaint of Weight Check HPI: Here for recheck Hx htn: stable on current meds she is taking Has had a sleep study, has sleep apnea, difficulty wearing mask t/o face breakout She has had more recent sleep study, which mild positive However her sleep med provider (she was seeing about inspire) he would like to see if she could getzepbound for treatment of obesity with sleep apnea First test 2017 SUBJECTIVE: MEDICATIONS: Current Outpatient Medications Medication Instructions Aimovig 140 mg, Subcutaneous, Every 28 days albuterol HFA 90 mcg/act inhaler 2 puffs, Inhalation, Every 6 hours PRN albuterol 2.5 mg, Nebulization, Every 6 hours PRN baclofen (LIORESAL) 20 mg, As needed Bioflavonoid Products (Vitamin C) chewable tablet as directed Orally carvedilol (COREG) 6.25 mg, Oral, 2 times daily hydroCHLOROthiazide (HYDRODIURIL) 25 mg, Oral, Daily mometasone (Elocon) 0.1 % ointment Once a day to affected area for 14 days, then thin area twice a week if needed, avoid use on face Multiple Vitamin (Multi-Vitamin) tablet Every 24 hours oxybutynin XL (DITROPAN-XL) 5 mg, Daily phentermine (ADIPEX-P) 37.5 mg, Oral, Daily before breakfast simvastatin (ZOCOR) 40 mg, Oral, Nightly venlafaxine XR (EFFEXOR XR) 150 mg, Oral, Daily, Take with food. zolpidem (AMBIEN) 10 mg, Oral, Nightly ALLERGIES: Allergies Allergen Reactions Gabapentin Shortness of breath and Other Fatigue and lethargic Hydrochlorothiazide Shortness of breath Atorvastatin Unknown Ciprofloxacin Hives and GI intolerance Hydrocodone-Acetaminophen GI intolerance, Unknown and Other Lisinopril Unknown Meloxicam Unknown Phenazopyridine GI intolerance Prednisone Other REVIEW OF SYMPTOMS: Review of Systems Constitutional: Negative for appetite change, chills and fever. HENT: Negative for congestion, ear pain and sore throat. Eyes: Negative for pain, discharge, redness and visual disturbance. Respiratory: Negative for cough, shortness of breath and wheezing. Cardiovascular: Negative for chest pain, palpitations and leg swelling. Gastrointestinal: Negative for abdominal pain, blood in stool, constipation, diarrhea, nausea and vomiting. Genitourinary: Negative for difficulty urinating, dysuria and frequency. Musculoskeletal: Negative for arthralgias, back pain, joint swelling and myalgias. Skin: Negative for rash and wound. Neurological: Negative for dizziness, tremors, seizures, syncope and headaches. Psychiatric/Behavioral: Negative for behavioral problems, self-injury and suicidal ideas. The patient is not nervous/anxious. Hematological: Does not bruise/bleed easily. Endocrine: Negative for polydipsia, polyphagia and polyuria. Allergic/Immunologic: Negative for environmental allergies and food allergies. PAST MEDICAL HISTORY Past Medical History: Diagnosis Date Allergic rhinitis 08/05/2023 Anxiety 08/05/2023 Cervical radicular pain Degenerative disc disease, cervical Depression 08/05/2023 Dyslipidemia 08/05/2023 Edema 08/05/2023 Elevated sed rate Elevated serum protein level 08/05/2023 Fibromyalgia Insomnia Migraine without aura, not intractable 06/04/2023 Obesity (BMI 30-39.9) 06/04/2023 Obstructive sleep apnea Screening for colon cancer 06/04/2023 Tobacco dependence 06/04/2023 Past Surgical History: Procedure Laterality Date HYSTERECTOMY 03/2008 SHOULDER ARTHROSCOPY Right 02/2018 family history includes Heart disease in her father; Hyperlipidemia in her father; Hypertension in her father and mother; No Known Problems in her daughter and son. OBJECTIVE: Visit Vitals BP 110/80 (BP Location: Left arm, Patient Position: Sitting, BP Cuff Size: Adult long) Pulse 86 Temp 98.1 F (Temporal) Resp 18 Wt 169 lb 12.8 oz SpO2 99% BMI 30.56 kg/m Smoking Status Former BSA 1.84 m Physical Exam Vitals and nursing note reviewed. Constitutional: General: She is not in acute distress. Appearance: Normal appearance. HENT: Head: Normocephalic and atraumatic. Right Ear: External ear normal. Left Ear: External ear normal. Nose: Nose normal. Mouth/Throat: Mouth: Mucous membranes are moist. Eyes: Extraocular Movements: Extraocular movements intact. Conjunctiva/sclera: Conjunctivae normal. Neck: Vascular: No carotid bruit. Cardiovascular: Rate and Rhythm: Normal rate and regular rhythm. Pulses: Normal pulses. Heart sounds: Normal heart sounds. Pulmonary: Effort: Pulmonary effort is normal. Breath sounds: Normal breath sounds. Abdominal: General: Bowel sounds are normal. There is no distension. Palpations: Abdomen is soft. There is no mass. Tenderness: There is no abdominal tenderness. Musculoskeletal: General: Normal range of motion. Cervical back: Normal range of motion and neck supple. Right lower leg: No edema. Left lower leg: No edema. Skin: General: Skin is warm and dry. Capillary Refill: Capillary refill takes 2 to 3 seconds. Findings: No rash. Neurological: General: No focal deficit present. Mental Status: She is alert and oriented to person, place, and time. Psychiatric: Mood and Affect: Mood normal. Behavior: Behavior normal. Thought Content: Thought content normal. Judgment: Judgment normal. ASSESSMENT AND PLAN: No follow-ups on file. Problem List Items Addressed This Visit Obesity (BMI 30-39.9) Discussed with patient their BMI (actual, verses recommended). We have also discussed lifestyle modifications: attempts to perform physical activity as chronic conditions allow, also to monitor dietary intake: increasing protein/fruits/veggies and lowering carb intake (unless contraindicated). Limit sodas, juices, and sugary drinks. Primary hypertension Please check blood pressure daily and record DASH diet Limit caffeine Take medication as directed Contact office if chest pain, pressure, dizziness, shortness of breath, swelling legs Recommend slow position changes Current med: carvedilol , as well as HCTZ Relevant Medications carvedilol (Coreg) 6.25 MG tablet hydroCHLOROthiazide (HYDRODiuril) 25 MG tablet Obstructive sleep apnea You have a diagnosis of obstructive sleep apnea. It is recommended that you wear your PAP device any time while in bed sleeping. Not using the PAP device can increase your risk of elevated/uncontrolled high blood pressure, atrial fibrillation, heart attack, stroke, or sudden . Compliant with PAP: not, cannot wear mask, causes severe skin break outs Looking into inspire Had repeat sleep study, mild, sleep med doc recommend trial zepbound Relevant Medications Tirzepatide-Weight Management (Zepbound) 2.5 MG/0.5ML solution auto-injector Tirzepatide-Weight Management (Zepbound) 5 MG/0.5ML solution auto-injector Insomnia - Primary Uses ambien nightly OARRS reviewed Med agreement signed: 07/14/24 Relevant Medications zolpidem (Ambien) 10 MG tablet Generalized anxiety disorder Relevant Medications venlafaxine XR (Effexor XR) 150 MG 24 hr capsule Other Visit Diagnoses Sedative, hypnotic or anxiolytic dependence, uncomplicated (HCC) Dyslipidemia Relevant Medications simvastatin (Zocor) 40 MG tablet * Ellen Dodson NP - 02/01/2025 7:26 AM EDTAssociated Problem(s): Obesity (BMI 30-39.9) Discussed with patient their BMI (actual, verses recommended). We have also discussed lifestyle modifications: attempts to perform physical activity as chronic conditions allow, also to monitor dietary intake: increasing protein/fruits/veggies and lowering carb intake (unless contraindicated). Limit sodas, juices, and sugary drinks. * Ellen Dodson NP - 02/01/2025 7:26 AM EDTAssociated Problem(s): Primary hypertension Please check blood pressure daily and record DASH diet Limit caffeine Take medication as directed Contact office if chest pain, pressure, dizziness, shortness of breath, swelling legs Recommend slow position changes Current med: carvedilol , as well as HCTZ * Ellen Dodson NP - 02/01/2025 7:25 AM EDTAssociated Problem(s): Insomnia Uses danielle RUIZ reviewed Med agreement signed: 07/14/24 documented in this [facility]08-11-2025 Instructions* Patient Instructions* Ellen Dodson NP - 02/01/2025 2:40 PM EDT Will see if can get zepbound approved documented in this [facility]04-22-2025 History of Present illness Narrative* Ellen Dodson NP - 10/13/2024 3:54 PM EDTAssociated Problem(s): Mild episode of recurrent major depressive disorder (HCC) (CMS/HCC) PHQ 9=6 * Ellen Dodson NP - 10/13/2024 3:49 PM EDTAssociated Problem(s): Primary hypertension (CMS/HCC) Please check blood pressure daily and record DASH diet Limit caffeine Take medication as directed Contact office if chest pain, pressure, dizziness, shortness of breath, swelling legs Recommend slow position changes Current med: carvedilol , as well as HCTZ * Ellen Dodson NP - 10/13/2024 3:49 PM EDTAssociated Problem(s): Insomnia Dejan RUIZ reviewed Med agreement signed: 07/14/24 * Ellen Dodson NP - 10/13/2024 3:00 PM EDT Images from the original note were not included. Prashant Mullins is a 49 y.o. female presents with chief complaint of Hypertension HPI: Here for adipex: completed month #1, 4 pounds lost, no side effects on meds, would like to continue Rash: recurrent, itchy, no correlation to anything, today is on left heel area, blisters, then peeling skin has taken steroids in the past which helps, wants to avoid oral steroids Hypertension This is a chronic problem. The current episode started more than 1 year ago. The problem is unchanged. The problem is controlled. Associated symptoms include headaches. Pertinent negatives include noblurred vision, chest pain, palpitations, peripheral edema or shortness of breath. There are no associated agents to hypertension. Risk factors for coronary artery disease include dyslipidemia, obesity and sedentary lifestyle. Past treatments include beta blockers and diuretics. The current treatment provides significant improvement. There are no compliance problems. There is no history of kidneydisease, heart failure or PVD. SUBJECTIVE: MEDICATIONS: Current Outpatient Medications Medication Instructions Aimovig 140 mg, Every 28 days albuterol HFA 90 mcg/act inhaler 2 puffs, Inhalation, Every 6 hours PRN albuterol 2.5 mg, Nebulization, Every 6 hours PRN baclofen (LIORESAL) 20 mg, As needed Bioflavonoid Products (Vitamin C) chewable tablet as directed Orally carvedilol (COREG) 6.25 mg, Oral, 2 times daily hydroCHLOROthiazide (HYDRODIURIL) 25 mg, Oral, Daily Multiple Vitamin (Multi-Vitamin) tablet Every 24 hours oxybutynin XL (DITROPAN-XL) 5 mg, Daily phentermine (ADIPEX-P) 37.5 mg, Oral, Daily before breakfast simvastatin (ZOCOR) 40 mg, Oral, Nightly venlafaxine XR (EFFEXOR XR) 150 mg, Oral, Daily, Take with food. zolpidem (AMBIEN) 10 mg, Oral, Nightly ALLERGIES: Allergies Allergen Reactions Gabapentin Shortness of breath and Other Fatigue and lethargic Hydrochlorothiazide Shortness of breath Atorvastatin Unknown Ciprofloxacin Hives and GI intolerance Hydrocodone-Acetaminophen GI intolerance, Unknown and Other Lisinopril Unknown Meloxicam Unknown Phenazopyridine GI intolerance Prednisone Other REVIEW OF SYMPTOMS: Review of Systems Constitutional: Negative for appetite change, chills and fever. HENT: Negative for congestion, ear pain and sore throat. Eyes: Negative for blurred vision, pain, discharge, redness and visual disturbance. Respiratory: Negative for cough, shortness of breath and wheezing. Cardiovascular: Negative for chest pain, palpitations and leg swelling. Gastrointestinal: Negative for abdominal pain, blood in stool, constipation, diarrhea, nausea and vomiting. Genitourinary: Negative for difficulty urinating, dysuria and frequency. Musculoskeletal: Negative for arthralgias, back pain, joint swelling and myalgias. Skin: Positive for rash. Negative for wound. Neurological: Positive for headaches. Negative for dizziness, tremors, seizures and syncope. Psychiatric/Behavioral: Negative for behavioral problems, decreased concentration, self-injury and suicidal ideas. The patient is nervous/anxious. Depression Hematological: Does not bruise/bleed easily. Endocrine: Negative for polydipsia, polyphagia and polyuria. Allergic/Immunologic: Negative for environmental allergies and food allergies. PAST MEDICAL HISTORY Past Medical History: Diagnosis Date Allergic rhinitis 08/05/2023 Anxiety 08/05/2023 Cervical radicular pain Degenerative disc disease, cervical Depression (CMS/HCC) 08/05/2023 Dyslipidemia (CMS/HCC) 08/05/2023 Edema 08/05/2023 Elevated sed rate Elevated serum protein level 08/05/2023 Fibromyalgia Insomnia Migraine without aura, not intractable 06/04/2023 Obesity (BMI 30-39.9) 06/04/2023 Obstructive sleep apnea Screening for colon cancer 06/04/2023 Tobacco dependence 06/04/2023 Past Surgical History: Procedure Laterality Date HYSTERECTOMY 03/2008 SHOULDER ARTHROSCOPY Right 02/2018 family history includes Heart disease in her father; Hyperlipidemia in her father; Hypertension in her father and mother; No Known Problems in her daughter and son. OBJECTIVE: Visit Vitals BP 110/84 (BP Location: Left arm, Patient Position: Sitting, BP Cuff Size: Adult long) Pulse 86 Temp 98.5 F (Temporal) Resp 18 Wt 174 lb 6.4 oz SpO2 99% BMI 31.39 kg/m Smoking Status Former BSA 1.87 m Physical Exam Vitals and nursing note reviewed. Constitutional: General: She is not in acute distress. Appearance: Normal appearance. HENT: Head: Normocephalic and atraumatic. Right Ear: External ear normal. Left Ear: External ear normal. Nose: Nose normal. Mouth/Throat: Mouth: Mucous membranes are moist. Eyes: Extraocular Movements: Extraocular movements intact. Conjunctiva/sclera: Conjunctivae normal. Cardiovascular: Rate and Rhythm: Normal rate and regular rhythm. Pulses: Normal pulses. Heart sounds: Normal heart sounds. Pulmonary: Effort: Pulmonary effort is normal. Breath sounds: Normal breath sounds. Abdominal: General: Bowel sounds are normal. There is no distension. Palpations: Abdomen is soft. There is no mass. Tenderness: There is no abdominal tenderness. Musculoskeletal: General: Normal range of motion. Cervical back: Normal range of motion and neck supple. Right lower leg: No edema. Left lower leg: No edema. Skin: General: Skin is warm and dry. Capillary Refill: Capillary refill takes 2 to 3 seconds. Findings: No rash (left inner heel area, peeling skin, mild erythema). Neurological: General: No focal deficit present. Mental Status: She is alert and oriented to person, place, and time. Psychiatric: Mood and Affect: Mood normal. Behavior: Behavior normal. Thought Content: Thought content normal. Judgment: Judgment normal. ASSESSMENT AND PLAN: No follow-ups on file. Problem List Items Addressed This Visit Primary hypertension (CMS/HCC) Please check blood pressure daily and record DASH diet Limit caffeine Take medication as directed Contact office if chest pain, pressure, dizziness, shortness of breath, swelling legs Recommend slow position changes Current med: carvedilol , as well as HCTZ Relevant Medications hydroCHLOROthiazide (HYDRODiuril) 25 MG tablet carvedilol (Coreg) 6.25 MG tablet Insomnia Uses ambien nightly OARRS reviewed Med agreement signed: 07/14/24 Relevant Medications zolpidem (Ambien) 10 MG tablet Generalized anxiety disorder (CMS/HCC) Mild episode of recurrent major depressive disorder (HCC) (CMS/HCC) PHQ 9=6 Cigarette nicotine dependence without complication The patient has been advised of the risks of continued smoking: stroke, VA, all forms of cancer, lung disease, and . Options for quitting smoking include: cold turkey, hypnosis, acupuncture, nicotine replacement meds(gum, lozenges, and patches), Buproprion, and Varenicline. At this time pt is encouraged to evaluate their goals for wanting to quit smoking, and reach out toprovider when ready to start this process Abnormal weight gain - Primary Pt meets qualifications of [facility] 4731-04-27 for weight loss. BMI>30 or >27 with comorbid conditions. Notify office with any symptoms of chest pain, dyspnea, heart palpitations, or any anxiety symptoms. F/U in 4 weeks to document weight loss. Increase physical activity as tolerated, and lower caloric intake to 1600 calories daily if no contraindications Month: #2 OARRS reivewed Starting weight; 178 (09/14/24) Eczema Relevant Medications mometasone (Elocon) 0.1 % ointment Other Visit Diagnoses Dyslipidemia (CMS/HCC) Relevant Medications simvastatin (Zocor) 40 MG tablet * Ellen Dodson NP - 10/13/2024 7:02 AM EDTAssociated Problem(s): Cigarette nicotine dependence without complication The patient has been advised of the risks of continued smoking: stroke, VA, all forms of cancer, lung disease, and . Options for quitting smoking include: cold turkey, hypnosis, acupuncture, nicotine replacement meds(gum, lozenges, and patches), Buproprion, and Varenicline. At this time pt is encouraged to evaluate their goals for wanting to quit smoking, and reach out toprovider when ready to start this process * Ellen Dodson NP - 10/13/2024 7:02 AM EDTAssociated Problem(s): Abnormal weight gain Pt meets qualifications of [facility] 4731-04-27 for weight loss. BMI>30 or >27 with comorbid conditions. Notify office with any symptoms of chest pain, dyspnea, heart palpitations, or any anxiety symptoms. F/U in 4 weeks to document weight loss. Increase physical activity as tolerated, and lower caloric intake to 1600 calories daily if no contraindications Month: #2 OARRS reivewed Starting weight; 178 (09/14/24) documented in this encounterDeaconess Incarnate Word Health [id number] Instructions* Patient Instructions* Ellen Dodson NP - 10/13/2024 3:00 PM EDT Mometasone ointment, daily to affected area for 14 days, then cut back to twice a week Only apply a thin layer documented in this encounterDeaconess Incarnate Word Health [id number] History of Present illness Narrative* Ellen Dodson NP - 09/14/2024 3:26 PM EDTAssociated Problem(s): Abnormal weight gain Pt meets qualifications of [facility] 4731-04-27 for weight loss. BMI>30 or >27 with comorbid conditions. Notify office with any symptoms of chest pain, dyspnea, heart palpitations, or any anxiety symptoms. F/U in 4 weeks to document weight loss. Increase physical activity as tolerated, and lower caloric intake to 1600 calories daily if no contraindications Month: #1 OARRS reivewed * ERIN LUCERO - 09/14/2024 2:40 PM EDT Adipex * Ellen Dodson NP - 09/14/2024 2:40 PM EDT Images from the original note were not included. Prashant Mullins is a 49 y.o. female presents with chief complaint of No chief complaint on file. HPI: Would like to start adipex: Last time: 12/15 Max weight: 194 lb Goal weight: 135 lb Drink: 1 pop daily, water: propel, collagen in water Calories: protein daily, cut back on carbs Exercise: beginners Yoga, weighted hula hoop, dance fit, and walking Stressors: chronic, son was sent home from [facility] SUBJECTIVE: MEDICATIONS: Current Outpatient Medications Medication Instructions Aimovig 140 mg, Every 28 days albuterol HFA 90 mcg/act inhaler 2 puffs, Inhalation, Every 6 hours PRN albuterol 2.5 mg, Nebulization, Every 6 hours PRN baclofen (LIORESAL) 20 mg, As needed Bioflavonoid Products (Vitamin C) chewable tablet as directed Orally carvedilol (COREG) 6.25 mg, Oral, 2 times daily hydroCHLOROthiazide (HYDRODIURIL) 25 mg, Oral, Daily Multiple Vitamin (Multi-Vitamin) tablet Every 24 hours oxybutynin XL (DITROPAN-XL) 5 mg, Daily phentermine (ADIPEX-P) 37.5 mg, Oral, Daily before breakfast simvastatin (ZOCOR) 40 mg, Oral, Nightly venlafaxine XR (EFFEXOR XR) 150 mg, Oral, Daily, Take with food. zolpidem (AMBIEN) 10 mg, Oral, Nightly ALLERGIES: Allergies Allergen Reactions Gabapentin Shortness of breath and Other Fatigue and lethargic Hydrochlorothiazide Shortness of breath Atorvastatin Unknown Ciprofloxacin Hives and GI intolerance Hydrocodone-Acetaminophen GI intolerance, Unknown and Other Lisinopril Unknown Meloxicam Unknown Phenazopyridine GI intolerance Prednisone Other REVIEW OF SYMPTOMS: Review of Systems Constitutional: Negative for appetite change, chills and fever. HENT: Negative for congestion, ear pain and sore throat. Eyes: Negative for pain, discharge, redness and visual disturbance. Respiratory: Negative for cough, shortness of breath and wheezing. Cardiovascular: Negative for chest pain, palpitations and leg swelling. Gastrointestinal: Negative for abdominal pain, blood in stool, constipation, diarrhea, nausea and vomiting. Genitourinary: Negative for difficulty urinating, dysuria and frequency. Musculoskeletal: Positive for arthralgias. Negative for back pain, joint swelling and myalgias. Skin: Negative for rash and wound. Neurological: Positive for headaches. Negative for dizziness, tremors, seizures and syncope. Psychiatric/Behavioral: Negative for behavioral problems, self-injury and suicidal ideas. The patient is nervous/anxious. Hematological: Does not bruise/bleed easily. Endocrine: Negative for polydipsia, polyphagia and polyuria. Allergic/Immunologic: Negative for environmental allergies and food allergies. PAST MEDICAL HISTORY Past Medical History: Diagnosis Date Allergic rhinitis 08/05/2023 Anxiety 08/05/2023 Cervical radicular pain Degenerative disc disease, cervical Depression (CMS/HCC) 08/05/2023 Dyslipidemia (CMS/HCC) 08/05/2023 Edema 08/05/2023 Elevated sed rate Elevated serum protein level 08/05/2023 Fibromyalgia Insomnia Migraine without aura, not intractable (CMS/HCC) 06/04/2023 Obesity (BMI 30-39.9) 06/04/2023 Obstructive sleep apnea Screening for colon cancer 06/04/2023 Tobacco dependence 06/04/2023 Past Surgical History: Procedure Laterality Date HYSTERECTOMY 03/2008 SHOULDER ARTHROSCOPY Right 02/2018 family history includes Heart disease in her father; Hyperlipidemia in her father; Hypertension in her father and mother; No Known Problems in her daughter and son. OBJECTIVE: Visit Vitals BP 118/84 (BP Location: Left arm, Patient Position: Sitting, BP Cuff Size: Adult long) Pulse 87 Temp 98.1 F (Temporal) Resp 18 Wt 178 lb SpO2 98% BMI 32.04 kg/m Smoking Status Former BSA 1.89 m Physical Exam Vitals and nursing note reviewed. Constitutional: General: She is not in acute distress. Appearance: Normal appearance. HENT: Head: Normocephalic and atraumatic. Right Ear: External ear normal. Left Ear: External ear normal. Nose: Nose normal. Mouth/Throat: Mouth: Mucous membranes are moist. Eyes: Extraocular Movements: Extraocular movements intact. Conjunctiva/sclera: Conjunctivae normal. Cardiovascular: Rate and Rhythm: Normal rate and regular rhythm. Pulses: Normal pulses. Heart sounds: Normal heart sounds. Pulmonary: Effort: Pulmonary effort is normal. Breath sounds: Normal breath sounds. Abdominal: General: Bowel sounds are normal. There is no distension. Palpations: Abdomen is soft. There is no mass. Tenderness: There is no abdominal tenderness. Musculoskeletal: General: Normal range of motion. Cervical back: Normal range of motion and neck supple. Skin: General: Skin is warm and dry. Capillary Refill: Capillary refill takes 2 to 3 seconds. Findings: No rash. Neurological: General: No focal deficit present. Mental Status: She is alert and oriented to person, place, and time. Psychiatric: Mood and Affect: Mood normal. Behavior: Behavior normal. Thought Content: Thought content normal. Judgment: Judgment normal. ASSESSMENT AND PLAN: Follow up in about 4 weeks (around 10/12/2024) for Recheck. Problem List Items Addressed This Visit Obesity (BMI 30-39.9) Discussed with patient their BMI (actual, verses recommended). We have also discussed lifestyle modifications: attempts to perform physical activity as chronic conditions allow, also to monitor dietary intake: increasing protein/fruits/veggies and lowering carb intake (unless contraindicated). Limit sodas, juices, and sugary drinks. Relevant Medications phentermine (Adipex-P) 37.5 MG tablet Primary hypertension (CMS/HCC) - Primary Please check blood pressure daily and record DASH diet Limit caffeine Take medication as directed Contact office if chest pain, pressure, dizziness, shortness of breath, swelling legs Recommend slow position changes Current med: carvedilol , as well as HCTZ Cigarette nicotine dependence without complication The patient has been advised of the risks of continued smoking: stroke, VA, all forms of cancer, lung disease, and . Options for quitting smoking include: cold turkey, hypnosis, acupuncture, nicotine replacement meds(gum, lozenges, and patches), Buproprion, and Varenicline. At this time pt is encouraged to evaluate their goals for wanting to quit smoking, and reach out toprovider when ready to start this process Abnormal weight gain Pt meets qualifications of OAC 4731-04-27 for weight loss. BMI>30 or >27 with comorbid conditions. Notify office with any symptoms of chest pain, dyspnea, heart palpitations, or any anxiety symptoms. F/U in 4 weeks to document weight loss. Increase physical activity as tolerated, and lower caloric intake to 1600 calories daily if no contraindications Month: #1 OARRS reivewed Relevant Medications phentermine (Adipex-P) 37.5 MG tablet * Ellen Dodson NP - 09/14/2024 7:23 AM EDTAssociated Problem(s): Cigarette nicotine dependence without complication The patient has been advised of the risks of continued smoking: stroke, VA, all forms of cancer, lung disease, and . Options for quitting smoking include: cold turkey, hypnosis, acupuncture, nicotine replacement meds(gum, lozenges, and patches), Buproprion, and Varenicline. At this time pt is encouraged to evaluate their goals for wanting to quit smoking, and reach out toprovider when ready to start this process * Ellen Dodson NP - 09/14/2024 7:23 AM EDTAssociated Problem(s): Mild episode of recurrent major depressive disorder (HCC) (CMS/HCC) Last appt increased her effexor d/t anxiety PHQ 9= * Ellen Dodson NP - 09/14/2024 7:22 AM EDTAssociated Problem(s): Generalized anxiety disorder (CMS/HCC) Last appt increased her effexor BIPIN 7= * Ellen Dodson NP - 09/14/2024 7:21 AM EDTAssociated Problem(s): Obesity (BMI 30-39.9) Discussed with patient their BMI (actual, verses recommended). We have also discussed lifestyle modifications: attempts to perform physical activity as chronic conditions allow, also to monitor dietary intake: increasing protein/fruits/veggies and lowering carb intake (unless contraindicated). Limit sodas, juices, and sugary drinks. * Ellen Dodson NP - 09/14/2024 7:21 AM EDTAssociated Problem(s): Primary hypertension (CMS/HCC) Please check blood pressure daily and record DASH diet Limit caffeine Take medication as directed Contact office if chest pain, pressure, dizziness, shortness of breath, swelling legs Recommend slow position changes Current med: carvedilol , as well as HCTZ documented in this [facility]03-24-2025 Instructions* Patient Instructions* Ellen Dodson NP - 09/14/2024 2:40 PM EDT Adipex: Notify office with any symptoms of chest pain, dyspnea, heart palpitations, or any anxiety symptoms. F/U in 4 weeks to document weight loss. Increase physical activity as tolerated, and lowercaloric intake to 1600 calories daily if no contraindications Check blood pressures a few times per week documented in this [facility]03-03-2025 Evaluation note* Diagnosis Onset Date Resolution Status Admit Date Intolerance of continuous positive airwa y pressure (CPAP) [facility] 8:47amObstructive sleep apneaacuteK[facility] 2024 8:47am [facility] Work Phone: [phone]) 790-172202-10-2025 Telephone encounter Note* Telephone Encounter - Ellen Dodson NP - 08/03/2024 8:21 PM EST Please contact pt to see if she wants to come and pick up attendant some ubrelvey for her breakthrough migraine [place]? [place] [facility] [id number] Miscellaneous Notes* Telephone Encounter - Ellen Dodson NP - 08/03/2024 8:21 PM EST Please contact pt to see if she wants to come and pick up attendant some ubrelvey for her breakthrough migraine [place]? [place] documented in this [facility]01-21-2025 History of Present illness Narrative* Ellen Dodson NP - 07/14/2024 3:53 PM ESTAssociated Problem(s): Mixed hyperlipidemia (CMS/HCC) Continue statin * Ellen Dodson NP - 07/14/2024 3:53 PM ESTAssociated Problem(s): Generalized anxiety disorder (CMS/HCC) Would like to increase her effexor script. Her anxiety is increasing, has a son that will be leaving for Would like to increase effexor XR to 150mg daily. We will discontinue the 37.5mg script (was taking3 caps daily) Take medication only as directed. If any suicidal thoughts, thoughts of hurting others, or hallucinations contact the office or proceed to the Emergency Room for mental health evaluation. Medication may cause dry mouth, dizziness, and in some cases worsening in depression symptoms. Please contact the office if these occur. Fu in 6 weeks * Ellen Dodson NP - 07/14/2024 2:44 PM ESTAssociated Problem(s): Needs flu shot Consent sheet signed and VIS given * ERIN LUCERO - 07/14/2024 2:00 PM EST Pt states she started finally feeling better on Saturday. The last fever she had was 101.0 on . Pt states she has not gotten her labs done- she wanted to wait until she was no longer feeling sick Pt is having some pain in her shoulder She can't get in to [facility] with [facility] because she closed. She does not really want to go to [facility] but she doesn't know what to do. Pt states she believes she is due for the effexor 150 * Ellen Dodson, [employer]ER - 07/14/2024 2:00 PM EST Images from the original note were not included. Prashant Mullins is a 49 y.o. female presents with chief complaint of Anxiety HPI: Anxiety Presents for follow-up visit. Symptoms include depressed mood, excessive worry, irritability, muscle tension and nervous/anxious behavior. Patient reports no chest pain, compulsions, decreased concentration, dizziness, insomnia, nausea, palpitations, panic, shortness of breath or suicidal ideas. Symptoms occur most days. The severity of symptoms is moderate. The quality of sleep is good. Compliance with medications is 76-100%. Hypertension This is a chronic problem. The problem is unchanged. The problem is controlled. Associated symptomsinclude anxiety and headaches. Pertinent negatives include no chest pain, orthopnea, palpitations, peripheral edema or shortness of breath. There are no associated agents to hypertension. Risk factors for coronary artery disease include dyslipidemia, obesity and smoking/tobacco exposure. Past treatm ents include beta blockers and diuretics. The current treatment provides significant improvement. There are no compliance problems. SUBJECTIVE: MEDICATIONS: Current Outpatient Medications Medication Instructions Aimovig 140 mg, Every 28 days albuterol HFA (Ventolin HFA) 90 mcg/act inhaler 2 puffs, Inhalation, Every 6 hours PRN albuterol 2.5 mg, Nebulization, Every 6 hours PRN baclofen (LIORESAL) 20 mg, As needed Bioflavonoid Products (Vitamin C) chewable tablet as directed Orally carvedilol (COREG) 6.25 mg, Oral, 2 times daily hydroCHLOROthiazide (HYDRODIURIL) 25 mg, Oral, Daily Multiple Vitamin (Multi-Vitamin) tablet Every 24 hours oxybutynin XL (DITROPAN-XL) 5 mg, Daily simvastatin (ZOCOR) 40 mg, Oral, Nightly venlafaxine XR (EFFEXOR XR) 150 mg, Oral, Daily, Take with food. zolpidem (AMBIEN) 10 mg, Oral, Nightly ALLERGIES: Allergies Allergen Reactions Gabapentin Shortness of breath and Other Fatigue and lethargic Hydrochlorothiazide Shortness of breath Atorvastatin Unknown Ciprofloxacin Hives and GI intolerance Hydrocodone-Acetaminophen GI intolerance, Unknown and Other Lisinopril Unknown Meloxicam Unknown Phenazopyridine GI intolerance Prednisone Other REVIEW OF SYMPTOMS: Review of Systems Constitutional: Positive for irritability. Negative for appetite change, chills and fever. HENT: Negative for congestion, ear pain and sore throat. Eyes: Negative for pain, discharge, redness and visual disturbance. Respiratory: Positive for cough. Negative for shortness of breath and wheezing. Cardiovascular: Negative for chest pain, palpitations, orthopnea and leg swelling. Gastrointestinal: Negative for abdominal pain, blood in stool, constipation, diarrhea, nausea and vomiting. Genitourinary: Negative for difficulty urinating, dysuria and frequency. Musculoskeletal: Positive for arthralgias and myalgias. Negative for back pain and joint swelling. Skin: Negative for rash and wound. Neurological: Positive for headaches. Negative for dizziness, tremors, seizures and syncope. Psychiatric/Behavioral: Negative for behavioral problems, decreased concentration, self-injury and suicidal ideas. The patient is nervous/anxious. The patient does not have insomnia. Hematological: Does not bruise/bleed easily. Endocrine: Negative for polydipsia, polyphagia and polyuria. Allergic/Immunologic: Negative for environmental allergies and food allergies. PAST MEDICAL HISTORY Past Medical History: Diagnosis Date Allergic rhinitis 08/05/2023 Anxiety 08/05/2023 Cervical radicular pain Degenerative disc disease, cervical Depression ([facility]/HCC) 08/05/2023 Dyslipidemia ([facility]) 08/05/2023 Edema 08/05/2023 Elevated sed rate Elevated serum protein level 08/05/2023 Fibromyalgia Insomnia Migraine without aura, not intractable ([facility]/HCC) 06/04/2023 Obesity (BMI 30-39.9) 06/04/2023 Obstructive sleep apnea Screening for colon cancer 06/04/2023 Tobacco dependence 06/04/2023 Past Surgical History: Procedure Laterality Date HYSTERECTOMY 03/2008 SHOULDER ARTHROSCOPY Right 02/2018 family history includes Heart disease in her father; Hyperlipidemia in her father; Hypertension in her father and mother; No Known Problems in her daughter and son. OBJECTIVE: Visit Vitals BP 106/78 (BP Location: Left arm, Patient Position: Sitting, BP Cuff Size: Adult long) Pulse 85 Temp 98.1 F (Temporal) Resp 19 Wt 177 lb 12.8 oz SpO2 97% BMI 32.00 kg/m Smoking Status Former BSA 1.89 m Physical Exam Vitals and nursing note reviewed. Constitutional: General: She is not in acute distress. Appearance: Normal appearance. She is obese. HENT: Head: Normocephalic and atraumatic. Right Ear: External ear normal. Left Ear: External ear normal. Nose: Nose normal. No congestion or rhinorrhea. Mouth/Throat: Mouth: Mucous membranes are moist. Eyes: Extraocular Movements: Extraocular movements intact. Conjunctiva/sclera: Conjunctivae normal. Neck: Vascular: No carotid bruit. Cardiovascular: Rate and Rhythm: Normal rate and regular rhythm. Pulses: Normal pulses. Heart sounds: Normal heart sounds. Pulmonary: Effort: Pulmonary effort is normal. No respiratory distress. Breath sounds: Normal breath sounds. No wheezing or rales. Comments: Occ cough noted Abdominal: General: Bowel sounds are normal. There is no distension. Palpations: Abdomen is soft. There is no mass. Tenderness: There is no abdominal tenderness. Musculoskeletal: General: Normal range of motion. Cervical back: Normal range of motion and neck supple. Right lower leg: No edema. Left lower leg: No edema. Lymphadenopathy: Cervical: No cervical adenopathy. Skin: General: Skin is warm and dry. Capillary Refill: Capillary refill takes 2 to 3 seconds. Findings: No rash. Neurological: General: No focal deficit present. Mental Status: She is alert and oriented to person, place, and time. Psychiatric: Mood and Affect: Mood normal. Behavior: Behavior normal. Thought Content: Thought content normal. Judgment: Judgment normal. ASSESSMENT AND PLAN: Follow up in about 2 months (around 09/11/2024) for Recheck. Problem List Items Addressed This Visit Obesity (BMI 30-39.9) Discussed with patient their BMI (actual, verses recommended). We have also discussed lifestyle modifications: attempts to perform physical activity as chronic conditions allow, also to monitor dietary intake: increasing protein/fruits/veggies and lowering carb intake (unless contraindicated). Limit sodas, juices, and sugary drinks. Tobacco dependence The patient has been advised of the risks of continued smoking: stroke, VA, all forms of cancer, lung disease, and . Options for quitting smoking include: cold turkey, hypnosis, acupuncture, nicotine replacement meds(gum, lozenges, and patches), Buproprion, and Varenicline. At this time pt is encouraged to evaluate their goals for wanting to quit smoking, and reach out toprovider when ready to start this process Relevant Orders CBC and differential Urinalysis with reflex microscopic (clean catch) Primary hypertension (CMS/HCC) Please check blood pressure daily and record DASH diet Limit caffeine Take medication as directed Contact office if chest pain, pressure, dizziness, shortness of breath, swelling legs Recommend slow position changes Current med: carvedilol , as well as HCTZ Relevant Orders Comprehensive metabolic panel Urinalysis with reflex microscopic (clean catch) Microalbumin / creatinine, urine ratio Insomnia Uses ambien nightly OARRS reviewed Med agreement signed: 07/14/24 Generalized anxiety disorder (CMS/HCC) - Primary Would like to increase her effexor script. Her anxiety is increasing, has a son that will be leaving for Would like to increase effexor XR to 150mg daily. We will discontinue the 37.5mg script (was taking3 caps daily) Take medication only as directed. If any suicidal thoughts, thoughts of hurting others, or hallucinations contact the office or proceed to the Emergency Room for mental health evaluation. Medication may cause dry mouth, dizziness, and in some cases worsening in depression symptoms. Please contact the office if these occur. Fu in 6 weeks Relevant Medications venlafaxine XR (Effexor XR) 150 MG 24 hr capsule COVID From last visit: (Dx on 06/18/24, Still w low grade fever, fatigue, dyspnea with activity, Productive cough: brown. Likely developed secondary sinus infection will treat atb) Sxs have resolved Subacute pansinusitis Treated at last visit for sinus infection Sxs have resolved Mixed hyperlipidemia (CMS/HCC) Continue statin Relevant Orders Lipid panel Comprehensive metabolic panel Needs flu shot Consent sheet signed and VIS given Relevant Orders Flu vaccine, MDCK, quadrivalent, PF ([id number]) (Flucelvax single dose syringe) (Completed) * Ellen Dodson NP - 07/14/2024 7:13 AM ESTAssociated Problem(s): Insomnia Uses ambtanner nightly OARRS reviewed Med agreement signed: 07/14/24 * Ellen Dodson NP - 07/14/2024 7:12 AM ESTAssociated Problem(s): Tobacco dependence The patient has been advised of the risks of continued smoking: stroke, VA, all forms of cancer, lung disease, and . Options for quitting smoking include: cold turkey, hypnosis, acupuncture, nicotine replacement meds(gum, lozenges, and patches), Buproprion, and Varenicline. At this time pt is encouraged to evaluate their goals for wanting to quit smoking, and reach out toprovider when ready to start this process * Ellen Dodson NP - 07/14/2024 7:12 AM ESTAssociated Problem(s): Subacute pansinusitis Treated at last visit for sinus infection Sxs have resolved * Ellen Dodson NP - 07/14/2024 7:12 AM ESTAssociated Problem(s): COVID From last visit: (Dx on 06/18/24, Still w low grade fever, fatigue, dyspnea with activity, Productive cough: brown. Likely developed secondary sinus infection will treat atb) Sxs have resolved * Ellen Dodson NP - 07/14/2024 7:11 AM ESTAssociated Problem(s): Obesity (BMI 30-39.9) Discussed with patient their BMI (actual, verses recommended). We have also discussed lifestyle modifications: attempts to perform physical activity as chronic conditions allow, also to monitor dietary intake: increasing protein/fruits/veggies and lowering carb intake (unless contraindicated). Limit sodas, juices, and sugary drinks. * Ellen Dodson NP - 07/14/2024 7:11 AM ESTAssociated Problem(s): Primary hypertension (CMS/HCC) Please check blood pressure daily and record DASH diet Limit caffeine Take medication as directed Contact office if chest pain, pressure, dizziness, shortness of breath, swelling legs Recommend slow position changes Current med: carvedilol , as well as HCTZ documented in this [facility]01-21-2025 Instructions* Patient Instructions* Ellen Dodson NP - 07/14/2024 2:00 PM EST Increase effexor XR to 150mg daily Follow up in 6-8 weeks documented in this [facility]01-06-2025 History of Present illness Narrative* Ellen Dodson NP - 06/29/2024 3:16 PM ESTAssociated Problem(s): COVID Dx on 06/18/24 Still w low grade fever, fatigue, dyspnea with activity Productive cough: brown Likely developed secondary sinus infection will treat atb * ERIN LUCERO - 06/29/2024 2:40 PM EST Pt is on week 3 and is still feeling fatigue. She had a sl fever 99.8 orally two days ago and stillhaving sweats. Mornings she does have green-brown mucus when coughing. She also states that the mucus at times is hard Albuterol breathing treatments have helped However pt has a hard time showering with the heat and moisture she feels very sob and when walkingshort distances * Ellen Dodson NP - 06/29/2024 2:40 PM EST Images from the original note were not included. Prashant Mullins is a 49 y.o. female presents with chief complaint of No chief complaint on file. HPI: ER fu appt for COVID: Dx 06/18/24 Cough+ productive saavedra, yellow/green, occ blood tinged, uses nebs, +nausea, no vomiting or diarrhea Appetite is fair Hypertension This is a chronic problem. The current episode started more than 1 year ago. The problem is unchanged. The problem is controlled. Associated symptoms include headaches, neck pain and shortness of breath (d/t covid). Pertinent negatives include no blurred vision, chest pain, palpitations or peripheral edema. There are no associated agents to hypertension. Risk factors for coronary artery disease include dyslipidemia. Past treatments include beta blockers and diuretics. The current treatment provides moderate improvement. There are no compliance problems. SUBJECTIVE: MEDICATIONS: Current Outpatient Medications Medication Instructions Aimovig 140 mg, Subcutaneous, Every 28 days albuterol HFA (Ventolin HFA) 90 mcg/act inhaler 2 puffs, Inhalation, Every 6 hours PRN albuterol 2.5 mg, Nebulization, Every 6 hours PRN amoxicillin-clavulanate (Augmentin) 875-125 MG tablet 875 mg, Oral, 2 times daily, Take with food baclofen (LIORESAL) 20 mg, As needed Bioflavonoid Products (Vitamin C) chewable tablet as directed Orally carvedilol (COREG) 6.25 mg, Oral, 2 times daily hydroCHLOROthiazide (HYDRODIURIL) 25 mg, Oral, Daily Multiple Vitamin (Multi-Vitamin) tablet Every 24 hours oxybutynin XL (DITROPAN-XL) 5 mg, Daily simvastatin (ZOCOR) 40 mg, Oral, Nightly venlafaxine XR (EFFEXOR XR) 112.5 mg, Oral, Daily zolpidem (AMBIEN) 10 mg, Oral, Nightly ALLERGIES: Allergies Allergen Reactions Gabapentin Shortness of breath and Other Fatigue and lethargic Hydrochlorothiazide Shortness of breath Atorvastatin Unknown Ciprofloxacin Hives and GI intolerance Hydrocodone-Acetaminophen GI intolerance, Unknown and Other Lisinopril Unknown Meloxicam Unknown Phenazopyridine GI intolerance Prednisone Other REVIEW OF SYMPTOMS: Review of Systems Constitutional: Positive for fatigue and fever. Negative for appetite change and chills. HENT: Negative for congestion, ear pain and sore throat. Eyes: Negative for blurred vision, pain, discharge, redness and visual disturbance. Respiratory: Positive for cough and shortness of breath (d/t covid). Negative for wheezing. Cardiovascular: Negative for chest pain, palpitations and leg swelling. Gastrointestinal: Negative for abdominal pain, blood in stool, constipation, diarrhea, nausea and vomiting. Genitourinary: Negative for difficulty urinating, dysuria and frequency. Musculoskeletal: Positive for arthralgias and neck pain. Negative for back pain, joint swelling andmyalgias. Skin: Negative for rash and wound. Neurological: Positive for headaches. Negative for dizziness, tremors, seizures and syncope. Psychiatric/Behavioral: Negative for behavioral problems, self-injury and suicidal ideas. The patient is not nervous/anxious. Hematological: Does not bruise/bleed easily. Endocrine: Negative for polydipsia, polyphagia and polyuria. Allergic/Immunologic: Negative for environmental allergies and food allergies. PAST MEDICAL HISTORY Past Medical History: Diagnosis Date Allergic rhinitis 08/05/2023 Anxiety 08/05/2023 Cervical radicular pain Degenerative disc disease, cervical Depression ([facility]/HCC) 08/05/2023 Dyslipidemia ([facility]) 08/05/2023 Edema 08/05/2023 Elevated sed rate Elevated serum protein level 08/05/2023 Fibromyalgia Insomnia Migraine without aura, not intractable (CMS/HCC) 06/04/2023 Obesity (BMI 30-39.9) 06/04/2023 Obstructive sleep apnea Screening for colon cancer 06/04/2023 Tobacco dependence 06/04/2023 Past Surgical History: Procedure Laterality Date HYSTERECTOMY 03/2008 SHOULDER ARTHROSCOPY Right 02/2018 family history includes Heart disease in her father; Hyperlipidemia in her father; Hypertension in her father and mother; No Known Problems in her daughter and son. OBJECTIVE: Visit Vitals BP (!) 120/100 (BP Location: Left arm, Patient Position: Sitting, BP Cuff Size: Adult long) Pulse 100 Temp 98.8 F (Temporal) Resp 18 Ht 5' 2.5 Wt 179 lb 3.2 oz Comment: with snow boots SpO2 98% BMI 32.25 kg/m Smoking Status Former BSA 1.89 m Physical Exam Vitals and nursing note reviewed. Constitutional: General: She is not in acute distress. Appearance: Normal appearance. She is obese. She is ill-appearing (mild). HENT: Head: Normocephalic and atraumatic. Right Ear: Tympanic membrane, ear canal and external ear normal. Left Ear: Tympanic membrane, ear canal and external ear normal. Nose: Congestion present. No rhinorrhea. Comments: Max/frontal sinus pressure Mouth/Throat: Mouth: Mucous membranes are moist. Pharynx: No oropharyngeal exudate or posterior oropharyngeal erythema. Eyes: Extraocular Movements: Extraocular movements intact. Conjunctiva/sclera: Conjunctivae normal. Cardiovascular: Rate and Rhythm: Normal rate and regular rhythm. Pulses: Normal pulses. Heart sounds: Normal heart sounds. Pulmonary: Effort: Pulmonary effort is normal. Breath sounds: Normal breath sounds. No wheezing or rales. Abdominal: General: Bowel sounds are normal. There is no distension. Palpations: Abdomen is soft. There is no mass. Tenderness: There is no abdominal tenderness. Musculoskeletal: General: Normal range of motion. Cervical back: Normal range of motion and neck supple. Right lower leg: No edema. Left lower leg: No edema. Lymphadenopathy: Cervical: No cervical adenopathy. Skin: General: Skin is warm and dry. Capillary Refill: Capillary refill takes 2 to 3 seconds. Findings: No rash. Neurological: General: No focal deficit present. Mental Status: She is alert and oriented to person, place, and time. Psychiatric: Mood and Affect: Mood normal. Behavior: Behavior normal. Thought Content: Thought content normal. Judgment: Judgment normal. ASSESSMENT AND PLAN: Follow up in about 2 weeks (around 07/13/2024) for Recheck. Problem List Items Addressed This Visit Obesity (BMI 30-39.9) Discussed with patient their BMI (actual, verses recommended). We have also discussed lifestyle modifications: attempts to perform physical activity as chronic conditions allow, also to monitor dietary intake: increasing protein/fruits/veggies and lowering carb intake (unless contraindicated). Limit sodas, juices, and sugary drinks. Migraine without aura, not intractable (CMS/HCC) Is currently taking amovig How many [place] days per month: 5 Tobacco dependence The patient has been advised of the risks of continued smoking: stroke, VA, all forms of cancer, lung disease, and . Options for quitting smoking include: cold turkey, hypnosis, acupuncture, nicotine replacement meds(gum, lozenges, and patches), Buproprion, and Varenicline. At this time pt is encouraged to evaluate their goals for wanting to quit smoking, and reach out toprovider when ready to start this process Primary hypertension ([facility]) Please check blood pressure daily and record DASH diet Limit caffeine Take medication as directed Contact office if chest pain, pressure, dizziness, shortness of breath, swelling legs Recommend slow position changes Current med: carvedilol , as well as HCTZ Obstructive sleep apnea You have a diagnosis of obstructive sleep apnea. It is recommended that you wear your PAP device any time while in bed sleeping. Not using the PAP device can increase your risk of elevated/uncontrolled high blood pressure, atrial fibrillation, heart attack, stroke, or sudden . Compliant with PAP: not, cannot wear mask, causes severe skin break outs Looking into inspire Insomnia Uses ambien nightly OARRS reviewed Encounter for screening mammogram for malignant neoplasm of breast Was ordered in 2023, never completed Will order again, wants done at [facility] Relevant Orders Bilateral screening mammogram Generalized anxiety disorder ([facility]) Current medication: effexor XR total of 112.5mg daily Mild episode of recurrent major depressive disorder (HCC) ([facility]) Current dose of meds: effexor 112.5mg daily COVID - Primary Dx on 06/18/24 Still w low grade fever, fatigue, dyspnea with activity Productive cough: brown Likely developed secondary sinus infection will treat atb Subacute pansinusitis Relevant Medications amoxicillin-clavulanate (Augmentin) 875-125 MG tablet * Ellen Dodson NP - 06/29/2024 7:40 AM ESTAssociated Problem(s): Encounter for screening mammogram for malignant neoplasm of breast Was ordered in 2023, never completed Will order again, wants done at [facility] * Ellen Dodson NP - 06/29/2024 7:39 AM ESTAssociated Problem(s): Insomnia Uses danielle nightly OARRS reviewed * Ellen Dodson NP - 06/29/2024 7:38 AM ESTAssociated Problem(s): Tobacco dependence The patient has been advised of the risks of continued smoking: stroke, VA, all forms of cancer, lung disease, and . Options for quitting smoking include: cold turkey, hypnosis, acupuncture, nicotine replacement meds(gum, lozenges, and patches), Buproprion, and Varenicline. At this time pt is encouraged to evaluate their goals for wanting to quit smoking, and reach out toprovider when ready to start this process * Ellen Dodson NP - 06/29/2024 7:38 AM ESTAssociated Problem(s): Mild episode of recurrent major depressive disorder (HCC) (CMS/HCC) Current dose of meds: effexor 112.5mg daily * Ellen Dodson NP - 06/29/2024 7:38 AM ESTAssociated Problem(s): Migraine without aura, not intractable (CMS/HCC) Is currently taking amovig How many [place] days per month: 5 * Ellen Dodson NP - 06/29/2024 7:37 AM ESTAssociated Problem(s): Generalized anxiety disorder (CMS/HCC) Current medication: effexor XR total of 112.5mg daily * Ellen Dodson NP - 06/29/2024 7:37 AM ESTAssociated Problem(s): Obesity (BMI 30-39.9) Discussed with patient their BMI (actual, verses recommended). We have also discussed lifestyle modifications: attempts to perform physical activity as chronic conditions allow, also to monitor dietary intake: increasing protein/fruits/veggies and lowering carb intake (unless contraindicated). Limit sodas, juices, and sugary drinks. * Ellen Dodson NP - 06/29/2024 7:37 AM ESTAssociated Problem(s): Primary hypertension (CMS/HCC) Please check blood pressure daily and record DASH diet Limit caffeine Take medication as directed Contact office if chest pain, pressure, dizziness, shortness of breath, swelling legs Recommend slow position changes Current med: carvedilol , as well as HCTZ * Ellen Dodson NP - 06/29/2024 7:36 AM ESTAssociated Problem(s): Obstructive sleep apnea You have a diagnosis of obstructive sleep apnea. It is recommended that you wear your PAP device any time while in bed sleeping. Not using the PAP device can increase your risk of elevated/uncontrolled high blood pressure, atrial fibrillation, heart attack, stroke, or sudden . Compliant with PAP: not, cannot wear mask, causes severe skin break outs Looking into inspire documented in this [facility]01-06-2025 Instructions* Patient Instructions* Ellen Dodson NP - 06/29/2024 2:40 PM EST Sinus: finish atb, take with food, fluids, rest COVID: continue with your nebs Mammogram: I will fax order to hospital for you to get done documented in this [facility]12-03-2024 Telephone encounter Note* Telephone Encounter - Ellen Dodson NP - 05/26/2024 1:11 PM EST Please call pt to reschedule her last appt, no show 03/2024 [place] [id number] Miscellaneous Notes* Telephone Encounter - Ellen Dodson NP - 05/26/2024 1:11 PM EST Please call pt to reschedule her last appt, no show 03/2024 [place] documented in this [facility]08-20-2024 History of Present illness Narrative* Ellen Dodson NP - 02/11/2024 2:59 PM EDTAssociated Problem(s): Generalized anxiety disorder (CMS/HCC) Increase effexor XR to 3 pills daily Fu in 8 weeks * Ellen Dodson NP - 02/11/2024 2:58 PM EDTAssociated Problem(s): Fibromyalgia Made worse with chronic pain,depression, migraine * Ellen Dodson NP - 02/11/2024 2:58 PM EDTAssociated Problem(s): Degenerative disc disease, cervical Will order a FCE to electrical helper in current restrictions and abilities as it applies to disablity * ERIN LUCERO - 02/11/2024 1:40 PM EDT Pt was in er last Saturday-migraine Pt having mid back pain- 9 on pain scale yesterday 3 currently. Baclofen is not helping with the shoulder now and she is going to get with yvrose about getting that changed * Ellen Dodson NP - 02/11/2024 1:40 PM EDT Images from the original note were not included. Prashant Mullins is a 48 y.o. female presents with chief complaint of No chief complaint on file. HPI: Hx fibromyalgia: also with hx of C injury of cervical DDD and right shoulder impingement Pain levels fluctuant which also has made her anxiety and migraines fluctuate Anxiety Presents for follow-up visit. Symptoms include depressed mood, excessive worry, insomnia, irritability, muscle tension and nervous/anxious behavior. Patient reports no chest pain, decreased concentration, dizziness, nausea, palpitations, shortness of breath or suicidal ideas. Symptoms occur most days. The severity of symptoms is moderate. The quality of sleep is fair. Compliance with medications is 76-100%. Migraine This is a chronic problem. The current episode started more than 1 year ago. The problem occurs intermittently. The problem has been unchanged. The pain quality is similar to prior headaches. Associated symptoms include back pain, insomnia, phonophobia and photophobia. Pertinent negatives include no abdominal pain, coughing, dizziness, ear pain, eye pain, eye redness, fever, nausea, seizures, sore throat or vomiting. She has tried beta blockers, antidepressants and triptans (Aimovig) for the symptoms. The treatment provided significant relief. Her past medical history is significant for hypertension and obesity. SUBJECTIVE: MEDICATIONS: Current Outpatient Medications Medication Instructions Aimovig 140 mg, Subcutaneous, Every 28 days albuterol HFA (Ventolin HFA) 90 mcg/act inhaler 2 puffs, Inhalation, Every 6 hours PRN baclofen (LIORESAL) 20 mg, Oral, As needed Bioflavonoid Products (Vitamin C) chewable tablet as directed Orally carvedilol (COREG) 6.25 mg, Oral, 2 times daily hydroCHLOROthiazide (HYDRODIURIL) 25 mg, Oral, Daily Multiple Vitamin (Multi-Vitamin) tablet Every 24 hours oxybutynin XL (DITROPAN-XL) 5 mg, Oral, Daily simvastatin (ZOCOR) 40 mg, Oral, Nightly venlafaxine XR (Effexor XR) 37.5 MG 24 hr capsule 2 pills daily zolpidem (AMBIEN) 10 mg, Oral, Nightly ALLERGIES: Allergies Allergen Reactions Gabapentin Shortness of breath and Other Fatigue and lethargic Ciprofloxacin Hives and GI intolerance Hydrocodone-Acetaminophen Unknown and GI intolerance Lisinopril Unknown Meloxicam Unknown Phenazopyridine GI intolerance Prednisone Other REVIEW OF SYMPTOMS: Review of Systems Constitutional: Positive for irritability. Negative for appetite change, chills and fever. HENT: Negative for congestion, ear pain and sore throat. Eyes: Positive for photophobia. Negative for pain, discharge, redness and visual disturbance. Respiratory: Negative for cough, shortness of breath and wheezing. Cardiovascular: Negative for chest pain, palpitations and leg swelling. Gastrointestinal: Negative for abdominal pain, blood in stool, constipation, diarrhea, nausea and vomiting. Genitourinary: Negative for difficulty urinating, dysuria and frequency. Musculoskeletal: Positive for arthralgias and back pain. Negative for joint swelling and myalgias. Skin: Negative for rash and wound. Neurological: Negative for dizziness, tremors, seizures, syncope and headaches. Psychiatric/Behavioral: Negative for behavioral problems, decreased concentration, self-injury and suicidal ideas. The patient is nervous/anxious and has insomnia. Hematological: Does not bruise/bleed easily. Endocrine: Negative for polydipsia, polyphagia and polyuria. Allergic/Immunologic: Negative for environmental allergies and food allergies. PAST MEDICAL HISTORY Past Medical History: Diagnosis Date Allergic rhinitis 08/05/2023 Anxiety 08/05/2023 Cervical radicular pain Degenerative disc disease, cervical Depression (CMS/HCC) 08/05/2023 Dyslipidemia (CMS/HCC) 08/05/2023 Edema 08/05/2023 Elevated sed rate Elevated serum protein level 08/05/2023 Fibromyalgia Insomnia Migraine without aura, not intractable (CMS/HCC) 06/04/2023 Obesity (BMI 30-39.9) 06/04/2023 Obstructive sleep apnea Screening for colon cancer 06/04/2023 Tobacco dependence 06/04/2023 Past Surgical History: Procedure Laterality Date HYSTERECTOMY 03/2008 SHOULDER ARTHROSCOPY Right 02/2018 family history includes Heart disease in her father; Hyperlipidemia in her father; Hypertension in her father and mother; No Known Problems in her daughter and son. OBJECTIVE: Visit Vitals BP 122/88 (BP Location: Right arm, Patient Position: Sitting, BP Cuff Size: Adult long) Pulse 93 Temp 97.8 F (Temporal) Resp 18 Ht 5' 2.5 Wt 181 lb 6.4 oz SpO2 100% BMI 32.65 kg/m Smoking Status Former BSA 1.91 m Physical Exam Vitals and nursing note reviewed. Constitutional: General: She is not in acute distress. Appearance: Normal appearance. HENT: Head: Normocephalic and atraumatic. Right Ear: External ear normal. Left Ear: External ear normal. Nose: Nose normal. Mouth/Throat: Mouth: Mucous membranes are moist. Eyes: Extraocular Movements: Extraocular movements intact. Conjunctiva/sclera: Conjunctivae normal. Neck: Vascular: No carotid bruit. Cardiovascular: Rate and Rhythm: Normal rate and regular rhythm. Pulses: Normal pulses. Heart sounds: Normal heart sounds. No murmur heard. Pulmonary: Effort: Pulmonary effort is normal. Breath sounds: Normal breath sounds. No wheezing, rhonchi or rales. Abdominal: General: Bowel sounds are normal. There is no distension. Palpations: Abdomen is soft. There is no mass. Tenderness: There is no abdominal tenderness. Musculoskeletal: General: Normal range of motion. Cervical back: Normal range of motion and neck supple. Right lower leg: No edema. Left lower leg: No edema. Skin: General: Skin is warm and dry. Capillary Refill: Capillary refill takes 2 to 3 seconds. Findings: No rash. Neurological: General: No focal deficit present. Mental Status: She is alert and oriented to person, place, and time. Psychiatric: Mood and Affect: Mood normal. Behavior: Behavior normal. Thought Content: Thought content normal. Judgment: Judgment normal. ASSESSMENT AND PLAN: No follow-ups on file. Problem List Items Addressed This Visit Obesity (BMI 30-39.9) Cervical radicular pain Fibromyalgia Made worse with chronic pain,depression, migraine Degenerative disc disease, cervical Will order a FCE to electrical helper in current restrictions and abilities as it applies to disablity Generalized anxiety disorder (CMS/HCC) - Primary Increase effexor XR to 3 pills daily Fu in 8 weeks Relevant Medications venlafaxine XR (Effexor XR) 37.5 MG 24 hr capsule Mild episode of recurrent major depressive disorder (HCC) (CMS/HCC) Relevant Medications venlafaxine XR (Effexor XR) 37.5 MG 24 hr capsule [facility] [id number] NoteChief Complaint consultation for colonoscopy HPI Staff 48 [...] prophylaxis; abdominal operations significant for LS right o ophorectomy, multiple laparoscopies, and GABBY; no previous colonoscopy; no fmhx of GI malignancy or IBD; no tobacco use. Review of Systems PHQ Score Initial Depression Screen Score: 0 SCORE ROS - Provider Constitutional: no fever, no sweats, no weight loss. Eyes: no glasses, no blurred vision, no visual loss. ENMT: no dentures, no hoarseness, no swallowing difficulties, no hearing loss, no ear infection(s),no nose bleeds. Cardiovascular: normal blood pressure, no [...] last 30 days Tobacco Use:. Former smokeless tobaccouser, quit more than 30 days ago Smokeless Tobacco Use:. Cigarettes, Vaping, 1 (more content not included)...[facility] Comment on above:Result Comment: Electronically Signed By: BLANCA CAMARGO, Dinesh Nicolas\Date and Time Signed: 07/31/23 13:45 [id number] NoteHNO ID: [id number] Author: Zhanna Richard RT(R) Service: Radiology Author Type: Vendette Type: Progress Notes Filed: 03/20/2023 2:20 PM Note Text: Radiology Service Progress Note PATIENT NAME: Prashant Mullins DATE OF SERVICE: March 20, 2023 TIME: [...] BY: RT Omar(R) March 20, 2023 2:19 [id number] NoteHNO ID: [id number] Author: Keyur Mccauley MD Service: ? Author Type: Physician Type: Progress Notes Filed: 03/20/2023 2:07 PM Note Text: Prashant Mullins is a 47 year old female who [...] -consider trial of c (more content not included)...[facility] 11-16-2022 NoteOPERATIVE NOTE OPERATION DATE: 11/16/2022 PROCEDURE: Diagnostic laparoscopy with right oophorectomy with lysis of adhesions of the bowel to the pelvic side wall. PREOPERATIVE DIAGNOSIS: Pelvic pain, right ovarian cyst. POSTOPERATIVE DIAGNOSIS: Pelvic pain, 4 cm right ovarian cyst. ANESTHESIA: General. SURGEON: Meño Alonzo D.O. JANITORIAL SUPERVISOR: TONEY Green URINE OUTPUT: Yellow and clear. [...] was taken to Recovery Room in stable condition.[facility] [id number] Evaluation note* Encounter Date Diagnosis Assessment Notes Treatment Notes Treatment Clinical Notes Jan, Herniation of cervic al intervertebral disc with radiculopathy (ICD- 10 - M50.10) . I would like her to get involved in a good core exercise program for her muscles. From a structural standpoint she should probably have flexion-extension plain films of her neck about once a year just to make sure she retains motion. These can be ordered by her primary care physician. Jan,therThe patient also has a component of occipital neuralgia.She also may be considered for evaluation by pain management for some occipital nerve injections if physical therapy is not effective. [facility] Other 10-06-2021 Evaluation note* Encounter Date Diagnosis Assessment Notes Treatment Notes Treatment Clinical Notes Mar, Herniation of cervic al intervertebral disc with radiculopathy (ICD- 10 - M50.10) Despite having gotten motion x-rays of her cervical spine at month 1 month 3 and a year the patientfailed to get an x-ray for this vist. We will send her for x- ray; assuming that looks stable we will see her back in another year with another set of x-rays. Mar,OtherAddendum-As of today, 04-04-2021, patient has not gone for xray as requested [facility] Other 09-01-2018 History general Narrative - Reported* Type Description Date Medical History hypertension Surgical [id number] HistoryR Shoilder Lpsxndcwjkm97/2018 Surgical OsbgspjPjlycwlobuic01/2008Surgical [id number] HistoryLaproscopic surgerySurgical Historyright shoulder scope with capsular plicationSurgical HistoryC-spine04/2019Surgical Historyright shoulder scope with capsular release09/28/20Hospitalization HistorySee Surgical Hx above [facility] Other evaluation + Plan note No data available for this section [facility] evaluation noteNo assessment information available [facility] Work Phone: Evaluation note* Diagnosis Primary insomnia- Primary Persistent disorder of initiating or maintaining sleep [facility] Diagnosis Primary hypertension (CMS/HCC)- Primary Unspecified essential hypertension Screening for colon cancer Special screening for malignant neoplasms, colon Obesity (BMI 30-39.9) Migraine without aura and without status migrainosus, not intractable (CMS/HCC) Tobacco dependence Tobacco use disorder Primary hypertension (CMS/HCC)- Primary Unspecified essential hypertension Obesity (BMI 30-39.9) Dyslipidemia (CMS/HCC) Other and unspecified hyperlipidemia Urinary tract infection without hematuria, site unspecified Anxiety- Primary Anxiety state, unspecified Obesity (BMI 30-39.9) Anxiety- Primary Anxiety state, unspecified Obesity (BMI 30-39.9) Tobacco dependence Tobacco use disorder Dyslipidemia (CMS/HCC) Other and unspecified hyperlipidemia Acquired skin tag Primary hypertension (CMS/HCC)- Primary Unspecified essential hypertension Wheezing Primary insomnia Persistent disorder of initiating or maintaining sleep Obesity (BMI 30-39.9) Tobacco dependence Tobacco use disorder Mild episode of recurrent major depressive disorder (HCC) (CMS/HCC) Generalized anxiety disorder (CMS/HCC) Generalized anxiety disorder Migraine without aura and without status migrainosus, not intractable (CMS/HCC) Anxiety Anxiety state, unspecified Generalized anxiety disorder (CMS/HCC)- Primary Generalized anxiety disorder Mild episode of recurrent major depressive disorder (HCC) (CMS/HCC) Degenerative disc disease, cervical Fibromyalgia Unspecified myalgia and myositis Obesity (BMI 30-39.9) Cervical radicular pain Mild episode of recurrent major depressive disorder (HCC) (CMS/HCC) Generalized anxiety disorder (CMS/HCC) Generalized anxiety disorder [facility] Diagnosis Primary hypertension (CMS/HCC)- Primary Unspecified essential hypertension Screening for colon cancer Special screening for malignant neoplasms, colon Obesity (BMI 30-39.9) Migraine without aura and without status migrainosus, not intractable (CMS/HCC) Tobacco dependence Tobacco use disorder Primary hypertension (CMS/HCC)- Primary Unspecified essential hypertension Obesity (BMI 30-39.9) Dyslipidemia (CMS/HCC) Other and unspecified hyperlipidemia Urinary tract infection without hematuria, site unspecified Anxiety- Primary Anxiety state, unspecified Obesity (BMI 30-39.9) Anxiety- Primary Anxiety state, unspecified Obesity (BMI 30-39.9) Tobacco dependence Tobacco use disorder Dyslipidemia (CMS/HCC) Other and unspecified hyperlipidemia Acquired skin tag Primary hypertension (CMS/HCC)- Primary Unspecified essential hypertension Wheezing Primary insomnia Persistent disorder of initiating or maintaining sleep Obesity (BMI 30-39.9) Tobacco dependence Tobacco use disorder Mild episode of recurrent major depressive disorder (HCC) (CMS/HCC) Generalized anxiety disorder (CMS/HCC) Generalized anxiety disorder Migraine without aura and without status migrainosus, not intractable (CMS/HCC) Anxiety Anxiety state, unspecified Generalized anxiety disorder (CMS/HCC)- Primary Generalized anxiety disorder Mild episode of recurrent major depressive disorder (HCC) (CMS/HCC) Degenerative disc disease, cervical Fibromyalgia Unspecified myalgia and myositis Obesity (BMI 30-39.9) Cervical radicular pain Migraine without aura and without status migrainosus, not intractable (CMS/HCC)- Primary [facility]* Diagnosis Generalized anxiety disorder (CMS/HCC)- Primary Generalized anxiety disorder Mild episode of recurrent major depressive disorder (HCC) (CMS/HCC) Degenerative disc disease, cervical Fibromyalgia Unspecified myalgia and myositis Obesity (BMI 30-39.9) Cervical radicular pain [facility]* Diagnosis Wheezing [facility]* Diagnosis Primary hypertension (CMS/HCC)- Primary Unspecified essential hypertension Screening for colon cancer Special screening for malignant neoplasms, colon Obesity (BMI 30-39.9) Migraine without aura and without status migrainosus, not intractable (CMS/HCC) Tobacco dependence Tobacco use disorder Primary hypertension (CMS/HCC)- Primary Unspecified essential hypertension Obesity (BMI 30-39.9) Dyslipidemia (CMS/HCC) Other and unspecified hyperlipidemia Urinary tract infection without hematuria, site unspecified Anxiety- Primary Anxiety state, unspecified Obesity (BMI 30-39.9) Anxiety- Primary Anxiety state, unspecified Obesity (BMI 30-39.9) Tobacco dependence Tobacco use disorder Dyslipidemia (CMS/HCC) Other and unspecified hyperlipidemia Acquired skin tag Primary hypertension (CMS/HCC)- Primary Unspecified essential hypertension Wheezing Primary insomnia Persistent disorder of initiating or maintaining sleep Obesity (BMI 30-39.9) Tobacco dependence Tobacco use disorder Mild episode of recurrent major depressive disorder (HCC) (CMS/HCC) Generalized anxiety disorder (CMS/HCC) Generalized anxiety disorder Migraine without aura and without status migrainosus, not intractable (CMS/HCC) Anxiety Anxiety state, unspecified Generalized anxiety disorder (CMS/HCC)- Primary Generalized anxiety disorder Mild episode of recurrent major depressive disorder (HCC) (CMS/HCC) Degenerative disc disease, cervical Fibromyalgia Unspecified myalgia and myositis Obesity (BMI 30-39.9) Cervical radicular pain Wheezing documented [facility]* Diagnosis Primary hypertension (CMS/HCC)- Primary Unspecified essential hypertension Screening for colon cancer Special screening for malignant neoplasms, colon Obesity (BMI 30-39.9) Migraine without aura and without status migrainosus, not intractable (CMS/HCC) Tobacco dependence Tobacco use disorder Primary hypertension (CMS/HCC)- Primary Unspecified essential hypertension Obesity (BMI 30-39.9) Dyslipidemia (CMS/HCC) Other and unspecified hyperlipidemia Urinary tract infection without hematuria, site unspecified Anxiety- Primary Anxiety state, unspecified Obesity (BMI 30-39.9) Anxiety- Primary Anxiety state, unspecified Obesity (BMI 30-39.9) Tobacco dependence Tobacco use disorder Dyslipidemia (CMS/HCC) Other and unspecified hyperlipidemia Acquired skin tag Primary hypertension (CMS/HCC)- Primary Unspecified essential hypertension Wheezing Primary insomnia Persistent disorder of initiating or maintaining sleep Obesity (BMI 30-39.9) Tobacco dependence Tobacco use disorder Mild episode of recurrent major depressive disorder (HCC) (CMS/HCC) Generalized anxiety disorder (CMS/HCC) Generalized anxiety disorder Migraine without aura and without status migrainosus, not intractable (CMS/HCC) Anxiety Anxiety state, unspecified Generalized anxiety disorder (CMS/HCC)- Primary Generalized anxiety disorder Mild episode of recurrent major depressive disorder (HCC) (CMS/HCC) Degenerative disc disease, cervical Fibromyalgia Unspecified myalgia and myositis Obesity (BMI 30-39.9) Cervical radicular pain Wheezing [facility]* Diagnosis Primary hypertension (CMS/HCC)- Primary Unspecified essential hypertension Screening for colon cancer Special screening for malignant neoplasms, colon Obesity (BMI 30-39.9) Migraine without aura and without status migrainosus, not intractable (CMS/HCC) Tobacco dependence Tobacco use disorder Primary hypertension (CMS/HCC)- Primary Unspecified essential hypertension Obesity (BMI 30-39.9) Dyslipidemia (CMS/HCC) Other and unspecified hyperlipidemia Urinary tract infection without hematuria, site unspecified Anxiety- Primary Anxiety state, unspecified Obesity (BMI 30-39.9) Anxiety- Primary Anxiety state, unspecified Obesity (BMI 30-39.9) Tobacco dependence Tobacco use disorder Dyslipidemia (CMS/HCC) Other and unspecified hyperlipidemia Acquired skin tag Primary hypertension (CMS/HCC)- Primary Unspecified essential hypertension Wheezing Primary insomnia Persistent disorder of initiating or maintaining sleep Obesity (BMI 30-39.9) Tobacco dependence Tobacco use disorder Mild episode of recurrent major depressive disorder (HCC) (CMS/HCC) Generalized anxiety disorder (CMS/HCC) Generalized anxiety disorder Migraine without aura and without status migrainosus, not intractable (CMS/HCC) Anxiety Anxiety state, unspecified Generalized anxiety disorder (CMS/HCC)- Primary Generalized anxiety disorder Mild episode of recurrent major depressive disorder (HCC) (CMS/HCC) Degenerative disc disease, cervical Fibromyalgia Unspecified myalgia and myositis Obesity (BMI 30-39.9) Cervical radicular pain COVID- Primary documented [facility]* Diagnosis Primary hypertension (CMS/HCC)- Primary Unspecified essential hypertension Screening for colon cancer Special screening for malignant neoplasms, colon Obesity (BMI 30-39.9) Migraine without aura and without status migrainosus, not intractable (CMS/HCC) Tobacco dependence Tobacco use disorder Primary hypertension (CMS/HCC)- Primary Unspecified essential hypertension Obesity (BMI 30-39.9) Dyslipidemia (CMS/HCC) Other and unspecified hyperlipidemia Urinary tract infection without hematuria, site unspecified Anxiety- Primary Anxiety state, unspecified Obesity (BMI 30-39.9) Anxiety- Primary Anxiety state, unspecified Obesity (BMI 30-39.9) Tobacco dependence Tobacco use disorder Dyslipidemia (CMS/HCC) Other and unspecified hyperlipidemia Acquired skin tag Primary hypertension (CMS/HCC)- Primary Unspecified essential hypertension Wheezing Primary insomnia Persistent disorder of initiating or maintaining sleep Obesity (BMI 30-39.9) Tobacco dependence Tobacco use disorder Mild episode of recurrent major depressive disorder (HCC) (CMS/HCC) Generalized anxiety disorder (CMS/HCC) Generalized anxiety disorder Migraine without aura and without status migrainosus, not intractable (CMS/HCC) Anxiety Anxiety state, unspecified Generalized anxiety disorder (CMS/HCC)- Primary Generalized anxiety disorder Mild episode of recurrent major depressive disorder (HCC) (CMS/HCC) Degenerative disc disease, cervical Fibromyalgia Unspecified myalgia and myositis Obesity (BMI 30-39.9) Cervical radicular pain COVID- Primary Obstructive sleep apnea Obstructive sleep apnea (adult) (pediatric) Primary hypertension (CMS/HCC) Unspecified essential hypertension Obesity (BMI 30-39.9) Generalized anxiety disorder (CMS/HCC) Generalized anxiety disorder Mild episode of recurrent major depressive disorder (HCC) (CMS/HCC) Migraine without aura and without status migrainosus, not intractable (CMS/HCC) Tobacco dependence Tobacco use disorder Primary insomnia Persistent disorder of initiating or maintaining sleep Encounter for screening mammogram for malignant neoplasm of breast Subacute pansinusitis documented in this encounter [facility]* Diagnosis Primary hypertension (CMS/HCC)- Primary Unspecified essential hypertension Screening for colon cancer Special screening for malignant neoplasms, colon Obesity (BMI 30-39.9) Migraine without aura and without status migrainosus, not intractable (CMS/HCC) Tobacco dependence Tobacco use disorder Primary hypertension (CMS/HCC)- Primary Unspecified essential hypertension Obesity (BMI 30-39.9) Dyslipidemia (CMS/HCC) Other and unspecified hyperlipidemia Urinary tract infection without hematuria, site unspecified Anxiety- Primary Anxiety state, unspecified Obesity (BMI 30-39.9) Anxiety- Primary Anxiety state, unspecified Obesity (BMI 30-39.9) Tobacco dependence Tobacco use disorder Dyslipidemia (CMS/HCC) Other and unspecified hyperlipidemia Acquired skin tag Primary hypertension (CMS/HCC)- Primary Unspecified essential hypertension Wheezing Primary insomnia Persistent disorder of initiating or maintaining sleep Obesity (BMI 30-39.9) Tobacco dependence Tobacco use disorder Mild episode of recurrent major depressive disorder (HCC) (CMS/HCC) Generalized anxiety disorder (CMS/HCC) Generalized anxiety disorder Migraine without aura and without status migrainosus, not intractable (CMS/HCC) Anxiety Anxiety state, unspecified Generalized anxiety disorder (CMS/HCC)- Primary Generalized anxiety disorder Mild episode of recurrent major depressive disorder (HCC) (CMS/HCC) Degenerative disc disease, cervical Fibromyalgia Unspecified myalgia and myositis Obesity (BMI 30-39.9) Cervical radicular pain COVID- Primary Obstructive sleep apnea Obstructive sleep apnea (adult) (pediatric) Primary hypertension (CMS/HCC) Unspecified essential hypertension Obesity (BMI 30-39.9) Generalized anxiety disorder (CMS/HCC) Generalized anxiety disorder Mild episode of recurrent major depressive disorder (HCC) (CMS/HCC) Migraine without aura and without status migrainosus, not intractable (CMS/HCC) Tobacco dependence Tobacco use disorder Primary insomnia Persistent disorder of initiating or maintaining sleep Encounter for screening mammogram for malignant neoplasm of breast Subacute pansinusitis Generalized anxiety disorder (CMS/HCC)- Primary Generalized anxiety disorder Primary hypertension (CMS/HCC) Unspecified essential hypertension Obesity (BMI 30-39.9) COVID Subacute pansinusitis Tobacco dependence Tobacco use disorder Primary insomnia Persistent disorder of initiating or maintaining sleep Mixed hyperlipidemia (CMS/HCC) Mixed hyperlipidemia Needs flu shot Need for prophylactic vaccination and inoculation against influenza documented in this encounter [facility]* Diagnosis Primary hypertension (CMS/HCC)- Primary Unspecified essential hypertension Screening for colon cancer Special screening for malignant neoplasms, colon Obesity (BMI 30-39.9) Migraine without aura and without status migrainosus, not intractable (CMS/HCC) Tobacco dependence Tobacco use disorder Primary hypertension (CMS/HCC)- Primary Unspecified essential hypertension Obesity (BMI 30-39.9) Dyslipidemia (CMS/HCC) Other and unspecified hyperlipidemia Urinary tract infection without hematuria, site unspecified Anxiety- Primary Anxiety state, unspecified Obesity (BMI 30-39.9) Anxiety- Primary Anxiety state, unspecified Obesity (BMI 30-39.9) Tobacco dependence Tobacco use disorder Dyslipidemia (CMS/HCC) Other and unspecified hyperlipidemia Acquired skin tag Primary hypertension (CMS/HCC)- Primary Unspecified essential hypertension Wheezing Primary insomnia Persistent disorder of initiating or maintaining sleep Obesity (BMI 30-39.9) Tobacco dependence Tobacco use disorder Mild episode of recurrent major depressive disorder (HCC) (CMS/HCC) Generalized anxiety disorder (CMS/HCC) Generalized anxiety disorder Migraine without aura and without status migrainosus, not intractable (CMS/HCC) Anxiety Anxiety state, unspecified Generalized anxiety disorder (CMS/HCC)- Primary Generalized anxiety disorder Mild episode of recurrent major depressive disorder (HCC) (CMS/HCC) Degenerative disc disease, cervical Fibromyalgia Unspecified myalgia and myositis Obesity (BMI 30-39.9) Cervical radicular pain COVID- Primary Obstructive sleep apnea Obstructive sleep apnea (adult) (pediatric) Primary hypertension (CMS/HCC) Unspecified essential hypertension Obesity (BMI 30-39.9) Generalized anxiety disorder (CMS/HCC) Generalized anxiety disorder Mild episode of recurrent major depressive disorder (HCC) (CMS/HCC) Migraine without aura and without status migrainosus, not intractable (CMS/HCC) Tobacco dependence Tobacco use disorder Primary insomnia Persistent disorder of initiating or maintaining sleep Encounter for screening mammogram for malignant neoplasm of breast Subacute pansinusitis Generalized anxiety disorder (CMS/HCC)- Primary Generalized anxiety disorder Primary hypertension (CMS/HCC) Unspecified essential hypertension Obesity (BMI 30-39.9) COVID Subacute pansinusitis Tobacco dependence Tobacco use disorder Primary insomnia Persistent disorder of initiating or maintaining sleep Mixed hyperlipidemia (CMS/HCC) Mixed hyperlipidemia Needs flu shot Need for prophylactic vaccination and inoculation against influenza Primary hypertension (CMS/HCC) Unspecified essential hypertension documented in this encounter [facility]* Diagnosis Primary hypertension (CMS/HCC)- Primary Unspecified essential hypertension Screening for colon cancer Special screening for malignant neoplasms, colon Obesity (BMI 30-39.9) Migraine without aura and without status migrainosus, not intractable (CMS/HCC) Tobacco dependence Tobacco use disorder Primary hypertension (CMS/HCC)- Primary Unspecified essential hypertension Obesity (BMI 30-39.9) Dyslipidemia (CMS/HCC) Other and unspecified hyperlipidemia Urinary tract infection without hematuria, site unspecified Anxiety- Primary Anxiety state, unspecified Obesity (BMI 30-39.9) Anxiety- Primary Anxiety state, unspecified Obesity (BMI 30-39.9) Tobacco dependence Tobacco use disorder Dyslipidemia (CMS/HCC) Other and unspecified hyperlipidemia Acquired skin tag Primary hypertension (CMS/HCC)- Primary Unspecified essential hypertension Wheezing Primary insomnia Persistent disorder of initiating or maintaining sleep Obesity (BMI 30-39.9) Tobacco dependence Tobacco use disorder Mild episode of recurrent major depressive disorder (HCC) (CMS/HCC) Generalized anxiety disorder (CMS/HCC) Generalized anxiety disorder Migraine without aura and without status migrainosus, not intractable (CMS/HCC) Anxiety Anxiety state, unspecified Generalized anxiety disorder (CMS/HCC)- Primary Generalized anxiety disorder Mild episode of recurrent major depressive disorder (HCC) (CMS/HCC) Degenerative disc disease, cervical Fibromyalgia Unspecified myalgia and myositis Obesity (BMI 30-39.9) Cervical radicular pain COVID- Primary Obstructive sleep apnea Obstructive sleep apnea (adult) (pediatric) Primary hypertension (CMS/HCC) Unspecified essential hypertension Obesity (BMI 30-39.9) Generalized anxiety disorder (CMS/HCC) Generalized anxiety disorder Mild episode of recurrent major depressive disorder (HCC) (CMS/HCC) Migraine without aura and without status migrainosus, not intractable (CMS/HCC) Tobacco dependence Tobacco use disorder Primary insomnia Persistent disorder of initiating or maintaining sleep Encounter for screening mammogram for malignant neoplasm of breast Subacute pansinusitis Generalized anxiety disorder (CMS/HCC)- Primary Generalized anxiety disorder Primary hypertension (CMS/HCC) Unspecified essential hypertension Obesity (BMI 30-39.9) COVID Subacute pansinusitis Tobacco dependence Tobacco use disorder Primary insomnia Persistent disorder of initiating or maintaining sleep Mixed hyperlipidemia (CMS/HCC) Mixed hyperlipidemia Needs flu shot Need for prophylactic vaccination and inoculation against influenza Migraine without aura, not intractable, without status migrainosus (CMS/HCC) documented in [facility]* Diagnosis Primary hypertension (CMS/HCC)- Primary Unspecified essential hypertension Screening for colon cancer Special screening for malignant neoplasms, colon Obesity (BMI 30-39.9) Migraine without aura and without status migrainosus, not intractable (CMS/HCC) Tobacco dependence Tobacco use disorder Primary hypertension (CMS/HCC)- Primary Unspecified essential hypertension Obesity (BMI 30-39.9) Dyslipidemia (CMS/HCC) Other and unspecified hyperlipidemia Urinary tract infection without hematuria, site unspecified Anxiety- Primary Anxiety state, unspecified Obesity (BMI 30-39.9) Anxiety- Primary Anxiety state, unspecified Obesity (BMI 30-39.9) Tobacco dependence Tobacco use disorder Dyslipidemia (CMS/HCC) Other and unspecified hyperlipidemia Acquired skin tag Primary hypertension (CMS/HCC)- Primary Unspecified essential hypertension Wheezing Primary insomnia Persistent disorder of initiating or maintaining sleep Obesity (BMI 30-39.9) Tobacco dependence Tobacco use disorder Mild episode of recurrent major depressive disorder (HCC) (CMS/HCC) Generalized anxiety disorder (CMS/HCC) Generalized anxiety disorder Migraine without aura and without status migrainosus, not intractable (CMS/HCC) Anxiety Anxiety state, unspecified Generalized anxiety disorder (CMS/HCC)- Primary Generalized anxiety disorder Mild episode of recurrent major depressive disorder (HCC) (CMS/HCC) Degenerative disc disease, cervical Fibromyalgia Unspecified myalgia and myositis Obesity (BMI 30-39.9) Cervical radicular pain COVID- Primary Obstructive sleep apnea Obstructive sleep apnea (adult) (pediatric) Primary hypertension (CMS/HCC) Unspecified essential hypertension Obesity (BMI 30-39.9) Generalized anxiety disorder (CMS/HCC) Generalized anxiety disorder Mild episode of recurrent major depressive disorder (HCC) (CMS/HCC) Migraine without aura and without status migrainosus, not intractable (CMS/HCC) Tobacco dependence Tobacco use disorder Primary insomnia Persistent disorder of initiating or maintaining sleep Encounter for screening mammogram for malignant neoplasm of breast Subacute pansinusitis Generalized anxiety disorder (CMS/HCC)- Primary Generalized anxiety disorder Primary hypertension (CMS/HCC) Unspecified essential hypertension Obesity (BMI 30-39.9) COVID Subacute pansinusitis Tobacco dependence Tobacco use disorder Primary insomnia Persistent disorder of initiating or maintaining sleep Mixed hyperlipidemia (CMS/HCC) Mixed hyperlipidemia Needs flu shot Need for prophylactic vaccination and inoculation against influenza Abnormal urine finding- Primary documented in this encounter [facility]* Diagnosis Primary hypertension (CMS/HCC)- Primary Unspecified essential hypertension Screening for colon cancer Special screening for malignant neoplasms, colon Obesity (BMI 30-39.9) Migraine without aura and without status migrainosus, not intractable (CMS/HCC) Tobacco dependence Tobacco use disorder Primary hypertension (CMS/HCC)- Primary Unspecified essential hypertension Obesity (BMI 30-39.9) Dyslipidemia (CMS/HCC) Other and unspecified hyperlipidemia Urinary tract infection without hematuria, site unspecified Anxiety- Primary Anxiety state, unspecified Obesity (BMI 30-39.9) Anxiety- Primary Anxiety state, unspecified Obesity (BMI 30-39.9) Tobacco dependence Tobacco use disorder Dyslipidemia (CMS/HCC) Other and unspecified hyperlipidemia Acquired skin tag Primary hypertension (CMS/HCC)- Primary Unspecified essential hypertension Wheezing Primary insomnia Persistent disorder of initiating or maintaining sleep Obesity (BMI 30-39.9) Tobacco dependence Tobacco use disorder Mild episode of recurrent major depressive disorder (HCC) (CMS/HCC) Generalized anxiety disorder (CMS/HCC) Generalized anxiety disorder Migraine without aura and without status migrainosus, not intractable (CMS/HCC) Anxiety Anxiety state, unspecified Generalized anxiety disorder (CMS/HCC)- Primary Generalized anxiety disorder Mild episode of recurrent major depressive disorder (HCC) (CMS/HCC) Degenerative disc disease, cervical Fibromyalgia Unspecified myalgia and myositis Obesity (BMI 30-39.9) Cervical radicular pain COVID- Primary Obstructive sleep apnea Obstructive sleep apnea (adult) (pediatric) Primary hypertension (CMS/HCC) Unspecified essential hypertension Obesity (BMI 30-39.9) Generalized anxiety disorder (CMS/HCC) Generalized anxiety disorder Mild episode of recurrent major depressive disorder (HCC) (CMS/HCC) Migraine without aura and without status migrainosus, not intractable (CMS/HCC) Tobacco dependence Tobacco use disorder Primary insomnia Persistent disorder of initiating or maintaining sleep Encounter for screening mammogram for malignant neoplasm of breast Subacute pansinusitis Generalized anxiety disorder (CMS/HCC)- Primary Generalized anxiety disorder Primary hypertension (CMS/HCC) Unspecified essential hypertension Obesity (BMI 30-39.9) COVID Subacute pansinusitis Tobacco dependence Tobacco use disorder Primary insomnia Persistent disorder of initiating or maintaining sleep Mixed hyperlipidemia (CMS/HCC) Mixed hyperlipidemia Needs flu shot Need for prophylactic vaccination and inoculation against influenza Migraine without aura, not intractable, without status migrainosus (CMS/HCC) documented in this encounter [facility]* Diagnosis Primary hypertension (CMS/HCC)- Primary Unspecified essential hypertension Screening for colon cancer Special screening for malignant neoplasms, colon Obesity (BMI 30-39.9) Migraine without aura and without status migrainosus, not intractable (CMS/HCC) Tobacco dependence Tobacco use disorder Primary hypertension (CMS/HCC)- Primary Unspecified essential hypertension Obesity (BMI 30-39.9) Dyslipidemia (CMS/HCC) Other and unspecified hyperlipidemia Urinary tract infection without hematuria, site unspecified Anxiety- Primary Anxiety state, unspecified Obesity (BMI 30-39.9) Anxiety- Primary Anxiety state, unspecified Obesity (BMI 30-39.9) Tobacco dependence Tobacco use disorder Dyslipidemia (CMS/HCC) Other and unspecified hyperlipidemia Acquired skin tag Primary hypertension (CMS/HCC)- Primary Unspecified essential hypertension Wheezing Primary insomnia Persistent disorder of initiating or maintaining sleep Obesity (BMI 30-39.9) Tobacco dependence Tobacco use disorder Mild episode of recurrent major depressive disorder (HCC) (CMS/HCC) Generalized anxiety disorder (CMS/HCC) Generalized anxiety disorder Migraine without aura and without status migrainosus, not intractable (CMS/HCC) Anxiety Anxiety state, unspecified Generalized anxiety disorder (CMS/HCC)- Primary Generalized anxiety disorder Mild episode of recurrent major depressive disorder (HCC) (CMS/HCC) Degenerative disc disease, cervical Fibromyalgia Unspecified myalgia and myositis Obesity (BMI 30-39.9) Cervical radicular pain COVID- Primary Obstructive sleep apnea Obstructive sleep apnea (adult) (pediatric) Primary hypertension (CMS/HCC) Unspecified essential hypertension Obesity (BMI 30-39.9) Generalized anxiety disorder (CMS/HCC) Generalized anxiety disorder Mild episode of recurrent major depressive disorder (HCC) (CMS/HCC) Migraine without aura and without status migrainosus, not intractable (CMS/HCC) Tobacco dependence Tobacco use disorder Primary insomnia Persistent disorder of initiating or maintaining sleep Encounter for screening mammogram for malignant neoplasm of breast Subacute pansinusitis Generalized anxiety disorder (CMS/HCC)- Primary Generalized anxiety disorder Primary hypertension (CMS/HCC) Unspecified essential hypertension Obesity (BMI 30-39.9) COVID Subacute pansinusitis Tobacco dependence Tobacco use disorder Primary insomnia Persistent disorder of initiating or maintaining sleep Mixed hyperlipidemia (CMS/HCC) Mixed hyperlipidemia Needs flu shot Need for prophylactic vaccination and inoculation against influenza Wheezing documented in this encounter [facility]* Diagnosis Primary hypertension (CMS/HCC)- Primary Unspecified essential hypertension Screening for colon cancer Special screening for malignant neoplasms, colon Obesity (BMI 30-39.9) Migraine without aura and without status migrainosus, not intractable (CMS/HCC) Tobacco dependence Tobacco use disorder Primary hypertension (CMS/HCC)- Primary Unspecified essential hypertension Obesity (BMI 30-39.9) Dyslipidemia (CMS/HCC) Other and unspecified hyperlipidemia Urinary tract infection without hematuria, site unspecified Anxiety- Primary Anxiety state, unspecified Obesity (BMI 30-39.9) Anxiety- Primary Anxiety state, unspecified Obesity (BMI 30-39.9) Tobacco dependence Tobacco use disorder Dyslipidemia (CMS/HCC) Other and unspecified hyperlipidemia Acquired skin tag Primary hypertension (CMS/HCC)- Primary Unspecified essential hypertension Wheezing Primary insomnia Persistent disorder of initiating or maintaining sleep Obesity (BMI 30-39.9) Tobacco dependence Tobacco use disorder Mild episode of recurrent major depressive disorder (HCC) (CMS/HCC) Generalized anxiety disorder (CMS/HCC) Generalized anxiety disorder Migraine without aura and without status migrainosus, not intractable (CMS/HCC) Anxiety Anxiety state, unspecified Generalized anxiety disorder (CMS/HCC)- Primary Generalized anxiety disorder Mild episode of recurrent major depressive disorder (HCC) (CMS/HCC) Degenerative disc disease, cervical Fibromyalgia Unspecified myalgia and myositis Obesity (BMI 30-39.9) Cervical radicular pain COVID- Primary Obstructive sleep apnea Obstructive sleep apnea (adult) (pediatric) Primary hypertension (CMS/HCC) Unspecified essential hypertension Obesity (BMI 30-39.9) Generalized anxiety disorder (CMS/HCC) Generalized anxiety disorder Mild episode of recurrent major depressive disorder (HCC) (CMS/HCC) Migraine without aura and without status migrainosus, not intractable (CMS/HCC) Tobacco dependence Tobacco use disorder Primary insomnia Persistent disorder of initiating or maintaining sleep Encounter for screening mammogram for malignant neoplasm of breast Subacute pansinusitis Generalized anxiety disorder (CMS/HCC)- Primary Generalized anxiety disorder Primary hypertension (CMS/HCC) Unspecified essential hypertension Obesity (BMI 30-39.9) COVID Subacute pansinusitis Tobacco dependence Tobacco use disorder Primary insomnia Persistent disorder of initiating or maintaining sleep Mixed hyperlipidemia (CMS/HCC) Mixed hyperlipidemia Needs flu shot Need for prophylactic vaccination and inoculation against influenza Primary insomnia- Primary Persistent disorder of initiating or maintaining sleep documented in this encounter [facility] Diagnosis Primary hypertension (CMS/HCC)- Primary Unspecified essential hypertension Screening for colon cancer Special screening for malignant neoplasms, colon Obesity (BMI 30-39.9) Migraine without aura and without status migrainosus, not intractable (CMS/HCC) Tobacco dependence Tobacco use disorder Primary hypertension (CMS/HCC)- Primary Unspecified essential hypertension Obesity (BMI 30-39.9) Dyslipidemia (CMS/HCC) Other and unspecified hyperlipidemia Urinary tract infection without hematuria, site unspecified Anxiety- Primary Anxiety state, unspecified Obesity (BMI 30-39.9) Anxiety- Primary Anxiety state, unspecified Obesity (BMI 30-39.9) Tobacco dependence Tobacco use disorder Dyslipidemia (CMS/HCC) Other and unspecified hyperlipidemia Acquired skin tag Primary hypertension (CMS/HCC)- Primary Unspecified essential hypertension Wheezing Primary insomnia Persistent disorder of initiating or maintaining sleep Obesity (BMI 30-39.9) Tobacco dependence Tobacco use disorder Mild episode of recurrent major depressive disorder (HCC) (CMS/HCC) Generalized anxiety disorder (CMS/HCC) Generalized anxiety disorder Migraine without aura and without status migrainosus, not intractable (CMS/HCC) Anxiety Anxiety state, unspecified Generalized anxiety disorder (CMS/HCC)- Primary Generalized anxiety disorder Mild episode of recurrent major depressive disorder (HCC) (CMS/HCC) Degenerative disc disease, cervical Fibromyalgia Unspecified myalgia and myositis Obesity (BMI 30-39.9) Cervical radicular pain COVID- Primary Obstructive sleep apnea Obstructive sleep apnea (adult) (pediatric) Primary hypertension (CMS/HCC) Unspecified essential hypertension Obesity (BMI 30-39.9) Generalized anxiety disorder (CMS/HCC) Generalized anxiety disorder Mild episode of recurrent major depressive disorder (HCC) (CMS/HCC) Migraine without aura and without status migrainosus, not intractable (CMS/HCC) Tobacco dependence Tobacco use disorder Primary insomnia Persistent disorder of initiating or maintaining sleep Encounter for screening mammogram for malignant neoplasm of breast Subacute pansinusitis Generalized anxiety disorder (CMS/HCC)- Primary Generalized anxiety disorder Primary hypertension (CMS/HCC) Unspecified essential hypertension Obesity (BMI 30-39.9) COVID Subacute pansinusitis Tobacco dependence Tobacco use disorder Primary insomnia Persistent disorder of initiating or maintaining sleep Mixed hyperlipidemia (CMS/HCC) Mixed hyperlipidemia Needs flu shot Need for prophylactic vaccination and inoculation against influenza Primary insomnia Persistent disorder of initiating or maintaining sleep documented in [facility]* Diagnosis Primary hypertension (CMS/HCC)- Primary Unspecified essential hypertension Screening for colon cancer Special screening for malignant neoplasms, colon Obesity (BMI 30-39.9) Migraine without aura and without status migrainosus, not intractable (CMS/HCC) Tobacco dependence Tobacco use disorder Primary hypertension (CMS/HCC)- Primary Unspecified essential hypertension Obesity (BMI 30-39.9) Dyslipidemia (CMS/HCC) Other and unspecified hyperlipidemia Urinary tract infection without hematuria, site unspecified Anxiety- Primary Anxiety state, unspecified Obesity (BMI 30-39.9) Anxiety- Primary Anxiety state, unspecified Obesity (BMI 30-39.9) Tobacco dependence Tobacco use disorder Dyslipidemia (CMS/HCC) Other and unspecified hyperlipidemia Acquired skin tag Primary hypertension (CMS/HCC)- Primary Unspecified essential hypertension Wheezing Primary insomnia Persistent disorder of initiating or maintaining sleep Obesity (BMI 30-39.9) Tobacco dependence Tobacco use disorder Mild episode of recurrent major depressive disorder (HCC) (CMS/HCC) Generalized anxiety disorder (CMS/HCC) Generalized anxiety disorder Migraine without aura and without status migrainosus, not intractable (CMS/HCC) Anxiety Anxiety state, unspecified Generalized anxiety disorder (CMS/HCC)- Primary Generalized anxiety disorder Mild episode of recurrent major depressive disorder (HCC) (CMS/HCC) Degenerative disc disease, cervical Fibromyalgia Unspecified myalgia and myositis Obesity (BMI 30-39.9) Cervical radicular pain COVID- Primary Obstructive sleep apnea Obstructive sleep apnea (adult) (pediatric) Primary hypertension (CMS/HCC) Unspecified essential hypertension Obesity (BMI 30-39.9) Generalized anxiety disorder (CMS/HCC) Generalized anxiety disorder Mild episode of recurrent major depressive disorder (HCC) (CMS/HCC) Migraine without aura and without status migrainosus, not intractable (CMS/HCC) Tobacco dependence Tobacco use disorder Primary insomnia Persistent disorder of initiating or maintaining sleep Encounter for screening mammogram for malignant neoplasm of breast Subacute pansinusitis Generalized anxiety disorder (CMS/HCC)- Primary Generalized anxiety disorder Primary hypertension (CMS/HCC) Unspecified essential hypertension Obesity (BMI 30-39.9) COVID Subacute pansinusitis Tobacco dependence Tobacco use disorder Primary insomnia Persistent disorder of initiating or maintaining sleep Mixed hyperlipidemia (CMS/HCC) Mixed hyperlipidemia Needs flu shot Need for prophylactic vaccination and inoculation against influenza Primary hypertension (CMS/HCC)- Primary Unspecified essential hypertension Obesity (BMI 30-39.9) Cigarette nicotine dependence without complication Abnormal weight gain documented in this [facility]* Diagnosis Primary hypertension (CMS/HCC)- Primary Unspecified essential hypertension Screening for colon cancer Special screening for malignant neoplasms, colon Obesity (BMI 30-39.9) Migraine without aura and without status migrainosus, not intractable (CMS/HCC) Tobacco dependence Tobacco use disorder Primary hypertension (CMS/HCC)- Primary Unspecified essential hypertension Obesity (BMI 30-39.9) Dyslipidemia (CMS/HCC) Other and unspecified hyperlipidemia Urinary tract infection without hematuria, site unspecified Anxiety- Primary Anxiety state, unspecified Obesity (BMI 30-39.9) Anxiety- Primary Anxiety state, unspecified Obesity (BMI 30-39.9) Tobacco dependence Tobacco use disorder Dyslipidemia (CMS/HCC) Other and unspecified hyperlipidemia Acquired skin tag Primary hypertension (CMS/HCC)- Primary Unspecified essential hypertension Wheezing Primary insomnia Persistent disorder of initiating or maintaining sleep Obesity (BMI 30-39.9) Tobacco dependence Tobacco use disorder Mild episode of recurrent major depressive disorder (HCC) (CMS/HCC) Generalized anxiety disorder (CMS/HCC) Generalized anxiety disorder Migraine without aura and without status migrainosus, not intractable (CMS/HCC) Anxiety Anxiety state, unspecified Generalized anxiety disorder (CMS/HCC)- Primary Generalized anxiety disorder Mild episode of recurrent major depressive disorder (HCC) (CMS/HCC) Degenerative disc disease, cervical Fibromyalgia Unspecified myalgia and myositis Obesity (BMI 30-39.9) Cervical radicular pain COVID- Primary Obstructive sleep apnea Obstructive sleep apnea (adult) (pediatric) Primary hypertension (CMS/HCC) Unspecified essential hypertension Obesity (BMI 30-39.9) Generalized anxiety disorder (CMS/HCC) Generalized anxiety disorder Mild episode of recurrent major depressive disorder (HCC) (CMS/HCC) Migraine without aura and without status migrainosus, not intractable (CMS/HCC) Tobacco dependence Tobacco use disorder Primary insomnia Persistent disorder of initiating or maintaining sleep Encounter for screening mammogram for malignant neoplasm of breast Subacute pansinusitis Generalized anxiety disorder (CMS/HCC)- Primary Generalized anxiety disorder Primary hypertension (CMS/HCC) Unspecified essential hypertension Obesity (BMI 30-39.9) COVID Subacute pansinusitis Tobacco dependence Tobacco use disorder Primary insomnia Persistent disorder of initiating or maintaining sleep Mixed hyperlipidemia (CMS/HCC) Mixed hyperlipidemia Needs flu shot Need for prophylactic vaccination and inoculation against influenza Primary hypertension (CMS/HCC)- Primary Unspecified essential hypertension Obesity (BMI 30-39.9) Cigarette nicotine dependence without complication Abnormal weight gain Generalized anxiety disorder (CMS/HCC) Generalized anxiety disorder documented in this [facility]* Diagnosis Primary hypertension (CMS/HCC)- Primary Unspecified essential hypertension Screening for colon cancer Special screening for malignant neoplasms, colon Obesity (BMI 30-39.9) Migraine without aura and without status migrainosus, not intractable (CMS/HCC) Tobacco dependence Tobacco use disorder Primary hypertension (CMS/HCC)- Primary Unspecified essential hypertension Obesity (BMI 30-39.9) Dyslipidemia (CMS/HCC) Other and unspecified hyperlipidemia Urinary tract infection without hematuria, site unspecified Anxiety- Primary Anxiety state, unspecified Obesity (BMI 30-39.9) Anxiety- Primary Anxiety state, unspecified Obesity (BMI 30-39.9) Tobacco dependence Tobacco use disorder Dyslipidemia (CMS/HCC) Other and unspecified hyperlipidemia Acquired skin tag Primary hypertension (CMS/HCC)- Primary Unspecified essential hypertension Wheezing Primary insomnia Persistent disorder of initiating or maintaining sleep Obesity (BMI 30-39.9) Tobacco dependence Tobacco use disorder Mild episode of recurrent major depressive disorder (HCC) (CMS/HCC) Generalized anxiety disorder (CMS/HCC) Generalized anxiety disorder Migraine without aura and without status migrainosus, not intractable (CMS/HCC) Anxiety Anxiety state, unspecified Generalized anxiety disorder (CMS/HCC)- Primary Generalized anxiety disorder Mild episode of recurrent major depressive disorder (HCC) (CMS/HCC) Degenerative disc disease, cervical Fibromyalgia Unspecified myalgia and myositis Obesity (BMI 30-39.9) Cervical radicular pain COVID- Primary Obstructive sleep apnea Obstructive sleep apnea (adult) (pediatric) Primary hypertension (CMS/HCC) Unspecified essential hypertension Obesity (BMI 30-39.9) Generalized anxiety disorder (CMS/HCC) Generalized anxiety disorder Mild episode of recurrent major depressive disorder (HCC) (CMS/HCC) Migraine without aura and without status migrainosus, not intractable (CMS/HCC) Tobacco dependence Tobacco use disorder Primary insomnia Persistent disorder of initiating or maintaining sleep Encounter for screening mammogram for malignant neoplasm of breast Subacute pansinusitis Generalized anxiety disorder (CMS/HCC)- Primary Generalized anxiety disorder Primary hypertension (CMS/HCC) Unspecified essential hypertension Obesity (BMI 30-39.9) COVID Subacute pansinusitis Tobacco dependence Tobacco use disorder Primary insomnia Persistent disorder of initiating or maintaining sleep Mixed hyperlipidemia (CMS/HCC) Mixed hyperlipidemia Needs flu shot Need for prophylactic vaccination and inoculation against influenza Primary hypertension (CMS/HCC)- Primary Unspecified essential hypertension Obesity (BMI 30-39.9) Cigarette nicotine dependence without complication Abnormal weight gain Eczema, unspecified type- Primary Abnormal weight gain Cigarette nicotine dependence without complication Primary insomnia Persistent disorder of initiating or maintaining sleep Dyslipidemia (CMS/HCC) Other and unspecified hyperlipidemia Primary hypertension (CMS/HCC) Unspecified essential hypertension Mild episode of recurrent major depressive disorder (HCC) (CMS/HCC) Generalized anxiety disorder (CMS/HCC) Generalized anxiety disorder documented in this encounter [facility]* Diagnosis Primary hypertension (CMS/HCC)- Primary Unspecified essential hypertension Screening for colon cancer Special screening for malignant neoplasms, colon Obesity (BMI 30-39.9) Migraine without aura and without status migrainosus, not intractable (CMS/HCC) Tobacco dependence Tobacco use disorder Primary hypertension (CMS/HCC)- Primary Unspecified essential hypertension Obesity (BMI 30-39.9) Dyslipidemia (CMS/HCC) Other and unspecified hyperlipidemia Urinary tract infection without hematuria, site unspecified Anxiety- Primary Anxiety state, unspecified Obesity (BMI 30-39.9) Anxiety- Primary Anxiety state, unspecified Obesity (BMI 30-39.9) Tobacco dependence Tobacco use disorder Dyslipidemia (CMS/HCC) Other and unspecified hyperlipidemia Acquired skin tag Primary hypertension (CMS/HCC)- Primary Unspecified essential hypertension Wheezing Primary insomnia Persistent disorder of initiating or maintaining sleep Obesity (BMI 30-39.9) Tobacco dependence Tobacco use disorder Mild episode of recurrent major depressive disorder (HCC) (CMS/HCC) Generalized anxiety disorder (CMS/HCC) Generalized anxiety disorder Migraine without aura and without status migrainosus, not intractable (CMS/HCC) Anxiety Anxiety state, unspecified Generalized anxiety disorder (CMS/HCC)- Primary Generalized anxiety disorder Mild episode of recurrent major depressive disorder (HCC) (CMS/HCC) Degenerative disc disease, cervical Fibromyalgia Unspecified myalgia and myositis Obesity (BMI 30-39.9) Cervical radicular pain COVID- Primary Obstructive sleep apnea Obstructive sleep apnea (adult) (pediatric) Primary hypertension (CMS/HCC) Unspecified essential hypertension Obesity (BMI 30-39.9) Generalized anxiety disorder (CMS/HCC) Generalized anxiety disorder Mild episode of recurrent major depressive disorder (HCC) (CMS/HCC) Migraine without aura and without status migrainosus, not intractable (CMS/HCC) Tobacco dependence Tobacco use disorder Primary insomnia Persistent disorder of initiating or maintaining sleep Encounter for screening mammogram for malignant neoplasm of breast Subacute pansinusitis Generalized anxiety disorder (CMS/HCC)- Primary Generalized anxiety disorder Primary hypertension (CMS/HCC) Unspecified essential hypertension Obesity (BMI 30-39.9) COVID Subacute pansinusitis Tobacco dependence Tobacco use disorder Primary insomnia Persistent disorder of initiating or maintaining sleep Mixed hyperlipidemia (CMS/HCC) Mixed hyperlipidemia Needs flu shot Need for prophylactic vaccination and inoculation against influenza Primary hypertension (CMS/HCC)- Primary Unspecified essential hypertension Obesity (BMI 30-39.9) Cigarette nicotine dependence without complication Abnormal weight gain Eczema, unspecified type- Primary Abnormal weight gain Cigarette nicotine dependence without complication Primary insomnia Persistent disorder of initiating or maintaining sleep Dyslipidemia (CMS/HCC) Other and unspecified hyperlipidemia Primary hypertension (CMS/HCC) Unspecified essential hypertension Mild episode of recurrent major depressive disorder (HCC) (CMS/HCC) Generalized anxiety disorder (CMS/HCC) Generalized anxiety disorder Obesity (BMI 30-39.9) Migraine without aura and without status migrainosus, not intractable (CMS/HCC)- Primary documented in this encounter [facility]* Diagnosis Primary hypertension- Primary Unspecified essential hypertension Screening for colon cancer Special screening for malignant neoplasms, colon Obesity (BMI 30-39.9) Migraine without aura and without status migrainosus, not intractable Tobacco dependence Tobacco use disorder Primary hypertension- Primary Unspecified essential hypertension Obesity (BMI 30-39.9) Dyslipidemia Other and unspecified hyperlipidemia Urinary tract infection without hematuria, site unspecified Anxiety- Primary Anxiety state, unspecified Obesity (BMI 30-39.9) Anxiety- Primary Anxiety state, unspecified Obesity (BMI 30-39.9) Tobacco dependence Tobacco use disorder Dyslipidemia Other and unspecified hyperlipidemia Acquired skin tag Primary hypertension- Primary Unspecified essential hypertension Wheezing Primary insomnia Persistent disorder of initiating or maintaining sleep Obesity (BMI 30-39.9) Tobacco dependence Tobacco use disorder Mild episode of recurrent major depressive disorder Generalized anxiety disorder Generalized anxiety disorder Migraine without aura and without status migrainosus, not intractable Anxiety Anxiety state, unspecified Generalized anxiety disorder- Primary Generalized anxiety disorder Mild episode of recurrent major depressive disorder Degenerative disc disease, cervical Fibromyalgia Unspecified myalgia and myositis Obesity (BMI 30-39.9) Cervical radicular pain COVID- Primary Obstructive sleep apnea Obstructive sleep apnea (adult) (pediatric) Primary hypertension Unspecified essential hypertension Obesity (BMI 30-39.9) Generalized anxiety disorder Generalized anxiety disorder Mild episode of recurrent major depressive disorder Migraine without aura and without status migrainosus, not intractable Tobacco dependence Tobacco use disorder Primary insomnia Persistent disorder of initiating or maintaining sleep Encounter for screening mammogram for malignant neoplasm of breast Subacute pansinusitis Generalized anxiety disorder- Primary Generalized anxiety disorder Primary hypertension Unspecified essential hypertension Obesity (BMI 30-39.9) COVID Subacute pansinusitis Tobacco dependence Tobacco use disorder Primary insomnia Persistent disorder of initiating or maintaining sleep Mixed hyperlipidemia Mixed hyperlipidemia Needs flu shot Need for prophylactic vaccination and inoculation against influenza Primary hypertension- Primary Unspecified essential hypertension Obesity (BMI 30-39.9) Cigarette nicotine dependence without complication Abnormal weight gain Eczema, unspecified type- Primary Abnormal weight gain Cigarette nicotine dependence without complication Primary insomnia Persistent disorder of initiating or maintaining sleep Dyslipidemia Other and unspecified hyperlipidemia Primary hypertension Unspecified essential hypertension Mild episode of recurrent major depressive disorder Generalized anxiety disorder Generalized anxiety disorder Obesity (BMI 30-39.9) Wheezing documented in this encounter [facility]* Diagnosis Primary hypertension- Primary Unspecified essential hypertension Screening for colon cancer Special screening for malignant neoplasms, colon Obesity (BMI 30-39.9) Migraine without aura and without status migrainosus, not intractable Tobacco dependence Tobacco use disorder Primary hypertension- Primary Unspecified essential hypertension Obesity (BMI 30-39.9) Dyslipidemia Other and unspecified hyperlipidemia Urinary tract infection without hematuria, site unspecified Anxiety- Primary Anxiety state, unspecified Obesity (BMI 30-39.9) Anxiety- Primary Anxiety state, unspecified Obesity (BMI 30-39.9) Tobacco dependence Tobacco use disorder Dyslipidemia Other and unspecified hyperlipidemia Acquired skin tag Primary hypertension- Primary Unspecified essential hypertension Wheezing Primary insomnia Persistent disorder of initiating or maintaining sleep Obesity (BMI 30-39.9) Tobacco dependence Tobacco use disorder Mild episode of recurrent major depressive disorder Generalized anxiety disorder Generalized anxiety disorder Migraine without aura and without status migrainosus, not intractable Anxiety Anxiety state, unspecified Generalized anxiety disorder- Primary Generalized anxiety disorder Mild episode of recurrent major depressive disorder Degenerative disc disease, cervical Fibromyalgia Unspecified myalgia and myositis Obesity (BMI 30-39.9) Cervical radicular pain COVID- Primary Obstructive sleep apnea Obstructive sleep apnea (adult) (pediatric) Primary hypertension Unspecified essential hypertension Obesity (BMI 30-39.9) Generalized anxiety disorder Generalized anxiety disorder Mild episode of recurrent major depressive disorder Migraine without aura and without status migrainosus, not intractable Tobacco dependence Tobacco use disorder Primary insomnia Persistent disorder of initiating or maintaining sleep Encounter for screening mammogram for malignant neoplasm of breast Subacute pansinusitis Generalized anxiety disorder- Primary Generalized anxiety disorder Primary hypertension Unspecified essential hypertension Obesity (BMI 30-39.9) COVID Subacute pansinusitis Tobacco dependence Tobacco use disorder Primary insomnia Persistent disorder of initiating or maintaining sleep Mixed hyperlipidemia Mixed hyperlipidemia Needs flu shot Need for prophylactic vaccination and inoculation against influenza Primary hypertension- Primary Unspecified essential hypertension Obesity (BMI 30-39.9) Cigarette nicotine dependence without complication Abnormal weight gain Eczema, unspecified type- Primary Abnormal weight gain Cigarette nicotine dependence without complication Primary insomnia Persistent disorder of initiating or maintaining sleep Dyslipidemia Other and unspecified hyperlipidemia Primary hypertension Unspecified essential hypertension Mild episode of recurrent major depressive disorder Generalized anxiety disorder Generalized anxiety disorder Obesity (BMI 30-39.9) Obstructive sleep apnea- Primary Obstructive sleep apnea (adult) (pediatric) Sedative, hypnotic or anxiolytic dependence, uncomplicated (HCC) Insomnia, unspecified type Primary hypertension Unspecified essential hypertension Obesity (BMI 30-39.9) Dyslipidemia Other and unspecified hyperlipidemia Generalized anxiety disorder Generalized anxiety disorder Primary insomnia Persistent disorder of initiating or maintaining sleep documented in this encounter [facility]* Diagnosis Primary hypertension- Primary Unspecified essential hypertension Screening for colon cancer Special screening for malignant neoplasms, colon Obesity (BMI 30-39.9) Migraine without aura and without status migrainosus, not intractable Tobacco dependence Tobacco use disorder Primary hypertension- Primary Unspecified essential hypertension Obesity (BMI 30-39.9) Dyslipidemia Other and unspecified hyperlipidemia Urinary tract infection without hematuria, site unspecified Anxiety- Primary Anxiety state, unspecified Obesity (BMI 30-39.9) Anxiety- Primary Anxiety state, unspecified Obesity (BMI 30-39.9) Tobacco dependence Tobacco use disorder Dyslipidemia Other and unspecified hyperlipidemia Acquired skin tag Primary hypertension- Primary Unspecified essential hypertension Wheezing Primary insomnia Persistent disorder of initiating or maintaining sleep Obesity (BMI 30-39.9) Tobacco dependence Tobacco use disorder Mild episode of recurrent major depressive disorder Generalized anxiety disorder Generalized anxiety disorder Migraine without aura and without status migrainosus, not intractable Anxiety Anxiety state, unspecified Generalized anxiety disorder- Primary Generalized anxiety disorder Mild episode of recurrent major depressive disorder Degenerative disc disease, cervical Fibromyalgia Unspecified myalgia and myositis Obesity (BMI 30-39.9) Cervical radicular pain COVID- Primary Obstructive sleep apnea Obstructive sleep apnea (adult) (pediatric) Primary hypertension Unspecified essential hypertension Obesity (BMI 30-39.9) Generalized anxiety disorder Generalized anxiety disorder Mild episode of recurrent major depressive disorder Migraine without aura and without status migrainosus, not intractable Tobacco dependence Tobacco use disorder Primary insomnia Persistent disorder of initiating or maintaining sleep Encounter for screening mammogram for malignant neoplasm of breast Subacute pansinusitis Generalized anxiety disorder- Primary Generalized anxiety disorder Primary hypertension Unspecified essential hypertension Obesity (BMI 30-39.9) COVID Subacute pansinusitis Tobacco dependence Tobacco use disorder Primary insomnia Persistent disorder of initiating or maintaining sleep Mixed hyperlipidemia Mixed hyperlipidemia Needs flu shot Need for prophylactic vaccination and inoculation against influenza Primary hypertension- Primary Unspecified essential hypertension Obesity (BMI 30-39.9) Cigarette nicotine dependence without complication Abnormal weight gain Eczema, unspecified type- Primary Abnormal weight gain Cigarette nicotine dependence without complication Primary insomnia Persistent disorder of initiating or maintaining sleep Dyslipidemia Other and unspecified hyperlipidemia Primary hypertension Unspecified essential hypertension Mild episode of recurrent major depressive disorder Generalized anxiety disorder Generalized anxiety disorder Obesity (BMI 30-39.9) Obstructive sleep apnea- Primary Obstructive sleep apnea (adult) (pediatric) Sedative, hypnotic or anxiolytic dependence, uncomplicated (HCC) Insomnia, unspecified type Primary hypertension Unspecified essential hypertension Obesity (BMI 30-39.9) Dyslipidemia Other and unspecified hyperlipidemia Generalized anxiety disorder Generalized anxiety disorder Primary insomnia Persistent disorder of initiating or maintaining sleep Wheezing documented in this encounter [facility] No data available for this section [facility] progress note No data available for this section [facility] Summary Purpose Family History No Family History Records Found Relationship Condition Age at Onset Recorded Date/T aria Not Specified Heart murmur Unknown Atrial fibrillationUnknownHypertensionUnknownfatherHypertensionUnknownHistory of coronary artery stent placementUnknownCoronary artery diseaseUnknown HyperoxaluriaUnknown Relationship Condition Age at Onset Recorded Date/T aria mother Heart murmur Unknown Atrial fibrillationUnknownHypertensionUnknownfatherHypertensionUnknownHistory of coronary artery stent placementUnknownCoronary artery diseaseUnknown HyperoxaluriaUnknownHeart diseaseUnknownmotherHypertensionUnknown Advance Directives No Advanced Directives Records Found Advance Directive Response Recorded Date/ Time Advance Directives No September 12 10:02am Advance Directive Response Recorded Date/ Time Advance Directives No September 12 9:02am Reason for Referral Reason Evaluate and Treat I mprove Core Muscles and Treat Occipital Neuralgia Diagnosis 1 Herniation of cervic al intervertebral disc with radiculopathy (M50.10) Diagnosis 2 Occipital neuralgia, unspecified laterality (M54.81) Referral Organization [facility] Referring Provider First Name Myles Referring Provider Last Name James Referring Provider Specialty Neurosurger y Referred Organization Unknown Facility Referred Provider Specialty Physical The rapist Referral Priority Routine Chief Complaint and Reason for Visit Chief Complaint m50.10 Chief Complaint Admit Date os/ interested in inspire August 24 8:47am Chief Complaint Admit Date os/ interested in inspire August 24 8:47am G47.33 November 03, 2024 7:59p m Reason for Visit Admit Date Intolerance of continuous po sitive airway pressure (CPAP) ventilation August 24, 2024 8:47am Obstructive sleep apnea August 24, 2024 8:47am Additional Source Comments INFORMATION SOURCE (unrecogn ized section and content) DATE CREATED AUTHOR 12/18/2017 [place] DATE CREATED AUTHOR AUTHOR'S ORGANIZ ATION 11/30/2022 [facility] DATE CREATED AUTHOR AUTHOR'S ORGANIZ ATION 03/28/2023 [facility] DATE CREATED AUTHOR AUTHOR'S ORGANIZ ATION 03/28/2023 [facility] DATE CREATED AUTHOR AUTHOR'S ORGANIZ ATION 08/29/2023 [facility] DATE CREATED AUTHOR AUTHOR'S ORGANIZ ATION 11/24/2024 [facility] DATE CREATED AUTHOR AUTHOR'S ORGANIZ ATION 02/02/2025 [facility] DATE CREATED AUTHOR AUTHOR'S ORGANIZ ATION 03/10/2025 [facility] REASON FOR VISIT (unrecogniz ed section and content) ReasonCommentsMed RefillReasonOnset DateCommentsMed Onkbfo4406/25/2024Reason CommentsAnxietyReasonOnset DateCommentsMed Hwlbai3307/20/2024ReasonOnset Date CommentsMed Okixua6208/03/2024ReasonCommentsHypertensionReasonCommentsWeight Check Care Teams (unrecognized sec tion and content) Team Status: Active Member Role Status Dates Ellen Dodson Primary Care Provider Active Team Status: Inactive Member Role Status Dates Ellen Dodson Primary Care Provider Active Sta rt: August 24, 2024 End: August 24, 2024Pemaryellen Rush NPAttguillermo ProviderActiveStart: August 24, 2024 End: August 24, 2024 Team Status: Inactive Member Role Status Dates Ellen Dodson Primary Care Provider Active Myles Ramirez MDAttending ProviderActiveTeam MemberRelationshipSpecialty Start DateEnd Date Naderer, Parth, MD [facility]12/18/22Team MemberRelationshipSpecialtyStart DateEnd Date Parth Galvez MD [address] [place] [address] [facility]12/18/22 Parth Galvez MD [address] [place] [address] [facility]12/23/23 Ellen Dodson NP [address] [place] [address] [facility]/25/23Team MemberRelationshipSpecialtyStart DateEnd Date Parth Galvez MD [address] [place] [address] [facility]12/18/22 Parth Galvez MD [address] [place] [address] [facility]12/23/23 Ellen Dodson NP [address] [place] [address] [facility]11/25/23Team MemberRelationshipSpecialtyStart DateEnd Date Parth Galvez MD [address] [place] [address] PCP - [facility]12/18/22 Parth Galvez MD [address] [place] [address] [facility]12/23/23 Ellen Dodson NP [address] [place] [address] [facility]11/25/23Team MemberRelationshipSpecialtyStart DateEnd Date Parth Galvez MD [address] [place] [address] [facility]12/18/22 Parth Galvez MD [address] [place] [address] [facility]12/23/23 Ellen Dodson, BAN [address] [place] [address] [facility]11/25/23Team MemberRelationshipSpecialtyStart DateEnd Date Parth Galvez MD [address] [place] [address] [facility]12/18/22 Parth Galvez MD [address] [place] [address] [facility]12/23/23 Ellen Dodson NP [address] [place] [address] [facility]11/25/23Team MemberRelationshipSpecialtyStart DateEnd Date Parth Galvez MD [address] [place] [address] [facility]12/18/22 Parth Galvez MD [address] [place] [address] [facility]12/23/23 Ellen Dodson NP [address] [place] [address] [facility]11/25/23Team MemberRelationshipSpecialtyStart DateEnd Date Parth Galvez MD [address] [place] [address] [facility]12/18/22 Parth Galvez MD [address] [place] [address] [facility]12/23/23 Ellen Dodson NP [address] [place] [address] Nurse [facility]11/25/23Team MemberRelationshipSpecialtyStart DateEnd Date Parth Galvez MD [address] [place] [address] PCP - [facility]12/18/22 Parth Galvez MD [address] [place] [address] [facility]12/23/23 Ellen Dodson NP [address] [place] [address] [facility]11/25/23Team MemberRelationshipSpecialtyStart DateEnd Date Parth Galvez MD [address] [place] [address] [facility]12/18/22 Parth Galvez MD [address] [place] [address] [facility]12/23/23 Ellen Dodson, BAN [address] [place] [address] [facility]11/25/23Team MemberRelationshipSpecialtyStart DateEnd Date Parth Galvez MD [address] [place] [address] [facility]12/18/22 Parth Galvez MD [address] [place] [address] PCP [facility]12/23/23 Ellen Dodson NP [address] [place] [address] [facility]11/25/23Team MemberRelationshipSpecialtyStart DateEnd Date Parth Galvez MD [address] [place] [address] PCP - [facility]12/18/22 Parth Galvez MD [address] [place] [address] [facility]12/23/23 Ellen Dodson NP [address] [place] [address] [facility]11/25/23Team MemberRelationshipSpecialtyStart DateEnd Date Parth Galvez MD [address] [place] [address] PCP - [facility]12/18/22 Parth Galvez MD [address] [place] [address] PCP [facility]12/23/23 Ellen Dodson NP [address] [place] [address] [facility]11/25/23Team MemberRelationshipSpecialtyStart DateEnd Date Parth Galvez MD [address] [place] [address] PCP - [facility]12/18/22 Parth Galvez MD [address] [place] [address] PCP [facility]12/23/23 Ellen Dodson, STEAM [employer]OX [employer] [address] [place] [address] Nurse [facility]11/25/23Team MemberRelationshipSpecialtyStart DateEnd Date Parth Galvez MD [address] [place] [address] [facility]12/18/22 Parth Galvez MD [address] [place] [address] [facility]12/23/23 Ellen Dodson, BAN [address] [place] [address] [facility]11/25/23Team MemberRelationshipSpecialtyStart DateEnd Date Parth Galvez MD [address] [place] [address] PCP - [facility]12/18/22 Ellen Dodson NP [address] [place] [address] PCP [facility]06/24/24 Ellen Dodson NP [address] [place] [address] [facility]11/25/23Team MemberRelationshipSpecialtyStart DateEnd Date Parth Galvez MD [address] [place] [address] PCP - [facility]12/18/22 Ellen Dodson NP [address] [place] [address] PCP [facility]06/24/24 Ellen Dodson NP [address] [place] [address] [facility]11/25/23Team MemberRelationshipSpecialtyStart DateEnd Date Parth Galvez MD [address] [place] [address] [facility]/22 Ellen Dodson NP [address] [place] [address] PCP [facility]06/24/24 Ellen Dodson NP [address] [place] [address] [facility]11/25/23Team MemberRelationshipSpecialtyStart DateEnd Date Parth Galvez MD [address] [place] [address] PCP - [facility]12/18/22 Ellen Dodson NP [address] [place] [address] PCP [facility]06/24/24 Ellen Dodson NP [address] [place] [address] [facility]11/25/23Te MemberRelationshipSpecialtyStart DateEnd Date Parth Galvez MD [address] [place] [address] PCP [facility]12/18/22 Ellen Dodson NP [address] [place] [address] PCP [facility]06/24/24 Ellen Dodson NP [address] [place] [address] [facility]11/25/23Team MemberRelationshipSpecialtyStart DateEnd Date Parth Galvez MD [address] [place] [address] PCP - [facility]12/18/22 Ellen Dodson NP [address] [place] [address] [facility]06/24/24 Ellen Dodson NP [address] [place] [address] [facility]11/25/23Team MemberRelationshipSpecialtyStart DateEnd Date Parth Galvez MD [address] [place] [address] PCP - [facility]12/18/22 Ellen Dodson NP [address] [place] [address] [facility]06/24/24 Ellen Dodson NP [address] [place] [address] [facility]11/25/23Team MemberRelationshipSpecialtyStart DateEnd Date Parth Galvez MD [address] [place] [address] PCP - [facility]12/18/22 Ellen Dodson NP [address] [place] [address] PCP [facility]06/24/24 Ellen Dodson NP [address] [place] [address] [facility]11/25/23Team MemberRelationshipSpecialtyStart DateEnd Date Parth Galvez MD [address] [place] [address] PCP - [facility]12/18/22 Ellen Dodson NP [address] [place] [address] [facility]06/24/24 Ellen Dodson NP [address] [place] [address] [facility]11/25/23Team MemberRelationshipSpecialtyStart DateEnd Date Parth Galvez MD [address] [place] [address] PCP - [facility]12/18/22 Ellen Dodson NP [address] [place] [address] PCP [facility]06/24/24 Ellen Dodson NP [address] [place] [address] [facility]11/25/23 Team Status: Inactive Member Role Status Dates Ellen Agjasiel Primary Care Provider Active Sta rt: November 03, 2024 End: November 03, 2024Daluz marina Acevedo MDAttending ProviderActiveStart: November 03, 2024 End: November 03, 2024Team MemberRelationshipSpecialtyStart DateEnd Date Parth Galvez MD [address] [place] [address] PCP - [facility]12/18/22 Ellen Dodson NP [address] [place] [address] PCP - [facility]06/24/24 Ellen Dodson NP [address] [place] [address] [facility]11/25/23Team MemberRelationshipSpecialtyStart DateEnd Date Parth Galvez MD [address] [place] [address] PCP - [facility]12/18/22 Ellen Dodson NP [address] [place] [address] PCP - [facility]06/24/24 Ellen Dodson NP [address] [place] [address] [facility]11/25/23Team MemberRelationshipSpecialtyStart DateEnd Date Parth Galvez MD [address] [place] [address] [facility]12/18/22 Ellen Dodson NP [address] [place] [address] [facility]06/24/24 Ellen Dodson NP [address] [place] [address] Nurse [facility]11/25/23Team MemberRelationshipSpecialtyStart DateEnd Date Parth Galvez MD [address] [place] [address] [facility]12/18/22 Ellen Dodson NP [address] [place] [address] [facility]06/24/24 Ellen Dodson NP [address] [place] [address] Nurse [facility]11/25/23 Goals (unrecognized section and content) Goals may [...] BE BASED ON THE PRIMARY CLINICAL RECORDS. [facility] [employer] [facility]. provides no warranty or guarantee of the accuracy or completeness of information in this document.
--- OUTSIDE RECORDS SUMMARY | 2025-05-12 15:58 | XMS_ITS | Clinical Summary ---
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 Name Role Phone Parth Galvez MD Primary Care Provider AicEllen chew REPEAT CHIEF Unavailable [phone] AicEllen chew REPEAT CHIEF Unavailable [phone] Allergies Active AllergyReactionsCriticalityNoted DateCommentsAtorvastatinUnknown 5CiprofloxacinHives,GI obcjjezeshb64/04/2017GabapentinShortness of breath,EepxtYsbc75/12/2023 Fatigue and lethargic HydrochlorothiazideShortness of nltjgtUfrx00/07/2021Hydrocodone-AcetaminophenGI intolerance,Unknown,Other04/27/20178176DleevltoswUuzinuj92/24/2021MeloxicamUnknown 04/27/2017PhenazopyridineGI rfwsnubgqvl89/04/4416FewoumfcapMibup03/08/2023 Medications MedicationSigDispense QuantityRefillsLast FilledStart DateEnd DateStatus baclofen (Lioresal) 20 MG tablet Take 20 mg by mouth if needed (causes constipation)Active Bioflavonoid Products (Vitamin C) chewable tablet as directed OrallyActive Multiple Vitamin (Multi-Vitamin) tablet 1 (one) time each day at the same time.Active albuterol (2.5 MG/3ML) 0.083% nebulizer solution Indications:COVIDTake 3 mL (2.5 mg) by nebulization every 6 (six) hours if needed for wheezing 360 mL 5Active mometasone (Elocon) 0.1 % ointment Indications:Eczema, unspecified typeOnce a day to affected area for 14 days, then thin area twice a week if needed, avoid use on face 60 g 5Active carvedilol (Coreg) 6.25 MG tablet Indications:Primary hypertensionTake 1 tablet (6.25 mg) by mouth in the morning and 1 tablet (6.25 mg) before bedtime. 180 tablet 5Active hydroCHLOROthiazide (HYDRODiuril) 25 MG tablet Indications:Primary hypertensionTake 1 tablet (25 mg) by mouth Daily 90 tablet 5Active simvastatin (Zocor) 40 MG tablet Indications:DyslipidemiaTake 1 tablet (40 mg) by mouth at bedtime 90 tablet 5Active venlafaxine XR (Effexor XR) 150 MG 24 hr capsule Indications:Generalized anxiety disorderTake 1 capsule (150 mg) by mouth Daily Take with food. 90 capsule 5Active zolpidem (Ambien) 10 MG tablet Indications:Primary insomniaTake 1 tablet (10 mg) by mouth at bedtime 30 tablet 505Active albuterol HFA 90 mcg/act inhaler Indications:WheezingINHALE 2 PUFFS BY MOUTH EVERY 6 HOURS NEEDED FOR WHEEZING 18 g 5Active Active Problems ProblemNoted DateDiagnosed HvokMhfrym09/22/2025Cigarette nicotine dependence without cgbiqqjovjgr55/24/2025 Assessment & Plan (10/13/2024 7:02 AM EDT): The patient has been advised of the risks of continued smoking: stroke, UT, all forms of cancer, lung disease, and . Options for quitting smoking include: cold turkey, hypnosis, acupuncture, nicotine replacement meds(gum, lozenges, and patches), Buproprion, and Varenicline. At this time pt is encouraged to evaluate their goals for wanting to quit smoking, and reach out toprovider when ready to start this process Assessment & Plan (09/14/2024 7:23 AM EDT): The patient has been advised of the risks of continued smoking: stroke, UT, all forms of cancer, lung disease, and . Options for quitting smoking include: cold turkey, hypnosis, acupuncture, nicotine replacement meds(gum, lozenges, and patches), Buproprion, and Varenicline. At this time pt is encouraged to evaluate their goals for wanting to quit smoking, and reach out toprovider when ready to start this process Abnormal weight gain09/14/2024 Assessment & Plan (10/13/2024 7:02 AM EDT): Pt meets qualifications of OAC 4731-04-27 for weight loss. BMI>30 or >27 with comorbid conditions. Notify office with any symptoms of chest pain, dyspnea, heart palpitations, or any anxiety symptoms. F/U in 4 weeks to document weight loss. Increase physical activity as tolerated, and lower caloric intake to 1600 calories daily if no contraindications Month: #2 OARRS reivewed Starting weight; 178 (09/14/24) Assessment & Plan (09/14/2024 3:26 PM EDT): Pt meets qualifications of OAC 4731-04-27 for weight loss. BMI>30 or >27 with comorbid conditions. Notify office with any symptoms of chest pain, dyspnea, heart palpitations, or any anxiety symptoms. F/U in 4 weeks to document weight loss. Increase physical activity as tolerated, and lower caloric intake to 1600 calories daily if no contraindications Month: #1 OARRS reivewed Abnormal urine cefgegi25/06/2025Allergic kpgrgexv08/21/2025Mixed hyperlipidemia 07/14/2024 Assessment & Plan (07/14/2024 3:53 PM EST): Continue statin Needs flu shot07/14/2024 Assessment & Plan (07/14/2024 3:54 PM EST): Consent sheet signed and VIS given COVID06/26/2024 Assessment & Plan (07/14/2024 3:51 PM EST): From last visit: (Dx on 06/18/24, Still w low grade fever, fatigue, dyspnea with activity, Productive cough: brown. Likely developed secondary sinus infection will treat atb) Sxs have resolved Assessment & Plan (06/29/2024 3:17 PM EST): Dx on 06/18/24 Still w low grade fever, fatigue, dyspnea with activity Productive cough: brown Likely developed secondary sinus infection will treat atb Cervical twzxhtklzpyph69/21/2024Generalized anxiety hqkahqcm61/24/2024 Overview (10/13/2024): BIPIN 7=8 Assessment & Plan (09/14/2024 7:22 AM EDT): Last appt increased her effexor BIPIN 7= Assessment & Plan (07/14/2024 3:53 PM EST): Would like to increase her effexor script. [...] if these occur. Fu in 6 weeks Assessment & Plan (06/29/2024 7:37 AM EST): Current medication: effexor XR total of 112.5mg daily Assessment & Plan (02/11/2024 2:59 PM EDT): Increase effexor XR to 3 pills daily Fu in 8 weeks Assessment & Plan (01/15/2024 1:32 PM EDT): Cont effexor Mild episode of recurrent major depressive dznwdevf34/24/2024 Assessment & Plan (10/13/2024 3:54 PM EDT): PHQ 9=6 Assessment & Plan (09/14/2024 7:23 AM EDT): Last appt increased her effexor d/t anxiety PHQ 9= Assessment & Plan (06/29/2024 7:38 AM EST): Current dose of meds: effexor 112.5mg daily Assessment & Plan (01/15/2024 1:32 PM EDT): Will continue effexor script at current dose Fu in 4-6 weeks Acquired skin tag12/10/2023 Assessment & Plan (12/10/2023 3:49 PM EDT): Removed, tolerated well Ncdiwqfk73/03/2024Obstructive sleep apnea08/05/2023 Assessment & Plan (02/01/2025 3:25 PM EDT): You have a diagnosis of obstructive sleep [...] mild, sleep med doc recommend trial zepbound Assessment & Plan (06/29/2024 3:21 PM EST): You have a diagnosis of obstructive sleep apnea. It is recommended that you wear your PAP device any time while in bed sleeping. Not using the PAP device can increase your risk of elevated/uncontrolled high blood pressure, atrial fibrillation, heart attack, stroke, or sudden . Compliant with PAP: not, cannot wear mask, causes severe skin break outs Looking into inspire Iludnxkk59/12/2024 Overview (07/14/2024): Med agreement: 07/14/24 Assessment & Plan (02/01/2025 7:25 AM EDT): Uses ambien nightly OARRS reviewed Med agreement signed: 07/14/24 Assessment & Plan (10/13/2024 3:49 PM EDT): Uses ambien nightly OARRS reviewed Med agreement signed: 07/14/24 Assessment & Plan (07/14/2024 2:37 PM EST): Uses danielle RUIZ reviewed Med agreement signed: 07/14/24 Assessment & Plan (06/29/2024 3:19 PM EST): Uses danielle nightcallie CHINRRS reviewed Cervical radicular pain08/05/20237060Iyyewvqolkrs11/12/2024 Assessment & Plan (02/11/2024 2:58 PM EDT): Made worse with chronic pain,depression, migraine Degenerative disc disease, /12/2024 Assessment & Plan (02/11/2024 2:58 PM EDT): 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 We have also discussed lifestyle modifications: attempts to perform physical activity as chronic conditions allow, also to monitor dietary intake: increasing protein/fruits/veggies and lowering carb intake (unless contraindicated). Limit sodas, juices, and sugary drinks. Assessment & Plan (09/14/2024 7:21 AM EDT): Discussed with patient their BMI (actual, verses recommended). We have also discussed lifestyle modifications: attempts to perform physical activity as chronic conditions allow, also to monitor dietary intake: increasing protein/fruits/veggies and lowering carb intake (unless contraindicated). Limit sodas, juices, and sugary drinks. Assessment & Plan (07/14/2024 7:11 AM EST): Discussed with patient their BMI (actual, verses recommended). We have also discussed lifestyle modifications: attempts to perform physical activity as chronic conditions allow, also to monitor dietary intake: increasing protein/fruits/veggies and lowering carb intake (unless contraindicated). Limit sodas, juices, and sugary drinks. Assessment & Plan (06/29/2024 7:37 AM EST): Discussed with patient their BMI (actual, verses recommended). We have also discussed lifestyle modifications: attempts to perform physical activity as chronic conditions allow, also to monitor dietary intake: increasing protein/fruits/veggies and lowering carb intake (unless contraindicated). Limit sodas, juices, and sugary drinks. Assessment & Plan (01/15/2024 1:31 PM EDT): Did not meet 5% weight loss in 3 months, will not refill adipex Assessment & Plan (12/10/2023 3:01 PM EDT): Pt meets qualifications of OAC 4731-04-27 for weight loss. BMI>30 or >27 with comorbid conditions. Notify office with any symptoms of chest pain, dyspnea, heart palpitations, or any anxiety symptoms. F/U in 4 weeks to document weight loss. Increase physical activity as tolerated, and lower caloric intake to 1600 calories daily if no contraindications Script #3 Total loss 5 pounds Fu in 4 weeks Assessment & Plan (11/07/2023 5:08 PM EDT): Pt meets qualifications of OAC 4731-04-27 for weight loss. BMI>30 or >27 with comorbid conditions. Notify office with any symptoms of chest pain, dyspnea, heart palpitations, or any anxiety symptoms. F/U in 4 weeks to document weight loss. Increase physical activity as tolerated, and lower caloric intake to 1600 calories daily if no contraindications Script #2 Fu in 4 weeks Assessment & Plan (10/07/2023 6:10 PM EDT): Pt meets qualifications of OAC 4731-04-27 for weight loss. BMI>30 or >27 with comorbid conditions. Notify office with any symptoms of chest pain, dyspnea, heart palpitations, or any anxiety symptoms. F/U in 4 weeks to document weight loss. Increase physical activity as tolerated, and lower caloric intake to 1600 calories daily if no contraindications OARRS reviewed Migraine without aura, not /12/2023 Assessment & Plan (06/29/2024 3:23 PM EST): Is currently taking amovig How many [place] days per month: 5 Assessment & Plan (01/15/2024 1:32 PM EDT): Continue injectable Assessment & Plan (06/04/2023 4:54 PM EST): Would like to trial an increase with her aimovig dose Primary csrspxvykypl95/12/2023 Assessment & Plan (02/01/2025 7:26 AM EDT): Please check blood pressure daily and record DASH diet Limit caffeine Take medication as directed Contact office if chest pain, pressure, dizziness, shortness of breath, swelling legs Recommend slow position changes Current med: carvedilol , as well as HCTZ Assessment & Plan (10/13/2024 3:49 PM EDT): Please check blood pressure daily and record DASH diet Limit caffeine Take medication as directed Contact office if chest pain, pressure, dizziness, shortness of breath, swelling legs Recommend slow position changes Current med: carvedilol , as well as HCTZ Assessment & Plan (09/14/2024 7:21 AM EDT): Please check blood pressure daily and record DASH diet Limit caffeine Take medication as directed Contact office if chest pain, pressure, dizziness, shortness of breath, swelling legs Recommend slow position changes Current med: carvedilol , as well as HCTZ Assessment & Plan (07/14/2024 7:11 AM EST): Please check blood pressure daily and record DASH diet Limit caffeine Take medication as directed Contact office if chest pain, pressure, dizziness, shortness of breath, swelling legs Recommend slow position changes Current med: carvedilol , as well as HCTZ Assessment & Plan (06/29/2024 7:37 AM EST): Please check blood pressure daily and record DASH diet Limit caffeine Take medication as directed Contact office if chest pain, pressure, dizziness, shortness of breath, swelling legs Recommend slow position changes Current med: carvedilol , as well as HCTZ Assessment & Plan (01/15/2024 1:31 PM EDT): Stable on current meds/dose Assessment & Plan (10/07/2023 6:09 PM EDT): Stable at this time, no changes in her doses of medication Assessment & Plan (06/04/2023 4:56 PM EST): Stable at this time Herniation of cervical intervertebral disc with mwjrfwougqlkr90/16/2023 Resolved Problems ProblemNoted DateDiagnosed DateResolved DateSubacute njpeowwbinqi80/06/2025 10/13/2024 Assessment & Plan (07/14/2024 3:51 PM EST): Treated at last visit for sinus infection Sxs have resolved Ltsizwavcqsdqnfzlran32/15/202401/21/2025Urinary tract infection without nidspyqst28Dyslipidemia Assessment & Plan (12/10/2023 3:46 PM EDT): Reviewed labs, will leave statin at 40mg Recheck labs in 8 weeks again, if not better consider crestor Assessment & Plan (10/07/2023 6:10 PM EDT): Not at goal, will increase dose of simvastatin to 40mg daily Recheck labs in 8 weeks Qrlhyevfao84/12//4838Wzvvfzq01/12/202407/ Assessment & Plan (12/10/2023 3:45 PM EDT): Cont effexor no changes in dose at this time Assessment & Plan (11/07/2023 5:04 PM EDT): Would like to restart her effexor for her anxiety, she did well with it in the past, no side effects Will start with 37.5mg daily for 1 weeks then increase to 2 pills Take medication only as directed. This medication will take approximately 4-6 weeks to become effective. If any suicidal thoughts, thoughts of hurting others, or hallucinations contact the office or proceed to the Emergency Room for mental health evaluation. Medication may cause dry mouth, dizziness, and in some cases worsening in depression symptoms. Please contact the office if these occur. Fu in 4 weeks for recheck Allergic obqlwoqh53Tobacco kdrurvgsue54/12/202303/ Assessment & Plan (07/14/2024 7:12 AM EST): The patient has been advised of the risks of continued smoking: stroke, UT, all forms of cancer, lung disease, and . Options for quitting smoking include: cold turkey, hypnosis, acupuncture, nicotine replacement meds(gum, lozenges, and patches), Buproprion, and Varenicline. At this time pt is encouraged to evaluate their goals for wanting to quit smoking, and reach out toprovider when ready to start this process Assessment & Plan (06/29/2024 7:38 AM EST): The patient has been advised of the risks of continued smoking: stroke, UT, all forms of cancer, lung disease, and . Options for quitting smoking include: cold turkey, hypnosis, acupuncture, nicotine replacement meds(gum, lozenges, and patches), Buproprion, and Varenicline. At this time pt is encouraged to evaluate their goals for wanting to quit smoking, and reach out toprovider when ready to start this process Assessment & Plan (12/10/2023 3:01 PM EDT): The patient has been advised of the risks of continued smoking: stroke, UT, all forms of cancer, lung disease, and . Options for quitting smoking include: cold turkey, hypnosis, acupuncture, nicotine replacement meds(gum, lozenges, and patches), Buproprion, and Varenicline. At this time pt is encouraged to evaluate their goals for wanting to quit smoking, and reach out toprovider when ready to start this process Assessment & Plan (06/04/2023 4:55 PM EST): Will plan for smoking cessation when migraines are under control D/t her sensativity to many meds Encounters DateTypeDepartmentCare VvopXvhghjbijoi76/30/2025Refill [facility] [address] [place] [address] Ellen Dodson NP Wheezingfrom Last 3 Months Immunizations ImmunizationAdministration DatesNext DueInfluenza, injectable, MDCK, preservative free, ibljijtkkdpg96/21/2025 Family History Medical HistoryRelationNameCommentsNo Known ProblemsDaughterHeart diseaseFather HyperlipidemiaFatherHypertensionFatherHypertensionMotherNo Known ProblemsSon3 RelationNameStatusCommentsDaughterAliveFatherAliveMotherAliveSonAlive Social History Tobacco UseTypesPacks/DayYears UsedDateSmoking Tobacco: FormerCigarettesQuit: 2019 Tobacco Cessation:Counseling Given: Not Answered Alcohol UseStandard Drinks/WeekCommentsYes0 (1 standard drink = 0.6 oz pure alcohol)Alcohol: 1-2 drinks/monthly or lessHumiliation, Afraid, Rape, and Kick questionnaireAnswerDate RecordedWithin the last year, have you been afraid of your partner or ex-partner?No06/03/2023Within the last year, have you been humiliated or emotionally abused in other ways by your partner or ex-partner?No 06/03/2023Within the last year, have you been kicked, hit, slapped, or otherwise physically hurt by your partner or ex-partner?No06/03/2023Within the last year, have you been raped or forced to have any kind of sexual activity by your part ner or ex-partner?No06/03/2023Social Connection and Isolation PanelAnswerDate RecordedIn a typical week, how many times do you talk on the phone with family, friends, or neighbors?Twice a week06/03/2023How often do you get together with friends or relatives?Patient geoldfob89/11/2023How often do you attend taoism or tenriism services?Never06/03/2023o you belong to any clubs or organizations such as taoism groups, unions, [employer] or athletic groups, or school groups?No 06/03/2023How often do you attend meetings of the clubs or organizations you belong to?Patient dxzcpqeu98/11/2023re you , , , , never , or living with a partner?Living with oatxwii3506/03/2023 AUDIT-CAnswerDate RecordedQ1: How often do you have a drink containing alcohol? Never06/03/2023Q2: How many drinks containing alcohol do you have on a typical day when you are drinking?Patient does not drink06/03/2023Q3: How often do you have six or more drinks on one occasion?Never06/03/2023Overall Financial Resource Strain (CARDIA)AnswerDate RecordedHow hard is it for you to pay for the very basics like food, housing, medical care, and heating?Hard06/03/2023HQ-2 AnswerDate RecordedPatient Health Questionnaire-2 Ydlic116Finsevier valley hospital [place] of Occupational Health - Occupational Stress QuestionnaireAnswerDate RecordedDo you feel stress - tense, restless, nervous, or anxious, or unable to sleep at night because yourmind is troubled all the time - these days?Very much 06/03/2023Exercise Vital SignAnswerDate RecordedOn average, how many days per week do you engage in moderate to strenuous exercise (like a brisk walk)?0 days 06/03/2023On average, how many minutes do you engage in exercise at this level?0 min06/03/2023Hunger Vital SignAnswerDate RecordedWithin the past 12 months, you worried that your food would run out before you got the money to buymore. Sometimes true06/03/2023Within the past 12 months, the food you bought just didn't last and you didn't have money to get more.Sometimes true06/03/2023 PRAPARE - TransportationAnswerDate RecordedIn the past 12 months, has lack of transportation kept you from medical appointments or from getting medications?No 06/03/2023In the past 12 months, has lack of transportation kept you from meetings, work, or from getting things needed for daily living?No06/03/2023 Housing Stability Vital SignAnswerDate RecordedIn the last 12 months, was there a time when you were not able to pay the mortgage or rent on time?Yes06/03/2023 In the last 12 months, how many places have you lived?In the last 12 months, was there a time when you did not have a steady place to sleep or slept in [place] (including now)?No06/03/2023CommentsUnknownSex and Gender InformationValueDate RecordedSex Assigned at BirthNot on fileLegal SexFemale 09/05/2022 9:45 PM EDTGender IdentityNot on fileSexual OrientationNot on file Last Filed Vital Signs Vital SignReadingTime TakenCommentsBlood Jrgxdagn395/80002/01/2025 2:50 PM EDT Dylzz845002/01/2025 2:50 PM ACQQzhtpbvsswx41.7 ??C (98.1 ??F)02/01/2025 2:50 PM EDTRespiratory Zxte147102/01/2025 2:50 PM EDTOxygen Tjqasdeveu33%02/01/2025 2:50 PM EDTInhaled Oxygen Concentration--Kkubbf67 kg (169 lb 12.8 oz)02/01/2025 2:50 PM SZBUnrchp061.8 cm (5' 2.5 )06/29/2024 2:50 PM ESTBody Mass Index30.56 06/29/2024 2:50 PM EST Plan of Treatment Health MaintenanceDue DateLast DoneCommentsCT Loaaltmhgnon1976FIT-DNA 1976FIT1976FOBT1976 5602Okfrftlmklczn1976Pap Smear1997 HPV/Rcdjgu2906/23/2006COVID-19 Vaccine ( season)2025Influenza Vaccine (#1)501/7223Hwnhlrlhm62/04/369043/09/2024, 08/30/2022 Xsveqlqfunz41/28//olorectal Cancer Bjraopelp71/28/2034ervical Cancer ScreeningDiscontinuedPneumococcal Vaccine: Pediatrics (0 to 5 Years) and At-Risk Patients (6 to 64 Years)Aged OutNo longer eligible based on patient's age to complete this topic Procedures Procedure NamePriorityDate/TimeAssociated DiagnosisCommentsBI MAMMOGRAM SCREENING TOMOSYNTHESIS EWVJCOOMMOlonajt56/04/2025 11:45 AM EST Encounter for screening mammogram for malignant neoplasm of breast from Last 3 Months or Most Recently Relevant to Health Maintenance Results * Bilateral screening mammogram with tomosynthesis (07/28/2024 11:45 AM EST) Anatomical RegionLateralityModalityBreastBilateralMammographySpecimen (Source) Anatomical Location / LateralityCollection Method / VolumeCollection Time Received Time07/29/2024 10:52 AM EST Impressions 07/29/2024 11:10 AM EST Impression: No specific evidence of malignancy seen in either breast. BIRADS 2 - Benign Findings DENSITY: There are scattered areas of fibroglandular density. FOLLOW-UP: Routine Screening Mammogram ELECTRONICALLY SIGNED BY: Aron Mays M.D. Narrative 07/29/2024 11:10 AM EST Examination: BI MAMMOGRAM SCREENING TOMOSYNTHESIS BILATERAL Clinical History: breast cancer screening Technique: Screening digital mammography study of both breasts was performed with 2-D and 3-D tomosynthesis imaging. Study was compared to the prior exam dated 08/30/2022. Findings: There is no evidence of interval dominant spiculated mass, grouped microcalcifications, or skin thickening which would be suggestive of malignancy. ?? A few benign-appearing nodular densities bilaterally similar to the prior study. A single benign-appearing calcification on the left. Bilateral grossly unremarkable appearing lymph nodes. Procedure Note Aron Mays MD - 07/29/2024 Examination: BI MAMMOGRAM SCREENING TOMOSYNTHESIS BILATERAL Clinical History: breast cancer screening Technique: Screening digital mammography study of both breasts wasperformed with 2-D and 3-D tomosynthesis imaging. Study was compared tothe prior exam dated 08/30/2022. Findings: There is no evidence of interval dominant spiculated mass,grouped microcalcifications, or skin thickening which would be suggestiveof malignancy. A few benign-appearing nodular densities bilaterally similar to the priorstudy. A single benign-appearing calcification on the left. Bilateralgrossly unremarkable appearing lymph nodes. IMPRESSION: Impression: No specific evidence of malignancy seen in either breast. BIRADS 2 - Benign Findings DENSITY: There are scattered areas of fibroglandular density. FOLLOW-UP: Routine Screening Mammogram ELECTRONICALLY SIGNED BY: Aron Mays M.D. Authorizing ProviderResult TypeResult StatusLisa [facility] BI PROCEDURES Final Result from Last 3 Months or Most Recently Relevant to Health Maintenance Insurance Care Teams Team MemberRelationshipSpecialtyStart DateEnd Date Parth Galvez MD PCP - GeneralFamily Medicine12/18/22 Ellen Dodson NP [address] [place] [id number] [facility]06/24/24 Ellen Dodson NP Nurse PractitionerFaPiedmont Augusta Summerville Campus11/25/23
--- OUTSIDE RECORDS SUMMARY | 2025-05-12 15:58 | XMS_ITS | Clinical Summary ---
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 Name Role Phone Ellen Dodson APRN, NP Primary Care Provide r Allergies Active AllergyReactionsCriticalityNoted EalvXlfymyzfXnpnirdptindcQrxdo36/04/2017 Other reaction(s): Vomiting Hydrocodone-Qaxdxnmbisnvz23/04/2017 Other reaction(s): Unknown, Vomiting Sdeeayhezw50/24/2021 Other reaction(s): Unknown MeloxicamNausea And SnljcnonRgj65/04/2017PhenazopyridineNausea And VomitingLow 04/27/2017 Medications MedicationSigDispense QuantityRefillsLast FilledStart DateEnd DateStatus baclofen (LIORESAL) 20 MG tablet Take 1 tablet by mouth 3 times daily as neededActive BIOFLAVONOIDS PO Take by mouth dailyActive carvedilol (COREG) 6.25 MG tablet Take 1 tablet by mouth 2 times daily (with meals)Active hydroCHLOROthiazide (HYDRODIURIL) 12.5 MG tablet Take 1 tablet by mouth dailyActive Multiple Vitamin (MULTI-VITAMIN DAILY PO) Take by mouthActive brwycxe-yguzwscmqcwxm-grzgyqrg (EXCEDRIN MIGRAINE) 250-250-65 MG per tablet Take 1 tablet by mouth every 6 hours as neededActive Zolpidem Tartrate (AMBIEN PO) Take 10 mg by mouthActive simvastatin (ZOCOR) 20 MG tablet Take 1 tablet by mouth nightlyActive AIMOVIG 70 MG/ML SOAJ every 30 days01/28/2023ctive Casanthranol-Docusate Sodium (STOOL SOFTENER PLUS PO) Take by mouth daily as neededActive Polyethylene Glycol 3350 (MIRALAX PO) Take by mouth as neededActive cetirizine (ZYRTEC) 10 MG tablet Take 1 tablet by mouth dailyActive gabapentin (NEURONTIN) 300 MG capsule Take 1 capsule by mouth 2 times daily. Take one capsule every morning and two capsules at bedtimeActive Docusate Calcium (STOOL SOFTENER PO) Take by mouth dailyActive Active Problems ProblemNoted DateDiagnosed DateMixed gfnscvyyqzwe14/12/2023Herniation of cervical intervertebral disc with xokwwjaoxixhb52/16/2023 Family History Medical HistoryRelationNameCommentsHeart DiseaseFatherKidney DiseaseFatherKidney stonesFatherCancerMaternal GrandfatherBladder CancerCancerMaternal Great GrandmotherBladder CancerHeart DiseaseMotherRelationNameStatusCommentsFather AliveMaternal GrandfatherDeceasedMaternal Great GrandmotherDeceasedMotherAlive Social History Tobacco UseTypesPacks/DayYears UsedDateSmoking Tobacco: Every DayCigarettes Passive Smoke Exposure: NeverSmokeless Tobacco: Never Tobacco Cessation:Ready to Q uit: Not Asked CommentsUnknownSex and Gender InformationValueDate RecordedSex Assigned at BirthNot on fileLegal KnwFbvutw30/06/2023 3:35 PM EDTGender IdentityNot on fileSexual OrientationNot on file Last Filed Vital Signs Vital SignReadingTime TakenCommentsBlood Fodglnzb617/8210 2:53 PM EDT Slugz201304/01/2023 3:03 PM MDUTadslrkaqri54.6 ??C (97.8 ??F)04/08/2023 2:53 PM EDTRespiratory Gilq652501/02/2023 10:42 AM EDTOxygen Saturation--Inhaled Oxygen Concentration--Iydkei90.2 kg (190 lb)04/08/2023 2:53 PM DQZHcpbjq838.5 cm (5' 2 )04/08/2023 2:53 PM EDTBody Mass Index34.7504/08/2023 2:53 PM EDT Plan of Treatment Health MaintenanceDue DateLast YttbUjukeozcPmaksj41/31/1986Depression Screen 1988HIV rfkihg0306/23/1991Hepatitis C kjfnmh8706/23/1994DTaP/Tdap/Td vaccine (1 - Tdap)1995Hepatitis B vaccine (1 of 3 - 19+ 3-dose series)1995 Pneumococcal 0-49 years Vaccine (1 of 2 - PCV)1995Breast cancer screen 06/23/20169482Dbskpkydlyu51/31/2021olorectal Cancer Hikzqq2606/23/2021FIT/FOBT: Average risk2021Fecal-DNA (Cologuard): Average risk2021 Sigmoidoscopy/CT wepxjmnatrlg86/31/2021Flu vaccine (#1)01/22/2025OVID-19 Vaccine ( season)2025Hepatitis A vaccineAged OutNo longer eligible based on patient's age to complete this topicHib vaccineAged OutNo longer eligible based on patient's age to complete this topicMeningococcal (ACWY) vaccineAged OutNo longer eligible based on patient's age to complete this topicMeningococcal B vaccineAged OutNo longer eligible based on patient's age to complete this topicPolio vaccineAged OutNo longer eligible based on patient's age to complete this topic Insurance Care Teams Team MemberRelationshipSpecialtyStart DateEnd Date Ellen Dodson APRN - [facility] [address] [facility] [place] [address] PCP - GeneralNurse Practitioner7/12/23
[2025-05-12 16:27] LABS: Glucose Urine UA NEGATIVE (NEGATIVE)
--- NOTE | 2025-05-12 16:27 | US_ITS ---
[address] [address] Patient Name: PRASHANT MULLINS MRN: [id number] date: 1975 Sex: F Assigned Patient Location: ER Current Patient Location: ER Accession/Order Number: [id number] Exam Date: 05/12/2025 16:39 Report Date: 05/12/2025 17:29 At the request of: YULIA OSBORN Procedure: US right upper quadrant Right upper quadrant ultrasound HISTORY: Right upper quadrant pain for one day. Vomiting. Hepatic steatosis. No hepatomegaly. No hepatic mass. I normal blood flow of portal vein. No gallstone. No gallbladder wall thickening. Normal caliber of the common bile duct. Visualized pancreas unremarkable. No right hydronephrosis. US/US right upper quadrant IMPRESSION: Hepatic steatosis. No biliary duct dilatation. Unremarkable gallbladder. Impression dictated by: Koby Tucker M.D. 05/12/2025 5:29 PM Dictation Location: [place] [address] Electronically authenticated by: [id number] Y Date: 05/12/2025 17:29
[2025-05-12] MEDS: HYDROMORPHONE HCL 1 MG/ML CARTRIDGE IV (17:24)
[2025-05-12] MEDS: DICYCLOMINE HCL 10 MG CAPSULE 20 MG PO (20:41)
== END 2025-05-12 20:40 | disposition home or self-care (01) ==
PROVIDERS: Physician Assistant; Emergency Provider Emergency Medicine; PCP Nurse Practitioner
DX: R07.9 Chest pain, unspecified (principal); R10.9 Unspecified abdominal pain; Z87.440 Personal history of urinary (tract) infections; F17.210 Nicotine dependence, cigarettes, uncomplicated; Z90.710 Acquired absence of both cervix and uterus; Z90.79 Acquired absence of other genital organ(s); Z90.721 Acquired absence of ovaries, unilateral
CPT/HCPCS: 36415; 71045; 74177; 76705; 80053; 81003; 82150; 83690; 84484; 85025; 85378; 93005; 96374; 96375; 96376; 99285; J1171; J2405; Q9967